=== PATIENT | male | born 1955 | race Caucasian/White ===

== ENCOUNTER → 2016-07-11 | Day surgery (SDC) | payer MEDICARE, BC ==
--- NOTE | 2016-07-09 13:40 | MH ---
cc: SEJAL RODRIGUEZ D.O. DATE OF ADMISSION: 07/11/2016 INDICATIONS This is a 60-year-old male with a previous history of head neck cancer. Josué had partial resection surgery and radiation therapy. He has had problems with [facility]. We have been doing a series of esophageal dilations which have helped him; however, he got to the point of difficulty with eating, aspiration, he lost weight then had to have a PEG tube. He has now been doing treatment with the speech therapy with [facility] and is much improved. He has put back weight and he is going to the operating room with repeat dilation to see if we can help him further with his swallowing. PAST MEDICAL HISTORY Significant for head and neck cancer. ALLERGIES IV DYE. PHYSICAL EXAMINATION GENERAL: A well-developed, well-nourished male in no current distress. HEAD, EYES, EARS, NOSE, AND THROAT: Normocephalic, atraumatic. Extraocular motions intact. External auditory canals clear. Lips, oral mucosa and pharynx show no lesion. No palpable mass. NECK: He is post neck dissection, post radiation therapy. CHEST: Clear to auscultation. HEART: Regular rate. ABDOMEN: Soft. EXTREMITIES: No lesion. NEUROLOGIC: Exam nonfocal. ASSESSMENT A 60-year-old male with dysphagia. He is to undergo esophageal dilation, soft rubber dilators, multiple passes. The risks and benefits were discussed with the patient. The risks include but are not limited to those of anesthesia, bleeding, unfavorable scarring, hematoma, abscess, infection, bleeding, perforation, airway obstruction. The patient states he understands and accepts the risks with this procedure. MD AURA Corrigan/RENEE /1:11 PM /1:32 PM
[~2016-07-11] VITALS: Ht 177.8 cm; Wt 76.5 kg
[~2016-07-11] MED LIST: *morphine SULFATE 8 MG/ML PERIprocedure ONLY ONE; ACETAMINOPHEN/HYDROcodone 325 MG/10 MG TAB PO PRN; AMBI10TA PO; CITA40TA4 PO; CITALOPRAM HYDROBROMIDE 40 MG TAB PO SCH; DO NOT ADM ANY ANTICOAGULANT DRUGS XX PRN; INSULIN HUMAN REGULAR 1,000 UNITS/10 ML VIAL SQ PRN; LACTATED RINGER'S 1000 ML IV SCH; LORA2TAB7 PO; LORazepam 2 MG TAB PO PRN; METOPROLOL TARTRATE 25 MG TAB PO PRN; MIDAZOLAM HCL 2 MG/2 ML VIAL ONE; MORPHINE SULFATE 4 MG/ML INJ IV PRN; ONDANSETRON HCL 4 MG/2 ML VIAL IV PRN; ONDANSETRON HCL 4 MG/2 ML VIAL IV PUSH ONE; PROPOFOL 200 MG/20 ML AMP IV ONE; SODIUM CHLORID 0.9% 500 ML IV SCH; ZOLPIDEM TARTRATE 10 MG TAB PO PRN
[2016-07-11 06:30] VITALS: BP 103/69; PULSE 62; RESP 20; TEMP 98.1; O2SAT 97
[2016-07-11 07:20] LABS: BASOPHIL % 0.6 % (0.0-2.0); EOSINOPHIL # 0.2 TH/MM3 (0-0.4); EOSINOPHIL % 3.2 % (0.0-4.0); HEMATOCRIT 36.6 % (39.0-51.0); HEMO FLAGS DIFF FINAL; LYMPH % 12.4 % (9.0-44.0); MEAN CELL VOLUME 83.3 FL (80.0-100.0); MEAN CORPUSCULAR HEMOGLOBIN 28.8 PG (27.0-34.0); MEAN CORPUSCULAR HGB CONC 34.6 % (32.0-36.0); MONO % 6.8 % (0.0-8.0); PLATELET COUNT 227 TH/MM3 (150-450); RED BLOOD COUNT 4.39 MIL/MM3 (4.50-5.90); RED CELL DISTRIBUTION WIDTH 13.5 % (11.6-17.2); WHITE BLOOD COUNT 7.9 TH/MM3 (4.0-11.0)
--- NOTE | 2016-07-11 08:59 | MP ---
cc: RADHA CHEEK M.D. DATE OF SURGERY: 07/11/2016 INDICATIONS This is a 61-year-old male with a history of head and neck cancer and previous radiation therapy. He has had problems with dysphagia. He is to undergo esophageal dilation with multiple passes of soft rubber dilators. PREOPERATIVE DIAGNOSIS Dysphagia. POSTOPERATIVE DIAGNOSIS Dysphagia. PROCEDURE Esophageal dilation with multiple passes of soft rubber dilators. SUMMARY The patient was brought to the operating room and placed in supine position, successfully placed under general anesthesia and prepared in the usual fashion for this procedure. The head and neck was palpated. There was no mass. The dilators were used from 46-52 Arabic with several passes. He was easily dilated. There was some mild resistance as expected. No heavy resistance and no evidence of significant bleeding. The patient tolerated the procedure well. He was awakened and taken to Recovery in stable condition. MD AURA Corrigan/HADLEY /8:38 AM /8:52 AM
[2016-07-11 09:30] VITALS: BP 134/7; PULSE 67; RESP 16; TEMP 97.6; O2SAT 96
== END | disposition home or self-care (01) ==
LOC: HSDC 05:59
PROVIDERS: ATTEND Specialist
DX: R13.13 Dysphagia, pharyngeal phase (principal); K22.2 Esophageal obstruction; C76.0 Malignant neoplasm of head, face and neck; R63.4 Abnormal weight loss; Z92.3 Personal history of irradiation
CPT/HCPCS: 00740; 43450; 85025; J2250; J2270; J2405; J3010

== ENCOUNTER → 2016-11-21 | Day surgery (SDC) | payer MEDICARE, BC ==
--- NOTE | 2016-11-20 08:17 | MH ---
cc: RADHA CHEEK DATE OF ADMISSION 11/21/2016 INDICATIONS This is a 61-year-old male with a history of head and neck cancer. He is status post radiation therapy. He has had problems with dysphagia and has required significant speech therapy help and dilation and has maintained his diet. He does have a history of aspiration pneumonia, but improved. He had required a PEG, but was able to have this removed. He has had some recent complaints of sore throat thought to be consistent with thrush. He was treated with meds and is feeling improved. He had a PET scan that did not show any significant tumor mass. It did show some activity, but it was consistent with inflammation and he is being brought into the operating room for esophageal dilation and evaluation under anesthesia. PAST MEDICAL HISTORY Significant for head and neck cancer. PHYSICAL EXAMINATION A well-developed thin male in no apparent distress. HEAD, EYES, EARS, NOSE, AND THROAT: Normocephalic, atraumatic. Extraocular motions intact. External ear canals clear. Lips, oral mucosa and oropharynx show no lesion. NECK: Shows post radiation changes. CHEST: Clear to auscultation. HEART: Regular rate. ABDOMEN: Soft. EXTREMITIES: No lesion. NEUROLOGIC: Exam is nonfocal. ASSESSMENT A 61-year-old male with dysphagia, postradiation to undergo esophageal dilation, and exam under anesthesia. The risks and benefits discussed with the patient. The risks include, but are not limited to those of anesthesia, bleeding, unfavorable scarring, hematoma, abscess, infection, airway obstruction, bleeding, dysphagia, unfavorable scarring, the patient states he they understands and accepts the risks of the procedure. MD AURA Corrigan/SERINA /7:41 AM /8:10 AM
[~2016-11-21] VITALS: Ht 177.8 cm; Wt 73.8 kg
[~2016-11-21] MED LIST changes: +ACETAMINOPHEN 1000 MG/100 ML VIAL IV ONE; +CHLORHEXIDINE GLUCONATE 2 % 1 PACK (2 CLOTHS) TOPICAL PRN; -CITALOPRAM HYDROBROMIDE 40 MG TAB PO SCH; +DO NOT ADM ANY ANTICOAGULANT DRUGS PRN; -DO NOT ADM ANY ANTICOAGULANT DRUGS XX PRN; +LACTATED RINGER'S 1000 ML IV PRN; -LACTATED RINGER'S 1000 ML IV SCH; -LORazepam 2 MG TAB PO PRN; -MIDAZOLAM HCL 2 MG/2 ML VIAL ONE; -ONDANSETRON HCL 4 MG/2 ML VIAL IV PRN; -ONDANSETRON HCL 4 MG/2 ML VIAL IV PUSH ONE; +ONDANSETRON HCL 4 MG/2 ML VIAL IV PUSH PRN; +POVIDONE IODINE 5% (ANTISEPSIS KIT) 4 APPLICATIONS EACH NARE PRN; +SODIUM CHLORID 0.9% 500 ML IV PRN; -SODIUM CHLORID 0.9% 500 ML IV SCH; -ZOLPIDEM TARTRATE 10 MG TAB PO PRN
[2016-11-21 08:56] VITALS: BP 116/75; PULSE 85; RESP 22; TEMP 99.1; O2SAT 94
[2016-11-21 09:07] LABS: BASOPHIL # 0.3 TH/MM3 (0-0.2); BASOPHIL % 1.3 % (0.0-2.0); EOSINOPHIL # 0.2 TH/MM3 (0-0.4); EOSINOPHIL % 1.1 % (0.0-4.0); HEMATOCRIT 35.1 % (39.0-51.0); LYMPH % 3.4 % (9.0-44.0); LYMPHOCYTE # 0.7 TH/MM3 (1.0-4.8); MEAN CELL VOLUME 82.2 FL (80.0-100.0); MEAN CORPUSCULAR HGB CONC 34.1 % (32.0-36.0); MONO % 2.8 % (0.0-8.0); NEUT % 91.4 % (16.0-70.0); PLATELET COUNT 422 TH/MM3 (150-450); RED BLOOD COUNT 4.27 MIL/MM3 (4.50-5.90); RED CELL DISTRIBUTION WIDTH 14.7 % (11.6-17.2); WHITE BLOOD COUNT 19.7 TH/MM3 (4.0-11.0)
[2016-11-21 09:10] LABS: HEMO FLAGS AUTO DIFF
[2016-11-21 09:43] LABS: BANDS 14 % (0-6); BASOPHILS 1 % (0-2); NEUTROPHIL # MANUAL DIFF 17.5 TH/MM3 (1.8-7.7); POLYS (SEG NEUTROPHILS) 75 % (16-70); WBC DIFF SAMPLE 100
[2016-11-21 09:44] LABS: OVALOCYTES 1+ (NORMAL); PLATELET ESTIMATE SMEAR NORMAL (NORMAL); PLATELET MORPHOLOGY NORMAL (NORMAL)
--- NOTE | 2016-11-21 09:44 | MP ---
cc: RADHA CHEEK Corrected: 11/30/2016 DATE OF PROCEDURE 11/21/2016 DATE OF 1955 INDICATIONS This is a 61-year-old male with a history of head and neck cancer who has had surgery and radiation therapy in the past. Josué has problems with dysphagia and would benefit from esophageal dilation. He is brought to the operating room for one of a serial esophageal dilations. PREOPERATIVE DIAGNOSIS Dysphagia POSTOPERATIVE DIAGNOSIS Dysphagia PROCEDURE Esophageal dilation SUMMARY The patient was brought to the operating room, placed in the supine position, successfully placed under anesthesia and prepared in the usual fashion for this procedure. The soft tissues of the oral cavity were palpated. There was no mass and in series using rubber dilators, he was dilated from 40-Urdu up to 50-Urdu. He tolerated the procedure well. He remained stable and he was awakened and taken to recovery in stable condition. MD AURA Corrigan/SERINA /9:32 AM /8:02 AM MTDMargarette
[2016-11-21 09:45] LABS: SCAN/DIFF FINAL DIFF MANUAL
[2016-11-21 13:10] VITALS: BP 114/70; PULSE 67; RESP 18; TEMP 98.2; O2SAT 93
--- NOTE | 2016-11-21 14:48 | EKG ---
Date Performed: 11/21/2016 Time Performed: 08:53:34 PTAGE: 61 years EKG: Sinus rhythm NORMAL ECG PREVIOUS TRACING : 11/08/2015 10.12 Compared to prior tracing no significant change DOCTOR: Kevyn Anthony Interpretating Date/Time 11/21/2016 14:46:28
== END | disposition home or self-care (01) ==
LOC: HSDC 08:00
PROVIDERS: ATTEND Specialist
DX: R13.10 Dysphagia, unspecified (principal); Z91.041 Radiographic dye allergy status; Z92.21 Personal history of antineoplastic chemotherapy; Z92.3 Personal history of irradiation; Y84.2 Radiological procedure and radiotherapy as the cause of abnormal reaction of the patient, or of later complication, without mention of misadventure at the time of the procedure; Z85.89 Personal history of malignant neoplasm of other organs and systems; Z01.810 Encounter for preprocedural cardiovascular examination
CPT/HCPCS: 00740; 43450; 85007; 85027; 93005; J0131; J2270

== ENCOUNTER → 2017-01-16 | Day surgery (SDC) | payer MEDICARE, BC ==
--- NOTE | 2017-01-15 12:52 | MH ---
cc: RADHA CHEEK M.D. DATE OF ADMISSION: 01/16/2017 DATE OF : 1955 CHIEF COMPLAINT Dysphagia. HISTORY OF PRESENT ILLNESS: This is a 61 year old male with previous history of head and neck cancer. He has had radiation therapy, previous surgeries, also has problems with dysphagia and has had multiple esophageal dilations over this time. He has had some problems with soreness and had worked with speech pathology. He has put on weight, he is having some problems with tightness, he had a CT PET scan that was done in November of this year which did not show a lesion, he was brought back for another esophageal dilatation. PAST MEDICAL HISTORY: Significant for head/neck cancer. CURRENT MEDICATIONS: None. ALLERGIES IV CONTRAST. PHYSICAL EXAMINATION: IN GENERAL: Well-developed, well-nourished male in no apparent distress. HEAD, EYES, EARS, NOSE, AND THROAT: Normocephalic, atraumatic, extraocular muscles intact. External ear canal is clear. Lips, oral mucosa and oropharynx showed a lesion. NECK: The neck shows post radiation changes, no mass. CHEST: The chest is clear to auscultation. HEART: Regular rate. ABDOMEN: The abdomen is soft. EXTREMITIES: No lesions. NEUROLOGIC: Examination is nonfocal. ASSESSMENT/PLAN: This is a 61 year-old male with dysphagia. History of laryngeal cancer he is to undergo esophageal dilatation. The risks and benefits were discussed with the patient. The risks include but are not limited to those of anesthesia, bleeding, unfavorable scarring, hematoma abscess, infection, perforation, bleeding, airway obstruction. The patient states that he understands and accepts the procedure. MD AURA Corrigan/kenneth /12:40 PM /12:43 PM
[~2017-01-16] VITALS: Ht 177.8 cm; Wt 70.4 kg
[~2017-01-16] MED LIST changes: -ACETAMINOPHEN 1000 MG/100 ML VIAL IV ONE; +HYDROmorphone HCL PF 1 MG/ML VIAL ONE; +MIDAZOLAM HCL 2 MG/2 ML VIAL ONE; -MORPHINE SULFATE 4 MG/ML INJ IV PRN; +MORPHINE SULFATE 4 MG/ML INJ IV PUSH PRN; +ONDANSETRON HCL 4 MG/2 ML VIAL IV PUSH ONE; -POVIDONE IODINE 5% (ANTISEPSIS KIT) 4 APPLICATIONS EACH NARE PRN
[2017-01-16 08:08] VITALS: BP 96/62; PULSE 67; RESP 16; TEMP 97.6; O2SAT 98
[2017-01-16 08:47] LABS: AUTOMATED NEUTROPHIL # 3.2 TH/MM3 (1.8-7.7); BASOPHIL % 0.7 % (0.0-2.0); EOSINOPHIL # 0.1 TH/MM3 (0-0.4); EOSINOPHIL % 2.4 % (0.0-4.0); HEMATOCRIT 37.7 % (39.0-51.0); HEMO FLAGS DIFF FINAL; LYMPH % 21.5 % (9.0-44.0); MEAN CELL VOLUME 84.2 FL (80.0-100.0); MEAN CORPUSCULAR HEMOGLOBIN 28.3 PG (27.0-34.0); MEAN CORPUSCULAR HGB CONC 33.6 % (32.0-36.0); MONO % 7.2 % (0.0-8.0); NEUT % 68.2 % (16.0-70.0); PLATELET COUNT 204 TH/MM3 (150-450); RED BLOOD COUNT 4.48 MIL/MM3 (4.50-5.90); RED CELL DISTRIBUTION WIDTH 13.6 % (11.6-17.2); WHITE BLOOD COUNT 4.7 TH/MM3 (4.0-11.0)
--- NOTE | 2017-01-16 09:12 | MP ---
cc: RADHA CHEEK DATE OF SURGERY 01/16/2017 INDICATIONS This is a 61-year-old male with history of dysphagia. Josué has had head and neck cancer with radiation treatment. He has had problems with swallowing. He has required multiple dilations over time and also required speech therapy. In the last few months, he has continued to have problems. He had more pain. We obtained a PET scan which did not show any bony involvement, did not show recurrent tumor, had some more mild inflammatory changes. He has follow up pending at the [facility] for evaluation of his continued symptoms, but meanwhile, we are repeating esophageal dilation to help him with his swallowing. PREOPERATIVE DIAGNOSIS Dysphagia POSTOPERATIVE DIAGNOSIS Dysphagia PROCEDURE Esophageal dilation SUMMARY The patient brought to the operating room, placed in the supine position, successfully placed under general anesthesia deep sedation and prepared in the usual fashion for this procedure. The oral cavity areas were palpated. There was no palpable lesion. Then with soft rubber dilators, he underwent multiple passes which were atraumatic. He tolerated this well. He was then awakened and taken to recovery in stable condition. MD AURA Corrigan/SERINA /8:57 AM /12:05 PM
[2017-01-16 10:52] VITALS: BP 112/68; PULSE 63; RESP 14; TEMP 97.7; O2SAT 98
== END | disposition home or self-care (01) ==
LOC: HSDC 07:29
PROVIDERS: ATTEND Specialist
DX: R13.10 Dysphagia, unspecified (principal); Z85.21 Personal history of malignant neoplasm of larynx; Z01.818 Encounter for other preprocedural examination
CPT/HCPCS: 00740; 43450; 85025; J1170; J2250; J2270; J2405; J3010; J7120

== ENCOUNTER → 2017-03-20 | Day surgery (SDC) | payer MEDICARE, BC ==
--- NOTE | 2017-03-18 13:25 | MH ---
cc: RADHA CHEEK M.D. Corrected: 03/25/17 DATE OF ADMISSION: 03/20/17 INDICATIONS This is a 61-year-old male with history of head and neck cancer. He had undergone radiation therapy and surgery approximately 15 years ago. He also had problems with dysphagia and this required multiple rounds of dilation. He has had more problems with pain in the last year and there is concern that he may have had recurrent disease. He had a negative PET scan in November of this year. I have not seen evidence of a lesion. However, I did send him for a second opinion at the [facility] and there he was found to have only a slight vocal cord paresis . 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 He has required therapy to include opioid but currently he has a referral to pain management and we are bringing him back for esophageal dilation and multiple passes with soft rubber dilators. PAST MEDICAL HISTORY Past medical history as above, head and neck cancer, radiation fibrosis. PHYSICAL EXAMINATION GENERAL: Well-developed, well-nourished male, in no apparent distress. HEENT: Normocephalic, atraumatic. Extraocular motions intact. External ear canals clear. Lips, oral mucosa and oropharynx show no lesion or postradiation changes. NECK: The neck shows no palpable masses. CHEST: Clear to auscultation. HEART: Regular rate. ABDOMEN: Soft. EXTREMITIES: No lesion. NEUROLOGIC: Exam nonfocal. 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 The risks and benefits were discussed with the patient. The risks include but not limited to those of anesthesia, bleeding, unfavorable scarring, velopharyngeal insufficiency, dehydration, depression, abscess, voice change, bleeding, perforation, infection. The patient states he understands and accepts the risks of procedure. MD AURA Corrigan/HASEEB /1:00 PM /1:10 PM JOSEPH
[~2017-03-20] VITALS: Ht 177.8 cm; Wt 70.8 kg
[~2017-03-20] MED LIST changes: -*morphine SULFATE 8 MG/ML PERIprocedure ONLY ONE; +DEXAMETHASONE SOD PHOS 4 MG/ML VIAL ONE; -HYDROmorphone HCL PF 1 MG/ML VIAL ONE; +LIDOCAINE HCL 1% PF 5 ML AMPULE OTHER ONE; +MORPHINE SULFATE 4 MG/ML INJ IV PRN; -MORPHINE SULFATE 4 MG/ML INJ IV PUSH PRN; -ONDANSETRON HCL 4 MG/2 ML VIAL IV PUSH ONE
[2017-03-20 08:44] LABS: AUTOMATED NEUTROPHIL # 5.3 TH/MM3 (1.8-7.7); BASOPHIL # 0.1 TH/MM3 (0-0.2); BASOPHIL % 0.9 % (0.0-2.0); EOSINOPHIL # 0.4 TH/MM3 (0-0.4); EOSINOPHIL % 5.1 % (0.0-4.0); HEMATOCRIT 33.5 % (39.0-51.0); HEMO FLAGS DIFF FINAL; LYMPH % 16.1 % (9.0-44.0); LYMPHOCYTE # 1.2 TH/MM3 (1.0-4.8); MEAN CELL VOLUME 82.6 FL (80.0-100.0); MEAN CORPUSCULAR HEMOGLOBIN 28.1 PG (27.0-34.0); MONO % 5.7 % (0.0-8.0); NEUT % 72.2 % (16.0-70.0); PLATELET COUNT 258 TH/MM3 (150-450); RED BLOOD COUNT 4.06 MIL/MM3 (4.50-5.90); RED CELL DISTRIBUTION WIDTH 14.1 % (11.6-17.2); WHITE BLOOD COUNT 7.4 TH/MM3 (4.0-11.0)
--- NOTE | 2017-03-20 09:52 | MP ---
cc: RADHA CHEEK M.D. Corrected: 03/25/17 DATE OF SURGERY: 03/20/2017 INDICATION A 61-year-old male with a history of dysphagia. Josué was treated with radiation and surgery for head and neck cancer over 15 years ago. 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 He has responded to esophageal dilation with soft rubber dilators. He is brought to the operating room for esophageal dilation, multiple passes of soft rubber dilators. PREOPERATIVE DIAGNOSIS Dysphagia. POSTOPERATIVE DIAGNOSIS Dysphagia. PROCEDURE Esophageal dilation with multiple passes of soft rubber dilators. SUMMARY The patient was brought into the operating room and placed in supine position, prepped and draped in the usual fashion for this procedure under anesthesia. With soft rubber dilators, 44 to 50 Fr., he underwent dilation of the esophagus. He tolerated this well. No significant bleeding. No evidence of perforation. He was awakened and taken to Recovery in stable condition. MD AURA Corrigan/HADLEY /9:35 AM /9:39 AM MTDD
[2017-03-20 11:08] VITALS: BP 142/74; PULSE 62; RESP 18; TEMP 97.8; O2SAT 96
== END | disposition home or self-care (01) ==
LOC: HSDC 07:37
PROVIDERS: ATTEND Specialist
DX: R13.10 Dysphagia, unspecified (principal); Z85.89 Personal history of malignant neoplasm of other organs and systems; Z92.3 Personal history of irradiation; K22.8 Other specified diseases of esophagus
CPT/HCPCS: 00740; 43450; 85025; J1100; J2250

== ENCOUNTER → 2017-05-01 | Day surgery (SDC) | payer MEDICARE, BC ==
--- NOTE | 2017-04-29 14:15 | MH ---
cc: RADHA CHEEK M.D. DATE OF ADMISSION: 05/01/2017 1955 CHIEF COMPLAINT Dysphagia. HISTORY OF PRESENT ILLNESS Josué is a 61-year-old male with history of head and neck cancer, in 2007, he had tongue cancer and underwent radiation therapy. He has had problems with dysphagia since that time. He had problems where he required significant pain control. He has seen pain management, he has had opinions at the [facility] and was felt that he has no evidence of recurrence. He also shows no evidence of osteomyelitis. He has had multiple esophageal dilations and these are helping him. Plan is to proceed with esophageal dilation. PAST MEDICAL HISTORY Head and neck cancer, previous knee surgery. MEDICATIONS 1. Lorazepam. 2. Zolpidem. 3. Hydrocodone. 4. Citalopram. ALLERGIES IVP DYE. PHYSICAL EXAMINATION GENERAL: This is a well-developed thin male, in no apparent distress. HEENT: Normocephalic, atraumatic. Extraocular motions intact. External ear canals are clear. Lips, oral mucosa and oropharynx show no lesion. NECK: Shows no masses. CHEST: Clear to auscultation. HEART: Regular rate. ABDOMEN: Soft. EXTREMITIES: No lesion. NEUROLOGIC: Nonfocal. ASSESSMENT This is a 61-year-old male with dysphagia, history of head and neck cancer. He is to undergo esophageal dilation, soft rubber dilators, multiple passes. The risks and benefits were discussed with the patient. The risks include but not limited to those of anesthesia, bleeding, unfavorable scarring, hematoma, abscess, infection, airway obstruction, bleeding, dysphagia. The patient states he understands and accepts the risks of the procedure. MD AURA Corrigan/HASEEB /1:52 PM /2:01 PM
[~2017-05-01] VITALS: Ht 177.8 cm; Wt 73.4 kg
[~2017-05-01] MED LIST changes: -DEXAMETHASONE SOD PHOS 4 MG/ML VIAL ONE; -DO NOT ADM ANY ANTICOAGULANT DRUGS PRN; -INSULIN HUMAN REGULAR 1,000 UNITS/10 ML VIAL SQ PRN; +MIDAZOLAM HCL 2 MG/2 ML VIAL IV ONE; -MIDAZOLAM HCL 2 MG/2 ML VIAL ONE; +POVIDONE IODINE 5% (ANTISEPSIS KIT) 4 APPLICATIONS EACH NARE PRN
[2017-05-01 07:17] LABS: AUTOMATED NEUTROPHIL # 9.3 TH/MM3 (1.8-7.7); BASOPHIL # 0.1 TH/MM3 (0-0.2); BASOPHIL % 0.6 % (0.0-2.0); EOSINOPHIL # 0.1 TH/MM3 (0-0.4); EOSINOPHIL % 0.6 % (0.0-4.0); HEMATOCRIT 29.8 % (39.0-51.0); HEMO FLAGS DIFF FINAL; LYMPH % 9.2 % (9.0-44.0); MEAN CELL VOLUME 85.2 FL (80.0-100.0); MEAN CORPUSCULAR HEMOGLOBIN 27.3 PG (27.0-34.0); MONO % 5.6 % (0.0-8.0); PLATELET COUNT 240 TH/MM3 (150-450); RED BLOOD COUNT 3.49 MIL/MM3 (4.50-5.90); RED CELL DISTRIBUTION WIDTH 14.3 % (11.6-17.2)
--- NOTE | 2017-05-01 09:55 | MP ---
cc: RADHA CHEEK DATE OF SURGERY: 05/01/2017 1955 INDICATIONS 61-year-old male with history of dysphagia. Josué has had history of head and neck cancer and radiation. He has had problems with dysphagia and requires esophageal dilations. We have done multiple dilations which have helped and he is brought to the operating room with plans for esophageal dilation, multiple passes, soft rubber dilators. PREOPERATIVE DIAGNOSIS Dysphagia. POSTOPERATIVE DIAGNOSIS Dysphagia. PROCEDURE Esophageal dilation, multiple passes, soft rubber dilators. SUMMARY The patient was brought to the operating room and placed in supine position, successfully placed under general anesthesia and prepared in the usual fashion for this procedure. The oral cavity was exposed with digital retraction, multiple passes were completed from 44-48 Croatian. There was no bleeding. The patient tolerated the procedure well and dilators aided in opening the upper esophageal and cricopharyngeal areas. He was awakened and taken to recovery in stable condition. MD AURA Corrigan/HASEEB /9:44 AM /9:48 AM
[2017-05-01 10:23] VITALS: BP 144/76; PULSE 72; RESP 20; TEMP 98.1; O2SAT 95
== END | disposition home or self-care (01) ==
LOC: HSDC 05:35
PROVIDERS: ATTEND Specialist
DX: R13.10 Dysphagia, unspecified (principal); Z85.810 Personal history of malignant neoplasm of tongue; Z85.89 Personal history of malignant neoplasm of other organs and systems; Z92.3 Personal history of irradiation
CPT/HCPCS: 00740; 43450; 85025; J2250; J7120

== ENCOUNTER 2017-06-13 11:01 | Emergency (ER) | payer MEDICARE, BC ==
[~2017-06-13 11:01] MED LIST changes: -ACETAMINOPHEN/HYDROcodone 325 MG/10 MG TAB PO PRN; -CHLORHEXIDINE GLUCONATE 2 % 1 PACK (2 CLOTHS) TOPICAL PRN; -LACTATED RINGER'S 1000 ML IV PRN; -LIDOCAINE HCL 1% PF 5 ML AMPULE OTHER ONE; -METOPROLOL TARTRATE 25 MG TAB PO PRN; -MIDAZOLAM HCL 2 MG/2 ML VIAL IV ONE; -MORPHINE SULFATE 4 MG/ML INJ IV PRN; -ONDANSETRON HCL 4 MG/2 ML VIAL IV PUSH PRN; -POVIDONE IODINE 5% (ANTISEPSIS KIT) 4 APPLICATIONS EACH NARE PRN; -PROPOFOL 200 MG/20 ML AMP IV ONE; -SODIUM CHLORID 0.9% 500 ML IV PRN
[2017-06-13 11:03] VITALS: BP 101/52; PULSE 92; RESP 14; TEMP 97.7; O2SAT 93
--- NOTE | 2017-06-13 14:25 | PD ---
HPI Chief Complaint: Medication Refill Request Time Seen by Provider: 11:35 Travel History International Travel<30 days: No Contact w/Intl Traveler<30days: No Traveled to known affect area: No History of Present Illness HPI 61-year-old male patient presents emergency department to request a prescription for Percocet to help manage his throat pain. Patient has throat cancer and states he has a prescription for Percocet but somebody stole it. Patient states Dr Awilda romo is oncologist who prescribes the Percocet. Patient denies any other physiological complaints at this time. Patient states he always has throat pain for years now. Patient able to speak without strain or appearing uncomfortable. Patient denies any change in nature of throat pain. History Past Medical Histgory Hx Cancer: Yes (THROAT AND NECK) Hx Chemotherapy: Yes (CHEMO / RADIATION 10 YEARS AGO) Hx Radiation Therapy: Yes Social History Alcohol Use: No Tobacco Use: No Allergies-Medications (Allergen,Severity, Reaction): Coded Allergies: diatrizoate meglumine (Unverified Allergy, Severe, HIVES, DIZZINESS, 06/13) gadobenic acid (Unverified Allergy, Severe, HIVES, DIZZINESS, 06/13/17) gadodiamide (Unverified Allergy, Severe, HIVES, DIZZINESS, 06/13/17) gadoteridol (Unverified Allergy, Severe, HIVES, DIZZINESS, 06/13/17) iodixanol (Unverified Allergy, Severe, HIVES, DIZZINESS, 06/13/17) iohexol (Unverified Allergy, Severe, HIVES, DIZZINESS, 06/13/17) Reported Meds & Prescriptions Reported Meds & Active Scripts Active Reported Citalopram (Citalopram Hydrobromide) 40 Mg Tab 40 Mg PO HS Lorazepam 2 Mg Tab 2 Mg PO Q6H PRN Ambien (Zolpidem Tartrate) 10 Mg Tab 10 Mg PO HS PRN Review of Systems Except as stated in HPI: all other systems reviewed are Neg HENT: Positive: Sore Throat Physical Exam Narrative GENERAL: Well-nourished, well-developed 61-year-old male patient in no acute distress. SKIN: Focused skin assessment warm/dry. HEAD: Normocephalic. Atraumatic. EYES: No scleral icterus. No injection or drainage. THROAT: No pharyngeal injection, exudates, or tonsillar hypertrophy. Airway is patent. NECK: Supple, trachea midline. No JVD or lymphadenopathy. CARDIOVASCULAR: Regular rate and rhythm without murmurs, gallops, or rubs. RESPIRATORY: Breath sounds equal bilaterally. No accessory muscle use. GASTROINTESTINAL: Abdomen soft, non-tender, nondistended. MUSCULOSKELETAL: No cyanosis, or edema. Data Data Last Documented VS Vital Signs Date Time Temp Pulse Resp B/P (MAP) Pulse Ox O2 Delivery O2 Flow Rate FiO2 06/13/17 11:03 97.7 92 14 101/52 (68) 93 MDM Medical Screen Exam Complete: Yes Emergency Medical Condition: No Differential Diagnosis Differential diagnoses include but not limited to medication refill, chronic pain, cancer pain, sore throat Narrative Course Patient instructed to call his oncologist that originally prescribed the Percocet and told him that the prescription was stolen. A medical screening exam was performed: At the time of evaluation the presenting medical condition was determined not to be of an emergent nature. The patient was given the option of receiving additional care, but declined. Patient was given options for additional community resources from which to obtain care. The Patient Has Been advised to seek medical attention for their presenting complaint. The patient has been advised to return to the ER at any time if an emergent condition develops. Primary Impression: Encounter for medical screening examination Disposition: 07 EDGO-ED USE ONLY Condition: Stable Suma Blanco Jun 13, 2017 14:25
== END 2017-06-13 11:53 | disposition left against medical advice (07) ==
LOC: NEPK 11:01
DX: C14.0 Malignant neoplasm of pharynx, unspecified (principal); Z76.0 Encounter for issue of repeat prescription
CPT/HCPCS: 99281

== ENCOUNTER → 2017-08-28 | Day surgery (SDC) | payer MEDICARE, BC ==
--- NOTE | 2017-08-26 13:15 | MH ---
cc: Brian Fuentes MD DATE OF ADMISSION: 08/28/2017 DATE OF : 1955 CHIEF COMPLAINT: Dysphagia. HISTORY: This patient is a 62-year-old male with history of head and neck cancer. Josué has significant scarring post-radiation, has had problems with odynophagia and dysphagia. He is being treated for his pain. Multiple serial dilations have helped him with his swallowing. He has had evaluation with PET scan and has been seen at the [facility] with no evidence of recurrence. We are bringing him back for esophageal dilatation, blind passes, multiple passes under general anesthesia. PAST MEDICAL HISTORY: Significant for head and neck cancer, neck pain. MEDICATIONS: 1. Lorazepam. 2. Zolpidem. 3. Hydrocodone acetaminophen. 4. Atorvastatin. ALLERGIES: CONTRAST DYE ALLERGY. PHYSICAL EXAMINATION: GENERAL: A well-developed, thin male in no apparent distress. HEENT: Normocephalic, atraumatic. Extraocular motions intact. External auditory canals are clear. Lips, oral mucosa and oropharynx show no lesion. NECK: No masses, post-radiation changes are present. The fiberoptic laryngoscopy shows no lesion. CHEST: Clear to auscultation. HEART: Regular rate. ABDOMEN: Soft. EXTREMITIES: No lesion. NEUROLOGIC EXAM: Nonfocal. ASSESSMENT AND PLAN: A 62-year-old male with dysphagia, to undergo esophageal dilatation, soft rubber dilators multiple passes. The risks and benefits were discussed with the patient. The risks include but are not limited to those of anesthesia, bleeding, unfavorable scarring, hematoma, abscess, infection, perforation, bleeding, airway obstruction. The patient states he understands and accepts the risks of the procedure. MD VIKTOR Betancourt/SB , 01:03 PM , 01:13 PM
[~2017-08-28] VITALS: Ht 177.8 cm; Wt 64.0 kg
[~2017-08-28] MED LIST changes: +ACETAMINOPHEN/HYDROcodone 325 MG/10 MG TAB ONE; +ACETAMINOPHEN/HYDROcodone 325 MG/10 MG TAB PO PRN; +CHLORHEXIDINE GLUCONATE 2 % 1 PACK (2 CLOTHS) TOPICAL PRN; +DEXAMETHASONE SOD PHOS 4 MG/ML VIAL IV ONE; +HYDR-3583 PO; +LACTATED RINGER'S 1000 ML IV PRN; +LIDOCAINE HCL 1% PF 5 ML SYRINGE OTHER ONE; +METOPROLOL TARTRATE 25 MG TAB PO PRN; +MORPHINE SULFATE 4 MG/ML INJ IV PRN; +ONDANSETRON HCL 4 MG/2 ML VIAL IV PRN; +PROPOFOL 200 MG/20 ML AMP IV ONE; +SODIUM CHLORID 0.9% 500 ML IV PRN
[2017-08-28 07:48] LABS: BASOPHIL # 0.1 TH/MM3 (0-0.2); BASOPHIL % 0.4 % (0.0-2.0); EOSINOPHIL # 0.4 TH/MM3 (0-0.4); EOSINOPHIL % 3.5 % (0.0-4.0); HEMATOCRIT 30.1 % (39.0-51.0); HEMOGLOBIN 10.1 GM/DL (13.0-17.0); LYMPH % 7.1 % (9.0-44.0); LYMPHOCYTE # 0.9 TH/MM3 (1.0-4.8); MEAN CELL VOLUME 83.4 FL (80.0-100.0); MEAN CORPUSCULAR HGB CONC 33.6 % (32.0-36.0); MEAN PLATELET VOLUME 7.1 FL (7.0-11.0); MONO % 3.7 % (0.0-8.0); MONOCYTE # 0.5 TH/MM3 (0-0.9); NEUT % 85.3 % (16.0-70.0); PLATELET COUNT 239 TH/MM3 (150-450); RED BLOOD COUNT 3.61 MIL/MM3 (4.50-5.90); RED CELL DISTRIBUTION WIDTH 15.3 % (11.6-17.2); WHITE BLOOD COUNT 12.9 TH/MM3 (4.0-11.0)
--- NOTE | 2017-08-28 09:14 | MP ---
cc: Brian Fuentes MD DATE OF PROCEDURE: 08/28/2017 INDICATION: A 62-year-old male with history of head and neck cancer, previous radiation. He has scarring. He has dysphagia. He is to undergo esophageal dilation, multiple passes with soft-rubber dilators. PREOPERATIVE DIAGNOSIS: Dysphagia. POSTOPERATIVE DIAGNOSIS: Dysphagia. PROCEDURE: Esophageal dilation, soft dilators, multiple passes. SUMMARY: The patient was brought to the operating room and placed in the supine position, successfully placed under general anesthesia and prepared in the usual fashion for this procedure. The oral cavity was palpated. There was no lesion. He was dilated with passes of a 48 Faroese and 50 Faroese dilator. There was no significant bleeding. His airway remained stable. He tolerated the procedure well. He was awakened and taken to the recovery room in stable condition. Brian Fuentes MD JPM/TL , 09:02 AM , 09:12 AM MTDMargarette
[2017-08-28 09:40] VITALS: BP 98/64; PULSE 83; RESP 18; TEMP 98.1; O2SAT 94
== END | disposition home or self-care (01) ==
LOC: HSDC 06:18
PROVIDERS: ATTEND Specialist
DX: R13.10 Dysphagia, unspecified (principal); Z85.89 Personal history of malignant neoplasm of other organs and systems; Z92.3 Personal history of irradiation
CPT/HCPCS: 00320; 43450; 85025; J1100; J7120

== ENCOUNTER → 2017-10-02 | Day surgery (SDC) | payer MEDICARE, BC ==
--- NOTE | 2017-09-30 13:14 | MH ---
cc: Brian Fuentes MD DATE OF ADMISSION: 10/02/2017 CHIEF COMPLAINT: Dysphagia. 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 He is requiring multiple dilations due to dysphagia/odynophagia with soft rubber dilators. He is brought back to the operating room with a similar complaint. Josué has had past problems of aspiration pneumonia and these are no longer present. He is generally doing better with serial dilations. PAST MEDICAL HISTORY: Significant for head and neck cancer. ALLERGIES: NO KNOWN DRUG ALLERGIES. CURRENT MEDICATIONS: Atorvastatin, lorazepam, hydrocodone/acetaminophen. ALLERGIES: CONTRAST DYE. PHYSICAL EXAMINATION: GENERAL: A well-developed male in no apparent distress. HEENT: Normocephalic and atraumatic. Extraocular motions intact. External ear canals clear. Lips, oral mucosa and oropharynx show no lesion. He has postradiation changes. NECK: Shows no masses. CHEST: Clear to auscultation. HEART: Regular rate. ABDOMEN: Soft. EXTREMITIES: No lesions. NEUROLOGIC: Nonfocal. ASSESSMENT/PLAN: A 62-year-old male with head and neck cancer to undergo esophageal dilation with soft rubber dilators with multiple passes. Risks and benefits discussed with the patient. The risks include, but not limited to those of anesthesia, bleeding unfavorable scarring, perforation, abscess, infection, bleeding, airway obstruction, dysphagia. The patient states he understands and accepts the risks of the procedure. MD VIKTOR Betancourt/ALPHONSE , 01:01 PM , 01:12 PM
[~2017-10-02] VITALS: Ht 177.8 cm; Wt 62.0 kg
[~2017-10-02] MED LIST changes: -ACETAMINOPHEN/HYDROcodone 325 MG/10 MG TAB ONE; -ACETAMINOPHEN/HYDROcodone 325 MG/10 MG TAB PO PRN; -CHLORHEXIDINE GLUCONATE 2 % 1 PACK (2 CLOTHS) TOPICAL PRN; +INSULIN HUMAN REGULAR 1,000 UNITS/10 ML VIAL SQ PRN; -LIDOCAINE HCL 1% PF 5 ML SYRINGE OTHER ONE; +MIDAZOLAM HCL 2 MG/2 ML VIAL ONE; +MORPHINE SULFATE 2 MG/ML SYRINGE ONE; -MORPHINE SULFATE 4 MG/ML INJ IV PRN; -ONDANSETRON HCL 4 MG/2 ML VIAL IV PRN
[2017-10-02 08:26] LABS: AUTOMATED NEUTROPHIL # 9.5 TH/MM3 (1.8-7.7); BASOPHIL # 0.1 TH/MM3 (0-0.2); BASOPHIL % 0.6 % (0.0-2.0); EOSINOPHIL # 0.3 TH/MM3 (0-0.4); EOSINOPHIL % 2.6 % (0.0-4.0); HEMATOCRIT 32.8 % (39.0-51.0); LYMPH % 7.4 % (9.0-44.0); LYMPHOCYTE # 0.8 TH/MM3 (1.0-4.8); MEAN CELL VOLUME 83.1 FL (80.0-100.0); MEAN CORPUSCULAR HEMOGLOBIN 27.9 PG (27.0-34.0); MEAN CORPUSCULAR HGB CONC 33.6 % (32.0-36.0); MEAN PLATELET VOLUME 7.2 FL (7.0-11.0); MONO % 3.6 % (0.0-8.0); MONOCYTE # 0.4 TH/MM3 (0-0.9); NEUT % 85.8 % (16.0-70.0); PLATELET COUNT 339 TH/MM3 (150-450); RED BLOOD COUNT 3.95 MIL/MM3 (4.50-5.90); RED CELL DISTRIBUTION WIDTH 14.4 % (11.6-17.2); WHITE BLOOD COUNT 11.1 TH/MM3 (4.0-11.0)
--- NOTE | 2017-10-02 09:52 | MP ---
cc: Brian Fuentes MD DATE OF OPERATION: 10/02/2017 INDICATIONS: A 62-year-old male with dysphagia. He has a long history of post-radiation following head and neck cancer. He has had problems swallowing and has had multiple esophageal dilations. PREOPERATIVE DIAGNOSIS: Dysphagia. POSTOPERATIVE DIAGNOSIS: Dysphagia. PROCEDURE: Esophageal dilation, multiple passes with soft rubber dilator. SUMMARY: The patient was brought to the operating room and placed in supine position, successfully placed under anesthesia, prepared in the usual fashion for this procedure. Soft tissues of the head and neck were palpated. There was no palpable mass. Soft rubber dilators were taken from 40-44 Persian and tolerated this well. A small amount of bleeding was self limited. He was awakened and taken to Recovery in stable condition. Brian Fuentes MD JPM/SB , 09:36 AM , 09:51 AM
[2017-10-02 10:19] VITALS: BP 96/55; PULSE 64; RESP 18; TEMP 98.1; O2SAT 98
== END | disposition home or self-care (01) ==
LOC: HSDC 07:18
PROVIDERS: ATTEND Specialist
DX: R13.10 Dysphagia, unspecified (principal); C76.0 Malignant neoplasm of head, face and neck; Z92.3 Personal history of irradiation
CPT/HCPCS: 00320; 43450; 85025; J1100; J2250; J2270

== ENCOUNTER 2017-12-22 13:32 | Inpatient (IN) ==
[2017-12-22] MEDS ORDERED: Vancomycin Inj 1 GM/200 ML PIGGYBACK IV.SIG ONE (14:23)
[2017-12-22] MEDS ORDERED: Piperacil/Tazo 3.375 GM Premix 50 ML IV.SIG ONE (14:23)
--- NOTE | 2017-12-22 14:32 | ED ---
HPI General Chief Complaint: Extremity Injury, Lower Stated Complaint: Left foot complaint Time Seen by Provider: 12/22/17 14:20 Source: patient Mode of arrival: ambulatory Limitations: no limitations History of Present Illness HPI Narrative: Proximally 4 days ago while he was trying to fix something in his house he stepped on a stool when apparently he lost his balance and twisted his ankle and landed on his left side. Since then he started to develop swelling bruising all over the entire left lower extremity. He went to see his primary care physician but only did an x-ray of his foot and ankle and did not follow-up nor has given him any answers as to what if any of the results. MD complaint: foot injury and fall Onset (ago): day(s) (5) Type of Injury: blunt Place: home Severity: moderate Severity scale (1-10): 8 Relieving factors: nothing Exacerbating factors: nothing Context: fall Associated symptoms: swelling Related Data Home Medications Medication Instructions Recorded Confirmed citalopram 40 mg PO HS 12/22/17 01/02/18 zolpidem [Ambien] 10 mg PO HS 12/22/17 01/02/18 Previous Rx's Medication Instructions Recorded magnesium hydroxide [Milk of 30 ml PO Q12H PRN #300 ml 12/25/17 Magnesia] albuterol sulfate 0.63 mg NEB Q6HR NEB PRN ml 01/06/18 aspirin 81 mg PO DAILY tab 01/06/18 lorazepam [Ativan] 2 mg PO QID #5 tab 01/06/18 oxycodone 5 mg PO Q6H PRN #5 ml 01/06/18 ramipril 2.5 mg PO DAILY cap 01/06/18 Allergies Allergy/AdvReac Type Severity Reaction Status Date / Time diatrizoate meglumine Allergy Severe HIVES, Verified 10/02/17 07:45 DIZZINESS gadobenic acid Allergy Severe HIVES, Verified 10/02/17 07:45 DIZZINESS gadodiamide Allergy Severe HIVES, Verified 10/02/17 07:45 DIZZINESS gadoteridol Allergy Severe HIVES, Verified 10/02/17 07:45 DIZZINESS Iodinated Contrast- Oral and Allergy Severe Hives Verified 10/02/17 07:45 IV Dye iodixanol Allergy Severe HIVES, Verified 10/02/17 07:45 DIZZINESS iohexol Allergy Severe HIVES, Verified 10/02/17 07:45 DIZZINESS Review of Systems Except as stated in HPI: all other systems reviewed are negative [facility] Medical History Medical History Cancer of neck (Acute) Esophageal stricture (Acute) Surgical History Surgical History History of skin graft (Acute) S/P skin cancer resection (Acute) Social History Social History Substance History: No History of Abuse Second Hand Smoke Exposure: Yes Smoking Status: Former smoker Tobacco Type: Cigarettes How Often Do You Have a Drink Containing Alcohol: Never Recent Travel in [facility] within the Last 8 Weeks: No Recent Out of Country Travel within the Last 8 Weeks: No Immunization History Tetanus Immunization: <5 Years Hx Influenza Vaccine This Season: Yes Exam Narrative Exam Narrative: GENERAL: Well-nourished, well-developed patient in no apparent distress. SKIN: Warm and dry. HEAD: Atraumatic. Normocephalic. EYES: Pupils equal and round. No scleral icterus. No injection or drainage. ENT: No nasal bleeding or discharge. Mucous membranes pink and moist. NECK: Trachea midline. No JVD. CARDIOVASCULAR: Regular rate and rhythm. no rubs or gallops RESPIRATORY: No accessory muscle use. Clear to auscultation. Breath sounds equal bilaterally. GASTROINTESTINAL: Abdomen soft, non-tender, nondistended. No rebound or guarding MUSCULOSKELETAL: Extremities without clubbing. Left lower extremity below knee has a 2+ pitting edema, the left foot as ecchymosis all around the entire foot lateral and dorsal aspect, additionally at the base of the second third and fourth digits/proximal phalanx the patient has a healing laceration that appears to be infected and is oozing purulent material NEUROLOGICAL: Awake and alert. No obvious cranial nerve deficits. Motor grossly within normal limits. Five out of 5 muscle strength in the arms and legs. Normal speech. PSYCHIATRIC: Appropriate mood and affect; insight and judgment normal. Course Initial Documented Vital Signs Temperature 98.3 F 12/22/17 13:45 Pulse Rate 100 H 12/22/17 13:45 Respiratory Rate 17 12/22/17 13:45 Blood Pressure 147/66 H 12/22/17 13:45 Pulse Oximetry 95 07/08/18 13:45 Last Documented Vital Signs Temperature 98.7 F 12/25/17 16:00 Pulse Rate 80 12/25/17 16:00 Respiratory Rate 18 12/25/17 16:00 Blood Pressure 114/55 L 12/25/17 16:53 Pulse Oximetry 94 L 12/25/17 16:00 Medical Decision Making MDM Narrative Medical decision making narrative: CBC shows no leukocytosis, no left shift, anemia, and slight thrombocytosis of 484,000 Elect lites are all within normal limits, normal lactic acid, normal kidney, normal liver function Differential Diagnosis Differential Diagnosis: DVT versus cellulitis versus fracture Lab Data Lab results reviewed: Yes I reviewed the patient's lab results. Result diagrams: 12/25/17 08:40 12/25/17 08:40 Lab Results 12/22/17 12/22/17 12/22/17 Range/Units 14:44 14:44 14:44 WBC 8.7 (4.0-11.0) th/mm3 RBC 3.49 L (4.50-5.90) mil/mm3 Hgb 9.5 L (13.0-17.0) gm/dL Hct 28.6 L (39.0-51.0) % MCV 81.8 (80.0-100.0) fL MCH 27.3 (27.0-34.0) pg MCHC 33.3 (32.0-36.0) % RDW 14.6 (11.6-17.2) % Plt Count 484 H (150-450) th/mm3 MPV 6.6 L (7.0-11.0) fL Neut % (Auto) 82.4 H (16.0-70.0) % Lymph % (Auto) 9.1 (9.0-44.0) % [place] % (Auto) 5.9 (0.0-8.0) % Eos % (Auto) 2.0 (0.0-4.0) % Baso % (Auto) 0.6 (0.0-2.0) % Neut # (Auto) 7.2 (1.8-7.7) th/mm3 Lymph # (Auto) 0.8 L (1.0-4.8) th/mm3 [place] # (Auto) 0.5 (0.0-0.9) th/mm3 Eos # (Auto) 0.2 (0.0-0.4) th/mm3 Baso # (Auto) 0.0 (0.0-0.2) th/mm3 WBC Differential . Differential Comment Auto diff final Sodium 133 L (136-145) meq/L Potassium 4.6 (3.5-5.1) meq/L Chloride 96 L (98-107) meq/L Carbon Dioxide 30.7 (21.0-32.0) meq/L Anion Gap 6 (5-15) meq/L BUN 17 (7-18) mg/dL Creatinine 0.72 (0.60-1.30) mg/dL Estimated GFR Greater than 89 (>89) mL/min Random Glucose 97 (74-106) mg/dL Lactic Acid 1.1 (0.4-2.0) mmol/L Calcium 8.7 (8.5-10.1) mg/dL Total Bilirubin 0.8 (0.2-1.0) mg/dL AST 32 (15-37) U/L ALT 24 (12-78) U/L Alkaline Phosphatase 68 (45-117) U/L Total Protein 7.7 (6.4-8.2) g/dL Albumin 3.2 L (3.4-5.0) g/dL 12/23/17 12/23/17 12/24/17 Range/Units 08:10 08:10 10:16 WBC 8.2 9.6 (4.0-11.0) th/mm3 RBC 3.11 L 3.50 L (4.50-5.90) mil/mm3 Hgb 8.7 L 9.5 L (13.0-17.0) gm/dL Hct 25.6 L 28.9 L (39.0-51.0) % MCV 82.2 82.6 (80.0-100.0) fL MCH 28.0 27.1 (27.0-34.0) pg MCHC 34.0 32.8 (32.0-36.0) % RDW 14.9 14.8 (11.6-17.2) % Plt Count 436 517 H (150-450) th/mm3 MPV 6.7 L 6.3 L (7.0-11.0) fL Neut % (Auto) 77.9 H 87.3 H (16.0-70.0) % Lymph % (Auto) 8.5 L 6.3 L (9.0-44.0) % [place] % (Auto) 6.7 4.3 (0.0-8.0) % Eos % (Auto) 6.4 H 1.9 (0.0-4.0) % Baso % (Auto) 0.5 0.2 (0.0-2.0) % Neut # (Auto) 6.4 8.3 H (1.8-7.7) th/mm3 Lymph # (Auto) 0.7 L 0.6 L (1.0-4.8) th/mm3 [place] # (Auto) 0.6 0.4 (0.0-0.9) th/mm3 Eos # (Auto) 0.5 H 0.2 (0.0-0.4) th/mm3 Baso # (Auto) 0.0 0.0 (0.0-0.2) th/mm3 WBC Differential . . Differential Comment Auto diff final Auto diff final Sodium 135 L (136-145) meq/L Potassium 4.3 (3.5-5.1) meq/L Chloride 99 (98-107) meq/L Carbon Dioxide 27.9 (21.0-32.0) meq/L Anion Gap 8 (5-15) meq/L BUN 9 (7-18) mg/dL Creatinine 0.55 L (0.60-1.30) mg/dL Estimated GFR Greater than 89 (>89) mL/min Random Glucose 73 L (74-106) mg/dL Lactic Acid (0.4-2.0) mmol/L Calcium 8.5 (8.5-10.1) mg/dL Total Bilirubin (0.2-1.0) mg/dL AST (15-37) U/L ALT (12-78) U/L Alkaline Phosphatase (45-117) U/L Total Protein (6.4-8.2) g/dL Albumin (3.4-5.0) g/dL 12/24/17 12/25/17 12/25/17 Range/Units 10:16 08:40 08:40 WBC 8.4 (4.0-11.0) th/mm3 RBC 3.17 L (4.50-5.90) mil/mm3 Hgb 8.8 L (13.0-17.0) gm/dL Hct 26.1 L (39.0-51.0) % MCV 82.2 (80.0-100.0) fL MCH 27.8 (27.0-34.0) pg MCHC 33.9 (32.0-36.0) % RDW 14.7 (11.6-17.2) % Plt Count 494 H (150-450) th/mm3 MPV 6.2 L (7.0-11.0) fL Neut % (Auto) 84.7 H (16.0-70.0) % Lymph % (Auto) 6.5 L (9.0-44.0) % [place] % (Auto) 5.1 (0.0-8.0) % Eos % (Auto) 3.2 (0.0-4.0) % Baso % (Auto) 0.5 (0.0-2.0) % Neut # (Auto) 7.1 (1.8-7.7) th/mm3 Lymph # (Auto) 0.6 L (1.0-4.8) th/mm3 [place] # (Auto) 0.4 (0.0-0.9) th/mm3 Eos # (Auto) 0.3 (0.0-0.4) th/mm3 Baso # (Auto) 0.0 (0.0-0.2) th/mm3 WBC Differential . Differential Comment Auto diff final Sodium 133 L 131 L (136-145) meq/L Potassium 4.6 4.1 (3.5-5.1) meq/L Chloride 96 L 94 L (98-107) meq/L Carbon Dioxide 28.9 28.6 (21.0-32.0) meq/L Anion Gap 8 8 (5-15) meq/L BUN 10 5 L (7-18) mg/dL Creatinine 0.45 L 0.41 L (0.60-1.30) mg/dL Estimated GFR Greater than 89 Greater than 89 (>89) mL/min Random Glucose 90 93 (74-106) mg/dL Lactic Acid (0.4-2.0) mmol/L Calcium 8.0 L 8.1 L (8.5-10.1) mg/dL Total Bilirubin 0.6 0.5 (0.2-1.0) mg/dL AST 21 14 L (15-37) U/L ALT 17 13 (12-78) U/L Alkaline Phosphatase 61 61 (45-117) U/L Total Protein 6.7 D 5.9 L D (6.4-8.2) g/dL Albumin 2.6 L D 2.1 L (3.4-5.0) g/dL Imaging Data Attestation: I personally reviewed and interpreted this imaging study as follows : Radiologist's impression: Ankle X-Ray 12/22/17 14:20 CONCLUSION: Soft tissue swelling at the left ankle. No acute bony abnormality. Foot X-Ray 12/22/17 14:20 CONCLUSION: No acute findings. Osteopenia. Venous Doppler Study 12/22/17 14:23 CONCLUSION: 1. The study is negative for lower extremity deep venous thrombosis. Femur X-Ray 12/22/17 17:54 CONCLUSION: No fracture of left femur. There is a tibial plateau fracture. Additional films pending. Tibia/Fibula X-Ray 12/22/17 17:54 CONCLUSION: Slightly comminuted mildly depressed lateral tibial plateau fracture. Knee CT 12/23/17 00:00 CONCLUSION: 1. Plateau fracture as described above. 2. The majority of the deformity central with a vertical component extending down the tibial shaft. Discharge Plan Discharge Disposition Patient Disposition: 30 Still Patient Discharge Condition Condition: Stable Discharge Order Discharge Orders: Discharge Order (Routine); Ordered 12/25/17 Ordered By: Leo Kaur Discharge Details Anticipated Discharge Date: 12/25/17 Diagnosis: Contusion of foot, right, Infected abrasion of foot, Closed fracture of left tibial plateau Physicians Team ED Provider: Mic James Primary Care Provider: Malcom Kaur Attending Provider: Leo Kaur Other Providers: Bruce Gilliam Status ED Status: Left Department Discharge Information Discharge Date/Time: 12/22/17 21:29
--- NOTE | 2017-12-22 15:00 | US ---
EXAM DATE: 12/22/2017 2:58 PM EDT AGE/SEX: 62 years / Male INDICATIONS: Left leg swelling. CLINICAL DATA: This is the patient's initial encounter. Patient reports that signs and symptoms have been present for 2 days and indicates a pain score of 4/10. MEDICAL/SURGICAL HISTORY: . Neck cancer. Esophageal stricture. . Skin graft. Skin cancer remov ed. COMPARISON: No prior exams available for comparison. TECHNIQUE: Venous ultrasound of both lower extremities was performed from the inguinal ligament to t he proximal calf. Real-time, color Doppler and spectral tracing, compression and augmentation techni ques were used. FINDINGS: Normal compression of the deep venous system from the inguinal region to the proximal calf . No echogenic clot is seen. Normal response of the venous system to augmentation and respiration. CONCLUSION: 1. The study is negative for lower extremity deep venous thrombosis. Electronically signed by: Otilio Salas MD 12/22/2017 2:59 PM EDT
[2017-12-22 15:08] LABS: Baso % (Auto) 0.6 % (0.0-2.0); Eos # (Auto) 0.2 th/mm3 (0.0-0.4); Hematocrit 28.6 % (39.0-51.0); Hemoglobin 9.5 gm/dL (13.0-17.0); Lymph # (Auto) 0.8 th/mm3 (1.0-4.8); Lymph % (Auto) 9.1 % (9.0-44.0); Mean Corpuscular HGB Conc 33.3 % (32.0-36.0); Mean Corpuscular Hemoglobin 27.3 pg (27.0-34.0); Mean Corpuscular Volume 81.8 fL (80.0-100.0); Mean Platelet Volume 6.6 fL (7.0-11.0); Mono # (Auto) 0.5 th/mm3 (0.0-0.9); Mono % (Auto) 5.9 % (0.0-8.0); Neut # (Auto) 7.2 th/mm3 (1.8-7.7); Neut % (Auto) 82.4 % (16.0-70.0); Platelet Count 484 th/mm3 (150-450); Red Blood Count 3.49 mil/mm3 (4.50-5.90); Red Cell Distribution Width 14.6 % (11.6-17.2); White Blood Count 8.7 th/mm3 (4.0-11.0)
[2017-12-22 15:11] LABS: Alanine Aminotransferase 24 U/L (12-78); Albumin 3.2 g/dL (3.4-5.0); Anion Gap 6 meq/L (5-15); Aspartate Aminotransferase 32 U/L (15-37); Blood Urea Nitrogen 17 mg/dL (7-18); Calcium 8.7 mg/dL (8.5-10.1); Carbon Dioxide 30.7 meq/L (21.0-32.0); Chloride 96 meq/L (98-107); Glomerular Filtration Rate Greater Than 89 mL/min (>89); Glucose,Random 97 mg/dL (74-106); Potassium 4.6 meq/L (3.5-5.1); Sodium 133 meq/L (136-145)
[2017-12-22 15:14] LABS: Alkaline Phosphatase 68 U/L (45-117); Total Protein 7.7 g/dL (6.4-8.2)
--- NOTE | 2017-12-22 15:35 | XR ---
EXAM DATE: 12/22/2017 3:22 PM EDT AGE/SEX: 62 years / Male INDICATIONS: Pain from fall. CLINICAL DATA: This is the patient's initial encounter. Patient reports that signs and symptoms have been present for 1 day and indicates a pain score of 5/10. MEDICAL/SURGICAL HISTORY: None. None. COMPARISON: No prior exams available for comparison. FINDINGS: Bony structures are intact and in normal alignment. Osseous density is decreased. Soft tissues are un remarkable. No radiopaque foreign bodies seen. CONCLUSION: No acute findings. Osteopenia. Electronically signed by: Brian Witt MD 12/22/2017 3:33 PM EDT
--- NOTE | 2017-12-22 15:36 | XR ---
EXAM DATE: 12/22/2017 3:21 PM EDT AGE/SEX: 62 years / Male INDICATIONS: Pain from fall. CLINICAL DATA: This is the patient's initial encounter. Patient reports that signs and symptoms have been present for 1 day and indicates a pain score of 5/10. MEDICAL/SURGICAL HISTORY: None. None. COMPARISON: [facility], FOOT COMPLETE LEFT 3V, 12/22/2017. . FINDINGS: Bony structures are intact and in normal alignment. Joints are intact without dislocation or signifi cant arthropathy. Osseous density is decreased. Soft tissues are swollen. No radiopaque foreign bodi es seen. CONCLUSION: Soft tissue swelling at the left ankle. No acute bony abnormality. Electronically signed by: Brian Witt MD 12/22/2017 3:35 PM EDT
[2017-12-22] MEDS ORDERED: Vancomycin Inj 1,000 MG in Sodium Chlor 0.9% Inj 250 ML IV.SIG ONE (17:00)
--- NOTE | 2017-12-22 18:27 | XR ---
EXAM DATE: 12/22/2017 6:23 PM EDT AGE/SEX: 62 years / Male INDICATIONS: Left femur pain, fell CLINICAL DATA: This is the patient's initial encounter. Patient reports that signs and symptoms have been present for 1 week and indicates a pain score of 8/10. MEDICAL/SURGICAL HISTORY: . throat cancer . G tube COMPARISON: No prior exams available for comparison. FINDINGS: Left femur intact and in normal alignment. Osseous density is normal. Soft tissues are unremarkable. No radiopaque foreign bodies seen. CONCLUSION: No fracture of left femur. There is a tibial plateau fracture. Additional films pending. Electronically signed by: Brian Witt MD 12/22/2017 6:26 PM EDT
--- NOTE | 2017-12-22 18:35 | XR ---
EXAM DATE: 12/22/2017 6:27 PM EDT AGE/SEX: 62 years / Male INDICATIONS: Left tibia pain, fell CLINICAL DATA: This is the patient's initial encounter. Patient reports that signs and symptoms have been present for 1 week and indicates a pain score of 8/10. MEDICAL/SURGICAL HISTORY: . Throat cancer . G-tube COMPARISON: . FINDINGS: There is a slightly comminuted mildly depressed lateral tibial plateau fracture with knee joint effus ion. No dislocation. No other fractures identified. CONCLUSION: Slightly comminuted mildly depressed lateral tibial plateau fracture. Electronically signed by: Brian Witt MD 12/22/2017 6:33 PM EDT
[2017-12-22] MEDS ORDERED: Morphine Inj 4 MG/ML Vial IV.PUSH ONE (20:30)
[2017-12-22] MEDS ORDERED: Temazepam 15 MG Capsule PO PRN (21:34)
[2017-12-22] MEDS ORDERED: Acetaminophen 325 MG Tablet PO PRN (21:34)
[2017-12-22] MEDS ORDERED: Bisacodyl 10 MG Supp RECTAL PRN (21:34)
--- NOTE | 2017-12-22 21:44 | P.HP ---
History of Present Illness Service: [facility] Primary Care Physician: Malcom Kaur DO Chief Complaint: Left lower extremity pain History of Present Illness: 62-year-old male with a past medical history significant for throat cancer and anxiety presents to the emergency department for evaluation of left lower extremity knee and ankle pain. The patient reports that on 12/17 he fell off a table while adjusting a TV. He states the table was approximately 3-4 feet high. He states he landed on his left side. He was seen by his PCP later that day who did an x-ray of his ankle. The patient continued to have significant pain and swelling in the left knee and ecchymoses and swelling of the left ankle. He came to the emergency department for further evaluation. He denies any chest pain or shortness of breath. No abdominal pain. No nausea/vomiting/ diarrhea. No fevers/chills. Inpatient Certification: I certify that the inpatient services were ordered in accordance with Medicare regulations governing the order. This includes certification that hospital inpatient services are reasonable and necessary and in the case of services not specified as inpatient-only under 42 CFR 419.22(n), that they are appropriately provided as inpatient services in accordance to with the 2-midnight benchmark under 43 CFR 412.3(e) Estimated Total Length of Stay (Days): 2 Plans for Post Hospital Care: Not yet determined Review of Systems All other systems reviewed negative except as stated in [facility] - History History Provided By: Patient - Medical History Medical History: Medical History (Last Reviewed 12/22/17 @ 14:27 by Mic James) Cancer of neck Esophageal stricture - Surgical History Surgical History: Surgical History (Last Reviewed 12/22/17 @ 14:27 by Mic James) History of skin graft S/P skin cancer resection - Tobacco History Second Hand Smoke Exposure: No Tobacco Use In Past 30 Days: No Smoking Status: Former smoker - Alcohol History How Often Do You Have a Drink Containing Alcohol: Never - Substance Use History Substance History: No History of Abuse - Immunization History Tetanus Immunization: <5 Years Hx Influenza Vaccine This Season: Yes Medications and Allergies Active Medications: Active Medications Acetaminophen (Tylenol) 650 mg PO Q4H PRN PRN Reason: Temp > 100.4 Al Hydroxide/Mg Hydroxide (Milk Of Magnesia Liq) 30 ml PO Q12H PRN PRN Reason: Mild Constipation Bisacodyl (Dulcolax Supp) 10 mg RECTAL DAILY PRN PRN Reason: SEVERE CONSITIPATION Sodium Chloride (Ns Inj) 1,000 mls @ 70 mls/hr IV.CONT .[id number] [facility] Lactulose (Lactulose Liq) 30 ml PO DAILY PRN PRN Reason: SEVERE CONSITIPATION Morphine Sulfate (Morphine Inj) 4 mg IV.PUSH Q4H PRN PRN Reason: pain 6-10 Ondansetron HCl (Zofran Inj) 4 mg IV.PUSH Q6H PRN PRN Reason: NAUSEA OR VOMITING Senna/Docusate Sodium (Antonia-Colace) 1 tab PO BID [facility] Sennosides (Senokot) 17.2 mg PO Q12H PRN PRN Reason: Moderate Constipation Temazepam (Restoril) 15 mg PO HS PRN PRN Reason: INSOMNIA Allergies Allergy/AdvReac Type Severity Reaction Status Date / Time diatrizoate meglumine Allergy Severe HIVES, Verified 10/02/17 07:45 DIZZINESS gadobenic acid Allergy Severe HIVES, Verified 10/02/17 07:45 DIZZINESS gadodiamide Allergy Severe HIVES, Verified 10/02/17 07:45 DIZZINESS gadoteridol Allergy Severe HIVES, Verified 10/02/17 07:45 DIZZINESS Iodinated Contrast- Oral and Allergy Severe Hives Verified 10/02/17 07:45 IV Dye iodixanol Allergy Severe HIVES, Verified 10/02/17 07:45 DIZZINESS iohexol Allergy Severe HIVES, Verified 10/02/17 07:45 DIZZINESS Home Medications Medication Instructions Recorded Confirmed Type citalopram 40 mg PO HS 12/22/17 12/22/17 History hydrocodone-acetaminophen 1 tab PO Q6H PRN 12/22/17 12/22/17 History lorazepam [Ativan] 2 mg PO QID 12/22/17 12/22/17 History zolpidem [Ambien] 10 mg PO HS 12/22/17 12/22/17 History Exam Vital signs: Vital Signs 12/22/17 13:45 12/22/17 15:39 Temperature 98.3 F Pulse Rate 100 H 85 Respiratory Rate 17 Blood Pressure 147/66 H Pulse Oximetry 95 98 Intake & Output 12/22/17 12/22/17 12/23/17 06:59 18:59 06:59 Weight 65.41 kg Narrative: Gen.: No acute distress Head: Normocephalic. Atraumatic. EENT: Pupils equal round and reactive to light. Nose without drainage. Airway intact. Throat without injection. Cardiovascular: Regular rate and rhythm. No murmurs, rubs or gallops. Respiratory: Lungs clear to auscultation bilaterally. No wheezes or rhonchi. Abdomen: Soft, nontender, nondistended. No peritoneal signs. Musculoskeletal: Left lower extremity swollen at the knee and ankle with ecchymoses surrounding ankle. Able to move all 5 digits. Neurovascularly intact. Skin: No obvious rashes or erythema. Neuro: Sensory and motor grossly intact. Cranial nerves II through XII grossly intact. Psych: Appropriate mood and affect Results - Labs CBC & Chem 7: 12/22/17 14:44 12/22/17 14:44 Labs: Laboratory Results - last 24 hr 12/22/17 12/22/17 12/22/17 14:44 14:44 14:44 WBC 8.7 RBC 3.49 L Hgb 9.5 L Hct 28.6 L MCV 81.8 MCH 27.3 MCHC 33.3 RDW 14.6 Plt Count 484 H MPV 6.6 L Neut % (Auto) 82.4 H Lymph % (Auto) 9.1 [place] % (Auto) 5.9 Eos % (Auto) 2.0 Baso % (Auto) 0.6 Neut # (Auto) 7.2 Lymph # (Auto) 0.8 L [place] # (Auto) 0.5 Eos # (Auto) 0.2 Baso # (Auto) 0.0 WBC Differential . Differential Comment Auto diff final Sodium 133 L Potassium 4.6 Chloride 96 L Carbon Dioxide 30.7 Anion Gap 6 BUN 17 Creatinine 0.72 Estimated GFR Greater than 89 Random Glucose 97 Lactic Acid 1.1 Calcium 8.7 Total Bilirubin 0.8 AST 32 ALT 24 Alkaline Phosphatase 68 Total Protein 7.7 Albumin 3.2 L - Imaging Impressions Ankle X-Ray 12/22/17 14:20 CONCLUSION: Soft tissue swelling at the left ankle. No acute bony abnormality. Foot X-Ray 12/22/17 14:20 CONCLUSION: No acute findings. Osteopenia. Venous Doppler Study 12/22/17 14:23 CONCLUSION: 1. The study is negative for lower extremity deep venous thrombosis. Femur X-Ray 12/22/17 17:54 CONCLUSION: No fracture of left femur. There is a tibial plateau fracture. Additional films pending. Tibia/Fibula X-Ray 12/22/17 17:54 CONCLUSION: Slightly comminuted mildly depressed lateral tibial plateau fracture. Caprini VTE Risk Assessment Caprini VTE Risk Assessment: Moderate/High Risk (score >= 2) Caprini Risk Assessment Model: Point Value = 1 Point Value = 2 Point Value = 3 Point Value = 5 Age 41-60 Minor surgery BMI > 25 kg/m2 Swollen legs Varicose veins or History of unexplained or recurrent spontaneous Oral contraceptives or hormone replacement Sepsis (< 1 month) Serious lung disease, including pneumonia (< 1 month) Abnormal pulmonary function Acute myocardial infarction Congestive heart failure (< 1 month) History of inflammatory bowel disease Medical patient at bed rest Age 61-74 Arthroscopic surgery Major open surgery (> 45 min) Laparoscopic surgery (> 45 min) Malignancy Confined to bed (> 72 hours) Immobilizing plaster cast Central venous access Age >= 75 History of VTE Family history of VTE Factor V Leiden Prothrombin [id number] Lupus anticoagulant Anticardiolipin antibodies Elevated serum homocysteine Heparin-induced thrombocytopenia Other congenital or acquired thrombophilia Stroke (< 1 month) Elective arthroplasty Hip, pelvis, or leg fracture Acute spinal cord injury (< 1 month) Prophylaxis Regimen: Total Risk Factor Score Risk Level Prophylaxis Regimen 0-1 Low Early ambulation 2 Moderate Order ONE of the following: *Sequential Compression Device (SCD) *Heparin 5000 units SQ BID 3-4 Higher Order ONE of the following medications: *Heparin 5000 units SQ TID *Enoxaparin/Lovenox 40 mg SQ daily (WT < 150 kg, CrCl > 30 mL/min) *Enoxaparin/Lovenox 30 mg SQ daily (WT < 150 kg, CrCl > 10-29 mL/min) *Enoxaparin/Lovenox 30 mg SQ BID (WT < 150 kg, CrCl > 30 mL/min) AND/OR *Sequential Compression Device (SCD) 5 or more Highest Order ONE of the following medications: *Heparin 5000 units SQ TID (Preferred with Epidurals) *Enoxaparin/Lovenox 40 mg SQ daily (WT < 150 kg, CrCl > 30 mL/min) *Enoxaparin/Lovenox 30 mg SQ daily (WT < 150 kg, CrCl > 10-29 mL/min) *Enoxaparin/Lovenox 30 mg SQ BID (WT < 150 kg, CrCl > 30 mL/min) AND *Sequential Compression Device (SCD) Assessment and Plan - Plan Assessment/plan: 1. Tibial plateau fracture Orthopedic surgery consulted, appreciate recommendations Morphine for pain N.p.o. 2. Anxiety Continue home Ativan Continue home Celexa 3. History of throat cancer Patient with esophageal strictures requiring dilation monthly FEN N.p.o. Electrolytes: Monitor and replete as needed NS at 70 cc/hour Holding pharmacologic anticoagulation for possible operative intervention
[2017-12-23] MEDS: Sod Chloride 0.9% Inj 1,000 ML IV.CONT SCH ×3 (00:56→21:45)
[2017-12-23] MEDS: Morphine Inj 4 MG/ML Vial IV.PUSH PRN ×5 (00:56→22:24)
--- NOTE | 2017-12-23 07:52 | MB ---
cc: Mirza Workman MD DATE: 12/23/2017 REASON FOR CONSULTATION: Left tibial plateau fracture. HISTORY OF PRESENT ILLNESS: Brian is a 62-year-old male who had a fall on 12/17/2017. He states that he was standing on a plastic chair on 12/17/2017. He fell approximately 3 feet. He landed on his left side. He had immediate left knee pain. He subsequently had x-rays at home from a mobile x-ray unit. He has been trying to ambulate on the left leg. He has had increased pain and swelling. He presented to the emergency room for evaluation. His only complaint is of the left leg. He also noticed some ulceration on his left foot. Pain is worse with weightbearing or walking. Pain is improved with rest. PAST MEDICAL HISTORY: Illnesses, a history of neck cancer, esophageal stricture. PAST SURGICAL HISTORY: Resection of cancer of the neck, skin graft, multiple esophageal dilations. ALLERGIES: PLEASE SEE LIST OF ALLERGIES, THIS INCLUDES IODINE AND CONTRAST. MEDICATIONS: Please see EMR for a complete list of inpatient medications. This was reviewed. HOME MEDICATIONS: 1. Citalopram. 2. Hydrocodone. 3. Lorazepam. 4. Ambien. SOCIAL HISTORY: The patient denies current alcohol, tobacco or drug use. He does have a history of smoking. FAMILY HISTORY: Noncontributory. REVIEW OF SYSTEMS: The patient denies fever, chills, weight loss, headache, visual changes, hearing loss, chest pain, palpitations, shortness of breath, nausea, vomiting, urinary changes, neck or back pain, skin rashes, weakness, numbness of extremities, depression or anxiety. He complains of left knee pain. He has chronic difficulty swallowing secondary to esophageal strictures. LABORATORY DATA: The patient has a white blood cell count of 8.7, hematocrit 28.6, platelet count 484, potassium 4.6, creatinine of 0.72. X-RAYS: X-rays of the left knee were reviewed. X-rays reveal a mildly comminuted, depressed left lateral tibial plateau fracture. PHYSICAL EXAM: GENERAL: The patient is a thin 62-year-old male. He is awake and alert. He is alert and oriented x 3. He is in no acute distress. VITAL SIGNS: Temperature 98.8, pulse 101, respirations 18, blood pressure is 100/59, O2 saturations 96% on room air. HEAD: The patient is normocephalic. EYES: Pupils are equal. NECK: The patient has scars from previous surgery with healed skin graft. ABDOMEN: Soft, nontender, nondistended. EXTREMITIES: Examination of bilateral upper extremities reveals no pain with shoulder, elbow or wrist motion. He has intact sensation in all fingers. He has good cap refill in all fingers. Skin is intact. Examination of the right leg reveals no pain with hip, knee or ankle motion. Skin is intact. Dorsalis pedis pulses palpable. Sensation is intact. Examination of the left leg reveals no tenderness around his hip. He has moderate swelling of his calf and knee. He has a large amount of bruising. He is tender to palpation over the lateral tibial plateau. Sensation is intact to the left foot. He does have some skin ulceration over the dorsum of his foot. IMPRESSION: 1. Esophageal stricture. 2. Left tibial plateau fracture. PLAN: Treatment options were discussed with the patient. At this point, the patient will need to be strictly nonweightbearing to his left leg. His left knee and leg are too swollen today for surgery. He will need to elevate and ice his foot. He will be placed into a knee immobilizer. Physical therapy will be consulted. He will be placed on anti-inflammatories to help assist with the improvement of swelling. Once swelling has improved, he will need open reduction and internal fixation. CT scan will also be ordered. Risks of surgery include bleeding, infection, injuries to arteries, nerves or blood vessels, nonunion, malunion, painful hardware, knee arthritis, need for knee replacement, as well as medical complications including blood clot, stroke, heart attack and . All questions were answered. I also explained that I will likely use allograft bone graft. I will plan on surgery later this week if swelling improves. A mid-level provider in my office, nurse practitioner or PA, may see this patient on a follow-up basis and continue to implement the objective of this plan including: Starting or adjusting medications, injections of muscle, tendon, bursa or joints, cast application, orthotic or brace application, physical therapy, further radiographic studies including x-ray, MRI, CT, ultrasounds or bone scan, vascular studies, neurologic studies, or other specialist consultations, and proceeding with surgical management as appropriate. MD CRISTINO Kim , 07:30 AM , 07:51 AM JOSEPH
[2017-12-23 08:54] LABS: Baso % (Auto) 0.5 % (0.0-2.0); Eos # (Auto) 0.5 th/mm3 (0.0-0.4); Eos % (Auto) 6.4 % (0.0-4.0); Hematocrit 25.6 % (39.0-51.0); Hemoglobin 8.7 gm/dL (13.0-17.0); Lymph # (Auto) 0.7 th/mm3 (1.0-4.8); Lymph % (Auto) 8.5 % (9.0-44.0); Mean Corpuscular Volume 82.2 fL (80.0-100.0); Mean Platelet Volume 6.7 fL (7.0-11.0); Mono # (Auto) 0.6 th/mm3 (0.0-0.9); Mono % (Auto) 6.7 % (0.0-8.0); Neut # (Auto) 6.4 th/mm3 (1.8-7.7); Neut % (Auto) 77.9 % (16.0-70.0); Platelet Count 436 th/mm3 (150-450); Red Blood Count 3.11 mil/mm3 (4.50-5.90); Red Cell Distribution Width 14.9 % (11.6-17.2); White Blood Count 8.2 th/mm3 (4.0-11.0)
--- NOTE | 2017-12-23 09:01 | P.PNOP ---
Subjective Interval history: Patient had a fall approximately 4 days ago. Planning of knee and ankle pain. X-rays confirm fracture of left tibia plateau fracture Physical Exam Vital signs: Vital Signs 12/22/17 13:45 12/22/17 15:39 12/23/17 00:00 Temperature 98.3 F Pulse Rate 100 H 85 93 H Respiratory Rate 17 Blood Pressure 147/66 H Pulse Oximetry 95 98 12/23/17 01:04 12/23/17 03:08 12/23/17 05:39 Temperature 98.6 F 98.8 F Pulse Rate 98 H 101 H Respiratory Rate 18 18 18 Blood Pressure 110/56 L 100/59 L Pulse Oximetry 93 L 96 Intake & Output 12/22/17 12/23/17 12/23/17 18:59 06:59 18:59 Intake Total 300 / 300 Output Total 200 / 200 Balance 100 / 100 Weight 65.41 kg Intake: IV 300 / 300 Zosyn 3.375 GM Premix 50 ML @ 50 / 50 100 mls/hr IV.SIG ONCE ONE Rx#: [id number] Vancomycin Inj 1,000 MG In NS 250 / 250 Inj 250 ML @ 250 mls/hr IV.SIG ONCE ONE Rx#:[id number] Output: Urine 200 / 200 Other: Date of Last Bowel Movement 12/22/17 Narrative: Bilateral upper extremities: Full range of motion neurovascularly intact Right lower extremity: No pain with hip knee or ankle range of motion. Distally intact sensation with good capillary refills. Left lower extremity: Examination shows no pain with hip range of motion. Tenderness and swelling of knee present. Skin is intact. Swelling distally with moderate tenderness with ankle motion. Distally intact sensation is able move all toes Results - Labs CBC & Chem 7: 12/23/17 08:10 12/22/17 14:44 Laboratory Results - last 24 hr 12/22/17 12/22/17 12/22/17 14:44 14:44 14:44 WBC 8.7 RBC 3.49 L Hgb 9.5 L Hct 28.6 L MCV 81.8 MCH 27.3 MCHC 33.3 RDW 14.6 Plt Count 484 H MPV 6.6 L Neut % (Auto) 82.4 H Lymph % (Auto) 9.1 [place] % (Auto) 5.9 Eos % (Auto) 2.0 Baso % (Auto) 0.6 Neut # (Auto) 7.2 Lymph # (Auto) 0.8 L [place] # (Auto) 0.5 Eos # (Auto) 0.2 Baso # (Auto) 0.0 WBC Differential . Differential Comment Auto diff final Sodium 133 L Potassium 4.6 Chloride 96 L Carbon Dioxide 30.7 Anion Gap 6 BUN 17 Creatinine 0.72 Estimated GFR Greater than 89 Random Glucose 97 Lactic Acid 1.1 Calcium 8.7 Total Bilirubin 0.8 AST 32 ALT 24 Alkaline Phosphatase 68 Total Protein 7.7 Albumin 3.2 L 12/23/17 08:10 WBC 8.2 RBC 3.11 L Hgb 8.7 L Hct 25.6 L MCV 82.2 MCH 28.0 MCHC 34.0 RDW 14.9 Plt Count 436 MPV 6.7 L Neut % (Auto) 77.9 H Lymph % (Auto) 8.5 L [place] % (Auto) 6.7 Eos % (Auto) 6.4 H Baso % (Auto) 0.5 Neut # (Auto) 6.4 Lymph # (Auto) 0.7 L [place] # (Auto) 0.6 Eos # (Auto) 0.5 H Baso # (Auto) 0.0 WBC Differential . Differential Comment Auto diff final Sodium Potassium Chloride Carbon Dioxide Anion Gap BUN Creatinine Estimated GFR Random Glucose Lactic Acid Calcium Total Bilirubin AST ALT Alkaline Phosphatase Total Protein Albumin Microbiology 12/22/17 15:44 Abscess - Foot Gram Stain - Final - Imaging Impressions Ankle X-Ray 12/22/17 14:20 CONCLUSION: Soft tissue swelling at the left ankle. No acute bony abnormality. Foot X-Ray 12/22/17 14:20 CONCLUSION: No acute findings. Osteopenia. Venous Doppler Study 12/22/17 14:23 CONCLUSION: 1. The study is negative for lower extremity deep venous thrombosis. Femur X-Ray 12/22/17 17:54 CONCLUSION: No fracture of left femur. There is a tibial plateau fracture. Additional films pending. Tibia/Fibula X-Ray 12/22/17 17:54 CONCLUSION: Slightly comminuted mildly depressed lateral tibial plateau fracture. Assessment and Plan - Problem List (1) Closed fracture of left tibial plateau Code(s): S82.142A - Displaced bicondylar fracture of left tibia, initial encounter for closed fracture Status: Acute Qualifiers: Encounter type: initial encounter Qualified Code(s): S82.142A - Displaced bicondylar fracture of left tibia, initial encounter for closed fracture - Assessment and Plan Left tibia plateau fracture Nonweightbearing and maintain knee immobilizer with ice cuff Swelling is too great for surgery today. CT is ordered to evaluate the extent of fracture of the left tibial plateau Resume diet N.p.o. after midnight 2 doses of Toradol ordered q. 8 at 30 mg IV.
[2017-12-23 09:13] LABS: Anion Gap 8 meq/L (5-15); Blood Urea Nitrogen 9 mg/dL (7-18); Calcium 8.5 mg/dL (8.5-10.1); Carbon Dioxide 27.9 meq/L (21.0-32.0); Chloride 99 meq/L (98-107); Glomerular Filtration Rate Greater Than 89 mL/min (>89); Glucose,Random 73 mg/dL (74-106); Potassium 4.3 meq/L (3.5-5.1); Sodium 135 meq/L (136-145)
[2017-12-23] MEDS: Senna/Docusate Sodium 8.6/50 MG Tablet PO SCH (10:06)
--- NOTE | 2017-12-23 10:13 | CT ---
EXAM DATE: 12/23/2017 9:43 AM EDT AGE/SEX: 62 years / Male INDICATIONS: Left knee pain. Fall six days ago. Tibia fracture. CLINICAL DATA: This is the patient's initial encounter. Patient reports that signs and symptoms have been present for 4 - 6 days and indicates a pain score of 8/10. MEDICAL/SURGICAL HISTORY: . Carcinoma, neck. . Right lower leg. RADIATION DOSE: 7.29 CTDI (mGy) COMPARISON: No prior exams available for comparison. TECHNIQUE: Multiple contiguous axial images were acquired using a multirow detector CT scanner witho ut contrast. Multiplanar reconstruction was performed in the sagittal and coronal planes. Using aut omated exposure control and adjustment of the mA and/or kV according to patient size, radiation dose was kept as low as reasonably achievable to obtain optimal diagnostic quality images. DICOM format i mage data is available electronically for review and comparison. FINDINGS: Abdominal condyle and patella are intact. Moderate joint effusion. Vertical fracture of the tibial plateau extending down the tibial shaft. There is a Central punch deformity that involves both the medial and lateral tibial spine spine. The lateral margin of the pl ateaus a free fragment. The posterior lateral margin of the condyle is a free fragment associated wit h the fibular head. There is approximately 15 mm of central depression. CONCLUSION: 1. Plateau fracture as described above. 2. The majority of the deformity central with a vertical component extending down the tibial shaft. Electronically signed by: Jose Dominguez MD 12/23/2017 10:11 AM EDT
[2017-12-23] MEDS ORDERED: LORazepam 1 MG Tablet PO PRN (11:07)
--- NOTE | 2017-12-23 11:42 | P.PNIM ---
Subjective Interval history: Patient reports pain not controlled with morphine. At baseline he takes Lortab. Pending surgical repair of his tibial plateau fracture. Of note this patient has a history of throat cancer with recurrence. He has had radiation surgery at this area. He suffers from chronic recurrent esophageal stricture and says that he is missing his epiglottis. Physical Exam Vital signs: Vital Signs 12/22/17 13:45 12/22/17 15:39 12/23/17 00:00 Temperature 98.3 F Pulse Rate 100 H 85 93 H Respiratory Rate 17 Blood Pressure 147/66 H Pulse Oximetry 95 98 12/23/17 01:04 12/23/17 03:08 12/23/17 05:39 Temperature 98.6 F 98.8 F Pulse Rate 98 H 101 H Respiratory Rate 18 18 18 Blood Pressure 110/56 L 100/59 L Pulse Oximetry 93 L 96 Intake & Output 12/22/17 12/23/17 12/23/17 18:59 06:59 18:59 Intake Total 300 / 300 Output Total 200 / 200 Balance 100 / 100 Weight 65.41 kg Intake: IV 300 / 300 Zosyn 3.375 GM Premix 50 ML @ 50 / 50 100 mls/hr IV.SIG ONCE ONE Rx#: [id number] Vancomycin Inj 1,000 MG In NS 250 / 250 Inj 250 ML @ 250 mls/hr IV.SIG ONCE ONE Rx#:[id number] Output: Urine 200 / 200 Other: Date of Last Bowel Movement 12/22/17 - Routine HEENT Exam Comments: GENERAL: NAD, A&Ox3 HEAD: Normocephalic. NECK: Supple, trachea midline. No lymphadenopathy. EYES: No scleral icterus. No injection or drainage. CARDIOVASCULAR: Regular rate and rhythm without murmurs, gallops, or rubs. RESPIRATORY: Breath sounds equal bilaterally. No accessory muscle use. GASTROINTESTINAL: Abdomen soft, non-tender, nondistended. MUSCULOSKELETAL: No cyanosis, or edema. Limited range of motion of left leg. SKIN: Warm and dry. Scars at neck. NEURO: No focal neurological deficits. Results - Labs CBC & Chem 7: 12/23/17 08:10 12/23/17 08:10 Laboratory Results - last 24 hr 12/22/17 12/22/17 12/22/17 14:44 14:44 14:44 WBC 8.7 RBC 3.49 L Hgb 9.5 L Hct 28.6 L MCV 81.8 MCH 27.3 MCHC 33.3 RDW 14.6 Plt Count 484 H MPV 6.6 L Neut % (Auto) 82.4 H Lymph % (Auto) 9.1 [place] % (Auto) 5.9 Eos % (Auto) 2.0 Baso % (Auto) 0.6 Neut # (Auto) 7.2 Lymph # (Auto) 0.8 L [place] # (Auto) 0.5 Eos # (Auto) 0.2 Baso # (Auto) 0.0 WBC Differential . Differential Comment Auto diff final Sodium 133 L Potassium 4.6 Chloride 96 L Carbon Dioxide 30.7 Anion Gap 6 BUN 17 Creatinine 0.72 Estimated GFR Greater than 89 Random Glucose 97 Lactic Acid 1.1 Calcium 8.7 Total Bilirubin 0.8 AST 32 ALT 24 Alkaline Phosphatase 68 Total Protein 7.7 Albumin 3.2 L 12/23/17 12/23/17 08:10 08:10 WBC 8.2 RBC 3.11 L Hgb 8.7 L Hct 25.6 L MCV 82.2 MCH 28.0 MCHC 34.0 RDW 14.9 Plt Count 436 MPV 6.7 L Neut % (Auto) 77.9 H Lymph % (Auto) 8.5 L [place] % (Auto) 6.7 Eos % (Auto) 6.4 H Baso % (Auto) 0.5 Neut # (Auto) 6.4 Lymph # (Auto) 0.7 L [place] # (Auto) 0.6 Eos # (Auto) 0.5 H Baso # (Auto) 0.0 WBC Differential . Differential Comment Auto diff final Sodium 135 L Potassium 4.3 Chloride 99 Carbon Dioxide 27.9 Anion Gap 8 BUN 9 Creatinine 0.55 L Estimated GFR Greater than 89 Random Glucose 73 L Lactic Acid Calcium 8.5 Total Bilirubin AST ALT Alkaline Phosphatase Total Protein Albumin Microbiology 12/22/17 14:44 Blood - Peripheral Aerobic Blood Culture - Preliminary No growth in 1 day 12/22/17 14:44 Blood - Peripheral Anaerobic Blood Culture - Preliminary No growth in 1 day 12/22/17 14:44 Blood - Peripheral Aerobic Blood Culture - Preliminary No growth in 1 day 12/22/17 14:44 Blood - Peripheral Anaerobic Blood Culture - Preliminary No growth in 1 day 12/22/17 15:44 Abscess - Foot Gram Stain - Final - Imaging Impressions Ankle X-Ray 12/22/17 14:20 CONCLUSION: Soft tissue swelling at the left ankle. No acute bony abnormality. Foot X-Ray 12/22/17 14:20 CONCLUSION: No acute findings. Osteopenia. Venous Doppler Study 12/22/17 14:23 CONCLUSION: 1. The study is negative for lower extremity deep venous thrombosis. Femur X-Ray 12/22/17 17:54 CONCLUSION: No fracture of left femur. There is a tibial plateau fracture. Additional films pending. Tibia/Fibula X-Ray 12/22/17 17:54 CONCLUSION: Slightly comminuted mildly depressed lateral tibial plateau fracture. Knee CT 12/23/17 00:00 CONCLUSION: 1. Plateau fracture as described above. 2. The majority of the deformity central with a vertical component extending down the tibial shaft. Assessment and Plan - Plan 62-year-old male admitted secondary to tibial plateau fracture Tibial plateau fracture Orthopedic surgeons following Surgery planned Percocet for pain Morphine for breakthrough pain General anxiety disorder Continue lorazepam Continue Celexa History of throat cancer 2 Patient was recently dilated his esophagus Continue outpatient dilations of the esophagus monthly DVT prophylaxis SCDs to postop
[2017-12-23] MEDS: Ketorolac Inj 30 MG/ML (IVP) Vial IV.PUSH PRN ×2 (12:51→21:32)
[2017-12-23] MEDS ORDERED: LORazepam 1 MG Tablet PO ONE (14:15)
[2017-12-23] MEDS ORDERED: oxyCODONE/Acetaminophen 10/325 Tablet PO ONE (14:15)
[2017-12-23] MEDS: oxyCODONE/Acetaminophen 10/325 Tablet PO PRN ×2 (18:47→21:29)
[2017-12-23] MEDS ORDERED: Metoprolol Tartrate 25 MG Tablet PO SCH (20:45)
[2017-12-23] MEDS ORDERED: Chlorhexidine Gluconate 2% 1 Pack (2 Cloths) TOPICAL SCH (20:45)
[2017-12-23] MEDS ORDERED: Sodium Chlor 0.9% Inj 500 ML IV.SIG SCH (21:00)
[2017-12-24] MEDS: Senna/Docusate Sodium 8.6/50 MG Tablet PO SCH ×3 (03:02→22:45)
--- NOTE | 2017-12-24 07:06 | P.PNOP ---
Subjective Interval history: s/p left tibial plateau fx patient has been noncompliant overnight and attempting to walk around room. has pulled out IV tubing in attempt to walk. Physical Exam Vital signs: Vital Signs 12/23/17 16:00 12/23/17 20:30 12/23/17 21:40 Temperature 98.3 F 98.3 F Pulse Rate 96 H 95 H Respiratory Rate 22 22 19 Blood Pressure 117/59 L 93/55 L Pulse Oximetry 95 94 L 12/23/17 21:41 12/23/17 22:00 12/23/17 22:29 Temperature Pulse Rate Respiratory Rate 19 18 17 Blood Pressure Pulse Oximetry 12/23/17 22:35 12/24/17 00:00 12/24/17 04:00 Temperature 98.4 F 98.1 F Pulse Rate 92 H 99 H Respiratory Rate 18 20 18 Blood Pressure 100/49 L 124/61 Pulse Oximetry 92 L 92 L Intake & Output 12/23/17 12/24/17 12/24/17 18:59 06:59 18:59 Intake Total 1720 / 1720 480 / 480 Output Total 200 / 200 50 / 50 Balance 1520 / 1520 430 / 430 Weight 65.1 kg Intake: IV 1000 / 1000 NS Inj 1,000 ML @ 70 mls/hr IV. 1000 / 1000 CONT .[id number] [facility] Rx#:[id number] Oral 720 / 720 480 / 480 Output: Urine 200 / 200 50 / 50 Other: # Voids 3 Date of Last Bowel Movement 12/22/17 12/22/17 Narrative: LLE: knee brace on loosely and fitting poorly with brace around ankle. swelling minimal of lower leg. nvi Results - Labs CBC & Chem 7: 12/23/17 08:10 12/23/17 08:10 Laboratory Results - last 24 hr 12/23/17 12/23/17 08:10 08:10 WBC 8.2 RBC 3.11 L Hgb 8.7 L Hct 25.6 L MCV 82.2 MCH 28.0 MCHC 34.0 RDW 14.9 Plt Count 436 MPV 6.7 L Neut % (Auto) 77.9 H Lymph % (Auto) 8.5 L [place] % (Auto) 6.7 Eos % (Auto) 6.4 H Baso % (Auto) 0.5 Neut # (Auto) 6.4 Lymph # (Auto) 0.7 L [place] # (Auto) 0.6 Eos # (Auto) 0.5 H Baso # (Auto) 0.0 WBC Differential . Differential Comment Auto diff final Sodium 135 L Potassium 4.3 Chloride 99 Carbon Dioxide 27.9 Anion Gap 8 BUN 9 Creatinine 0.55 L Estimated GFR Greater than 89 Random Glucose 73 L Calcium 8.5 Microbiology 12/22/17 15:44 Abscess - Foot Gram Stain - Final 12/22/17 15:44 Abscess - Foot Wound Culture - Preliminary Staphylococcus aureus 12/22/17 14:44 Blood - Peripheral Aerobic Blood Culture - Preliminary No growth in 1 day 12/22/17 14:44 Blood - Peripheral Anaerobic Blood Culture - Preliminary No growth in 1 day 12/22/17 14:44 Blood - Peripheral Aerobic Blood Culture - Preliminary No growth in 1 day 12/22/17 14:44 Blood - Peripheral Anaerobic Blood Culture - Preliminary No growth in 1 day - Imaging Impressions Knee CT 12/23/17 00:00 CONCLUSION: 1. Plateau fracture as described above. 2. The majority of the deformity central with a vertical component extending down the tibial shaft. Assessment and Plan - Problem List (1) Closed fracture of left tibial plateau Code(s): S82.142A - Displaced bicondylar fracture of left tibia, initial encounter for closed fracture Status: Acute Qualifiers: Encounter type: initial encounter Qualified Code(s): S82.142A - Displaced bicondylar fracture of left tibia, initial encounter for closed fracture - Assessment and Plan 1) Left tibia plateau fracture due to patient's noncompliance yesterday, will postpone surgery. informed patient that if continues to be noncompliant, then nonop treatment will be the best option. will tentatively plan for surgery tomorrow pending patient's behavior. Resume diet N.p.o. after midnight
[2017-12-24 10:59] LABS: Baso % (Auto) 0.2 % (0.0-2.0); Eos # (Auto) 0.2 th/mm3 (0.0-0.4); Eos % (Auto) 1.9 % (0.0-4.0); Hematocrit 28.9 % (39.0-51.0); Hemoglobin 9.5 gm/dL (13.0-17.0); Lymph # (Auto) 0.6 th/mm3 (1.0-4.8); Lymph % (Auto) 6.3 % (9.0-44.0); Mean Corpuscular HGB Conc 32.8 % (32.0-36.0); Mean Corpuscular Hemoglobin 27.1 pg (27.0-34.0); Mean Corpuscular Volume 82.6 fL (80.0-100.0); Mean Platelet Volume 6.3 fL (7.0-11.0); Mono # (Auto) 0.4 th/mm3 (0.0-0.9); Mono % (Auto) 4.3 % (0.0-8.0); Neut # (Auto) 8.3 th/mm3 (1.8-7.7); Neut % (Auto) 87.3 % (16.0-70.0); Platelet Count 517 th/mm3 (150-450); Red Cell Distribution Width 14.8 % (11.6-17.2); White Blood Count 9.6 th/mm3 (4.0-11.0)
--- NOTE | 2017-12-24 11:16 | P.PNIM ---
Subjective Interval history: Patient was found to have gotten out of bed to use the bathroom. Due to this noncompliance surgery has been deferred for possibly tomorrow if compliance improves. No new complaints from the patient today. Pain better controlled. Physical Exam Vital signs: Vital Signs 12/23/17 16:00 12/23/17 20:30 12/23/17 21:40 Temperature 98.3 F 98.3 F Pulse Rate 96 H 95 H Respiratory Rate 22 22 19 Blood Pressure 117/59 L 93/55 L Pulse Oximetry 95 94 L 12/23/17 21:41 12/23/17 22:00 12/23/17 22:29 Temperature Pulse Rate Respiratory Rate 19 18 17 Blood Pressure Pulse Oximetry 12/23/17 22:35 12/24/17 00:00 12/24/17 04:00 Temperature 98.4 F 98.1 F Pulse Rate 92 H 99 H Respiratory Rate 18 20 18 Blood Pressure 100/49 L 124/61 Pulse Oximetry 92 L 92 L 12/24/17 08:00 Temperature 97.6 F Pulse Rate 85 Respiratory Rate 20 Blood Pressure 116/68 Pulse Oximetry 93 L Intake & Output 12/23/17 12/24/17 12/24/17 18:59 06:59 18:59 Intake Total 1720 / 1720 480 / 480 Output Total 200 / 200 50 / 50 Balance 1520 / 1520 430 / 430 Weight 65.1 kg Intake: IV 1000 / 1000 NS Inj 1,000 ML @ 70 mls/hr IV. 1000 / 1000 CONT .[id number] [facility] Rx#:[id number] Oral 720 / 720 480 / 480 Output: Urine 200 / 200 50 / 50 Other: # Voids 3 Date of Last Bowel Movement 12/22/17 12/22/17 Narrative: GENERAL: NAD, A&Ox3 HEAD: Normocephalic. NECK: Supple, trachea midline. No lymphadenopathy. EYES: No scleral icterus. No injection or drainage. CARDIOVASCULAR: Regular rate and rhythm without murmurs, gallops, or rubs. RESPIRATORY: Breath sounds equal bilaterally. No accessory muscle use. GASTROINTESTINAL: Abdomen soft, non-tender, nondistended. MUSCULOSKELETAL: No cyanosis, or edema. Limited range of motion of left leg. SKIN: Warm and dry. NEURO: No focal neurological deficits. Results - Labs CBC & Chem 7: 12/24/17 10:16 12/23/17 08:10 Laboratory Results - last 24 hr 12/24/17 10:16 WBC 9.6 RBC 3.50 L Hgb 9.5 L Hct 28.9 L MCV 82.6 MCH 27.1 MCHC 32.8 RDW 14.8 Plt Count 517 H MPV 6.3 L Neut % (Auto) 87.3 H Lymph % (Auto) 6.3 L [place] % (Auto) 4.3 Eos % (Auto) 1.9 Baso % (Auto) 0.2 Neut # (Auto) 8.3 H Lymph # (Auto) 0.6 L [place] # (Auto) 0.4 Eos # (Auto) 0.2 Baso # (Auto) 0.0 WBC Differential . Differential Comment Auto diff final Microbiology 12/22/17 15:44 Abscess - Foot Gram Stain - Final 12/22/17 15:44 Abscess - Foot Wound Culture - Preliminary Staphylococcus aureus 12/22/17 14:44 Blood - Peripheral Aerobic Blood Culture - Preliminary No growth in 2 days 12/22/17 14:44 Blood - Peripheral Anaerobic Blood Culture - Preliminary No growth in 2 days 12/22/17 14:44 Blood - Peripheral Aerobic Blood Culture - Preliminary No growth in 2 days 12/22/17 14:44 Blood - Peripheral Anaerobic Blood Culture - Preliminary No growth in 2 days Assessment and Plan - Plan 62-year-old male admitted secondary to tibial plateau fracture Pending surgery for 12/25/2017. Patient encouraged to avoid trying to ambulate on his own. Continue following CBC and CMP. Tibial plateau fracture Orthopedic surgeons following Surgery planned Percocet for pain Morphine for breakthrough pain General anxiety disorder Continue lorazepam Continue Celexa History of throat cancer 2 Patient was recently dilated his esophagus Continue outpatient dilations of the esophagus monthly DVT prophylaxis SCDs to postop
[2017-12-24 11:27] LABS: Alanine Aminotransferase 17 U/L (12-78); Albumin 2.6 g/dL (3.4-5.0); Anion Gap 8 meq/L (5-15); Aspartate Aminotransferase 21 U/L (15-37); Blood Urea Nitrogen 10 mg/dL (7-18); Carbon Dioxide 28.9 meq/L (21.0-32.0); Chloride 96 meq/L (98-107); Glomerular Filtration Rate Greater Than 89 mL/min (>89); Glucose,Random 90 mg/dL (74-106); Potassium 4.6 meq/L (3.5-5.1); Sodium 133 meq/L (136-145)
[2017-12-24 11:29] LABS: Alkaline Phosphatase 61 U/L (45-117); Total Protein 6.7 g/dL (6.4-8.2)
[2017-12-24] MEDS: oxyCODONE/Acetaminophen 10/325 Tablet PO PRN ×2 (13:15→22:46)
[2017-12-24] MEDS: Sod Chloride 0.9% Inj 1,000 ML IV.CONT SCH ×2 (13:18→20:50)
--- NOTE | 2017-12-24 16:54 | ECG ---
Date Performed: 12/23/2017 Time Performed: 22:49:05 PTAGE: 62 years EKG: Sinus rhythm POSSIBLE LEFT ATRIAL ENLARGEMENT MODERATE INTRAVENTRICULAR CONDUCTION DELAY BORDERLINE ECG PREVIOUS TRACING : 11/21/2016 08.53 Since the previous tracing, no significant change noted DOCTOR: Lyndsay Ureña Interpretating Date/Time 12/24/2017 16:53:24
[2017-12-24] MEDS: Morphine Inj 4 MG/ML Vial IV.PUSH PRN (17:44)
[2017-12-25] MEDS: Sod Chloride 0.9% Inj 1,000 ML IV.CONT SCH ×2 (06:28→08:05)
[2017-12-25] MEDS: oxyCODONE/Acetaminophen 10/325 Tablet PO PRN ×3 (07:34→17:49)
--- NOTE | 2017-12-25 07:53 | P.PNOP ---
Subjective Interval history: Resting comfortably. No new complaints. Physical Exam Vital signs: Vital Signs 12/24/17 08:00 12/24/17 12:00 12/24/17 16:00 Temperature 97.6 F 98.3 F 98.3 F Pulse Rate 85 101 H 86 Respiratory Rate 20 18 18 Blood Pressure 116/68 113/57 L 113/57 L Pulse Oximetry 93 L 90 L 97 12/24/17 20:00 12/25/17 00:00 Temperature 97.5 F L 97.9 F Pulse Rate 92 H 80 Respiratory Rate 16 18 Blood Pressure 124/62 105/60 Pulse Oximetry 98 97 Intake & Output 12/24/17 12/25/17 12/25/17 18:59 06:59 18:59 Intake Total 1000 / 1000 Balance 1000 / 1000 Intake: IV 1000 / 1000 NS Inj 1,000 ML @ 70 mls/hr IV. 1000 / 1000 CONT .[id number] [facility] Rx#:[id number] Narrative: GENERAL: NAD, A&Ox3 HEAD: Normocephalic. NECK: Supple, trachea midline. No lymphadenopathy. EYES: No scleral icterus. No injection or drainage. CARDIOVASCULAR: Regular rate and rhythm without murmurs, gallops, or rubs. RESPIRATORY: Breath sounds equal bilaterally. No accessory muscle use. GASTROINTESTINAL: Abdomen soft, non-tender, nondistended. MUSCULOSKELETAL: No cyanosis, or edema. Limited range of motion of left leg. SKIN: Warm and dry. NEURO: No focal neurological deficits. - Routine Extremities Exam Comments: Left lower extremity: Moderate swelling. Knee immobilizer in place. Intact sensation distally with active dorsiflexion plantar flexion of foot Results - Labs CBC & Chem 7: 12/24/17 10:16 12/24/17 10:16 Laboratory Results - last 24 hr 12/24/17 12/24/17 10:16 10:16 WBC 9.6 RBC 3.50 L Hgb 9.5 L Hct 28.9 L MCV 82.6 MCH 27.1 MCHC 32.8 RDW 14.8 Plt Count 517 H MPV 6.3 L Neut % (Auto) 87.3 H Lymph % (Auto) 6.3 L Lassen % (Auto) 4.3 Eos % (Auto) 1.9 Baso % (Auto) 0.2 Neut # (Auto) 8.3 H Lymph # (Auto) 0.6 L Lassen # (Auto) 0.4 Eos # (Auto) 0.2 Baso # (Auto) 0.0 WBC Differential . Differential Comment Auto diff final Sodium 133 L Potassium 4.6 Chloride 96 L Carbon Dioxide 28.9 Anion Gap 8 BUN 10 Creatinine 0.45 L Estimated GFR Greater than 89 Random Glucose 90 Calcium 8.0 L Total Bilirubin 0.6 AST 21 ALT 17 Alkaline Phosphatase 61 Total Protein 6.7 D Albumin 2.6 L D Microbiology 12/22/17 15:44 Abscess - Foot Gram Stain - Final 12/22/17 15:44 Abscess - Foot Wound Culture - Final Staphylococcus aureus 12/22/17 14:44 Blood - Peripheral Aerobic Blood Culture - Preliminary No growth in 2 days 12/22/17 14:44 Blood - Peripheral Anaerobic Blood Culture - Preliminary No growth in 2 days 12/22/17 14:44 Blood - Peripheral Aerobic Blood Culture - Preliminary No growth in 2 days 12/22/17 14:44 Blood - Peripheral Anaerobic Blood Culture - Preliminary No growth in 2 days Assessment and Plan - Problem List (1) Closed fracture of left tibial plateau Code(s): S82.142A - Displaced bicondylar fracture of left tibia, initial encounter for closed fracture Status: Acute Qualifiers: Encounter type: initial encounter Qualified Code(s): S82.142A - Displaced bicondylar fracture of left tibia, initial encounter for closed fracture - Assessment and Plan Left tibia plateau fracture Resume diet this morning Fracture is borderline whether to fix or let heal in the position that he is in. Since he states he is unable to be nonweightbearing his result will be similar whether conservative or surgical measures are performed. Surgery poses more risks for wound complications and medical complications. He understands he must be nonweightbearing on the left lower extremity or he may displace the fracture greater. Greater displacement would necessitate surgical intervention. At this time we will continue to maintain the immobilizer. We will re-x-ray in 10-14 days Case management for discharge plan
[2017-12-25] MEDS: Senna/Docusate Sodium 8.6/50 MG Tablet PO SCH (08:05)
[2017-12-25 09:44] LABS: Baso % (Auto) 0.5 % (0.0-2.0); Eos # (Auto) 0.3 th/mm3 (0.0-0.4); Eos % (Auto) 3.2 % (0.0-4.0); Hematocrit 26.1 % (39.0-51.0); Hemoglobin 8.8 gm/dL (13.0-17.0); Lymph # (Auto) 0.6 th/mm3 (1.0-4.8); Lymph % (Auto) 6.5 % (9.0-44.0); Mean Corpuscular HGB Conc 33.9 % (32.0-36.0); Mean Corpuscular Hemoglobin 27.8 pg (27.0-34.0); Mean Corpuscular Volume 82.2 fL (80.0-100.0); Mean Platelet Volume 6.2 fL (7.0-11.0); Mono # (Auto) 0.4 th/mm3 (0.0-0.9); Mono % (Auto) 5.1 % (0.0-8.0); Neut # (Auto) 7.1 th/mm3 (1.8-7.7); Neut % (Auto) 84.7 % (16.0-70.0); Platelet Count 494 th/mm3 (150-450); Red Blood Count 3.17 mil/mm3 (4.50-5.90); Red Cell Distribution Width 14.7 % (11.6-17.2); White Blood Count 8.4 th/mm3 (4.0-11.0)
[2017-12-25 10:15] LABS: Albumin 2.1 g/dL (3.4-5.0); Anion Gap 8 meq/L (5-15); Aspartate Aminotransferase 14 U/L (15-37); Blood Urea Nitrogen 5 mg/dL (7-18); Calcium 8.1 mg/dL (8.5-10.1); Carbon Dioxide 28.6 meq/L (21.0-32.0); Chloride 94 meq/L (98-107); Glomerular Filtration Rate Greater Than 89 mL/min (>89); Glucose,Random 93 mg/dL (74-106); Potassium 4.1 meq/L (3.5-5.1); Sodium 131 meq/L (136-145)
[2017-12-25 10:17] LABS: Alanine Aminotransferase 13 U/L (12-78)
[2017-12-25 10:18] LABS: Alkaline Phosphatase 61 U/L (45-117); Total Protein 5.9 g/dL (6.4-8.2)
[2017-12-25] MEDS: Morphine Inj 4 MG/ML Vial IV.PUSH PRN ×2 (11:02→16:53)
--- NOTE | 2017-12-25 13:45 | P.DS ---
Date of admission: 12/22/17 19:03 Primary care physician: Malcom Kaur DO Brief History from admission: 62-year-old male with a past medical history significant for throat cancer and anxiety presents to the emergency department for evaluation of left lower extremity knee and ankle pain. The patient reports that on 12/17 he fell off a table while adjusting a TV. He states the table was approximately 3-4 feet high. He states he landed on his left side. He was seen by his PCP later that day who did an x-ray of his ankle. The patient continued to have significant pain and swelling in the left knee and ecchymoses and swelling of the left ankle. He came to the emergency department for further evaluation. He denies any chest pain or shortness of breath. No abdominal pain. No nausea/vomiting/ diarrhea. No fevers/chills. DS: Medications - Discharge Medications Prescriptions: lorazepam [Ativan] 2 mg PO QID #20 tab magnesium hydroxide [Milk of Magnesia] 30 ml PO Q12H PRN #300 ml PRN Reason: Mild Constipation oxycodone-acetaminophen 1 tab PO Q4H PRN #20 tab PRN Reason: Pain Scale 3 To 5 oxycodone-acetaminophen 1 tab PO Q4H PRN #20 tab PRN Reason: Pain Scale 6 To 10 sulfamethoxazole-trimethoprim [Bactrim DS] 1 tab PO Q12H 10 Days #20 tab DS: Summary Hospital Course: Mr. Kelly is a 62-year-old male. He is admitted secondary to a tibial plateau fracture of the left leg. At baseline he does not have significant ambulation. Orthopedic surgeons have discussed case and have determined that this patient may not need surgery so for now he will be monitored. Patient is not ambulatory and will need [facility]p facility at discharge. Pain is controlled. Patient is medically stable and cleared for discharge to [facility]p facility today. - Time Spent with Patient Total time spent providing and/or coordinating discharge services: Exam Vital signs: Vital Signs 12/24/17 16:00 12/24/17 20:00 12/25/17 00:00 Temperature 98.3 F 97.5 F L 97.9 F Pulse Rate 86 92 H 80 Respiratory Rate 18 16 18 Blood Pressure 113/57 L 124/62 105/60 Pulse Oximetry 97 98 97 12/25/17 04:00 12/25/17 08:00 12/25/17 12:00 Temperature 97.6 F 98.2 F 97.8 F Pulse Rate 89 79 79 Respiratory Rate 18 18 18 Blood Pressure 125/60 107/53 L 82/61 L Pulse Oximetry 91 L 92 L 96 Intake & Output 12/24/17 12/25/17 12/25/17 18:59 06:59 18:59 Intake Total 1000 / 1000 1000 / 1000 Balance 1000 / 1000 1000 / 1000 Weight 65.2 kg Intake: IV 1000 / 1000 1000 / 1000 NS Inj 1,000 ML @ 70 mls/hr IV. 1000 / 1000 1000 / 1000 CONT .[id number] [facility] Rx#:[id number] Other: # Voids 3 Date of Last Bowel Movement 12/25/17 Results Procedures completed during hospitalization: none Labs on day of discharge: Labs from last 24 hours 12/25/17 12/25/17 08:40 08:40 WBC 8.4 RBC 3.17 L Hgb 8.8 L Hct 26.1 L MCV 82.2 MCH 27.8 MCHC 33.9 RDW 14.7 Plt Count 494 H MPV 6.2 L Neut % (Auto) 84.7 H Lymph % (Auto) 6.5 L Wood % (Auto) 5.1 Eos % (Auto) 3.2 Baso % (Auto) 0.5 Neut # (Auto) 7.1 Lymph # (Auto) 0.6 L Wood # (Auto) 0.4 Eos # (Auto) 0.3 Baso # (Auto) 0.0 WBC Differential . Differential Comment Auto diff final Sodium 131 L Potassium 4.1 Chloride 94 L Carbon Dioxide 28.6 Anion Gap 8 BUN 5 L Creatinine 0.41 L Estimated GFR Greater than 89 Random Glucose 93 Calcium 8.1 L Total Bilirubin 0.5 AST 14 L ALT 13 Alkaline Phosphatase 61 Total Protein 5.9 L D Albumin 2.1 L Preliminary micro results at discharge 12/22/17 14:44 Aerobic Blood Culture - Preliminary Blood - Peripheral No growth in 3 days Anaerobic Blood Culture - Preliminary No growth in 3 days 12/22/17 14:44 Aerobic Blood Culture - Preliminary Blood - Peripheral No growth in 3 days Anaerobic Blood Culture - Preliminary No growth in 3 days - Impressions ITS Impressions Ankle X-Ray 12/22/17 14:20 CONCLUSION: Soft tissue swelling at the left ankle. No acute bony abnormality. Foot X-Ray 12/22/17 14:20 CONCLUSION: No acute findings. Osteopenia. Venous Doppler Study 12/22/17 14:23 CONCLUSION: 1. The study is negative for lower extremity deep venous thrombosis. Femur X-Ray 12/22/17 17:54 CONCLUSION: No fracture of left femur. There is a tibial plateau fracture. Additional films pending. Tibia/Fibula X-Ray 12/22/17 17:54 CONCLUSION: Slightly comminuted mildly depressed lateral tibial plateau fracture. Knee CT 12/23/17 00:00 CONCLUSION: 1. Plateau fracture as described above. 2. The majority of the deformity central with a vertical component extending down the tibial shaft. Discharge Plan - Discharge Disposition Patient Disposition: 03 Discharge to SNF - Discharge Condition Condition: Stable - Discharge Order Discharge Orders: Discharge Order (Routine); Ordered 12/25/17 Ordered By: Leo Kaur - Discharge Details Anticipated Discharge Date: 12/25/17 - Physicians Team Primary Care Provider: Malcom Kaur Attending Provider: Leo Kaur Other Providers: Bruce Gilliam MD
== END 2017-12-25 19:16 ==
LOC: NEPE 13:32 → NEDA 19:03 → N05 21:30
PROVIDERS: ADMIT Hospitalist; ATTEND Hospitalist

== ENCOUNTER 2018-01-02 09:50 | Inpatient (IN) ==
[2018-01-02] MEDS ORDERED: Piperacil/Tazo 4.5 GM Premix 4.5 GM/100 ML BAG IV.SIG STA (10:24)
[2018-01-02] MEDS ORDERED: Vancomycin Inj 1,000 MG in Sodium Chlor 0.9% Inj 250 ML IV.SIG STA (10:24)
[2018-01-02] MEDS ORDERED: Sod Chloride 0.9% Inj 700 ML IV.SIG SCH ×2 (10:30→11:15)
[2018-01-02] MEDS ORDERED: Sod Chloride 0.9% Inj 1,000 ML IV.SIG SCH ×3 (10:30→11:15)
[2018-01-02] MEDS: Sod Chloride 0.9% Inj 1,000 ML IV.SIG SCH (11:12)
[2018-01-02 11:25] LABS: Baso # (Auto) 0.1 th/mm3 (0.0-0.2); Baso % (Auto) 0.7 % (0.0-2.0); Eos % (Auto) 0.2 % (0.0-4.0); Hematocrit 26.6 % (39.0-51.0); Hemoglobin 8.6 gm/dL (13.0-17.0); Lymph # (Auto) 0.4 th/mm3 (1.0-4.8); Lymph % (Auto) 3.1 % (9.0-44.0); Mean Corpuscular HGB Conc 32.4 % (32.0-36.0); Mean Corpuscular Hemoglobin 26.2 pg (27.0-34.0); Mean Platelet Volume 6.7 fL (7.0-11.0); Mono # (Auto) 0.7 th/mm3 (0.0-0.9); Mono % (Auto) 5.1 % (0.0-8.0); Neut # (Auto) 12.1 th/mm3 (1.8-7.7); Neut % (Auto) 90.9 % (16.0-70.0); Platelet Count 551 th/mm3 (150-450); Red Blood Count 3.29 mil/mm3 (4.50-5.90); Red Cell Distribution Width 15.8 % (11.6-17.2); White Blood Count 13.3 th/mm3 (4.0-11.0)
[2018-01-02 11:34] LABS: Activated Partial Thrombo Time 26.4 sec (24.3-30.1); INR 1.4 Ratio; Prothrombin Time 13.7 sec (9.8-11.6)
[2018-01-02 11:46] LABS: Alanine Aminotransferase 725 U/L (12-78); Albumin 2.3 g/dL (3.4-5.0); Anion Gap 5 meq/L (5-15); Aspartate Aminotransferase 915 U/L (15-37); Blood Urea Nitrogen 18 mg/dL (7-18); Calcium 7.8 mg/dL (8.5-10.1); Chloride 96 meq/L (98-107); Glomerular Filtration Rate Greater Than 89 mL/min (>89); Glucose,Random 93 mg/dL (74-106); Magnesium 2.1 mg/dL (1.5-2.5); Potassium 4.2 meq/L (3.5-5.1); Sodium 134 meq/L (136-145)
[2018-01-02 11:50] LABS: Alkaline Phosphatase 95 U/L (45-117); Total Protein 6.2 g/dL (6.4-8.2)
[2018-01-02 11:53] LABS: Troponin I 1.13 ng/mL (0.02-0.05)
--- NOTE | 2018-01-02 11:57 | ED ---
HPI General Chief Complaint: Shortness of Breath/Dyspnea Stated Complaint: SOB Time Seen by Provider: 01/02/18 10:13 Source: patient and RN notes reviewed Mode of arrival: EMS History of Present Illness The patient is a 62-year-old male with past medical history significant for cancer of the neck and history of cancer resection as well as esophageal strictures currently rehab facility presenting with complaint of cough and shortness of breath. He states that he has been having recurrent pneumonias. MD Complaint: shortness of breath and cough (Productive yellow sputum) Related Data Home Medications Medication Instructions Recorded Confirmed citalopram 40 mg PO HS 12/22/17 01/02/18 zolpidem [Ambien] 10 mg PO HS 12/22/17 01/02/18 Previous Rx's Medication Instructions Recorded lorazepam [Ativan] 2 mg PO QID #20 tab 12/25/17 magnesium hydroxide [Milk of 30 ml PO Q12H PRN #300 ml 12/25/17 Magnesia] oxycodone-acetaminophen 1 tab PO Q4H PRN #20 tab 12/25/17 oxycodone-acetaminophen 1 tab PO Q4H PRN #20 tab 12/25/17 temazepam 15 mg PO HS PRN #7 cap 12/25/17 Allergies Allergy/AdvReac Type Severity Reaction Status Date / Time diatrizoate meglumine Allergy Severe HIVES, Verified 10/02/17 07:45 DIZZINESS gadobenic acid Allergy Severe HIVES, Verified 10/02/17 07:45 DIZZINESS gadodiamide Allergy Severe HIVES, Verified 10/02/17 07:45 DIZZINESS gadoteridol Allergy Severe HIVES, Verified 10/02/17 07:45 DIZZINESS Iodinated Contrast- Oral and Allergy Severe Hives Verified 10/02/17 07:45 IV Dye iodixanol Allergy Severe HIVES, Verified 10/02/17 07:45 DIZZINESS iohexol Allergy Severe HIVES, Verified 10/02/17 07:45 DIZZINESS Review of Systems Constitutional Reports chills, Reports fatigue, Denies fever(s), Reports malaise, Reports poor appetite and Reports weakness (Generalized) Eyes Reports system reviewed and no additional complaints, except as docu ENT Comments: Reports dry mouth Respiratory Reports change in phlegm color, Reports chest congestion, Reports dyspnea, Reports dyspnea on exertion and Reports wheezing Gastrointestinal Reports as per HPI Integumentary/Breasts Reports system reviewed and no additional complaints, except as docu Neurologic Reports system reviewed and no additional complaints, except as docu [facility] Medical History Medical History Anemia (Acute) Protein calorie malnutrition (Acute) 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) Cancer of neck (Acute) Esophageal stricture (Acute) Surgical History Surgical History History of radical dissection of left side of neck (Acute) S/P percutaneous endoscopic gastrostomy (PEG) tube placement (Acute) History of skin graft (Acute) S/P skin cancer resection (Acute) Social History Social History Substance History: No History of Abuse Second Hand Smoke Exposure: Yes Smoking Status: Former smoker Tobacco Type: Cigarettes How Often Do You Have a Drink Containing Alcohol: Never Recent Travel in [facility] within the Last 8 Weeks: No Recent Out of Country Travel within the Last 8 Weeks: No Immunization History Tetanus Immunization: Unsure Exam Const General: cooperative, frail appearing and ill appearing Nutritional Appearance: cachectic Orientation: alert, awake and oriented x3 HENMT Head: normal to inspection Ears: hearing grossly normal bilaterally Nose: nasal mucous membranes and turbinates normal Mouth: other (Dry mucosa) Neck Neck: other (Postoperative changes on the anterior neck ) Lymphatic: no lymphadenopathy noted Resp Effort & Inspection: normal respiratory effort, audible wheezes, tachypneic and uses accessory muscles Cardio Jugular venous pressure: no JVD Rate: regular rate Rhythm: regular rhythm Heart Sounds: S1 normal and no murmurs Bruits: no carotid bruits Pulses: normal peripheral pulses GI Inspection: normal to inspection and non-distended Palpation: soft and nontender Auscultation: normal bowel sounds Skin General: no rashes or lesions noted Neuro General: alert, awake and oriented x3 Cranial Nerves: CN's II-XI intact bilaterally, PERRL, accommodation normal and EOM intact bilaterally Cognition: normal cognition Speech: speech normal Motor: muscle tone normal throughout, strength 5/5 throughout and no pronator drift Sensory Exam: no sensory deficits noted DTR's: Rt Brachioradialis: 3+ and Lt Brachioradialis: 3+ Coordination: [id number] test normal Psych Appearance: grossly normal Mental Status: mental status grossly normal Speech and Movement: speech and movement normal Course Reevaluation(s) Time: 12:00 Reevaluation #2: Patient is resting comfortably in no distress. Troponin is positive however he does not have any chest pain or had any chest pain throughout his stay. EKG still pending. We will give him aspirin 162 mg tablet 2 and continue with our evaluation. Hemodynamically stable. Time: 12:56 Initial Documented Vital Signs Temperature 98.6 F 01/02/18 10:05 Pulse Rate 92 H 01/02/18 10:05 Respiratory Rate 20 01/02/18 10:05 Blood Pressure 106/58 L 01/02/18 10:05 Pulse Oximetry 97 01/02/18 10:05 Last Documented Vital Signs Temperature 98 F 01/04/18 04:00 Pulse Rate 74 01/04/18 04:00 Respiratory Rate 16 01/04/18 04:00 Blood Pressure 118/62 01/04/18 04:00 Pulse Oximetry 99 01/04/18 00:00 Critical Care Time Total Critical Care Time: 45 Attestation: I have personally provided 30 minutes of critical care time exclusive time spent on separately billable procedures. Time includes review of laboratory data radiology results, discussion with consultants, monitoring and discussion with family as well as for potential decompensation. Interventions were performed as documented within this note. Medical Decision Making Differential Diagnosis Differential Diagnosis: Patient with sepsis due to pneumonia. Was given IV Zosyn on arrival. Hemodynamically stable. O2 saturation remained above 90%. Breathing treatment was given. Elevated troponin with AK I and no complaint of chest pain at this time or signs of acute ischemia on EKG. She does have T- wave inversions in lateral leads. Aspirin was given antibiotics started and was admitted for further evaluation and Lab Data Lab results reviewed: Yes I reviewed the patient's lab results. Result diagrams: 01/03/18 07:18 01/02/18 11:05 Lab Results 01/02/18 01/02/18 01/02/18 Range/Units 11:05 11:05 11:05 WBC 13.3 H (4.0-11.0) th/mm3 RBC 3.29 L (4.50-5.90) mil/mm3 Hgb 8.6 L (13.0-17.0) gm/dL Hct 26.6 L (39.0-51.0) % MCV 81.0 (80.0-100.0) fL MCH 26.2 L (27.0-34.0) pg MCHC 32.4 (32.0-36.0) % RDW 15.8 (11.6-17.2) % Plt Count 551 H (150-450) th/mm3 MPV 6.7 L (7.0-11.0) fL Neut % (Auto) 90.9 H (16.0-70.0) % Lymph % (Auto) 3.1 L (9.0-44.0) % [place] % (Auto) 5.1 (0.0-8.0) % Eos % (Auto) 0.2 (0.0-4.0) % Baso % (Auto) 0.7 (0.0-2.0) % Neut # (Auto) 12.1 H (1.8-7.7) th/mm3 Lymph # (Auto) 0.4 L (1.0-4.8) th/mm3 [place] # (Auto) 0.7 (0.0-0.9) th/mm3 Eos # (Auto) 0.0 (0.0-0.4) th/mm3 Baso # (Auto) 0.1 (0.0-0.2) th/mm3 WBC Differential . Differential Comment Auto diff final ESR (0-20) mm/hr PT 13.7 H (9.8-11.6) sec INR 1.4 Ratio APTT 26.4 (24.3-30.1) sec Sodium 134 L (136-145) meq/L Potassium 4.2 (3.5-5.1) meq/L Chloride 96 L (98-107) meq/L Carbon Dioxide 33.0 H (21.0-32.0) meq/L Anion Gap 5 (5-15) meq/L BUN 18 (7-18) mg/dL Creatinine 0.67 (0.60-1.30) mg/dL Estimated GFR Greater than 89 (>89) mL/min Random Glucose 93 (74-106) mg/dL Lactic Acid (0.4-2.0) mmol/L Calcium 7.8 L (8.5-10.1) mg/dL Magnesium 2.1 (1.5-2.5) mg/dL Iron (65-175) mcg/dL TIBC (250-450) mcg/dL % Saturation (20-50) % Ferritin (26-388) ng/mL Total Bilirubin 0.8 (0.2-1.0) mg/dL Direct Bilirubin (0.0-0.2) mg/dL Indirect Bilirubin (0.0-0.8) mg/dL AST 915 H (15-37) U/L ALT 725 H (12-78) U/L Alkaline Phosphatase 95 (45-117) U/L Ammonia (11-32) mcmol/L Lactate Dehydrogenase (87-241) U/L Troponin I 1.13 H* (0.02-0.05) ng/mL C-Reactive Protein (0.00-0.30) mg/dL Total Protein 6.2 L (6.4-8.2) g/dL Total Protein (PEP) (6.4-8.2) gm/dL Albumin 2.3 L (3.4-5.0) g/dL Lipase (73-393) U/L Tumor Marker AFP (0.5-8.0) ng/mL Vitamin B12 (193-986) pg/mL Folate (3.1-17.5) ng/mL Urine Color (Yellw/Straw) Urine Clarity (Clear) Urine pH (5.0-8.5) Ur Specific [place] (1.002-1.035) Urine Protein (Neg-Trace) mg/dL Urine Glucose (UA) (Negative) mg/dL Urine Ketones (Negative) mg/dL Urine Occult Blood (Negative) Urine Nitrate (Negative) Urine Bilirubin (Negative) Urine Urobilinogen (Less than 2) mg/dL Ur Leukocyte Esterase (Negative) Urine RBC (0-3) /hpf Urine WBC (0-5) /hpf Ur Squamous Epith Cells (0-5) /hpf Urine Mucus (Occasional) /lpf Micro UA Comment Urine Culture Comments Acetaminophen (10.0-30.0) mcg/mL GORDY Screen (Neg) Hepatitis A IgM Ab (Nonreactive) Hep Bs Antigen (Nonreactive) Hep B Core IgM Ab (Nonreactive) Hep C IgG Ab (Nonreactive) 07/19/18 07/19/18 07/19/18 Range/Units 11:05 14:47 14:47 WBC (4.0-11.0) th/mm3 RBC (4.50-5.90) mil/mm3 Hgb (13.0-17.0) gm/dL Hct (39.0-51.0) % MCV (80.0-100.0) fL MCH (27.0-34.0) pg MCHC (32.0-36.0) % RDW (11.6-17.2) % Plt Count (150-450) th/mm3 MPV (7.0-11.0) fL Neut % (Auto) (16.0-70.0) % Lymph % (Auto) (9.0-44.0) % [place] % (Auto) (0.0-8.0) % Eos % (Auto) (0.0-4.0) % Baso % (Auto) (0.0-2.0) % Neut # (Auto) (1.8-7.7) th/mm3 Lymph # (Auto) (1.0-4.8) th/mm3 [place] # (Auto) (0.0-0.9) th/mm3 Eos # (Auto) (0.0-0.4) th/mm3 Baso # (Auto) (0.0-0.2) th/mm3 WBC Differential Differential Comment ESR (0-20) mm/hr PT (9.8-11.6) sec INR Ratio APTT (24.3-30.1) sec Sodium (136-145) meq/L Potassium (3.5-5.1) meq/L Chloride (98-107) meq/L Carbon Dioxide (21.0-32.0) meq/L Anion Gap (5-15) meq/L BUN (7-18) mg/dL Creatinine (0.60-1.30) mg/dL Estimated GFR (>89) mL/min Random Glucose (74-106) mg/dL Lactic Acid 1.0 (0.4-2.0) mmol/L Calcium (8.5-10.1) mg/dL Magnesium (1.5-2.5) mg/dL Iron (65-175) mcg/dL TIBC (250-450) mcg/dL % Saturation (20-50) % Ferritin (26-388) ng/mL Total Bilirubin (0.2-1.0) mg/dL Direct Bilirubin (0.0-0.2) mg/dL Indirect Bilirubin (0.0-0.8) mg/dL AST (15-37) U/L ALT (12-78) U/L Alkaline Phosphatase (45-117) U/L Ammonia (11-32) mcmol/L Lactate Dehydrogenase (87-241) U/L Troponin I 0.88 H* (0.02-0.05) ng/mL C-Reactive Protein (0.00-0.30) mg/dL Total Protein (6.4-8.2) g/dL Total Protein (PEP) (6.4-8.2) gm/dL Albumin (3.4-5.0) g/dL Lipase (73-393) U/L Tumor Marker AFP (0.5-8.0) ng/mL Vitamin B12 (193-986) pg/mL Folate (3.1-17.5) ng/mL Urine Color (Yellw/Straw) Urine Clarity (Clear) Urine pH (5.0-8.5) Ur Specific [place] (1.002-1.035) Urine Protein (Neg-Trace) mg/dL Urine Glucose (UA) (Negative) mg/dL Urine Ketones (Negative) mg/dL Urine Occult Blood (Negative) Urine Nitrate (Negative) Urine Bilirubin (Negative) Urine Urobilinogen (Less than 2) mg/dL Ur Leukocyte Esterase (Negative) Urine RBC (0-3) /hpf Urine WBC (0-5) /hpf Ur Squamous Epith Cells (0-5) /hpf Urine Mucus (Occasional) /lpf Micro UA Comment Urine Culture Comments Acetaminophen (10.0-30.0) mcg/mL GORDY Screen (Neg) Hepatitis A IgM Ab Nonreactive (Nonreactive) Hep Bs Antigen Nonreactive (Nonreactive) Hep B Core IgM Ab Nonreactive (Nonreactive) Hep C IgG Ab Nonreactive (Nonreactive) 01/02/18 01/02/18 01/02/18 Range/Units 14:47 16:54 16:54 WBC (4.0-11.0) th/mm3 RBC (4.50-5.90) mil/mm3 Hgb (13.0-17.0) gm/dL Hct (39.0-51.0) % MCV (80.0-100.0) fL MCH (27.0-34.0) pg MCHC (32.0-36.0) % RDW (11.6-17.2) % Plt Count (150-450) th/mm3 MPV (7.0-11.0) fL Neut % (Auto) (16.0-70.0) % Lymph % (Auto) (9.0-44.0) % [place] % (Auto) (0.0-8.0) % Eos % (Auto) (0.0-4.0) % Baso % (Auto) (0.0-2.0) % Neut # (Auto) (1.8-7.7) th/mm3 Lymph # (Auto) (1.0-4.8) th/mm3 [place] # (Auto) (0.0-0.9) th/mm3 Eos # (Auto) (0.0-0.4) th/mm3 Baso # (Auto) (0.0-0.2) th/mm3 WBC Differential Differential Comment ESR (0-20) mm/hr PT (9.8-11.6) sec INR Ratio APTT (24.3-30.1) sec Sodium (136-145) meq/L Potassium (3.5-5.1) meq/L Chloride (98-107) meq/L Carbon Dioxide (21.0-32.0) meq/L Anion Gap (5-15) meq/L BUN (7-18) mg/dL Creatinine (0.60-1.30) mg/dL Estimated GFR (>89) mL/min Random Glucose (74-106) mg/dL Lactic Acid (0.4-2.0) mmol/L Calcium (8.5-10.1) mg/dL Magnesium (1.5-2.5) mg/dL Iron 15 L (65-175) mcg/dL TIBC 202 L (250-450) mcg/dL % Saturation 7.4 L (20-50) % Ferritin 1216 H (26-388) ng/mL Total Bilirubin (0.2-1.0) mg/dL Direct Bilirubin (0.0-0.2) mg/dL Indirect Bilirubin (0.0-0.8) mg/dL AST (15-37) U/L ALT (12-78) U/L Alkaline Phosphatase (45-117) U/L Ammonia (11-32) mcmol/L Lactate Dehydrogenase (87-241) U/L Troponin I (0.02-0.05) ng/mL C-Reactive Protein (0.00-0.30) mg/dL Total Protein (6.4-8.2) g/dL Total Protein (PEP) (6.4-8.2) gm/dL Albumin (3.4-5.0) g/dL Lipase (73-393) U/L Tumor Marker AFP (0.5-8.0) ng/mL Vitamin B12 (193-986) pg/mL Folate (3.1-17.5) ng/mL Urine Color (Yellw/Straw) Urine Clarity (Clear) Urine pH (5.0-8.5) Ur Specific [place] (1.002-1.035) Urine Protein (Neg-Trace) mg/dL Urine Glucose (UA) (Negative) mg/dL Urine Ketones (Negative) mg/dL Urine Occult Blood (Negative) Urine Nitrate (Negative) Urine Bilirubin (Negative) Urine Urobilinogen (Less than 2) mg/dL Ur Leukocyte Esterase (Negative) Urine RBC (0-3) /hpf Urine WBC (0-5) /hpf Ur Squamous Epith Cells (0-5) /hpf Urine Mucus (Occasional) /lpf Micro UA Comment Urine Culture Comments Acetaminophen Less than 2.0 L (10.0-30.0) mcg/mL GORDY Screen Pos H (Neg) Hepatitis A IgM Ab (Nonreactive) Hep Bs Antigen (Nonreactive) Hep B Core IgM Ab (Nonreactive) Hep C IgG Ab (Nonreactive) 01/02/18 01/02/18 01/02/18 Range/Units 16:54 16:54 21:35 WBC (4.0-11.0) th/mm3 RBC (4.50-5.90) mil/mm3 Hgb (13.0-17.0) gm/dL Hct (39.0-51.0) % MCV (80.0-100.0) fL MCH (27.0-34.0) pg MCHC (32.0-36.0) % RDW (11.6-17.2) % Plt Count (150-450) th/mm3 MPV (7.0-11.0) fL Neut % (Auto) (16.0-70.0) % Lymph % (Auto) (9.0-44.0) % [place] % (Auto) (0.0-8.0) % Eos % (Auto) (0.0-4.0) % Baso % (Auto) (0.0-2.0) % Neut # (Auto) (1.8-7.7) th/mm3 Lymph # (Auto) (1.0-4.8) th/mm3 [place] # (Auto) (0.0-0.9) th/mm3 Eos # (Auto) (0.0-0.4) th/mm3 Baso # (Auto) (0.0-0.2) th/mm3 WBC Differential Differential Comment ESR (0-20) mm/hr PT (9.8-11.6) sec INR Ratio APTT (24.3-30.1) sec Sodium (136-145) meq/L Potassium (3.5-5.1) meq/L Chloride (98-107) meq/L Carbon Dioxide (21.0-32.0) meq/L Anion Gap (5-15) meq/L BUN (7-18) mg/dL Creatinine (0.60-1.30) mg/dL Estimated GFR (>89) mL/min Random Glucose (74-106) mg/dL Lactic Acid (0.4-2.0) mmol/L Calcium (8.5-10.1) mg/dL Magnesium (1.5-2.5) mg/dL Iron (65-175) mcg/dL TIBC (250-450) mcg/dL % Saturation (20-50) % Ferritin (26-388) ng/mL Total Bilirubin (0.2-1.0) mg/dL Direct Bilirubin (0.0-0.2) mg/dL Indirect Bilirubin (0.0-0.8) mg/dL AST (15-37) U/L ALT (12-78) U/L Alkaline Phosphatase (45-117) U/L Ammonia 12 (11-32) mcmol/L Lactate Dehydrogenase (87-241) U/L Troponin I 0.82 H* (0.02-0.05) ng/mL C-Reactive Protein (0.00-0.30) mg/dL Total Protein (6.4-8.2) g/dL Total Protein (PEP) (6.4-8.2) gm/dL Albumin (3.4-5.0) g/dL Lipase 63 L (73-393) U/L Tumor Marker AFP 0.8 (0.5-8.0) ng/mL Vitamin B12 (193-986) pg/mL Folate (3.1-17.5) ng/mL Urine Color (Yellw/Straw) Urine Clarity (Clear) Urine pH (5.0-8.5) Ur Specific [place] (1.002-1.035) Urine Protein (Neg-Trace) mg/dL Urine Glucose (UA) (Negative) mg/dL Urine Ketones (Negative) mg/dL Urine Occult Blood (Negative) Urine Nitrate (Negative) Urine Bilirubin (Negative) Urine Urobilinogen (Less than 2) mg/dL Ur Leukocyte Esterase (Negative) Urine RBC (0-3) /hpf Urine WBC (0-5) /hpf Ur Squamous Epith Cells (0-5) /hpf Urine Mucus (Occasional) /lpf Micro UA Comment Urine Culture Comments Acetaminophen (10.0-30.0) mcg/mL GORDY Screen (Neg) Hepatitis A IgM Ab (Nonreactive) Hep Bs Antigen (Nonreactive) Hep B Core IgM Ab (Nonreactive) Hep C IgG Ab (Nonreactive) 01/02/18 01/03/18 01/03/18 Range/Units 21:35 07:18 07:18 WBC 9.5 (4.0-11.0) th/mm3 RBC 3.33 L (4.50-5.90) mil/mm3 Hgb 8.8 L (13.0-17.0) gm/dL Hct 27.1 L (39.0-51.0) % MCV 81.4 (80.0-100.0) fL MCH 26.4 L (27.0-34.0) pg MCHC 32.5 (32.0-36.0) % RDW 15.9 (11.6-17.2) % Plt Count 621 H (150-450) th/mm3 MPV 6.9 L (7.0-11.0) fL Neut % (Auto) 83.6 H (16.0-70.0) % Lymph % (Auto) 8.2 L (9.0-44.0) % [place] % (Auto) 5.7 (0.0-8.0) % Eos % (Auto) 1.3 (0.0-4.0) % Baso % (Auto) 1.2 (0.0-2.0) % Neut # (Auto) 7.9 H (1.8-7.7) th/mm3 Lymph # (Auto) 0.8 L (1.0-4.8) th/mm3 [place] # (Auto) 0.5 (0.0-0.9) th/mm3 Eos # (Auto) 0.1 (0.0-0.4) th/mm3 Baso # (Auto) 0.1 (0.0-0.2) th/mm3 WBC Differential . Differential Comment Auto diff final ESR (0-20) mm/hr PT (9.8-11.6) sec INR Ratio APTT (24.3-30.1) sec Sodium (136-145) meq/L Potassium (3.5-5.1) meq/L Chloride (98-107) meq/L Carbon Dioxide (21.0-32.0) meq/L Anion Gap (5-15) meq/L BUN (7-18) mg/dL Creatinine (0.60-1.30) mg/dL Estimated GFR (>89) mL/min Random Glucose (74-106) mg/dL Lactic Acid (0.4-2.0) mmol/L Calcium (8.5-10.1) mg/dL Magnesium (1.5-2.5) mg/dL Iron (65-175) mcg/dL TIBC (250-450) mcg/dL % Saturation (20-50) % Ferritin (26-388) ng/mL Total Bilirubin 0.8 (0.2-1.0) mg/dL Direct Bilirubin 0.3 H (0.0-0.2) mg/dL Indirect Bilirubin 0.5 (0.0-0.8) mg/dL AST 540 H (15-37) U/L ALT 562 H (12-78) U/L Alkaline Phosphatase 88 (45-117) U/L Ammonia (11-32) mcmol/L Lactate Dehydrogenase (87-241) U/L Troponin I (0.02-0.05) ng/mL C-Reactive Protein (0.00-0.30) mg/dL Total Protein 5.8 L (6.4-8.2) g/dL Total Protein (PEP) (6.4-8.2) gm/dL Albumin 2.1 L (3.4-5.0) g/dL Lipase (73-393) U/L Tumor Marker AFP (0.5-8.0) ng/mL Vitamin B12 (193-986) pg/mL Folate (3.1-17.5) ng/mL Urine Color (Yellw/Straw) Urine Clarity (Clear) Urine pH (5.0-8.5) Ur Specific [place] (1.002-1.035) Urine Protein (Neg-Trace) mg/dL Urine Glucose (UA) (Negative) mg/dL Urine Ketones (Negative) mg/dL Urine Occult Blood (Negative) Urine Nitrate (Negative) Urine Bilirubin (Negative) Urine Urobilinogen (Less than 2) mg/dL Ur Leukocyte Esterase (Negative) Urine RBC (0-3) /hpf Urine WBC (0-5) /hpf Ur Squamous Epith Cells (0-5) /hpf Urine Mucus (Occasional) /lpf Micro UA Comment Urine Culture Comments Acetaminophen Less than 2.0 L (10.0-30.0) mcg/mL GORDY Screen (Neg) Hepatitis A IgM Ab (Nonreactive) Hep Bs Antigen (Nonreactive) Hep B Core IgM Ab (Nonreactive) Hep C IgG Ab (Nonreactive) 01/03/18 01/03/18 01/04/18 Range/Units 07:18 07:18 05:30 WBC (4.0-11.0) th/mm3 RBC (4.50-5.90) mil/mm3 Hgb (13.0-17.0) gm/dL Hct (39.0-51.0) % MCV (80.0-100.0) fL MCH (27.0-34.0) pg MCHC (32.0-36.0) % RDW (11.6-17.2) % Plt Count (150-450) th/mm3 MPV (7.0-11.0) fL Neut % (Auto) (16.0-70.0) % Lymph % (Auto) (9.0-44.0) % [place] % (Auto) (0.0-8.0) % Eos % (Auto) (0.0-4.0) % Baso % (Auto) (0.0-2.0) % Neut # (Auto) (1.8-7.7) th/mm3 Lymph # (Auto) (1.0-4.8) th/mm3 [place] # (Auto) (0.0-0.9) th/mm3 Eos # (Auto) (0.0-0.4) th/mm3 Baso # (Auto) (0.0-0.2) th/mm3 WBC Differential Differential Comment ESR 56 H (0-20) mm/hr PT (9.8-11.6) sec INR Ratio APTT (24.3-30.1) sec Sodium (136-145) meq/L Potassium (3.5-5.1) meq/L Chloride (98-107) meq/L Carbon Dioxide (21.0-32.0) meq/L Anion Gap (5-15) meq/L BUN (7-18) mg/dL Creatinine (0.60-1.30) mg/dL Estimated GFR (>89) mL/min Random Glucose (74-106) mg/dL Lactic Acid (0.4-2.0) mmol/L Calcium (8.5-10.1) mg/dL Magnesium (1.5-2.5) mg/dL Iron (65-175) mcg/dL TIBC (250-450) mcg/dL % Saturation (20-50) % Ferritin (26-388) ng/mL Total Bilirubin (0.2-1.0) mg/dL Direct Bilirubin (0.0-0.2) mg/dL Indirect Bilirubin (0.0-0.8) mg/dL AST (15-37) U/L ALT (12-78) U/L Alkaline Phosphatase (45-117) U/L Ammonia (11-32) mcmol/L Lactate Dehydrogenase 253 H (87-241) U/L Troponin I (0.02-0.05) ng/mL C-Reactive Protein 11.00 H (0.00-0.30) mg/dL Total Protein (6.4-8.2) g/dL Total Protein (PEP) 5.7 L (6.4-8.2) gm/dL Albumin (3.4-5.0) g/dL Lipase (73-393) U/L Tumor Marker AFP (0.5-8.0) ng/mL Vitamin B12 Greater than 2000 H (193-986) pg/mL Folate Greater than 20.0 H (3.1-17.5) ng/mL Urine Color [place] (Yellw/Straw) Urine Clarity Hazy H (Clear) Urine pH 5.0 (5.0-8.5) Ur Specific [place] 1.040 H (1.002-1.035) Urine Protein Negative (Neg-Trace) mg/dL Urine Glucose (UA) Negative (Negative) mg/dL Urine Ketones 20 (Negative) mg/dL Urine Occult Blood Negative (Negative) Urine Nitrate Negative (Negative) Urine Bilirubin Negative (Negative) Urine Urobilinogen 2.0 H (Less than 2) mg/dL Ur Leukocyte Esterase Negative (Negative) Urine RBC 1 (0-3) /hpf Urine WBC 2 (0-5) /hpf Ur Squamous Epith Cells <1 (0-5) /hpf Urine Mucus Few H (Occasional) /lpf Micro UA Comment Culture not ind Urine Culture Comments Culture not ind Acetaminophen (10.0-30.0) mcg/mL GORDY Screen (Neg) Hepatitis A IgM Ab (Nonreactive) Hep Bs Antigen (Nonreactive) Hep B Core IgM Ab (Nonreactive) Hep C IgG Ab (Nonreactive) Imaging Data Radiologist's impression: Liver Ultrasound 01/02/18 00:00 CONCLUSION: 1. Cholelithiasis. No sonographic evidence to suggest acute cholecystitis. 2. Trace amount of ascitic fluid. 3. Small bilateral pleural effusions. Chest X-Ray 01/02/18 11:05 CONCLUSION: New alveolar infiltrate in both medial lung bases of concern for pneumonia. Knee X-Ray 01/03/18 00:00 CONCLUSION: 1. Mildly depressed and comminuted lateral tibial plateau fracture with a configuration similar to the study from 11 days ago. 2. Stable small joint effusion. Videofluoroscopic Swallow 01/03/18 00:00 CONCLUSION: For a full detailed report, see report by the speech pathologist. ECG Data Attestation: I personally reviewed and interpreted this ECG as follows: Interpretation: EKG obtained at 1450 on 01/02/2018 revealed a left axis deviation sinus rhythm with nonspecific ST-T wave abnormalities no no signs of ST elevation [place]. Discharge Plan Discharge Disposition Patient Disposition: 30 Still Patient Discharge Condition Condition: Serious Discharge Details Diagnosis: Pneumonia, Non-ST elevation [place] (NSTEMI), Sepsis, RENETTA (acute kidney injury) Physicians Team ED Provider: Ciro Peters Primary Care Provider: Malcom Kaur Attending Provider: Ingrid Blood Other Providers: Irvin Hector ; Alex Rahman ; Ishan Welch ; Mirza Blanco ; Atif Salomon Discharge Interventions Interventions: ED Discharge Assessment Last Done: 01/02/18 15:03 Status ED Status: Left Department Discharge Information Discharge Date/Time: 01/02/18 15:03
--- NOTE | 2018-01-02 12:08 | XR ---
EXAM DATE: 01/02/2018 11:57 AM EDT AGE/SEX: 62 years / Male INDICATIONS: Fever, congestion. CLINICAL DATA: This is the patient's initial encounter. Patient reports that signs and symptoms have been present for 2 days and indicates a pain score of 0/10. MEDICAL/SURGICAL HISTORY: None. None. COMPARISON: [facility] [place], CHEST PA & LAT, 02/11/2016. . FINDINGS: A single AP erect portable view the chest was obtained and demonstrates new alveolar type infiltrate in both medial lung bases. The heart size is at the upper limits of normal. There is no effusion. The bony thorax is intact. There are overlying electrocardiogram leads. CONCLUSION: New alveolar infiltrate in both medial lung bases of concern for pneumonia. Electronically signed by: Steve Griffin MD 01/02/2018 12:07 PM EDT
--- NOTE | 2018-01-02 13:07 | P.HPIM ---
History of Present Illness Primary Care Physician: Malcom Kaur DO Chief Complaint: cough History of Present Illness: patient is a 62 y/o male with history of throat cancer who presented to ER with productive cough.he was recently admitted to the hospital with left tibia plateau fracture and was discharged to rehab. he says that he's been coughing for sometime. he denies any sob, fever, chills,night sweats. he says that he's on mechanical soft diet and he doesn't report any difficulty swallowing or aspiration.he denies any chest pain, nausea, vomiting. Review of Systems All other systems reviewed negative except as stated in HPI PMFSH - History History Provided By: Patient - Medical History Medical History: Medical History (Last Reviewed 01/02/18 @ 12:20 by Ciro Peters DO) Cancer of neck Esophageal stricture - Surgical History Surgical History: Surgical History (Last Reviewed 01/02/18 @ 12:20 by Ciro Peters DO) History of skin graft S/P skin cancer resection - Tobacco History Second Hand Smoke Exposure: No Tobacco Use In Past 30 Days: No Smoking Status: Former smoker Tobacco Type: Cigarettes - Alcohol History How Often Do You Have a Drink Containing Alcohol: Never - Substance Use History Substance History: No History of Abuse - Travel History Recent Travel in the [place] Within the Last 8 Weeks: No Recent Travel Out of the Country Within the Last 8 Weeks: No - Immunization History Tetanus Immunization: Unsure Medications and Allergies Active Medications: Active Medications Sodium Chloride (Ns Inj) 1,000 mls @ 0 mls/hr IV.SIG .Q0M DARIO Last Admin: 01/02/18 11:12 Dose: 1,000 mls/hr Sodium Chloride (Ns Inj) 1,000 mls @ 0 mls/hr IV.SIG .Q0M DARIO Last Admin: 01/02/18 11:13 Dose: 1,000 mls/hr Sodium Chloride (Ns Inj) 700 mls @ 0 mls/hr IV.SIG .Q0M DARIO Sodium Chloride (Ns Inj) 1,000 mls @ 0 mls/hr IV.SIG .Q0M DARIO Sodium Chloride (Ns Inj) 1,000 mls @ 0 mls/hr IV.SIG .Q0M DARIO Sodium Chloride (Ns Inj) 700 mls @ 0 mls/hr IV.SIG .Q0M DARIO Piperacillin/Tazobactam/Dextrose (Zosyn 3.375 Gm Premix) 50 mls @ 100 mls/hr IV.SIG Q6H DARIO Sodium Chloride (Ns Inj) 1,000 mls @ 100 mls/hr IV.CONT .Q10H DARIO Allergies Allergy/AdvReac Type Severity Reaction Status Date / Time diatrizoate meglumine Allergy Severe HIVES, Verified 10/02/17 07:45 DIZZINESS gadobenic acid Allergy Severe HIVES, Verified 10/02/17 07:45 DIZZINESS gadodiamide Allergy Severe HIVES, Verified 10/02/17 07:45 DIZZINESS gadoteridol Allergy Severe HIVES, Verified 10/02/17 07:45 DIZZINESS Iodinated Contrast- Oral and Allergy Severe Hives Verified 10/02/17 07:45 IV Dye iodixanol Allergy Severe HIVES, Verified 10/02/17 07:45 DIZZINESS iohexol Allergy Severe HIVES, Verified 10/02/17 07:45 DIZZINESS Home Medications Medication Instructions Recorded Confirmed Type citalopram 40 mg PO HS 12/22/17 01/02/18 History zolpidem [Ambien] 10 mg PO HS 12/22/17 01/02/18 History Exam Vital signs: Vital Signs 01/02/18 10:05 01/02/18 11:05 01/02/18 11:40 Temperature 98.6 F Pulse Rate 92 H 97 H 95 H Respiratory Rate 20 18 Blood Pressure 106/58 L Pulse Oximetry 97 Intake & Output 01/01/18 01/02/18 01/02/18 18:59 06:59 18:59 Weight 81.647 kg - Constitutional no acute distress - Routine HEENT Exam Head: Present: normocephalic - Routine Neck Exam Present: supple, full ROM - Routine Respiratory Exam Present: CTA bilaterally, diminished air movement (in bases bilaterally.) - Routine Cardiovascular Exam Present: RRR - Routine Abdominal Exam Present: soft - Routine Extremities Exam Comments: no pedal edema. - Routine Neurological Exam Present: alert, oriented X3 Results - Labs CBC & Chem 7: 01/02/18 11:05 01/02/18 11:05 Labs: Short CBC 01/02/18 Range/Units 11:05 WBC 13.3 H (4.0-11.0) th/mm3 Hgb 8.6 L (13.0-17.0) gm/dL Hct 26.6 L (39.0-51.0) % Plt Count 551 H (150-450) th/mm3 BMP 01/02/18 11:05 Sodium 134 L Potassium 4.2 Chloride 96 L Carbon Dioxide 33.0 H BUN 18 Creatinine 0.67 Calcium 7.8 L Cardiac Enzymes 01/02/18 Range/Units 11:05 Troponin I 1.13 H* (0.02-0.05) ng/mL Liver Function 01/02/18 Range/Units 11:05 Total Bilirubin 0.8 (0.2-1.0) mg/dL AST 915 H (15-37) U/L ALT 725 H (12-78) U/L Alkaline Phosphatase 95 (45-117) U/L Albumin 2.3 L (3.4-5.0) g/dL - Imaging Impressions Chest X-Ray 01/02/18 11:05 CONCLUSION: New alveolar infiltrate in both medial lung bases of concern for pneumonia. Caprini VTE Risk Assessment Caprini VTE Risk Assessment: Moderate/High Risk (score >= 2) VTE Pharmacological Exception Reason: High risk for bleeding Caprini Risk Assessment Model: Point Value = 1 Point Value = 2 Point Value = 3 Point Value = 5 Age 41-60 Minor surgery BMI > 25 kg/m2 Swollen legs Varicose veins or History of unexplained or recurrent spontaneous Oral contraceptives or hormone replacement Sepsis (< 1 month) Serious lung disease, including pneumonia (< 1 month) Abnormal pulmonary function Acute myocardial infarction Congestive heart failure (< 1 month) History of inflammatory bowel disease Medical patient at bed rest Age 61-74 Arthroscopic surgery Major open surgery (> 45 min) Laparoscopic surgery (> 45 min) Malignancy Confined to bed (> 72 hours) Immobilizing plaster cast Central venous access Age >= 75 History of VTE Family history of VTE Factor V Leiden Prothrombin [id number] Lupus anticoagulant Anticardiolipin antibodies Elevated serum homocysteine Heparin-induced thrombocytopenia Other congenital or acquired thrombophilia Stroke (< 1 month) Elective arthroplasty Hip, pelvis, or leg fracture Acute spinal cord injury (< 1 month) Prophylaxis Regimen: Total Risk Factor Score Risk Level Prophylaxis Regimen 0-1 Low Early ambulation 2 Moderate Order ONE of the following: *Sequential Compression Device (SCD) *Heparin 5000 units SQ BID 3-4 Higher Order ONE of the following medications: *Heparin 5000 units SQ TID *Enoxaparin/Lovenox 40 mg SQ daily (WT < 150 kg, CrCl > 30 mL/min) *Enoxaparin/Lovenox 30 mg SQ daily (WT < 150 kg, CrCl > 10-29 mL/min) *Enoxaparin/Lovenox 30 mg SQ BID (WT < 150 kg, CrCl > 30 mL/min) AND/OR *Sequential Compression Device (SCD) 5 or more Highest Order ONE of the following medications: *Heparin 5000 units SQ TID (Preferred with Epidurals) *Enoxaparin/Lovenox 40 mg SQ daily (WT < 150 kg, CrCl > 30 mL/min) *Enoxaparin/Lovenox 30 mg SQ daily (WT < 150 kg, CrCl > 10-29 mL/min) *Enoxaparin/Lovenox 30 mg SQ BID (WT < 150 kg, CrCl > 30 mL/min) AND *Sequential Compression Device (SCD) Assessment and Plan - Plan A/P - sepsis due to pneumonia will continue with IV Zosyn for now- will obtain blood and sputum cultures- keep on oxygen as needed to keep O2 sat > 90%. - history of throat cancer/ esophageal stricture NPO for now till ST evaluation- continue with IV fluid. -elevated troponin- denies chest pain- T wave inversion in lateral leads on EKG - received aspirin- will trend the cardiac enzymes and consult cardiology. -elevated LFT's; will check abdominal sonogram and hepatitis profile- repeat LFT 's in am and consult GI. -anemia of chronic disease- will monitor. -recent left tibial plateau fracture- was seen by ortho; recommended non-op treatment; continue with NWB on left lower extremity- f/u with ortho with repeated XR's. Discussed Condition With: ER physician and the patient.
--- NOTE | 2018-01-02 14:40 | P.CONGI ---
History of Present Illness Consult date: 01/02/18 Consult reason: elevated LFTs Chief complaint: PNEUMONIA History of Present Illness: This is a 62 yo M with PMH significant for head and neck cancer S/P radiation therapy who has had recurrent issues with dysphagia, and has required repeat esophageal dilatations. According to Dr. Fuentes, pt has gone to [facility] and [facility] who have suggested to best option is to continue with frequent dilatations, even monthly. According to his note, pt does not want to have total laryngectomy or G-tube. Pt presented to the ER today with complaints of cough, our service has been consulted to evaluate pt for elevated liver enzymes. Pt is oriented to place and year but seems confused, unable to tell me the month and states he is from home where he lives alone. According to notes pt is from a rehab facility. Pt denies nausea, vomiting, abdominal pain. Denies previous personal or family history of liver issues. Thinks he was started on a new patch medication yesterday, unsure what this is for or what it is called. Denies any alcohol use. Unable to obtain further information by history. <Bernice Ivey - Last Filed: 01/02/18 14:24> Review of Systems Respiratory: Reports cough Gastrointestinal: Denies abdominal pain, Denies change in stools, Denies nausea , Denies vomiting <Bernice Ivey - Last Filed: 01/02/18 14:24> PMF - History History Provided By: Patient - Medical History Medical History: Medical History (Last Reviewed 01/02/18 @ 14:06 by Ciro Peters DO) Cancer of neck Esophageal stricture - Surgical History Surgical History: Surgical History (Last Reviewed 01/02/18 @ 14:06 by Ciro Peters DO) History of skin graft S/P skin cancer resection - Tobacco History Second Hand Smoke Exposure: No Tobacco Use In Past 30 Days: No Smoking Status: Former smoker Tobacco Type: Cigarettes - Alcohol History How Often Do You Have a Drink Containing Alcohol: Never - Substance Use History Substance History: No History of Abuse - Travel History Recent Travel in the [place] Within the Last 8 Weeks: No Recent Travel Out of the Country Within the Last 8 Weeks: No - Immunization History Tetanus Immunization: Unsure <Bernice Ivey - Last Filed: 01/02/18 14:24> - Medical History Medical History: Medical History (Last Reviewed 01/02/18 @ 14:06 by Ciro Peters DO) Cancer of neck Esophageal stricture - Surgical History Surgical History: Surgical History (Last Reviewed 01/02/18 @ 14:06 by Ciro Peters DO) History of skin graft S/P skin cancer resection <Alex Rahman - Last Filed: 01/02/18 22:55> Medications and Allergies Active Medications: Active Medications Albuterol (Albuterol Neb (Prn)) 0.63 mg NEB Q6HR NEB PRN PRN Reason: SHORTNESS OF BREATH Aspirin (Ecotrin) 81 mg PO DAILY DARIO Citalopram Hydrobromide (Celexa) 40 mg PO HS DARIO Sodium Chloride (Ns Inj) 1,000 mls @ 0 mls/hr IV.SIG .Q0M DARIO Last Admin: 01/02/18 11:12 Dose: 1,000 mls/hr Sodium Chloride (Ns Inj) 1,000 mls @ 0 mls/hr IV.SIG .Q0M DARIO Last Admin: 01/02/18 11:13 Dose: 1,000 mls/hr Sodium Chloride (Ns Inj) 700 mls @ 0 mls/hr IV.SIG .Q0M DARIO Sodium Chloride (Ns Inj) 1,000 mls @ 0 mls/hr IV.SIG .Q0M DARIO Sodium Chloride (Ns Inj) 1,000 mls @ 0 mls/hr IV.SIG .Q0M DARIO Sodium Chloride (Ns Inj) 700 mls @ 0 mls/hr IV.SIG .Q0M DARIO Piperacillin/Tazobactam/Dextrose (Zosyn 3.375 Gm Premix) 50 mls @ 100 mls/hr IV.SIG Q6H DARIO Sodium Chloride (Ns Inj) 1,000 mls @ 100 mls/hr IV.CONT .Q10H DARIO Lorazepam (Ativan) 2 mg PO QID DARIO <Bernice Ivey - Last Filed: 01/02/18 14:24> Active Medications: Active Medications Albuterol (Albuterol Neb (Prn)) 0.63 mg NEB Q6HR NEB PRN PRN Reason: SHORTNESS OF BREATH Aspirin (Ecotrin) 81 mg PO DAILY DARIO Citalopram Hydrobromide (Celexa) 40 mg PO HS [facility] Last Admin: 01/02/18 20:57 Dose: 40 mg Sodium Chloride (Ns Inj) 1,000 mls @ 0 mls/hr IV.SIG .Q0M DARIO Last Infusion: 01/02/18 12:12 Dose: Infused Sodium Chloride (Ns Inj) 1,000 mls @ 0 mls/hr IV.SIG .Q0M DARIO Last Admin: 01/02/18 11:13 Dose: 1,000 mls/hr Sodium Chloride (Ns Inj) 700 mls @ 0 mls/hr IV.SIG .Q0M DARIO Sodium Chloride (Ns Inj) 1,000 mls @ 0 mls/hr IV.SIG .Q0M DARIO Sodium Chloride (Ns Inj) 1,000 mls @ 0 mls/hr IV.SIG .Q0M DARIO Sodium Chloride (Ns Inj) 700 mls @ 0 mls/hr IV.SIG .Q0M DARIO Piperacillin/Tazobactam/Dextrose (Zosyn 3.375 Gm Premix) 50 mls @ 100 mls/hr IV.SIG Q6H [facility] Last Admin: 01/02/18 19:33 Dose: 100 mls/hr Sodium Chloride (Ns Inj) 1,000 mls @ 100 mls/hr IV.CONT .Q10H [facility] Last Admin: 01/02/18 19:35 Dose: 100 mls/hr Lorazepam (Ativan) 2 mg PO QID [facility] Last Admin: 01/02/18 20:56 Dose: 2 mg Oxycodone HCl (Roxicodone) 5 mg PO Q8H PRN PRN Reason: acute pain 4-10 Last Admin: 01/02/18 20:56 Dose: 5 mg <Alex Rahman E - Last Filed: 01/02/18 22:55> Allergies Allergy/AdvReac Type Severity Reaction Status Date / Time diatrizoate meglumine Allergy Severe HIVES, Verified 10/02/17 07:45 DIZZINESS gadobenic acid Allergy Severe HIVES, Verified 10/02/17 07:45 DIZZINESS gadodiamide Allergy Severe HIVES, Verified 10/02/17 07:45 DIZZINESS gadoteridol Allergy Severe HIVES, Verified 10/02/17 07:45 DIZZINESS Iodinated Contrast- Oral and Allergy Severe Hives Verified 10/02/17 07:45 IV Dye iodixanol Allergy Severe HIVES, Verified 10/02/17 07:45 DIZZINESS iohexol Allergy Severe HIVES, Verified 10/02/17 07:45 DIZZINESS Home Medications Medication Instructions Recorded Confirmed Type citalopram 40 mg PO HS 12/22/17 01/02/18 History zolpidem [Ambien] 10 mg PO HS 12/22/17 01/02/18 History Exam Vital signs: Vital Signs 01/02/18 10:05 01/02/18 11:05 01/02/18 11:40 Temperature 98.6 F Pulse Rate 92 H 97 H 95 H Respiratory Rate 20 18 Blood Pressure 106/58 L Pulse Oximetry 97 Intake & Output 01/01/18 01/02/18 01/02/18 18:59 06:59 18:59 Weight 81.647 kg - Constitutional no acute distress - Routine HEENT Exam Head: Present: normocephalic, atraumatic - Routine Respiratory Exam Absent: accessory muscle use - Routine Abdominal Exam Present: soft, normoactive bowel sounds. Absent: tenderness - Routine Skin Exam Present: dry, warm - Routine Neurological Exam Present: alert. Absent: oriented X3 <Bernice Ivey - Last Filed: 01/02/18 14:24> Vital signs: Vital Signs 01/02/18 10:05 01/02/18 11:05 01/02/18 11:40 Temperature 98.6 F Pulse Rate 92 H 97 H 95 H Respiratory Rate 20 18 Blood Pressure 106/58 L Pulse Oximetry 97 01/02/18 14:41 01/02/18 15:25 01/02/18 20:00 Temperature 98.6 F 97.9 F Pulse Rate 88 92 H 81 Respiratory Rate 20 20 20 Blood Pressure 119/64 109/64 105/52 L Pulse Oximetry 93 L 94 L 93 L Intake & Output 01/02/18 01/02/18 01/03/18 06:59 18:59 06:59 Intake Total 1180 / 1180 Balance 1180 / 1180 Weight 81.647 kg Intake: IV 1000 / 1000 NS Inj 1,000 ML @ Wide Open IV. 1000 / 1000 SIG .Q0M DARIO Rx#:[id number] Oral 180 / 180 Other: # Voids 1 <Alex Rahman - Last Filed: 01/02/18 22:55> Results - Labs CBC & Chem 7: 01/02/18 11:05 01/02/18 11:05 Labs: Laboratory Results - last 24 hr 01/02/18 01/02/18 01/02/18 11:05 11:05 11:05 WBC 13.3 H RBC 3.29 L Hgb 8.6 L Hct 26.6 L MCV 81.0 MCH 26.2 L MCHC 32.4 RDW 15.8 Plt Count 551 H MPV 6.7 L Neut % (Auto) 90.9 H Lymph % (Auto) 3.1 L [place] % (Auto) 5.1 Eos % (Auto) 0.2 Baso % (Auto) 0.7 Neut # (Auto) 12.1 H Lymph # (Auto) 0.4 L [place] # (Auto) 0.7 Eos # (Auto) 0.0 Baso # (Auto) 0.1 WBC Differential . Differential Comment Auto diff final PT 13.7 H INR 1.4 APTT 26.4 Sodium 134 L Potassium 4.2 Chloride 96 L Carbon Dioxide 33.0 H Anion Gap 5 BUN 18 Creatinine 0.67 Estimated GFR Greater than 89 Random Glucose 93 Lactic Acid Calcium 7.8 L Magnesium 2.1 Total Bilirubin 0.8 AST 915 H ALT 725 H Alkaline Phosphatase 95 Troponin I 1.13 H* Total Protein 6.2 L Albumin 2.3 L 01/02/18 11:05 WBC RBC Hgb Hct MCV MCH MCHC RDW Plt Count MPV Neut % (Auto) Lymph % (Auto) [place] % (Auto) Eos % (Auto) Baso % (Auto) Neut # (Auto) Lymph # (Auto) [place] # (Auto) Eos # (Auto) Baso # (Auto) WBC Differential Differential Comment PT INR APTT Sodium Potassium Chloride Carbon Dioxide Anion Gap BUN Creatinine Estimated GFR Random Glucose Lactic Acid 1.0 Calcium Magnesium Total Bilirubin AST ALT Alkaline Phosphatase Troponin I Total Protein Albumin - Imaging Impressions Chest X-Ray 01/02/18 11:05 CONCLUSION: New alveolar infiltrate in both medial lung bases of concern for pneumonia. <Bernice Ivey - Last Filed: 01/02/18 14:24> - Labs CBC & Chem 7: 01/02/18 11:05 01/02/18 11:05 Labs: Laboratory Results - last 24 hr 01/02/18 01/02/18 01/02/18 11:05 11:05 11:05 WBC 13.3 H RBC 3.29 L Hgb 8.6 L Hct 26.6 L MCV 81.0 MCH 26.2 L MCHC 32.4 RDW 15.8 Plt Count 551 H MPV 6.7 L Neut % (Auto) 90.9 H Lymph % (Auto) 3.1 L [place] % (Auto) 5.1 Eos % (Auto) 0.2 Baso % (Auto) 0.7 Neut # (Auto) 12.1 H Lymph # (Auto) 0.4 L [place] # (Auto) 0.7 Eos # (Auto) 0.0 Baso # (Auto) 0.1 WBC Differential . Differential Comment Auto diff final PT 13.7 H INR 1.4 APTT 26.4 Sodium 134 L Potassium 4.2 Chloride 96 L Carbon Dioxide 33.0 H Anion Gap 5 BUN 18 Creatinine 0.67 Estimated GFR Greater than 89 Random Glucose 93 Lactic Acid Calcium 7.8 L Magnesium 2.1 Iron TIBC % Saturation Ferritin Total Bilirubin 0.8 AST 915 H ALT 725 H Alkaline Phosphatase 95 Ammonia Troponin I 1.13 H* Total Protein 6.2 L Albumin 2.3 L Lipase Tumor Marker AFP Acetaminophen Hepatitis A IgM Ab Hep Bs Antigen Hep B Core IgM Ab Hep C IgG Ab 01/02/18 01/02/18 01/02/18 11:05 14:47 14:47 WBC RBC Hgb Hct MCV MCH MCHC RDW Plt Count MPV Neut % (Auto) Lymph % (Auto) [place] % (Auto) Eos % (Auto) Baso % (Auto) Neut # (Auto) Lymph # (Auto) [place] # (Auto) Eos # (Auto) Baso # (Auto) WBC Differential Differential Comment PT INR APTT Sodium Potassium Chloride Carbon Dioxide Anion Gap BUN Creatinine Estimated GFR Random Glucose Lactic Acid 1.0 Calcium Magnesium Iron TIBC % Saturation Ferritin Total Bilirubin AST ALT Alkaline Phosphatase Ammonia Troponin I 0.88 H* Total Protein Albumin Lipase Tumor Marker AFP Acetaminophen Hepatitis A IgM Ab Nonreactive Hep Bs Antigen Nonreactive Hep B Core IgM Ab Nonreactive Hep C IgG Ab Nonreactive 01/02/18 01/02/18 01/02/18 14:47 16:54 16:54 WBC RBC Hgb Hct MCV MCH MCHC RDW Plt Count MPV Neut % (Auto) Lymph % (Auto) [place] % (Auto) Eos % (Auto) Baso % (Auto) Neut # (Auto) Lymph # (Auto) [place] # (Auto) Eos # (Auto) Baso # (Auto) WBC Differential Differential Comment PT INR APTT Sodium Potassium Chloride Carbon Dioxide Anion Gap BUN Creatinine Estimated GFR Random Glucose Lactic Acid Calcium Magnesium Iron 15 L TIBC 202 L % Saturation 7.4 L Ferritin 1216 H Total Bilirubin AST ALT Alkaline Phosphatase Ammonia 12 Troponin I Total Protein Albumin Lipase Tumor Marker AFP Acetaminophen Less than 2.0 L Hepatitis A IgM Ab Hep Bs Antigen Hep B Core IgM Ab Hep C IgG Ab 01/02/18 01/02/18 01/02/18 16:54 21:35 21:35 WBC RBC Hgb Hct MCV MCH MCHC RDW Plt Count MPV Neut % (Auto) Lymph % (Auto) [place] % (Auto) Eos % (Auto) Baso % (Auto) Neut # (Auto) Lymph # (Auto) [place] # (Auto) Eos # (Auto) Baso # (Auto) WBC Differential Differential Comment PT INR APTT Sodium Potassium Chloride Carbon Dioxide Anion Gap BUN Creatinine Estimated GFR Random Glucose Lactic Acid Calcium Magnesium Iron TIBC % Saturation Ferritin Total Bilirubin AST ALT Alkaline Phosphatase Ammonia Troponin I 0.82 H* Total Protein Albumin Lipase 63 L Tumor Marker AFP 0.8 Acetaminophen Less than 2.0 L Hepatitis A IgM Ab Hep Bs Antigen Hep B Core IgM Ab Hep C IgG Ab - Imaging Impressions Liver Ultrasound 01/02/18 00:00 CONCLUSION: 1. Cholelithiasis. No sonographic evidence to suggest acute cholecystitis. 2. Trace amount of ascitic fluid. 3. Small bilateral pleural effusions. Chest X-Ray 01/02/18 11:05 CONCLUSION: New alveolar infiltrate in both medial lung bases of concern for pneumonia. <Alex Rahman E - Last Filed: 01/02/18 22:55> Assessment and Plan (1) Elevated LFTs Status: Acute Code(s): R94.5 - Abnormal results of liver function studies - Plan Assessment: - Elevated LFTs Pt oriented to place and year, but unable to recall month and is a poor historian. Denies personal or family history of liver issues. Denies ETOH. Thinks he was started on a new patch? yesterday but unsure what this is for or what it is called and nothing listed on home medication list. No elevation of LFTs noted from previous hospitalizations AST-915 ALT-725 T bili-0.8 Alk phos-95 - Elevated troponin- cardiology consult pending - History of throat cancer S/P multiple esophageal dilatations done by Dr. Fuentes- Pt does not want total laryngectomy or G-tube Received radiation therapy- denies previous chemotherapy - Multiple recurrence of PNA secondary to aspiration Plan: Liver US Hepatitis profile Tylenol level Ammonia level Liver HART Avoid hepatotoxins Monitor LFTs Further recommendations based on clinical course and results of above Pt has been seen and examined by myself and Dr. Rahman and this note is written on his behalf <Bernice Ivey - Last Filed: 01/02/18 14:24> (1) Elevated LFTs Status: Acute Code(s): R94.5 - Abnormal results of liver function studies - Attending Attestation Patient seen and examined Agree with above Continue with current supportive care Monitor labs <Alex Rahman - Last Filed: 01/02/18 22:55>
--- NOTE | 2018-01-02 14:42 | US ---
EXAM DATE: 01/02/2018 2:31 PM EDT AGE/SEX: 62 years / Male INDICATIONS: Elevated LFTs. CLINICAL DATA: This is the patient's initial encounter. Patient reports that signs and symptoms have been present for 1 day and indicates a pain score of 0/10. MEDICAL/SURGICAL HISTORY: . Throat Cancer. Esophageal stricture. . Skin graft status post ski n cancer resection. [place] [facility] [place], 02/06/2016. . MEASUREMENTS: Liver:__ 15.1 cm. Common Bile Duct:__ 6mm. Right Kidney:__ cm. FINDINGS: Liver: 2 small granulomatous calcification seen involving the right lobe. The liver otherwise has a n ormal echotexture. No mass or ductal dilatation. Portal Vein: Hepatopedal flow seen in portal vein. Common Duct: No intraluminal mass or stone visualized. Gallbladder: Either 2 adjacent or single oval-shaped gallstone. No gallbladder wall thickening or per icholecystic fluid. Pancreas: The visualized portions are within normal limits Right Kidney: Increased echotexture. No mass or hydronephrosis. Other: None. CONCLUSION: 1. Cholelithiasis. No sonographic evidence to suggest acute cholecystitis. 2. Trace amount of ascitic fluid. 3. Small bilateral pleural effusions. Electronically signed by: Emigdio Guevara MD 01/02/2018 2:41 PM EDT
--- NOTE | 2018-01-02 14:50 | MB ---
cc: Irvin Hector MD DATE: 01/02/2018 HISTORY OF PRESENT ILLNESS: Brian is a very pleasant 62-year-old gentleman who is not quite sure why he is in the emergency room. REVIEW OF SYSTEMS: Only positive for cough productive of yellow sputum. He denies chest pain, dyspnea, fever, chills, GI or bleeding, PND, orthopnea, syncope or dizziness. PAST MEDICAL HISTORY: As per this present illness. He has a history of cancer of the neck, esophageal stricture, history of skin graft, status post skin cancer resection. ALLERGIES: DIATRIZOATE, GADOBENIC ACID, GADODIAMIDE, GADOTERIDOL, IODINATED CONTRAST, ORAL AND IV DYE, IODIXANOL AND IOHEXOL. SOCIAL HISTORY: He is a former smoker. Denies alcohol use. MEDICATIONS IN THE HOSPITAL: 1. Aspirin 81 mg a day. 2. Celexa 40 mg at bedtime. 3. Ativan 2 mg q.i.d. 4. He received a dose of vancomycin and Piperacillin/tazobactam. 5. Aspirin 162 mg. PHYSICAL EXAMINATION: VITAL SIGNS: Temperature 98.6, pulse 92, blood pressure 106/58, respiratory rate 20, saturations 97% on 3 liters nasal cannula. GENERAL: He is alert and oriented x 3. He appears to be very frail. He had got a lower extremity soft cast on his leg. NECK: Supple. No JVD. No bruit. CARDIOVASCULAR: S1, S2. No murmurs, rubs or gallops. LUNGS: Notable for decreased breath sounds in the mid lung dennis. ABDOMEN: Soft, nontender, and nondistended with positive bowel sounds. EXTREMITIES: No lower extremity edema. IMAGING STUDIES: Chest x-ray shows new alveolar infiltrate in both medial lung bases of concern for pneumonia. EKG: Normal sinus rhythm at 96 beats per minute, T-wave inversion in V3 of 2-3 mm in amplitude, biphasic T-wave in lead V4. LABORATORY DATA: White count 13.3, hemoglobin 8.6, hematocrit 26.6, platelet count 551. INR 1.4. Sodium 134, potassium 4.2, chloride 96, bicarbonate 33.0, BUN 18, creatinine 0.67. AST is 915, ALT is 725. Troponin is 1.13. Albumin 2.3. DIAGNOSES: 1. Qms-QO-wissuxudd myocardial infarction. 2. Pneumonia. 3. Hypoxia. 4. Coagulopathy. 5. Hyponatremia. 6. Hepatitis. 7. Elevated liver enzymes. 8. Hypoalbuminemia. 9. Elevated white count. 10. Anemia. 11. Thrombocytosis. 12. History of neck cancer. 13. Esophageal stricture. 14. Left tibial plateau fracture. DISCUSSION: At this point in time, it is uncertain whether the patient's troponin elevation is due primarily to an ____ event and/or the presence of secondary causes such as anemia, hypoxia, hypotension. He appears to be extremely frail, cachectic and is currently not having any symptoms from a cardiovascular standpoint. At this point in time, I will follow his trends and hemoglobin, troponin and response to antibiotics for his pneumonia. We will also need to know his prognosis from his cancer in order to determine the risks and benefits of considering left heart catheterization and possible PCI, so we will get an oncology consult. MD THU Teran/PELON , 02:14 PM , 02:49 PM
[2018-01-02 16:44] LABS: Hepatitits B Surface Antigen Nonreactive (Nonreactive)
[2018-01-02 17:18] LABS: Hepatitis A IgM Antibody Nonreactive (Nonreactive)
[2018-01-02 17:48] LABS: % Iron Saturation 7.4 % (20-50)
[2018-01-02 17:52] LABS: Alpha Fetoprotein Tumor Marker 0.8 ng/mL (0.5-8.0)
--- NOTE | 2018-01-02 18:57 | ECG ---
Date Performed: 01/02/2018 Time Performed: 12:06:59 PTAGE: 62 years EKG: Sinus rhythm MARKED LEFT AXIS DEVIATION MODERATE T-WAVE ABNORMALITY, CONSIDER ANTERIOR ISCHEMIA ABNORMAL ECG PREVIOUS TRACING :12/23/1703/04/2018 @22.49 The anterior T-wave abnormalities are new from prior terrence ng. Clinical correlation is strongly recommended. Ischemia is likely DOCTOR: Dheeraj Roberts Interpretating Date/Time 01/02/2018 18:55:34
[2018-01-02] MEDS: Piperacil/Tazo 3.375 GM Premix 50 ML IV.SIG SCH (19:33)
[2018-01-02] MEDS: Sod Chloride 0.9% Inj 1,000 ML IV.CONT SCH (19:35)
[2018-01-03] MEDS: Piperacil/Tazo 3.375 GM Premix 50 ML IV.SIG SCH ×4 (01:25→20:11)
[2018-01-03] MEDS: Sod Chloride 0.9% Inj 1,000 ML IV.CONT SCH ×2 (03:58→21:10)
--- NOTE | 2018-01-03 06:54 | P.CON ---
History of Present Illness Service: Hematology/oncology Consult date: 01/03/18 Requesting Physician: Irvin Hector Reason for Consult: History of head and neck cancer. Anemia. Primary Care Provider: Malcom Kaur DO Family Provider: Malcom Kaur DO Chief Complaint: Pain in the left knee.Generalized fatigue. History of Present Illness: Mr. 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 He was living in [facility] at that time and was treated there with what the patient describes as surgical resection on the left side of his neck as well as along the base of his tongue followed by chemotherapy and radiation. He does not recall the exact facility he was treated at but reports the hospital was a large [facility]te[facility] ", he also received subsequent care at the [facility] in [facility]. About 10 years ago the patient relocated to [place] and since then has been under the care of Dr. Fuentes of ENT surgery locally as well as physicians and surgeons at the [facility] in [place]. Per the patient he has been in remission as far as his malignancy is concerned however he does have long-term sequelae of high-dose radiation to the head and neck which has resulted in strictures of the upper aerodigestive tract. He tells me he requires monthly dilatation to allow him to have a semisolid and liquid diet. He tells me he is unable to swallow solids. The patient was brought into the hospital via EMS on 01/02/2018, he had fallen and suffered a left tibial plateau fracture in the recent past, he had been undergoing rehab at a local half-way facility. Per the hospital records the patient had been increasingly short of breath, he was also coughing with phlegm production. There is no reported history of fevers chills or night sweats. Additional issues include possible aspiration and unexplained anemia with deranged serum iron studies, patient was also found to have an elevated troponin level. He was evaluated by Dr. Hector of cardiology and there is a possibility the patient may require a cardiac catheterization. Dr. Hector requested hematology/oncology involvement to help understand his current disease status as far as the head and neck cancers concern and also for management of anemia. The patient though alert and oriented is a poor historian. The majority of this history has been obtained from the electronic medical records including the former [facility]. ENT records dating back to the year 2010 were reviewed. Review of Systems Constitutional: Reports anorexia, Reports weakness, Reports weight loss, Denies night sweats Eyes: Denies blind spots, Denies blurry vision Ears, Nose, Mouth, and Throat: Reports abnormal hearing, Denies bleeding gums, Denies bad breath Comments: Dryness of the mouth. Difficulty swallowing. Cardiovascular: Denies chest pain, Denies chest pain at rest, Denies shortness of breath when lying down, Denies shortness of breath causing sudden awakening Respiratory: Reports change in phlegm color, Reports cough Gastrointestinal: Denies abdominal pain Musculoskeletal: Reports abnormal walking, Reports back pain, Reports decreased muscle mass, Denies body aches Skin/Breast: Denies acne, Denies bleeding lesions, Denies rash Neurologic: Reports abnormal speech, Reports frequent falls, Reports unsteadiness, Reports weakness, Denies abnormal hearing, Denies abnormal movements Psychiatric: Denies abnormal sleep pattern, Denies anxiety Endocrine: Denies cold intolerance Hematologic/Lymphatic: Reports easy bleeding Allergic/Immunologic: Denies GI upset with certain foods PMFSH - History History Provided By: Patient - Medical History Medical History: Medical History (Last Updated 01/03/18 @ 06:40 by Ishan Welch MD) Anemia Protein calorie malnutrition Squamous cell carcinoma of base of tongue Cancer of neck Esophageal stricture - Surgical History Surgical History: Surgical History (Last Updated 01/03/18 @ 06:41 by Ishan Welch MD) History of radical dissection of left side of neck S/P percutaneous endoscopic gastrostomy (PEG) tube placement History of skin graft S/P skin cancer resection - Tobacco History Second Hand Smoke Exposure: Yes Tobacco Use In Past 30 Days: No Smoking Status: Former smoker Tobacco Type: Cigarettes - Alcohol History How Often Do You Have a Drink Containing Alcohol: Never - Substance Use History Substance History: No History of Abuse - Travel History Recent Travel in the [place] Within the Last 8 Weeks: No Recent Travel Out of the Country Within the Last 8 Weeks: No - Immunization History Tetanus Immunization: Unsure Medications and Allergies Active Medications: Active Medications Albuterol (Albuterol Neb (Prn)) 0.63 mg NEB Q6HR NEB PRN PRN Reason: SHORTNESS OF BREATH Aspirin (Ecotrin) 81 mg PO DAILY DARIO Citalopram Hydrobromide (Celexa) 40 mg PO HS DARIO Last Admin: 01/02/18 20:57 Dose: 40 mg Sodium Chloride (Ns Inj) 1,000 mls @ 0 mls/hr IV.SIG .Q0M DARIO Last Infusion: 01/02/18 12:12 Dose: Infused Sodium Chloride (Ns Inj) 1,000 mls @ 0 mls/hr IV.SIG .Q0M DARIO Last Admin: 01/02/18 11:13 Dose: 1,000 mls/hr Sodium Chloride (Ns Inj) 700 mls @ 0 mls/hr IV.SIG .Q0M DARIO Sodium Chloride (Ns Inj) 1,000 mls @ 0 mls/hr IV.SIG .Q0M DARIO Sodium Chloride (Ns Inj) 1,000 mls @ 0 mls/hr IV.SIG .Q0M DARIO Sodium Chloride (Ns Inj) 700 mls @ 0 mls/hr IV.SIG .Q0M DARIO Piperacillin/Tazobactam/Dextrose (Zosyn 3.375 Gm Premix) 50 mls @ 100 mls/hr IV.SIG Q6H COUNTS INCLUDE 234 BEDS AT THE [facility] Last Infusion: 01/03/18 02:00 Dose: Infused Sodium Chloride (Ns Inj) 1,000 mls @ 100 mls/hr IV.CONT .Q10H COUNTS INCLUDE 234 BEDS AT THE [facility] Last Admin: 01/03/18 03:58 Dose: Not Given Lorazepam (Ativan) 2 mg PO QID COUNTS INCLUDE 234 BEDS AT THE [facility] Last Admin: 01/02/18 20:56 Dose: 2 mg Oxycodone HCl (Roxicodone) 5 mg PO Q8H PRN PRN Reason: acute pain 4-10 Last Admin: 01/02/18 20:56 Dose: 5 mg Allergies Allergy/AdvReac Type Severity Reaction Status Date / Time diatrizoate meglumine Allergy Severe HIVES, Verified 10/02/17 07:45 DIZZINESS gadobenic acid Allergy Severe HIVES, Verified 10/02/17 07:45 DIZZINESS gadodiamide Allergy Severe HIVES, Verified 10/02/17 07:45 DIZZINESS gadoteridol Allergy Severe HIVES, Verified 10/02/17 07:45 DIZZINESS Iodinated Contrast- Oral and Allergy Severe Hives Verified 10/02/17 07:45 IV Dye iodixanol Allergy Severe HIVES, Verified 10/02/17 07:45 DIZZINESS iohexol Allergy Severe HIVES, Verified 10/02/17 07:45 DIZZINESS Home Medications Medication Instructions Recorded Confirmed Type citalopram 40 mg PO HS 12/22/17 01/02/18 History zolpidem [Ambien] 10 mg PO HS 12/22/17 01/02/18 History Physical Exam Vital signs: Vital Signs 01/02/18 10:05 01/02/18 11:05 01/02/18 11:40 Temperature 98.6 F Pulse Rate 92 H 97 H 95 H Respiratory Rate 20 18 Blood Pressure 106/58 L Pulse Oximetry 97 01/02/18 14:41 01/02/18 15:25 01/02/18 20:00 Temperature 98.6 F 97.9 F Pulse Rate 88 92 H 81 Respiratory Rate 20 20 20 Blood Pressure 119/64 109/64 105/52 L Pulse Oximetry 93 L 94 L 93 L 01/02/18 21:20 01/03/18 04:00 Temperature 98.1 F Pulse Rate 94 H Respiratory Rate 18 20 Blood Pressure 119/64 Pulse Oximetry 93 L Intake & Output 01/02/18 01/02/18 01/03/18 06:59 18:59 06:59 Intake Total 1180 / 1180 220 / 220 Balance 1180 / 1180 220 / 220 Weight 81.647 kg Intake: IV 1000 / 1000 100 / 100 Zosyn 3.375 GM Premix 50 ML @ 100 / 100 100 mls/hr IV.SIG Q6H DARIO Rx#: [id number] NS Inj 1,000 ML @ Wide Open IV. 1000 / 1000 SIG .Q0M DARIO Rx#:[id number] Oral 180 / 180 120 / 120 Other: # Voids 1 Narrative: Middle-aged male, laying in bed, chronically ill-appearing. He is thin and near cachectic appearing. He has chronic post radiation changes along his neck, in his mouth and along the left side of his jaw. His voice is muffled secondary to the changes noted above. He is also likely undergone partial resection of the tongue. - Constitutional no acute distress, thin, chronically ill appearing, cooperative - Routine HEENT Exam Head: Present: normocephalic, atraumatic Eye: Present: EOMI, PERRL Comments: Dry oral mucous membranes, no ulceration, no masses noted. - Routine Neck Exam Absent: lymphadenopathy Comments: Post radiation changes, no evidence of lymphadenopathy. Dense fibrous scarring identified, no evidence of active malignancy. - Routine Respiratory Exam Present: CTA bilaterally. Absent: accessory muscle use, rales, respiratory distress, rhonchi - Routine Cardiovascular Exam Present: RRR, S1, S2 - Routine Abdominal Exam Present: soft, normoactive bowel sounds. Absent: tenderness, distended, rebound , hernia, bruit - Routine Extremities Exam Absent: edema Comments: Left leg in a removable cast. No edema noted. Right lower extremity no pretibial edema no calf tenderness, no edema noted. Generally decreased muscle mass. - Routine Skin Exam Present: intact - Routine Neurological Exam Present: alert, oriented X3, CN II-XII intact. Absent: sensory deficit, motor deficit - Detailed Neurological Exam: Coma Scale Eye Opening: Spontaneous Verbal Response: Oriented - Routine Psychiatric Exam Present: normal affect Assessment and Plan - Assessment (1) Squamous cell carcinoma of base of tongue Code(s): C01 - Malignant neoplasm of base of tongue Status: Acute Plan: History of squamous cell carcinoma the base of tongue diagnosed in 1999 or 2000. Treated with tri-modality therapy in [facility] with surgical resection, radiation and systemic chemotherapy. Based on the patient's verbal reports he has been without evidence of disease since completing treatment about 18 years ago. He follows regularly with his ENT surgeon locally who performs frequent laryngoscopies and upper esophageal dilatation. Patient also sees ENT surgeons and oncologist at the [facility]. Given his close follow-up with various specialists in the area as well as the duration of time lapse between his initial diagnosis and now it would be safe to say that this patient is a long-term survivor and is without evidence of disease at the present time. I would advise he be treated by cardiology as any other individual with a troponin enzyme leak for management of cardiovascular disease (provided the basis of cardiac decision making is cancer specific long-term survival). (2) Pulmonary infiltrates on CXR Code(s): R91.8 - Other nonspecific abnormal finding of lung field Status: Acute Plan: Likely related to aspiration given chronic dysphagia. Typically individuals with previous radiation and surgical resection of base of tongue tumors have some degree of chronic dysphagia. He is presently on broad-spectrum coverage with Zosyn, and also received vancomycin earlier in this hospitalization. (3) Normocytic anemia Code(s): D64.9 - Anemia, unspecified Status: Acute Plan: This patient has been chronically anemic, his hemoglobin however has remained in the range of 11.5-12.5 g/dL. His hemoglobin level of 8.6 g/dL at this admission is a new finding. The patient also has some degree of leukocytosis and thrombocytosis (both of which may be reactive). Anemia is borderline microcytic. Serum iron studies indicate an iron level of 15 mcg/dL (low), TIBC of 2 0 2 mcg/dL (low), percent iron saturation of 7.4% ( low) and a ferritin level of 121 6 ng/mL (elevated). I will initiate a basic anemia workup including stool for occult blood testing. Urine analysis to rule out hematuria. Serum protein electrophoresis, folic acid and vitamin B12 levels will also be ordered. CRP, ESR and LDH levels also will be ordered. Peripheral smear will be reviewed as well. - Plan Anemia workup as outlined above.
--- NOTE | 2018-01-03 08:29 | P.PNIM ---
Physical Exam Vital signs: Vital Signs 01/02/18 10:05 01/02/18 11:05 01/02/18 11:40 Temperature 98.6 F Pulse Rate 92 H 97 H 95 H Respiratory Rate 20 18 Blood Pressure 106/58 L Pulse Oximetry 97 01/02/18 14:41 01/02/18 15:25 01/02/18 20:00 Temperature 98.6 F 97.9 F Pulse Rate 88 92 H 81 Respiratory Rate 20 20 20 Blood Pressure 119/64 109/64 105/52 L Pulse Oximetry 93 L 94 L 93 L 01/02/18 21:20 01/03/18 04:00 Temperature 98.1 F Pulse Rate 94 H Respiratory Rate 18 20 Blood Pressure 119/64 Pulse Oximetry 93 L Intake & Output 01/02/18 01/03/18 01/03/18 18:59 06:59 18:59 Intake Total 1180 / 1180 220 / 220 Balance 1180 / 1180 220 / 220 Weight 81.647 kg Intake: IV 1000 / 1000 100 / 100 Zosyn 3.375 GM Premix 50 ML @ 100 / 100 100 mls/hr IV.SIG Q6H DARIO Rx#: [id number] NS Inj 1,000 ML @ Wide Open IV. 1000 / 1000 SIG .Q0M DARIO Rx#:[id number] Oral 180 / 180 120 / 120 Other: # Voids 1 Results - Labs CBC & Chem 7: 01/03/18 07:18 01/02/18 11:05 Laboratory Results - last 24 hr 01/02/18 01/02/18 01/02/18 11:05 11:05 11:05 WBC 13.3 H RBC 3.29 L Hgb 8.6 L Hct 26.6 L MCV 81.0 MCH 26.2 L MCHC 32.4 RDW 15.8 Plt Count 551 H MPV 6.7 L Neut % (Auto) 90.9 H Lymph % (Auto) 3.1 L [place] % (Auto) 5.1 Eos % (Auto) 0.2 Baso % (Auto) 0.7 Neut # (Auto) 12.1 H Lymph # (Auto) 0.4 L [place] # (Auto) 0.7 Eos # (Auto) 0.0 Baso # (Auto) 0.1 WBC Differential . Differential Comment Auto diff final PT 13.7 H INR 1.4 APTT 26.4 Sodium 134 L Potassium 4.2 Chloride 96 L Carbon Dioxide 33.0 H Anion Gap 5 BUN 18 Creatinine 0.67 Estimated GFR Greater than 89 Random Glucose 93 Lactic Acid Calcium 7.8 L Magnesium 2.1 Iron TIBC % Saturation Ferritin Total Bilirubin 0.8 AST 915 H ALT 725 H Alkaline Phosphatase 95 Ammonia Troponin I 1.13 H* Total Protein 6.2 L Albumin 2.3 L Lipase Tumor Marker AFP Acetaminophen Hepatitis A IgM Ab Hep Bs Antigen Hep B Core IgM Ab Hep C IgG Ab 01/02/18 01/02/18 01/02/18 11:05 14:47 14:47 WBC RBC Hgb Hct MCV MCH MCHC RDW Plt Count MPV Neut % (Auto) Lymph % (Auto) [place] % (Auto) Eos % (Auto) Baso % (Auto) Neut # (Auto) Lymph # (Auto) [place] # (Auto) Eos # (Auto) Baso # (Auto) WBC Differential Differential Comment PT INR APTT Sodium Potassium Chloride Carbon Dioxide Anion Gap BUN Creatinine Estimated GFR Random Glucose Lactic Acid 1.0 Calcium Magnesium Iron TIBC % Saturation Ferritin Total Bilirubin AST ALT Alkaline Phosphatase Ammonia Troponin I 0.88 H* Total Protein Albumin Lipase Tumor Marker AFP Acetaminophen Hepatitis A IgM Ab Nonreactive Hep Bs Antigen Nonreactive Hep B Core IgM Ab Nonreactive Hep C IgG Ab Nonreactive 01/02/18 01/02/18 01/02/18 14:47 16:54 16:54 WBC RBC Hgb Hct MCV MCH MCHC RDW Plt Count MPV Neut % (Auto) Lymph % (Auto) [place] % (Auto) Eos % (Auto) Baso % (Auto) Neut # (Auto) Lymph # (Auto) [place] # (Auto) Eos # (Auto) Baso # (Auto) WBC Differential Differential Comment PT INR APTT Sodium Potassium Chloride Carbon Dioxide Anion Gap BUN Creatinine Estimated GFR Random Glucose Lactic Acid Calcium Magnesium Iron 15 L TIBC 202 L % Saturation 7.4 L Ferritin 1216 H Total Bilirubin AST ALT Alkaline Phosphatase Ammonia 12 Troponin I Total Protein Albumin Lipase Tumor Marker AFP Acetaminophen Less than 2.0 L Hepatitis A IgM Ab Hep Bs Antigen Hep B Core IgM Ab Hep C IgG Ab 01/02/18 01/02/18 01/02/18 16:54 21:35 21:35 WBC RBC Hgb Hct MCV MCH MCHC RDW Plt Count MPV Neut % (Auto) Lymph % (Auto) [place] % (Auto) Eos % (Auto) Baso % (Auto) Neut # (Auto) Lymph # (Auto) [place] # (Auto) Eos # (Auto) Baso # (Auto) WBC Differential Differential Comment PT INR APTT Sodium Potassium Chloride Carbon Dioxide Anion Gap BUN Creatinine Estimated GFR Random Glucose Lactic Acid Calcium Magnesium Iron TIBC % Saturation Ferritin Total Bilirubin AST ALT Alkaline Phosphatase Ammonia Troponin I 0.82 H* Total Protein Albumin Lipase 63 L Tumor Marker AFP 0.8 Acetaminophen Less than 2.0 L Hepatitis A IgM Ab Hep Bs Antigen Hep B Core IgM Ab Hep C IgG Ab Microbiology 01/02/18 13:59 Sputum - Expectorated Sputum Gram Stain - Final 01/02/18 12:45 Nasal Wash Influenza Types A,B Antigen - Final Negative for FLU A and B antigen Infection due to influenza A or B cannot be ruled out since the antigen present in the sample may be below the detection limit of the test. - Imaging Impressions Liver Ultrasound 01/02/18 00:00 CONCLUSION: 1. Cholelithiasis. No sonographic evidence to suggest acute cholecystitis. 2. Trace amount of ascitic fluid. 3. Small bilateral pleural effusions. Chest X-Ray 01/02/18 11:05 CONCLUSION: New alveolar infiltrate in both medial lung bases of concern for pneumonia. Assessment and Plan - Plan This is a 62-year-old male with history of throat cancer presenting to the emergency department with productive cough. Sepsis secondary to pneumonia-continue Zosyn, blood culture negative to date, sputum culture growing gram-positive cocci in pairs, chains and clusters. Leukocytosis better and is now normal. Continue Zosyn, oxygen support, duo nebs. Status post 1 dose of vancomycin History of throat cancer/esophageal stricture-n.p.o., speech therapy evaluation partially done, will need a barium swallow, will order today, patient has regular dilatation with Dr. Fuentes. If barium swallow shows anatomic obstruction, will consult Dr. Zamora. Continue IVF. Patient in remission. Follow-up with [facility] as outpatient. Elevated troponin-EKG showed T-wave inversions in the lateral leads, troponin peaked at 0.88 and remained flat, cardiology was consulted, continue aspirin. Elevated LFTs-ultrasound so cholelithiasis, no cholecystitis, GORDY positive. Hepatitis panel negative. Ammonia is normal. Further workup per GI. Gastroenterology following. Anemia of chronic disease-oncology is following, follow-up workup Recent left tibial plateau fracture-seen by orthopedics, recommended non- operative treatment, continue with nonweightbearing on left lower extremity, follow-up with orthopedics as outpatient. Lovenox for DVT prophylaxis
[2018-01-03 09:09] LABS: Baso # (Auto) 0.1 th/mm3 (0.0-0.2); Baso % (Auto) 1.2 % (0.0-2.0); Eos # (Auto) 0.1 th/mm3 (0.0-0.4); Eos % (Auto) 1.3 % (0.0-4.0); Hematocrit 27.1 % (39.0-51.0); Hemoglobin 8.8 gm/dL (13.0-17.0); Lymph # (Auto) 0.8 th/mm3 (1.0-4.8); Lymph % (Auto) 8.2 % (9.0-44.0); Mean Corpuscular HGB Conc 32.5 % (32.0-36.0); Mean Corpuscular Hemoglobin 26.4 pg (27.0-34.0); Mean Corpuscular Volume 81.4 fL (80.0-100.0); Mean Platelet Volume 6.9 fL (7.0-11.0); Mono # (Auto) 0.5 th/mm3 (0.0-0.9); Mono % (Auto) 5.7 % (0.0-8.0); Neut # (Auto) 7.9 th/mm3 (1.8-7.7); Neut % (Auto) 83.6 % (16.0-70.0); Platelet Count 621 th/mm3 (150-450); Red Blood Count 3.33 mil/mm3 (4.50-5.90); Red Cell Distribution Width 15.9 % (11.6-17.2); White Blood Count 9.5 th/mm3 (4.0-11.0)
[2018-01-03 09:24] LABS: Albumin 2.1 g/dL (3.4-5.0); Lactate Dehydrogenase 253 U/L (87-241)
[2018-01-03 09:26] LABS: Total Protein 5.8 g/dL (6.4-8.2)
--- NOTE | 2018-01-03 10:39 | ECG ---
Date Performed: 01/02/2018 Time Performed: 14:50:29 PTAGE: 62 years EKG: Sinus rhythm MARKED LEFT AXIS DEVIATION MODERATE T-WAVE ABNORMALITY, CONSIDER ANTERIOR ISCHEMIA MODERATE T-WAVE A BNORMALITY, CONSIDER INFERIOR ISCHEMIA ABNORMAL ECG PREVIOUS TRACING : 01/02/2018 12.06 Since the previous tracing, no significant change noted DOCTOR: Bailey Felipe Interpretating Date/Time 01/03/2018 10:37:52
[2018-01-03 11:00] LABS: Anti-Nuclear Antibody Screen Pos (Neg)
[2018-01-03] MEDS: Sod Chloride 0.9% Inj 1,000 ML IV.SIG SCH (11:15)
--- NOTE | 2018-01-03 11:55 | P.PNGI ---
Subjective Interval history: Patient is awake answering simple questions States he did not swallow well with applesauce and has been working with speech therapy Symptoms of dysphasia continue along with course rhonchi with cough Current hemoglobin 8.6, positive troponin noted <Lulú Hardwick - Last Filed: 01/03/18 11:56> Physical Exam Vital signs: Vital Signs 01/02/18 14:41 01/02/18 15:25 01/02/18 20:00 Temperature 98.6 F 97.9 F Pulse Rate 88 92 H 81 Respiratory Rate 20 20 20 Blood Pressure 119/64 109/64 105/52 L Pulse Oximetry 93 L 94 L 93 L 01/02/18 21:20 01/03/18 04:00 01/03/18 08:00 Temperature 98.1 F 98.0 F Pulse Rate 94 H 81 Respiratory Rate 18 20 14 Blood Pressure 119/64 125/58 L Pulse Oximetry 93 L 89 L Intake & Output 01/02/18 01/03/18 01/03/18 18:59 06:59 18:59 Intake Total 1180 / 1180 220 / 220 Balance 1180 / 1180 220 / 220 Weight 81.647 kg Intake: IV 1000 / 1000 100 / 100 Zosyn 3.375 GM Premix 50 ML @ 100 / 100 100 mls/hr IV.SIG Q6H DARIO Rx#: [id number] NS Inj 1,000 ML @ Wide Open IV. 1000 / 1000 SIG .Q0M DARIO Rx#:[id number] Oral 180 / 180 120 / 120 Other: # Voids 1 - Constitutional mild distress, chronically ill appearing - Routine HEENT Exam ENT: Present: mucous membranes moist (Abnormal speech, left oral droop) - Routine Respiratory Exam Present: decreased breath sounds, rhonchi - Routine Cardiovascular Exam Present: S1, S2 - Routine Abdominal Exam Present: soft - Routine Skin Exam Present: pallor - Routine Neurological Exam Present: alert (Answer simple questions) <Lulú Hardwick - Last Filed: 01/03/18 11:56> Vital signs: Vital Signs 01/02/18 20:00 01/02/18 21:20 01/03/18 04:00 Temperature 97.9 F 98.1 F Pulse Rate 81 94 H Respiratory Rate 20 18 20 Blood Pressure 105/52 L 119/64 Pulse Oximetry 93 L 93 L 01/03/18 08:00 Temperature 98.0 F Pulse Rate 81 Respiratory Rate 14 Blood Pressure 125/58 L Pulse Oximetry 89 L Intake & Output 01/02/18 01/03/18 01/03/18 18:59 06:59 18:59 Intake Total 1180 / 1180 220 / 220 Balance 1180 / 1180 220 / 220 Weight 81.647 kg Intake: IV 1000 / 1000 100 / 100 Zosyn 3.375 GM Premix 50 ML @ 100 / 100 100 mls/hr IV.SIG Q6H DARIO Rx#: [id number] NS Inj 1,000 ML @ Wide Open IV. 1000 / 1000 SIG .Q0M DARIO Rx#:[id number] Oral 180 / 180 120 / 120 Other: # Voids 1 <Alex Rahman E - Last Filed: 01/03/18 17:41> Results - Labs CBC & Chem 7: 01/03/18 07:18 01/02/18 11:05 Laboratory Results - last 24 hr 01/02/18 01/02/18 01/02/18 11:05 11:05 14:47 WBC RBC Hgb Hct MCV MCH MCHC RDW Plt Count MPV Neut % (Auto) Lymph % (Auto) [place] % (Auto) Eos % (Auto) Baso % (Auto) Neut # (Auto) Lymph # (Auto) [place] # (Auto) Eos # (Auto) Baso # (Auto) WBC Differential Differential Comment ESR Sodium 134 L Potassium 4.2 Chloride 96 L Carbon Dioxide 33.0 H Anion Gap 5 BUN 18 Creatinine 0.67 Estimated GFR Greater than 89 Random Glucose 93 Lactic Acid 1.0 Calcium 7.8 L Magnesium 2.1 Iron TIBC % Saturation Ferritin Total Bilirubin 0.8 Direct Bilirubin Indirect Bilirubin AST 915 H ALT 725 H Alkaline Phosphatase 95 Ammonia Lactate Dehydrogenase Troponin I 1.13 H* 0.88 H* C-Reactive Protein Total Protein 6.2 L Total Protein (PEP) Albumin 2.3 L Lipase Tumor Marker AFP Vitamin B12 Folate Acetaminophen GORDY Screen Hepatitis A IgM Ab Hep Bs Antigen Hep B Core IgM Ab Hep C IgG Ab 01/02/18 01/02/18 01/02/18 14:47 14:47 16:54 WBC RBC Hgb Hct MCV MCH MCHC RDW Plt Count MPV Neut % (Auto) Lymph % (Auto) [place] % (Auto) Eos % (Auto) Baso % (Auto) Neut # (Auto) Lymph # (Auto) [place] # (Auto) Eos # (Auto) Baso # (Auto) WBC Differential Differential Comment ESR Sodium Potassium Chloride Carbon Dioxide Anion Gap BUN Creatinine Estimated GFR Random Glucose Lactic Acid Calcium Magnesium Iron 15 L TIBC 202 L % Saturation 7.4 L Ferritin 1216 H Total Bilirubin Direct Bilirubin Indirect Bilirubin AST ALT Alkaline Phosphatase Ammonia Lactate Dehydrogenase Troponin I C-Reactive Protein Total Protein Total Protein (PEP) Albumin Lipase Tumor Marker AFP Vitamin B12 Folate Acetaminophen Less than 2.0 L GORDY Screen Hepatitis A IgM Ab Nonreactive Hep Bs Antigen Nonreactive Hep B Core IgM Ab Nonreactive Hep C IgG Ab Nonreactive 01/02/18 01/02/18 01/02/18 16:54 16:54 16:54 WBC RBC Hgb Hct MCV MCH MCHC RDW Plt Count MPV Neut % (Auto) Lymph % (Auto) [place] % (Auto) Eos % (Auto) Baso % (Auto) Neut # (Auto) Lymph # (Auto) [place] # (Auto) Eos # (Auto) Baso # (Auto) WBC Differential Differential Comment ESR Sodium Potassium Chloride Carbon Dioxide Anion Gap BUN Creatinine Estimated GFR Random Glucose Lactic Acid Calcium Magnesium Iron TIBC % Saturation Ferritin Total Bilirubin Direct Bilirubin Indirect Bilirubin AST ALT Alkaline Phosphatase Ammonia 12 Lactate Dehydrogenase Troponin I C-Reactive Protein Total Protein Total Protein (PEP) Albumin Lipase 63 L Tumor Marker AFP 0.8 Vitamin B12 Folate Acetaminophen GORDY Screen Pos H Hepatitis A IgM Ab Hep Bs Antigen Hep B Core IgM Ab Hep C IgG Ab 01/02/18 01/02/18 01/03/18 21:35 21:35 07:18 WBC 9.5 RBC 3.33 L Hgb 8.8 L Hct 27.1 L MCV 81.4 MCH 26.4 L MCHC 32.5 RDW 15.9 Plt Count 621 H MPV 6.9 L Neut % (Auto) 83.6 H Lymph % (Auto) 8.2 L [place] % (Auto) 5.7 Eos % (Auto) 1.3 Baso % (Auto) 1.2 Neut # (Auto) 7.9 H Lymph # (Auto) 0.8 L [place] # (Auto) 0.5 Eos # (Auto) 0.1 Baso # (Auto) 0.1 WBC Differential . Differential Comment Auto diff final ESR Sodium Potassium Chloride Carbon Dioxide Anion Gap BUN Creatinine Estimated GFR Random Glucose Lactic Acid Calcium Magnesium Iron TIBC % Saturation Ferritin Total Bilirubin Direct Bilirubin Indirect Bilirubin AST ALT Alkaline Phosphatase Ammonia Lactate Dehydrogenase Troponin I 0.82 H* C-Reactive Protein Total Protein Total Protein (PEP) Albumin Lipase Tumor Marker AFP Vitamin B12 Folate Acetaminophen Less than 2.0 L GORDY Screen Hepatitis A IgM Ab Hep Bs Antigen Hep B Core IgM Ab Hep C IgG Ab 01/03/18 01/03/18 01/03/18 07:18 07:18 07:18 WBC RBC Hgb Hct MCV MCH MCHC RDW Plt Count MPV Neut % (Auto) Lymph % (Auto) [place] % (Auto) Eos % (Auto) Baso % (Auto) Neut # (Auto) Lymph # (Auto) [place] # (Auto) Eos # (Auto) Baso # (Auto) WBC Differential Differential Comment ESR 56 H Sodium Potassium Chloride Carbon Dioxide Anion Gap BUN Creatinine Estimated GFR Random Glucose Lactic Acid Calcium Magnesium Iron TIBC % Saturation Ferritin Total Bilirubin 0.8 Direct Bilirubin 0.3 H Indirect Bilirubin 0.5 AST 540 H ALT 562 H Alkaline Phosphatase 88 Ammonia Lactate Dehydrogenase 253 H Troponin I C-Reactive Protein 11.00 H Total Protein 5.8 L Total Protein (PEP) 5.7 L Albumin 2.1 L Lipase Tumor Marker AFP Vitamin B12 Greater than 2000 H Folate Greater than 20.0 H Acetaminophen GORDY Screen Hepatitis A IgM Ab Hep Bs Antigen Hep B Core IgM Ab Hep C IgG Ab Microbiology 01/02/18 11:10 Blood - Peripheral Aerobic Blood Culture - Preliminary No growth in 1 day 01/02/18 11:10 Blood - Peripheral Anaerobic Blood Culture - Preliminary No growth in 1 day 01/02/18 11:05 Blood - Peripheral Aerobic Blood Culture - Preliminary No growth in 1 day 01/02/18 11:05 Blood - Peripheral Anaerobic Blood Culture - Preliminary No growth in 1 day 01/02/18 13:59 Sputum - Expectorated Sputum Gram Stain - Final 01/02/18 12:45 Nasal Wash Influenza Types A,B Antigen - Final Negative for FLU A and B antigen Infection due to influenza A or B cannot be ruled out since the antigen present in the sample may be below the detection limit of the test. - Imaging Impressions Liver Ultrasound 01/02/18 00:00 CONCLUSION: 1. Cholelithiasis. No sonographic evidence to suggest acute cholecystitis. 2. Trace amount of ascitic fluid. 3. Small bilateral pleural effusions. Chest X-Ray 01/02/18 11:05 CONCLUSION: New alveolar infiltrate in both medial lung bases of concern for pneumonia. <MuluElizLulú M - Last Filed: 01/03/18 11:56> - Labs CBC & Chem 7: 01/03/18 07:18 01/02/18 11:05 Laboratory Results - last 24 hr 01/02/18 01/02/18 01/02/18 16:54 16:54 16:54 WBC RBC Hgb Hct MCV MCH MCHC RDW Plt Count MPV Neut % (Auto) Lymph % (Auto) [place] % (Auto) Eos % (Auto) Baso % (Auto) Neut # (Auto) Lymph # (Auto) [place] # (Auto) Eos # (Auto) Baso # (Auto) WBC Differential Differential Comment ESR Iron 15 L TIBC 202 L % Saturation 7.4 L Ferritin 1216 H Total Bilirubin Direct Bilirubin Indirect Bilirubin AST ALT Alkaline Phosphatase Ammonia 12 Lactate Dehydrogenase Troponin I C-Reactive Protein Total Protein Total Protein (PEP) Albumin Lipase Tumor Marker AFP Vitamin B12 Folate Acetaminophen GORDY Screen Pos H 01/02/18 01/02/18 01/02/18 16:54 21:35 21:35 WBC RBC Hgb Hct MCV MCH MCHC RDW Plt Count MPV Neut % (Auto) Lymph % (Auto) [place] % (Auto) Eos % (Auto) Baso % (Auto) Neut # (Auto) Lymph # (Auto) [place] # (Auto) Eos # (Auto) Baso # (Auto) WBC Differential Differential Comment ESR Iron TIBC % Saturation Ferritin Total Bilirubin Direct Bilirubin Indirect Bilirubin AST ALT Alkaline Phosphatase Ammonia Lactate Dehydrogenase Troponin I 0.82 H* C-Reactive Protein Total Protein Total Protein (PEP) Albumin Lipase 63 L Tumor Marker AFP 0.8 Vitamin B12 Folate Acetaminophen Less than 2.0 L GORDY Screen 01/03/18 01/03/18 01/03/18 07:18 07:18 07:18 WBC 9.5 RBC 3.33 L Hgb 8.8 L Hct 27.1 L MCV 81.4 MCH 26.4 L MCHC 32.5 RDW 15.9 Plt Count 621 H MPV 6.9 L Neut % (Auto) 83.6 H Lymph % (Auto) 8.2 L [place] % (Auto) 5.7 Eos % (Auto) 1.3 Baso % (Auto) 1.2 Neut # (Auto) 7.9 H Lymph # (Auto) 0.8 L [place] # (Auto) 0.5 Eos # (Auto) 0.1 Baso # (Auto) 0.1 WBC Differential . Differential Comment Auto diff final ESR 56 H Iron TIBC % Saturation Ferritin Total Bilirubin 0.8 Direct Bilirubin 0.3 H Indirect Bilirubin 0.5 AST 540 H ALT 562 H Alkaline Phosphatase 88 Ammonia Lactate Dehydrogenase Troponin I C-Reactive Protein Total Protein 5.8 L Total Protein (PEP) Albumin 2.1 L Lipase Tumor Marker AFP Vitamin B12 Folate Acetaminophen GORDY Screen 01/03/18 07:18 WBC RBC Hgb Hct MCV MCH MCHC RDW Plt Count MPV Neut % (Auto) Lymph % (Auto) [place] % (Auto) Eos % (Auto) Baso % (Auto) Neut # (Auto) Lymph # (Auto) [place] # (Auto) Eos # (Auto) Baso # (Auto) WBC Differential Differential Comment ESR Iron TIBC % Saturation Ferritin Total Bilirubin Direct Bilirubin Indirect Bilirubin AST ALT Alkaline Phosphatase Ammonia Lactate Dehydrogenase 253 H Troponin I C-Reactive Protein 11.00 H Total Protein Total Protein (PEP) 5.7 L Albumin Lipase Tumor Marker AFP Vitamin B12 Greater than 2000 H Folate Greater than 20.0 H Acetaminophen GORDY Screen Microbiology 01/02/18 13:59 Sputum - Expectorated Sputum Gram Stain - Final 01/02/18 13:59 Sputum - Expectorated Sputum Sputum Culture - Preliminary Heavy growth normal respiratory georgie at 24 hours 01/02/18 11:10 Blood - Peripheral Aerobic Blood Culture - Preliminary No growth in 1 day 01/02/18 11:10 Blood - Peripheral Anaerobic Blood Culture - Preliminary No growth in 1 day 01/02/18 11:05 Blood - Peripheral Aerobic Blood Culture - Preliminary No growth in 1 day 01/02/18 11:05 Blood - Peripheral Anaerobic Blood Culture - Preliminary No growth in 1 day - Imaging Impressions Knee X-Ray 01/03/18 00:00 CONCLUSION: 1. Mildly depressed and comminuted lateral tibial plateau fracture with a configuration similar to the study from 11 days ago. 2. Stable small joint effusion. Videofluoroscopic Swallow 01/03/18 00:00 CONCLUSION: For a full detailed report, see report by the speech pathologist. <Alex Rahman E - Last Filed: 01/03/18 17:41> Assessment and Plan (1) Elevated LFTs Status: Acute Code(s): R94.5 - Abnormal results of liver function studies - Plan Assessment: - Elevated LFTs Pt oriented to place and year, but unable to recall month and is a poor historian. Denies personal or family history of liver issues. Denies ETOH. Thinks he was started on a new patch? yesterday but unsure what this is for or what it is called and nothing listed on home medication list. No elevation of LFTs noted from previous hospitalizations AST-915 ALT-725 T bili-0.8 Alk phos-95 - Elevated troponin- cardiology consult pending - History of throat cancer S/P multiple esophageal dilatations done by Dr. Fuentes- Pt does not want total laryngectomy or G-tube Received radiation therapy- denies previous chemotherapy - Multiple recurrence of PNA secondary to aspiration 01/03/2018, patient is awake answering simple questions but does appear very weak. States he was not able to tolerate applesauce and has been working with speech therapy for his dysphasia currently she still recommends n.p.o. pending modified barium swallow. Current hemoglobin 8.6 mild leukocytosis 13.3 which could be related to aspiration. Patient states if he needs a nasogastric tube to help him feel better from his weakness he will consider. Notes previous history of 2 gastric tubes in the past. Being followed with Dr. 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 Treated in the [facility] with resection and radiation and chemotherapy. Liver ultrasound done on 01/02/2018 shows cholelithiasis but no evidence to suggest acute cholecystitis trace amount of ascites fluid small bilateral pleural effusions. Chest x-ray on 719 shows new alveolar infiltrate both medial lungs concerned for continued pneumonia and probable aspiration. Liver workup labs Nonreactive hepatitis profile, GORDY positive ASMA pending and mitochondrial IgG antibody pending, folate level greater than 20 vitamin B12 greater than 2000, AFP 0.8 lipase 63, ceruloplasmin and alpha 1 antitrypsin pending ammonia level 12 from 01/02/2018., Tylenol level unremarkable Plan: Diet, n.p.o. for now, recommendation per ST until modified barium swallow After modified barium swallow consider PEG tube placement, Liver workup pending all labs Avoid hepatotoxins Bowel regimen Patient seen per myself and Dr. Rahman, note was written on his behalf. <Lulú Hardwick M - Last Filed: 01/03/18 11:56> (1) Elevated LFTs Status: Acute Code(s): R94.5 - Abnormal results of liver function studies - Attending Attestation Patient seen and examined Agree with above Continue current supportive care Monitor labs Pending modified barium swallow we can consider either dilation or PEG placement or both <Alex Rahman E - Last Filed: 01/03/18 17:41>
--- NOTE | 2018-01-03 12:30 | P.PNCA ---
Subjective Interval history: asleep in nad, appears comfortable Physical Exam Vital signs: Vital Signs 01/02/18 14:41 01/02/18 15:25 01/02/18 20:00 Temperature 98.6 F 97.9 F Pulse Rate 88 92 H 81 Respiratory Rate 20 20 20 Blood Pressure 119/64 109/64 105/52 L Pulse Oximetry 93 L 94 L 93 L 01/02/18 21:20 01/03/18 04:00 01/03/18 08:00 Temperature 98.1 F 98.0 F Pulse Rate 94 H 81 Respiratory Rate 18 20 14 Blood Pressure 119/64 125/58 L Pulse Oximetry 93 L 89 L Intake & Output 01/02/18 01/03/18 01/03/18 18:59 06:59 18:59 Intake Total 1180 / 1180 220 / 220 Balance 1180 / 1180 220 / 220 Weight 81.647 kg Intake: IV 1000 / 1000 100 / 100 Zosyn 3.375 GM Premix 50 ML @ 100 / 100 100 mls/hr IV.SIG Q6H DARIO Rx#: [id number] NS Inj 1,000 ML @ Wide Open IV. 1000 / 1000 SIG .Q0M DARIO Rx#:[id number] Oral 180 / 180 120 / 120 Other: # Voids 1 Assessment and Plan - Assessment (1) NSTEMI (non-ST elevated myocardial infarction) Code(s): I21.4 - Non-ST elevation (NSTEMI) myocardial infarction Status: Acute (2) Elevated LFTs Code(s): R94.5 - Abnormal results of liver function studies Status: Acute (3) Squamous cell carcinoma of base of tongue Code(s): C01 - Malignant neoplasm of base of tongue Status: Acute - Plan 1.) NSTEMI - suspect troponin elevation due to pneumonia and hypoxia, he is assymptomatic, continue aspirin, statin held due to elevated lfts, beta paige held due to copd, consider starting mechelle inhibitor when pneumonia resolves
--- NOTE | 2018-01-03 14:16 | FL ---
EXAM DATE: 01/03/2018 2:08 PM EDT AGE/SEX: 62 years / Male INDICATIONS: Dysphagia. CLINICAL DATA: This is the patient's subsequent encounter. Patient reports that signs and symptoms h ave been present for 2 days and indicates a pain score of 0/10. MEDICAL/SURGICAL HISTORY: Carcinoma, tongue. . Radical neck dissection for CA of base of tongue . Pt. has had several esophageal dilitations. COMPARISON: No prior exams available for comparison. FLUORO TIME: 0.7 IMAGE COUNT: 0 FINDINGS: A modified barium swallow was performed with speech pathology. Patient was given a variety of liquids to swallow. CONCLUSION: For a full detailed report, see report by the speech pathologist. Electronically signed by: Bhavya Juares MD 01/03/2018 2:14 PM EDT
--- NOTE | 2018-01-03 14:50 | XR ---
EXAM DATE: 01/03/2018 2:26 PM EDT AGE/SEX: 62 years / Male INDICATIONS: Fracture. Patient fell and complains of pain. Patient has a brace on . CLINICAL DATA: This is the patient's subsequent encounter. Patient reports that signs and symptoms h ave been present for 1 week and indicates a pain score of 10/10. MEDICAL/SURGICAL HISTORY: Carcinoma, tongue. . Radical neck dissection after tongue CA. COMPARISON: [facility] [place], CT KNEE LEFT W/O CONTRAST, 12/23/2017. . FINDINGS: AP and lateral views of the left knee demonstrate depressed lateral tibial plateau fracture with a si milar configuration to the prior examination. A small joint effusion remains present. Femur and fibul a appear intact. There is a stable 10 mm area of sclerosis in the distal femoral metaphysis. No soft tissue abnormality is identified. CONCLUSION: 1. Mildly depressed and comminuted lateral tibial plateau fracture with a configuration similar to t he study from 11 days ago. 2. Stable small joint effusion. Electronically signed by: Won Hinton MD 01/03/2018 2:48 PM EDT
[2018-01-03] MEDS: Enoxaparin Inj 40 MG/0.4 ML Syringe SQ SCH (17:54)
[2018-01-03] MEDS ORDERED: Morphine Inj 4 MG/ML Vial IV.PUSH PRN (19:58)
[2018-01-03] MEDS: Morphine Inj 4 MG/ML Vial IV.PUSH PRN (21:06)
[2018-01-04] MEDS: Morphine Inj 4 MG/ML Vial IV.PUSH PRN ×4 (00:42→15:53)
[2018-01-04] MEDS: Piperacil/Tazo 3.375 GM Premix 50 ML IV.SIG SCH ×3 (00:43→11:19)
[2018-01-04] MEDS: Sod Chloride 0.9% Inj 1,000 ML IV.CONT SCH ×3 (00:44→23:00)
[2018-01-04 05:53] LABS: Bilirubin,Urine Negative (Negative); Clarity,Urine Hazy (Clear); Color,Urine Amber (Yellw/Straw); Glucose,Urine (UA) Negative (Negative); Leukocyte Esterase,Urine Negative (Negative); Mucus,Urine Few /lpf (Occasional); Nitrite,Urine Negative (Negative); Squamous Epithelial Cell,Urine <1 /hpf (0-5)
--- NOTE | 2018-01-04 09:12 | P.PNOP ---
Subjective Interval history: Resting comfortably in bed. No new complaint Physical Exam Vital signs: Vital Signs 01/03/18 16:00 01/03/18 20:00 01/04/18 00:00 Temperature 97.4 F L 98 F 97.8 F Pulse Rate 87 80 91 H Respiratory Rate 14 16 16 Blood Pressure 142/67 H 112/60 115/65 Pulse Oximetry 91 L 98 99 01/04/18 04:00 01/04/18 09:00 Temperature 98 F Pulse Rate 74 80 Respiratory Rate 16 Blood Pressure 118/62 Pulse Oximetry Intake & Output 01/03/18 01/04/18 01/04/18 18:59 06:59 18:59 Intake Total 100 / 100 3500 / 3500 Balance 100 / 100 3500 / 3500 Weight 82.2 kg Intake: IV 100 / 100 3500 / 3500 NS Inj 1,000 ML @ 100 mls/hr IV 1000 / 1000 .CONT .Q10H DARIO Rx#:[id number] Zosyn 3.375 GM Premix 50 ML @ 100 / 100 150 / 150 100 mls/hr IV.SIG Q6H DARIO Rx#: [id number] NS Inj 1,000 ML @ Wide Open IV. 1999 / 1999 SIG .Q0M DARIO Rx#:[id number] Other: # Voids 5 - Constitutional no acute distress - Routine Extremities Exam Comments: Left lower extremity: No pain with hip or ankle range of motion. Moderate swelling over the knee. Knee immobilizer is loosely applied and is at the ankle with no support over the knee. Knee immobilizer is re-applied and adjustments made to better secure the knee and protected from further displacement. He has intact sensation distally with active dorsiflexion plantar flexion of foot Results - Labs CBC & Chem 7: 01/03/18 07:18 01/02/18 11:05 Laboratory Results - last 24 hr 01/02/18 01/03/18 01/03/18 16:54 07:18 07:18 ESR 56 H Total Bilirubin 0.8 Direct Bilirubin 0.3 H Indirect Bilirubin 0.5 AST 540 H ALT 562 H Alkaline Phosphatase 88 Lactate Dehydrogenase C-Reactive Protein Total Protein 5.8 L Total Protein (PEP) Albumin 2.1 L Vitamin B12 Folate Urine Color Urine Clarity Urine pH Ur Specific [place] Urine Protein Urine Glucose (UA) Urine Ketones Urine Occult Blood Urine Nitrate Urine Bilirubin Urine Urobilinogen Ur Leukocyte Esterase Urine RBC Urine WBC Ur Squamous Epith Cells Urine Mucus Micro UA Comment Urine Culture Comments GORDY Screen Pos H 01/03/18 01/04/18 07:18 05:30 ESR Total Bilirubin Direct Bilirubin Indirect Bilirubin AST ALT Alkaline Phosphatase Lactate Dehydrogenase 253 H C-Reactive Protein 11.00 H Total Protein Total Protein (PEP) 5.7 L Albumin Vitamin B12 Greater than 2000 H Folate Greater than 20.0 H Urine Color Dottie Urine Clarity Hazy H Urine pH 5.0 Ur Specific [place] 1.040 H Urine Protein Negative Urine Glucose (UA) Negative Urine Ketones 20 Urine Occult Blood Negative Urine Nitrate Negative Urine Bilirubin Negative Urine Urobilinogen 2.0 H Ur Leukocyte Esterase Negative Urine RBC 1 Urine WBC 2 Ur Squamous Epith Cells <1 Urine Mucus Few H Micro UA Comment Culture not ind Urine Culture Comments Culture not ind GORDY Screen Microbiology 01/02/18 13:59 Sputum - Expectorated Sputum Gram Stain - Final 01/02/18 13:59 Sputum - Expectorated Sputum Sputum Culture - Preliminary Heavy growth normal respiratory georgie at 24 hours 01/02/18 11:10 Blood - Peripheral Aerobic Blood Culture - Preliminary No growth in 1 day 01/02/18 11:10 Blood - Peripheral Anaerobic Blood Culture - Preliminary No growth in 1 day 01/02/18 11:05 Blood - Peripheral Aerobic Blood Culture - Preliminary No growth in 1 day 01/02/18 11:05 Blood - Peripheral Anaerobic Blood Culture - Preliminary No growth in 1 day - Imaging Impressions Knee X-Ray 01/03/18 00:00 CONCLUSION: 1. Mildly depressed and comminuted lateral tibial plateau fracture with a configuration similar to the study from 11 days ago. 2. Stable small joint effusion. Videofluoroscopic Swallow 01/03/18 00:00 CONCLUSION: For a full detailed report, see report by the speech pathologist. Assessment and Plan - Assessment and Plan Left tibia plateau fracture Nonweightbearing left lower extremity and maintain knee immobilizer We will continue to treat this nonoperatively. Patient understands if he does continue to bear weight on the left lower extremity he will continue to displace the fracture. We will re-x-ray in 2 weeks and continue to follow.
[2018-01-04] MEDS ORDERED: Morphine Inj 4 MG/ML Vial IV.PUSH PRN (09:46)
--- NOTE | 2018-01-04 09:46 | P.PNIM ---
Subjective Interval history: Shortness of breath resolving, on room air, afebrile. No leukocytosis. Complaining of pain in his throat. Physical Exam Vital signs: Vital Signs 01/03/18 16:00 01/03/18 20:00 01/04/18 00:00 Temperature 97.4 F L 98 F 97.8 F Pulse Rate 87 80 91 H Respiratory Rate 14 16 16 Blood Pressure 142/67 H 112/60 115/65 Pulse Oximetry 91 L 98 99 01/04/18 04:00 01/04/18 08:00 01/04/18 09:00 Temperature 98 F 97.9 F Pulse Rate 74 76 80 Respiratory Rate 16 16 Blood Pressure 118/62 111/64 Pulse Oximetry 92 L Intake & Output 01/03/18 01/04/18 01/04/18 18:59 06:59 18:59 Intake Total 100 / 100 3500 / 3500 Balance 100 / 100 3500 / 3500 Weight 82.2 kg Intake: IV 100 / 100 3500 / 3500 NS Inj 1,000 ML @ 100 mls/hr IV 1000 / 1000 .CONT .Q10H DARIO Rx#:[id number] Zosyn 3.375 GM Premix 50 ML @ 100 / 100 150 / 150 100 mls/hr IV.SIG Q6H DARIO Rx#: [id number] NS Inj 1,000 ML @ Wide Open IV. 1999 / 1999 SIG .Q0M DARIO Rx#:[id number] Other: # Voids 5 Narrative: Not in distress Pupils equal round reactive Regular rate and rhythm, no murmurs Decreased breath sounds at bases, no wheezing Abdomen soft nontender Left lower extremity in immobilizer, no edema Awake alert oriented 3. Results - Labs CBC & Chem 7: 01/03/18 07:18 01/02/18 11:05 Laboratory Results - last 24 hr 01/02/18 01/03/18 01/04/18 16:54 07:18 05:30 Total Protein (PEP) 5.7 L Vitamin B12 Greater than 2000 H Folate Greater than 20.0 H Urine Color Dottie Urine Clarity Hazy H Urine pH 5.0 Ur Specific [place] 1.040 H Urine Protein Negative Urine Glucose (UA) Negative Urine Ketones 20 Urine Occult Blood Negative Urine Nitrate Negative Urine Bilirubin Negative Urine Urobilinogen 2.0 H Ur Leukocyte Esterase Negative Urine RBC 1 Urine WBC 2 Ur Squamous Epith Cells <1 Urine Mucus Few H Micro UA Comment Culture not ind Urine Culture Comments Culture not ind GORDY Screen Pos H Microbiology 01/02/18 13:59 Sputum - Expectorated Sputum Gram Stain - Final 01/02/18 13:59 Sputum - Expectorated Sputum Sputum Culture - Preliminary Heavy growth normal respiratory georgie at 24 hours 01/02/18 11:10 Blood - Peripheral Aerobic Blood Culture - Preliminary No growth in 1 day 01/02/18 11:10 Blood - Peripheral Anaerobic Blood Culture - Preliminary No growth in 1 day 01/02/18 11:05 Blood - Peripheral Aerobic Blood Culture - Preliminary No growth in 1 day 01/02/18 11:05 Blood - Peripheral Anaerobic Blood Culture - Preliminary No growth in 1 day - Imaging Impressions Knee X-Ray 01/03/18 00:00 CONCLUSION: 1. Mildly depressed and comminuted lateral tibial plateau fracture with a configuration similar to the study from 11 days ago. 2. Stable small joint effusion. Videofluoroscopic Swallow 01/03/18 00:00 CONCLUSION: For a full detailed report, see report by the speech pathologist. Assessment and Plan - Plan This is a 62-year-old male with history of throat cancer presenting to the emergency department with productive cough found to have sepsis secondary to pneumonia and dysphagia. Sepsis secondary to pneumonia, possibly aspiration pneumonia-continue Zosyn, blood culture negative to date, sputum culture grew normal georgie. Leukocytosis better and is now normal. Continue Zosyn, oxygen support, duo nebs around the clock and as needed. Switch to oral tomorrow. History of throat cancer/esophageal stricture-n.p.o., speech therapy evaluation, , barium swallow shows possible anatomic obstruction, ENT consulted, Dr. Fuentes who usually does his esophageal dilatation is out of town. GI consulted , for possible PEG tube placement and or esophageal dilatation. Patient is agreeable. Throat cancer is in remission, follow-up with UF as outpatient. Elevated troponin, likely secondary to pneumonia- EKG showed T-wave inversions in the lateral leads, troponin peaked at 0.88 and remained flat, cardiology was consulted, continue aspirin and statins. Statins on hold because of LFT elevation. Not in beta-paige because of COPD. Possibly start LESLEY inhibitors on discharge when more stable. Elevated LFTs-ultrasound no cholelithiasis, no cholecystitis, GORDY positive. Hepatitis panel negative. Ammonia is normal. Further workup per GI. Gastroenterology following. Anemia of chronic disease-oncology is following, follow-up workup Sore throat-start lidocaine spray, would likely need dilatation. On morphine. Recent left tibial plateau fracture-seen by orthopedics, recommended non- operative treatment, continue with nonweightbearing on left lower extremity, follow-up with orthopedics as outpatient. Repeat x-ray in 2 weeks, around January 18. Consult physical therapy Jadon for DVT prophylaxis
[2018-01-04] MEDS: Enoxaparin Inj 40 MG/0.4 ML Syringe SQ SCH (12:33)
--- NOTE | 2018-01-04 13:09 | P.PNCA ---
Subjective Interval history: alert in nad, denies chest pain Physical Exam Vital signs: Vital Signs 01/03/18 16:00 01/03/18 20:00 01/04/18 00:00 Temperature 97.4 F L 98 F 97.8 F Pulse Rate 87 80 91 H Respiratory Rate 14 16 16 Blood Pressure 142/67 H 112/60 115/65 Pulse Oximetry 91 L 98 99 01/04/18 04:00 01/04/18 08:00 01/04/18 09:00 Temperature 98 F 97.9 F Pulse Rate 74 76 80 Respiratory Rate 16 16 Blood Pressure 118/62 111/64 Pulse Oximetry 92 L 01/04/18 12:00 Temperature 97.9 F Pulse Rate 78 Respiratory Rate 16 Blood Pressure 108/59 L Pulse Oximetry 94 L Intake & Output 01/03/18 01/04/18 01/04/18 18:59 06:59 18:59 Intake Total 100 / 100 3500 / 3500 1000 / 1000 Balance 100 / 100 3500 / 3500 1000 / 1000 Weight 82.2 kg Intake: IV 100 / 100 3500 / 3500 1000 / 1000 NS Inj 1,000 ML @ 100 mls/hr IV 1000 / 1000 1000 / 1000 .CONT .Q10H DARIO Rx#:[id number] Zosyn 3.375 GM Premix 50 ML @ 100 / 100 150 / 150 100 mls/hr IV.SIG Q6H DARIO Rx#: [id number] NS Inj 1,000 ML @ Wide Open IV. 1999 / 1999 SIG .Q0M DARIO Rx#:[id number] Other: # Voids 5 Assessment and Plan - Assessment (1) NSTEMI (non-ST elevated myocardial infarction) Code(s): I21.4 - Non-ST elevation (NSTEMI) myocardial infarction Status: Acute (2) Elevated LFTs Code(s): R94.5 - Abnormal results of liver function studies Status: Acute (3) Squamous cell carcinoma of base of tongue Code(s): C01 - Malignant neoplasm of base of tongue Status: Acute - Plan 1.) NSTEMI - suspect troponin elevation due to pneumonia and hypoxia, he is assymptomatic, continue aspirin, statin held due to elevated lfts, beta paige held due to copd, start altace 2.5 mg qd, f/u echo
[2018-01-04 14:16] LABS: Alpha 1 Antitrypsin 314 mg/dL (100 - 190); Smooth Muscle Total Auto Abs Negative (Negative)
--- NOTE | 2018-01-04 16:39 | ECHRPT ---
Indication: CORONARY ATHEROSCLEROSIS CONCLUSIONS The left ventricular systolic function is normal with an estimated ejection fraction in the range of 60-65%. Normal left ventricular size. Wall thickness is normal. No regional wall motion abnormalities are present. Trace mitral valve regurgitation. Mild aortic valve regurgitation. There is mild tricuspid valve regurgitation. The estimated pulmonary arterial pressure is 42.5 mmHg. Mild pulmonary valve regurgitation. BP: / HR: Rhythm: Sinus MEASUREMENTS (Male / Female) Normal Values Technical Quality:Good 2D ECHO LV Diastolic Diameter PLAX 5.3 cm 4.2 - 5.9 / 3.9 - 5.3 cm LV Systolic Diameter PLAX 3.7 cm IVS Diastolic Thickness 0.8 cm 0.6 - 1.0 / 0.6 - 0.9 cm LVPW Diastolic Thickness 0.9 cm 0.6 - 1.0 / 0.6 - 0.9 cm LV Relative Wall Thickness 0.3 RV Internal Dim ED PLAX 2.9 cm LVOT Diameter 2.1 cm LA Systolic Diameter LX 2.9 cm 3.0 - 4.0 / 2.7 - 3.8 cm M-MODE Aortic Root Diameter MM 2.8 cm LA Systolic Diameter MM 3.6 cm LA Ao Ratio MM 1.3 AV Cusp Separation MM 1.9 cm DOPPLER AV Peak Velocity 156.0 cm/s AV Peak Gradient 9.7 mmHg AI Peak Velocity 279.5 cm/s AI Peak Gradient 31.2 mmHg AI Pressure Half Time 415.5 ms LVOT Peak Velocity 116.0 cm/s LVOT Peak Gradient 5.4 mmHg AV Area Cont Eq pk 2.6 cm MV Area PHT 3.3 cm Mitral E Point Velocity 59.7 cm/s Mitral A Point Velocity 58.2 cm/s Mitral E to A Ratio 1.0 LV E' Lateral Velocity 6.9 cm/s Mitral E to LV E' Lateral Ratio 8.6 LV E' Septal Velocity 7.2 cm/s Mitral E to LV E' Septal Ratio 8.3 TR Peak Velocity 285.0 cm/s TR Peak Gradient 32.5 mmHg Right Atrial Pressure 10.0 mmHg Pulmonary Artery Systolic Pressu 42.5 mmHg Right Ventricular Systolic Press 42.5 mmHg PV Peak Velocity 113.0 cm/s PV Peak Gradient 5.1 mmHg FINDINGS LEFT VENTRICLE The left ventricular systolic function is normal with an estimated ejection fraction in the range of 60-65%. Normal left ventricular size. Wall thickness is normal. No regional wall motion abnormalities are present. RIGHT VENTRICLE Normal right ventricular size and systolic function. LEFT ATRIUM The left atrial size is normal. RIGHT ATRIUM The right atrial size is normal. ATRIAL SEPTUM Normal atrial septal thickness without atrial level shunting by limited color doppler interrogation. AORTA The aortic root and proximal ascending aorta are normal in size on limited imaging. MITRAL VALVE Structurally normal mitral valve. Trace mitral valve regurgitation. AORTIC VALVE Trileaflet aortic valve. Mild aortic valve regurgitation. TRICUSPID VALVE Structurally normal tricuspid valve. There is mild tricuspid valve regurgitation. The estimated pulmonary arterial pressure is 42.5 mmHg. PULMONARY VALVE Mild pulmonary valve regurgitation. VESSELS The inferior vena cava is normal in size. PERICARDIUM No pericardial effusion. Derrick Bejarano MD (Electronically Signed) Final Date:04 January 2018 16:38
--- NOTE | 2018-01-04 19:18 | P.PNGI ---
Subjective Interval history: Patient laying in bed comfortably complains of inability to swallow Physical Exam Vital signs: Vital Signs 01/03/18 20:00 01/04/18 00:00 01/04/18 04:00 Temperature 98 F 97.8 F 98 F Pulse Rate 80 91 H 74 Respiratory Rate 16 16 16 Blood Pressure 112/60 115/65 118/62 Pulse Oximetry 98 99 01/04/18 08:00 01/04/18 09:00 01/04/18 12:00 Temperature 97.9 F 97.9 F Pulse Rate 76 80 74 Respiratory Rate 16 16 Blood Pressure 111/64 108/59 L Pulse Oximetry 92 L 94 L 01/04/18 16:00 Temperature 97.2 F L Pulse Rate 79 Respiratory Rate 14 Blood Pressure 114/55 L Pulse Oximetry 92 L Intake & Output 01/04/18 01/04/18 01/05/18 06:59 18:59 06:59 Intake Total 3500 / 3500 1000 / 1000 Balance 3500 / 3500 1000 / 1000 Weight 82.2 kg Intake: IV 3500 / 3500 1000 / 1000 NS Inj 1,000 ML @ 100 mls/hr IV 1000 / 1000 1000 / 1000 .CONT .Q10H DARIO Rx#:[id number] Zosyn 3.375 GM Premix 50 ML @ 150 / 150 100 mls/hr IV.SIG Q6H DARIO Rx#: [id number] NS Inj 1,000 ML @ Wide Open IV. 1999 / 1999 SIG .Q0M DARIO Rx#:[id number] Other: # Voids 2 # Bowel Movements 1 - Constitutional no acute distress - Routine HEENT Exam Head: Present: normocephalic Eye: Present: EOMI - Routine Neck Exam Comments: Significant scarring noted on the anterior aspect of the neck secondary to surgeries for cancer - Routine Respiratory Exam Present: CTA bilaterally - Routine Cardiovascular Exam Present: RRR - Routine Abdominal Exam Present: soft, normoactive bowel sounds - Routine Extremities Exam Absent: cyanosis, clubbing, edema Results - Labs CBC & Chem 7: 01/03/18 07:18 01/02/18 11:05 Laboratory Results - last 24 hr 01/02/18 01/04/18 01/04/18 16:54 05:30 11:23 POC Glucose 70 Gnomg-9-Impcabxvydk 314 H Urine Color Dottie Urine Clarity Hazy H Urine pH 5.0 Ur Specific [place] 1.040 H Urine Protein Negative Urine Glucose (UA) Negative Urine Ketones 20 Urine Occult Blood Negative Urine Nitrate Negative Urine Bilirubin Negative Urine Urobilinogen 2.0 H Ur Leukocyte Esterase Negative Urine RBC 1 Urine WBC 2 Ur Squamous Epith Cells <1 Urine Mucus Few H Micro UA Comment Culture not ind Urine Culture Comments Culture not ind Anti-Smooth Muscle Ab Negative Microbiology 01/04/18 09:42 Stool Stool Occult Blood (RYAN) - Final Hemoccult negative 01/02/18 13:59 Sputum - Expectorated Sputum Gram Stain - Final 01/02/18 13:59 Sputum - Expectorated Sputum Sputum Culture - Final Heavy growth normal respiratory georgie 01/02/18 11:10 Blood - Peripheral Aerobic Blood Culture - Preliminary No growth in 2 days 01/02/18 11:10 Blood - Peripheral Anaerobic Blood Culture - Preliminary No growth in 2 days 01/02/18 11:05 Blood - Peripheral Aerobic Blood Culture - Preliminary No growth in 2 days 01/02/18 11:05 Blood - Peripheral Anaerobic Blood Culture - Preliminary No growth in 2 days Assessment and Plan (1) Elevated LFTs Status: Acute Code(s): R94.5 - Abnormal results of liver function studies - Plan Assessment: - Elevated LFTs Pt oriented to place and year, but unable to recall month and is a poor historian. Denies personal or family history of liver issues. Denies ETOH. Thinks he was started on a new patch? yesterday but unsure what this is for or what it is called and nothing listed on home medication list. No elevation of LFTs noted from previous hospitalizations AST-915 ALT-725 T bili-0.8 Alk phos-95 - Elevated troponin- cardiology consult pending - History of throat cancer S/P multiple esophageal dilatations done by Dr. Fuentes- Pt does not want total laryngectomy or G-tube Received radiation therapy- denies previous chemotherapy - Multiple recurrence of PNA secondary to aspiration 01/03/2018, patient is awake answering simple questions but does appear very weak. States he was not able to tolerate applesauce and has been working with speech therapy for his dysphasia currently she still recommends n.p.o. pending modified barium swallow. Current hemoglobin 8.6 mild leukocytosis 13.3 which could be related to aspiration. Patient states if he needs a nasogastric tube to help him feel better from his weakness he will consider. Notes previous history of 2 gastric tubes in the past. Being followed with Dr. 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 Treated in the [facility] with resection and radiation and chemotherapy. Liver ultrasound done on 01/02/2018 shows cholelithiasis but no evidence to suggest acute cholecystitis trace amount of ascites fluid small bilateral pleural effusions. Chest x-ray on 719 shows new alveolar infiltrate both medial lungs concerned for continued pneumonia and probable aspiration. Liver workup labs Nonreactive hepatitis profile, GORDY positive ASMA pending and mitochondrial IgG antibody pending, folate level greater than 20 vitamin B12 greater than 2000, AFP 0.8 lipase 63, ceruloplasmin and alpha 1 antitrypsin pending ammonia level 12 from 01/02/2018., Tylenol level unremarkable Plan: Discussed with patient options of EGD with dilation with or without PEG tube placement Patient will think about PEG tube placement Liver workup pending all labs Avoid hepatotoxins Bowel regimen
[2018-01-05] MEDS: Sod Chloride 0.9% Inj 1,000 ML IV.CONT SCH (01:44)
[2018-01-05] MEDS: Piperacil/Tazo 3.375 GM Premix 50 ML IV.SIG SCH ×6 (05:49→23:58)
--- NOTE | 2018-01-05 08:33 | P.DIET ---
Nutritional Evaluation Type of nutrition evaluation: initial Screening comments: NPO Screen. NPO x 3-Days Subjective Barriers to Nutrition: Swallowing problem Objective - Diagnosis Pneumonia - Objective [place] body weight: 75.5 kg % IBW: 108 Body Weight Used for Calculations: Actual (Actual Wt 81.647kg used for Assessment here) Energy Needs - Lower Range (kCal/kg): 25 Energy Needs - Upper Range (kCal/kg): 30 Lower Limit kCal/kg (kCals): 2,041 Upper Limit kCal/kg (kCals): 2,449 Lower Limit Protein Factor (Grams per Kg): 1.1 Upper Limit Protein Factor (Grams per Kg): 1.4 Lower Protein Needs (Protein): 90 Upper Protein Needs (Protein): 114 Fluid Factor (ml/kg): 30 Estimated Fluid Needs (ml): 2,449 Dietitian Reviewed in Medical Record: Curent medications, Intake & Output, Labs , Medical history Diet Order: NPO Speech Therapy Recommendations: Yes (NPO. MBS w/severe pharyngeal dysphagia) Objective Comments: PMH Includes: Base of the tongue squamous cell carcinoma; cancer of the neck; h/ o cancer resection; h/o esophageal strictures s/p multiple esophageal dilations ; h/o 2-gastric tubes in the past +1BM Assessment Assessment: Pt is at high nutritional risk r/t dysphagia and NPO x 3-Days. Pt is pending EGD w/possible dilation and possible PEG placement. Should pt remain NPO and unable to advance diet, then Rec TF'ing w/Jevity 1.5 @ 30ml/hr, advance 10ml Q 4 -hr, as tolerated, to goal rate 60ml/hr. TF'ing at goal rate will offer 2160 kcal, 91.9g Protein and 1094ml free water. Free water flushes per MD. Labs reviewed-monitor liver enzymes closely. Additional recs to follow r/t clinical course. Recommendations: 1. For TF'ing, Rec Jevity 1.5 @ 30ml/hr, advance 10ml Q 4-hr, as tolerated, to goal rate 60ml/hr 2. Free water flushes per MD 3. Additional recs to follow r/t clinical course Dietitian to Monitor: Lab values, Liver enzymes, Intake & Output, Weight change , Diet advancement, Swallow recommendations, Medical course
[2018-01-05 09:41] LABS: Hematocrit 30.8 % (39.0-51.0); Mean Corpuscular HGB Conc 32.4 % (32.0-36.0); Mean Corpuscular Hemoglobin 26.6 pg (27.0-34.0); Mean Corpuscular Volume 82.1 fL (80.0-100.0); Mean Platelet Volume 6.5 fL (7.0-11.0); Platelet Count 719 th/mm3 (150-450); Red Blood Count 3.75 mil/mm3 (4.50-5.90); Red Cell Distribution Width 16.4 % (11.6-17.2); White Blood Count 8.1 th/mm3 (4.0-11.0)
[2018-01-05] MEDS: Ramipril 2.5 MG Capsule PO SCH (09:55)
--- NOTE | 2018-01-05 09:58 | P.PNIM ---
Subjective Interval history: Patient agreed to esophageal dilatation and PEG tube placement. Explained that he will probably need tube feeds to get better. No shortness of breath, afebrile. Blood pressure is stable. Physical Exam Vital signs: Vital Signs 01/04/18 12:00 01/04/18 16:00 01/04/18 20:00 Temperature 97.9 F 97.2 F L 97.6 F Pulse Rate 74 79 80 Respiratory Rate 16 14 15 Blood Pressure 108/59 L 114/55 L 105/55 L Pulse Oximetry 94 L 92 L 92 L 01/04/18 23:39 01/05/18 00:00 01/05/18 04:00 Temperature 97.8 F 97.8 F Pulse Rate 86 92 H 76 Respiratory Rate 15 15 Blood Pressure 110/62 109/58 L Pulse Oximetry 92 L 93 L 01/05/18 08:00 Temperature 97.7 F Pulse Rate 71 Respiratory Rate 18 Blood Pressure 130/64 Pulse Oximetry 93 L Intake & Output 01/04/18 01/05/18 01/05/18 18:59 06:59 18:59 Intake Total 1050 / 1050 1000 / 1000 Balance 1050 / 1050 1000 / 1000 Weight 82.3 kg Intake: IV 1050 / 1050 1000 / 1000 NS Inj 1,000 ML @ 100 mls/hr IV 1000 / 1000 1000 / 1000 .CONT .Q10H DARIO Rx#:[id number] Zosyn 3.375 GM Premix 50 ML @ 50 / 50 100 mls/hr IV.SIG Q6H DARIO Rx#: [id number] Other: # Voids 2 # Bowel Movements 1 Narrative: Not in distress Pupils equal round reactive Regular rate and rhythm, no murmurs Decreased breath sounds at bases especially on the right, no wheezing Abdomen soft nontender Left lower extremity in immobilizer, no edema Awake alert oriented 3. Results - Labs CBC & Chem 7: 01/05/18 08:34 01/02/18 11:05 Laboratory Results - last 24 hr 01/02/18 01/04/18 01/05/18 16:54 11:23 08:34 WBC 8.1 RBC 3.75 L Hgb 10.0 L Hct 30.8 L MCV 82.1 MCH 26.6 L MCHC 32.4 RDW 16.4 Plt Count 719 H MPV 6.5 L POC Glucose 70 Fxbsw-6-Nssoowdmgpg 314 H Anti-Smooth Muscle Ab Negative Microbiology 01/04/18 09:42 Stool Stool Occult Blood (RYAN) - Final Hemoccult negative 01/02/18 13:59 Sputum - Expectorated Sputum Gram Stain - Final 01/02/18 13:59 Sputum - Expectorated Sputum Sputum Culture - Final Heavy growth normal respiratory georgie 01/02/18 11:10 Blood - Peripheral Aerobic Blood Culture - Preliminary No growth in 2 days 01/02/18 11:10 Blood - Peripheral Anaerobic Blood Culture - Preliminary No growth in 2 days 01/02/18 11:05 Blood - Peripheral Aerobic Blood Culture - Preliminary No growth in 2 days 01/02/18 11:05 Blood - Peripheral Anaerobic Blood Culture - Preliminary No growth in 2 days Assessment and Plan - Plan This is a 62-year-old male with history of throat cancer presenting to the emergency department with productive cough found to have sepsis secondary to pneumonia and dysphagia. Sepsis secondary to pneumonia, possibly aspiration pneumonia-continue Zosyn, blood culture negative to date, sputum culture grew normal georgie. Leukocytosis better and is now normal. Continue Zosyn, oxygen support, duo nebs around the clock and as needed. Switch to oral once PEG tube is in. History of throat cancer/esophageal stricture-n.p.o., speech therapy evaluation, , barium swallow shows possible anatomic obstruction, ENT consulted, Dr. Fuentes who usually does his esophageal dilatation is out of town. GI consulted , for PEG tube placement and esophageal dilatation. Patient is agreeable. Throat cancer is in remission, follow-up with UF as outpatient. Elevated troponin, likely secondary to pneumonia- EKG showed T-wave inversions in the lateral leads, troponin peaked at 0.88 and remained flat, cardiology was consulted, continue aspirin and statins. Statins on hold because of LFT elevation. Not in beta-paige because of COPD. Start Altace per cardiology, echocardiogram showed preserved ejection fraction. Elevated LFTs-ultrasound no cholelithiasis, no cholecystitis, GORDY positive. Hepatitis panel negative. Ammonia is normal. Further workup per GI. Gastroenterology following. Anemia of chronic disease-oncology is following, follow-up workup Sore throat-start lidocaine spray, would likely need dilatation. On morphine. Recent left tibial plateau fracture-seen by orthopedics, recommended non- operative treatment, continue with nonweightbearing on left lower extremity, follow-up with orthopedics as outpatient. Repeat x-ray in 2 weeks, around January 18. Consult physical therapy FEN BMP pending. Once tube feeds are N, recommendation is Jevity 1.5 @ 30ml/hr, advance 10ml Q 4-hr, as tolerated, to goal rate 60ml/hr with free water flushes. Lovenox for DVT prophylaxis, hold for now for procedure. Discharge planning: Discharge to sniff once PEG tube is in and status post esophageal dilatation
[2018-01-05 10:01] LABS: Alanine Aminotransferase 463 U/L (12-78); Albumin 2.1 g/dL (3.4-5.0); Anion Gap 9 meq/L (5-15); Aspartate Aminotransferase 314 U/L (15-37); Blood Urea Nitrogen 11 mg/dL (7-18); Carbon Dioxide 25.8 meq/L (21.0-32.0); Chloride 104 meq/L (98-107); Glomerular Filtration Rate Greater Than 89 mL/min (>89); Glucose,Random 57 mg/dL (74-106); Potassium 4.2 meq/L (3.5-5.1); Sodium 139 meq/L (136-145)
[2018-01-05 10:04] LABS: Alkaline Phosphatase 86 U/L (45-117); Total Protein 5.8 g/dL (6.4-8.2)
--- NOTE | 2018-01-05 10:27 | P.PNCA ---
Subjective Interval history: alert in nad, assymptomatic, ambulatory Physical Exam Vital signs: Vital Signs 01/04/18 12:00 01/04/18 16:00 01/04/18 20:00 Temperature 97.9 F 97.2 F L 97.6 F Pulse Rate 74 79 80 Respiratory Rate 16 14 15 Blood Pressure 108/59 L 114/55 L 105/55 L Pulse Oximetry 94 L 92 L 92 L 01/04/18 23:39 01/05/18 00:00 01/05/18 04:00 Temperature 97.8 F 97.8 F Pulse Rate 86 92 H 76 Respiratory Rate 15 15 Blood Pressure 110/62 109/58 L Pulse Oximetry 92 L 93 L 01/05/18 08:00 Temperature 97.7 F Pulse Rate 71 Respiratory Rate 18 Blood Pressure 130/64 Pulse Oximetry 93 L Intake & Output 01/04/18 01/05/18 01/05/18 18:59 06:59 18:59 Intake Total 1050 / 1050 1000 / 1000 Balance 1050 / 1050 1000 / 1000 Weight 82.3 kg Intake: IV 1050 / 1050 1000 / 1000 NS Inj 1,000 ML @ 100 mls/hr IV 1000 / 1000 1000 / 1000 .CONT .Q10H DARIO Rx#:[id number] Zosyn 3.375 GM Premix 50 ML @ 50 / 50 100 mls/hr IV.SIG Q6H DARIO Rx#: [id number] Other: # Voids 2 # Bowel Movements 1 Assessment and Plan - Assessment (1) NSTEMI (non-ST elevated myocardial infarction) Code(s): I21.4 - Non-ST elevation (NSTEMI) myocardial infarction Status: Acute (2) Elevated LFTs Code(s): R94.5 - Abnormal results of liver function studies Status: Acute (3) Squamous cell carcinoma of base of tongue Code(s): C01 - Malignant neoplasm of base of tongue Status: Acute - Plan 1.) NSTEMI - suspect troponin elevation due to pneumonia and hypoxia, he is assymptomatic, continue aspirin, statin held due to elevated lfts, beta paige held due to copd, continue 2.5 mg qd, f/u echo
[2018-01-05] MEDS: Dextrose 5%/NaCl 0.45% Inj 1,000 ML IV.CONT SCH (11:10)
--- NOTE | 2018-01-05 11:17 | P.PNGI ---
Subjective Interval history: Pt resting in bed, complaining of some generalized abdominal pain. Denies nausea and vomiting. States he is agreeable to having a PEG tube placed but that he does not want it to be permanent. <Bernice Ivey - Last Filed: 01/05/18 11:17> Physical Exam Vital signs: Vital Signs 01/04/18 12:00 01/04/18 16:00 01/04/18 20:00 Temperature 97.9 F 97.2 F L 97.6 F Pulse Rate 74 79 80 Respiratory Rate 16 14 15 Blood Pressure 108/59 L 114/55 L 105/55 L Pulse Oximetry 94 L 92 L 92 L 01/04/18 23:39 01/05/18 00:00 01/05/18 04:00 Temperature 97.8 F 97.8 F Pulse Rate 86 92 H 76 Respiratory Rate 15 15 Blood Pressure 110/62 109/58 L Pulse Oximetry 92 L 93 L 01/05/18 08:00 Temperature 97.7 F Pulse Rate 71 Respiratory Rate 18 Blood Pressure 130/64 Pulse Oximetry 93 L Intake & Output 01/04/18 01/05/18 01/05/18 18:59 06:59 18:59 Intake Total 1050 / 1050 1000 / 1000 Balance 1050 / 1050 1000 / 1000 Weight 82.3 kg Intake: IV 1050 / 1050 1000 / 1000 NS Inj 1,000 ML @ 100 mls/hr IV 1000 / 1000 1000 / 1000 .CONT .Q10H DARIO Rx#:[id number] Zosyn 3.375 GM Premix 50 ML @ 50 / 50 100 mls/hr IV.SIG Q6H DARIO Rx#: [id number] Other: # Voids 2 # Bowel Movements 1 - Constitutional no acute distress - Routine HEENT Exam Head: Present: normocephalic, atraumatic - Routine Abdominal Exam Present: soft, normoactive bowel sounds. Absent: tenderness Comments: sunken - Routine Skin Exam Present: dry, warm - Routine Neurological Exam Present: alert, oriented X3 <Bernice Ivey - Last Filed: 01/05/18 11:17> Vital signs: Vital Signs 01/04/18 16:00 01/04/18 20:00 01/04/18 23:39 Temperature 97.2 F L 97.6 F 97.8 F Pulse Rate 79 80 86 Respiratory Rate 14 15 15 Blood Pressure 114/55 L 105/55 L 110/62 Pulse Oximetry 92 L 92 L 92 L 01/05/18 00:00 01/05/18 04:00 01/05/18 08:00 Temperature 97.8 F 97.7 F Pulse Rate 92 H 76 77 Respiratory Rate 15 16 Blood Pressure 109/58 L 130/64 Pulse Oximetry 93 L 93 L Intake & Output 01/04/18 01/05/18 01/05/18 18:59 06:59 18:59 Intake Total 1050 / 1050 1000 / 1000 50 / 50 Balance 1050 / 1050 1000 / 1000 50 / 50 Weight 82.3 kg Intake: IV 1050 / 1050 1000 / 1000 50 / 50 NS Inj 1,000 ML @ 100 mls/hr IV 1000 / 1000 1000 / 1000 .CONT .Q10H DARIO Rx#:[id number] Zosyn 3.375 GM Premix 50 ML @ 50 / 50 50 / 50 100 mls/hr IV.SIG Q6H DARIO Rx#: [id number] Other: # Voids 2 Date of Last Bowel Movement 01/05/18 # Bowel Movements 1 <Alex Rahman E - Last Filed: 01/05/18 12:56> Results - Labs CBC & Chem 7: 01/05/18 08:34 01/05/18 08:34 Laboratory Results - last 24 hr 01/02/18 01/04/18 01/05/18 16:54 11:23 08:34 WBC 8.1 RBC 3.75 L Hgb 10.0 L Hct 30.8 L MCV 82.1 MCH 26.6 L MCHC 32.4 RDW 16.4 Plt Count 719 H MPV 6.5 L Sodium Potassium Chloride Carbon Dioxide Anion Gap BUN Creatinine Estimated GFR POC Glucose 70 Random Glucose Calcium Total Bilirubin AST ALT Alkaline Phosphatase Total Protein Albumin Vokik-2-Cqxlekeexle 314 H Anti-Smooth Muscle Ab Negative 01/05/18 08:34 WBC RBC Hgb Hct MCV MCH MCHC RDW Plt Count MPV Sodium 139 Potassium 4.2 Chloride 104 Carbon Dioxide 25.8 Anion Gap 9 BUN 11 Creatinine 0.42 L Estimated GFR Greater than 89 POC Glucose Random Glucose 57 L Calcium 8.0 L Total Bilirubin 0.7 AST 314 H ALT 463 H Alkaline Phosphatase 86 Total Protein 5.8 L Albumin 2.1 L Yuotv-9-Jlkrfqmahxq Anti-Smooth Muscle Ab Microbiology 01/02/18 11:10 Blood - Peripheral Aerobic Blood Culture - Preliminary No growth in 3 days 01/02/18 11:10 Blood - Peripheral Anaerobic Blood Culture - Preliminary No growth in 3 days 01/02/18 11:05 Blood - Peripheral Aerobic Blood Culture - Preliminary No growth in 3 days 01/02/18 11:05 Blood - Peripheral Anaerobic Blood Culture - Preliminary No growth in 3 days 01/04/18 09:42 Stool Stool Occult Blood (RYAN) - Final Hemoccult negative 01/02/18 13:59 Sputum - Expectorated Sputum Gram Stain - Final 01/02/18 13:59 Sputum - Expectorated Sputum Sputum Culture - Final Heavy growth normal respiratory georgie <Bernice Ivey - Last Filed: 01/05/18 11:17> - Labs CBC & Chem 7: 01/05/18 08:34 01/05/18 08:34 Laboratory Results - last 24 hr 01/02/18 01/05/18 01/05/18 16:54 08:34 08:34 WBC 8.1 RBC 3.75 L Hgb 10.0 L Hct 30.8 L MCV 82.1 MCH 26.6 L MCHC 32.4 RDW 16.4 Plt Count 719 H MPV 6.5 L Sodium 139 Potassium 4.2 Chloride 104 Carbon Dioxide 25.8 Anion Gap 9 BUN 11 Creatinine 0.42 L Estimated GFR Greater than 89 Random Glucose 57 L Calcium 8.0 L Total Bilirubin 0.7 AST 314 H ALT 463 H Alkaline Phosphatase 86 Total Protein 5.8 L Albumin 2.1 L Kqrum-2-Byakzrsgkiv 314 H Anti-Smooth Muscle Ab Negative Microbiology 01/02/18 11:10 Blood - Peripheral Aerobic Blood Culture - Preliminary No growth in 3 days 01/02/18 11:10 Blood - Peripheral Anaerobic Blood Culture - Preliminary No growth in 3 days 01/02/18 11:05 Blood - Peripheral Aerobic Blood Culture - Preliminary No growth in 3 days 01/02/18 11:05 Blood - Peripheral Anaerobic Blood Culture - Preliminary No growth in 3 days 01/04/18 09:42 Stool Stool Occult Blood (RYAN) - Final Hemoccult negative 01/02/18 13:59 Sputum - Expectorated Sputum Gram Stain - Final 01/02/18 13:59 Sputum - Expectorated Sputum Sputum Culture - Final Heavy growth normal respiratory georgie <Alex Rahman - Last Filed: 01/05/18 12:56> Assessment and Plan (1) Elevated LFTs Status: Acute Code(s): R94.5 - Abnormal results of liver function studies - Plan Assessment: - Elevated LFTs Pt oriented to place and year, but unable to recall month and is a poor historian. Denies personal or family history of liver issues. Denies ETOH. Thinks he was started on a new patch? yesterday but unsure what this is for or what it is called and nothing listed on home medication list. No elevation of LFTs noted from previous hospitalizations AST-915 ALT-725 T bili-0.8 Alk phos-95 Liver Work up: Hepatitis panel negative. GORDY positive, titer and interpretation pending. ASMA negative. AMA pending Iron-15 TIBC-202 %sat-7.4 Ferritin-1216 AAT-314 AFP-0.8 - Elevated troponin- cardiology states suspect elevation secondary to PNA and hypoxia - History of throat cancer S/P multiple esophageal dilatations done by Dr. Fuentes- Pt does not want total laryngectomy or G-tube Received radiation therapy- denies previous chemotherapy - Multiple recurrence of PNA secondary to aspiration (01/05) Pt now agreeable to PEG tube placement, states does not want this to be permanent. Pt has had PEG in the past, reminded him about how the PEG is removed if ability to swallow is regained without aspiration. Modified barium swallow noted --> severe to profound pharyngeal dysphagia complicated by poor bolus passage through the upper esophageal sphincter. Poor pharyngeal clearance resulted in multiple direct aspiration events with no immediate reflexive cough triggered. Plan: EGD with PEG placement tomorrow Obtain consent NPO after MN Keep Lovenox on hold Zosyn for abx coverage Appreciate dietary recommendations Jevity 1.5 with goal rate 60 mL/hr AMA and Ceruloplasmin pending Avoid hepatotoxins- statin on hold Further recommendations based on course Pt has been seen and examined by myself and Dr. Rahman and this note is written on his behalf <Bernice Ivey - Last Filed: 01/05/18 11:17> (1) Elevated LFTs Status: Acute Code(s): R94.5 - Abnormal results of liver function studies - Attending Attestation Patient seen and examined Agree with above Continue with current supportive care Monitor labs EGD with dilation and PEG placement tomorrow <Alex Rahman - Last Filed: 01/05/18 12:56>
[2018-01-05] MEDS: Morphine Inj 4 MG/ML Vial IV.PUSH PRN ×3 (13:03→21:40)
[2018-01-05 15:53] LABS: Ceruloplasmin 39 mg/dL (18-36)
[2018-01-06] MEDS: Dextrose 5%/NaCl 0.45% Inj 1,000 ML IV.CONT SCH ×3 (00:53→23:04)
[2018-01-06] MEDS ORDERED: Chlorhexidine Gluconate 2% 1 Pack (2 Cloths) TOPICAL SCH (03:15)
[2018-01-06] MEDS ORDERED: Metoprolol Tartrate 25 MG Tablet PO SCH (03:15)
[2018-01-06] MEDS ORDERED: Sodium Chlor 0.9% Inj 500 ML IV.SIG SCH (04:00)
[2018-01-06] MEDS: Piperacil/Tazo 3.375 GM Premix 50 ML IV.SIG SCH ×3 (05:29→17:29)
--- NOTE | 2018-01-06 09:03 | P.PNIM ---
Subjective Interval history: Patient awaiting PEG tube placement, agreeable to go to sniff. Denies any chest pain, shortness of breath, cough, nausea or vomiting. Afebrile. Still having difficulty swallowing. Physical Exam Vital signs: Vital Signs 01/05/18 12:00 01/05/18 16:00 01/05/18 20:00 Temperature 97.9 F 97.8 F 97.9 F Pulse Rate 84 76 75 Respiratory Rate 18 16 16 Blood Pressure 132/64 118/60 113/64 Pulse Oximetry 94 L 93 L 93 L 01/05/18 21:40 01/06/18 00:00 01/06/18 04:00 Temperature 98 F 97.8 F Pulse Rate 73 68 Respiratory Rate 16 16 16 Blood Pressure 127/59 L 124/62 Pulse Oximetry 92 L 96 01/06/18 08:12 Temperature 97.6 F Pulse Rate 84 Respiratory Rate 16 Blood Pressure 136/66 Pulse Oximetry 96 Intake & Output 01/05/18 01/06/18 01/06/18 18:59 06:59 18:59 Intake Total 100 / 100 1050 / 1050 Output Total 1 / 1 Balance 100 / 100 1050 / 1050 -1 / -1 Weight 82.3 kg Intake: IV 100 / 100 1050 / 1050 D5W/1/2 NS Inj 1,000 ML @ 84 1000 / 1000 mls/hr IV.CONT .[id number] DARIO Rx# :[id number] Zosyn 3.375 GM Premix 50 ML @ 100 / 100 50 / 50 100 mls/hr IV.SIG Q6H DARIO Rx#: [id number] Oral 0 / 0 Output: Stool / Other: # Voids 4 1 Date of Last Bowel Movement 01/05/18 01/05/18 # Bowel Movements 1 Narrative: Not in distress Pupils equal round reactive Regular rate and rhythm, no murmurs Decreased breath sounds at bases especially on the right, no wheezing Abdomen soft nontender Left lower extremity in immobilizer, no edema Awake alert oriented 3. Results - Labs CBC & Chem 7: 01/05/18 08:34 01/05/18 08:34 Laboratory Results - last 24 hr 01/02/18 01/05/18 01/05/18 16:54 08:34 08:34 WBC 8.1 RBC 3.75 L Hgb 10.0 L Hct 30.8 L MCV 82.1 MCH 26.6 L MCHC 32.4 RDW 16.4 Plt Count 719 H MPV 6.5 L Sodium 139 Potassium 4.2 Chloride 104 Carbon Dioxide 25.8 Anion Gap 9 BUN 11 Creatinine 0.42 L Estimated GFR Greater than 89 POC Glucose Random Glucose 57 L Calcium 8.0 L Total Bilirubin 0.7 AST 314 H ALT 463 H Alkaline Phosphatase 86 Total Protein 5.8 L Albumin 2.1 L Ceruloplasmin 39 H 01/05/18 15:52 WBC RBC Hgb Hct MCV MCH MCHC RDW Plt Count MPV Sodium Potassium Chloride Carbon Dioxide Anion Gap BUN Creatinine Estimated GFR POC Glucose 104 Random Glucose Calcium Total Bilirubin AST ALT Alkaline Phosphatase Total Protein Albumin Ceruloplasmin Microbiology 01/02/18 11:10 Blood - Peripheral Aerobic Blood Culture - Preliminary No growth in 3 days 01/02/18 11:10 Blood - Peripheral Anaerobic Blood Culture - Preliminary No growth in 3 days 01/02/18 11:05 Blood - Peripheral Aerobic Blood Culture - Preliminary No growth in 3 days 01/02/18 11:05 Blood - Peripheral Anaerobic Blood Culture - Preliminary No growth in 3 days Assessment and Plan - Plan This is a 62-year-old male with history of throat cancer presenting to the emergency department with productive cough found to have sepsis secondary to pneumonia and dysphagia. Sepsis secondary to pneumonia, possibly aspiration pneumonia-continue Zosyn, blood culture negative to date, sputum culture grew normal georgie. Leukocytosis better and is now normal. Continue Zosyn, oxygen support, duo nebs around the clock and as needed. Switch to oral Augmentin once PEG tube is in to finish on 01/09. History of throat cancer/esophageal stricture-n.p.o., speech therapy evaluation, , barium swallow shows possible anatomic obstruction, ENT consulted, Dr. Fuentes who usually does his esophageal dilatation is out of town. GI consulted , for PEG tube placement and esophageal dilatation. Patient is agreeable. Throat cancer is in remission, follow-up with [facility] as outpatient. If dilatation not done, f/u with ENT outpatient for dilatation Elevated troponin, likely secondary to pneumonia- EKG showed T-wave inversions in the lateral leads, troponin peaked at 0.88 and remained flat, cardiology was consulted, continue aspirin and statins. Statins on hold because of LFT elevation. Not in beta-paige because of COPD. Cont Altace per cardiology, echocardiogram showed preserved ejection fraction. Elevated LFTs-ultrasound no cholelithiasis, no cholecystitis, GORDY positive. Ceruloplasmin (+), anti-smooth muscle ab negative, AMA pending,. Hepatitis panel negative. Ammonia is normal. Further workup per GI,f/u with GI on discharge. Anemia of chronic disease-oncology is following, follow-up workup Sore throat-start lidocaine spray, would likely need dilatation. On morphine. Recent left tibial plateau fracture-seen by orthopedics, recommended non- operative treatment, continue with nonweightbearing on left lower extremity, follow-up with orthopedics as outpatient. Repeat x-ray in 2 weeks, around January 18. Consult physical therapy FEN Once tube feeds are N, recommendation is Jevity 1.5 @ 30ml/hr, advance 10ml Q 4 -hr, as tolerated, to goal rate 60ml/hr with free water flushes. Lovenox for DVT prophylaxis, hold for now for procedure. Discharge planning: Discharge to sniff once PEG tube is in and status post esophageal dilatation
--- NOTE | 2018-01-06 09:17 | P.DS ---
Date of admission: 01/02/18 12:56 Primary care physician: Malcom Kaur DO Brief History from admission: patient is a 62 y/o male with history of throat cancer who presented to ER with productive cough.he was recently admitted to the hospital with left tibia plateau fracture and was discharged to rehab. he says that he's been coughing for sometime. he denies any sob, fever, chills,night sweats. he says that he's on mechanical soft diet and he doesn't report any difficulty swallowing or aspiration.he denies any chest pain, nausea, vomiting. 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 Primary diagnosis aspiration pneumonia, patient was started on vancomycin and Zosyn. With improvement, vancomycin was stopped. Blood culture negative to date, sputum culture grew normal georgie. Leukocytosis normalized. He was continued on Zosyn until PEG tube was placed and was switched to Augmentin to finish on January 09. He also had elevated troponin on admission likely secondary to pneumonia. EKG showed T-wave inversions on the lateral leads, troponin peaked at 0.88 and remained flat, cardiology was consulted, continue aspirin, he was started on Altace. Statins on hold because of LFT elevation. Not on beta-paige because of COPD. Echocardiogram showed preserved ejection fraction. For his LFT elevations, gastroenterology was consulted, ultrasound was unremarkable. Workup was initiated, GORDY positive, Ceruloplasmin (+), anti-smooth muscle ab negative, AMA pending, Hepatitis panel negative. Further workup per GI,f/u with GI on discharge. He has a history of throat cancer/esophageal stricture, speech therapy evaluated him, barring as well as shows possible anatomic obstruction. ENT consulted, Dr. Fuentes who usually does his esophageal dilatation is out of town. GI consulted, for PEG tube placement and esophageal dilatation. Throat cancer is in remission, follow-up with as outpatient. Finally, he had a recent left tibial plateau fracture,seen by orthopedics, recommended non-operative treatment, continue with nonweightbearing on left lower extremity, follow-up with orthopedics as outpatient. Repeat x-ray in 2 weeks, around January 18. Once he was started on tube feeds, he will be discharged on the above medications and Jevity 1.5 with a goal rate of 60 cc/h. He will be discharged to SNF for rehab. - Time Spent with Patient Total time spent providing and/or coordinating discharge services: Greater than 30 minutes Exam Vital signs: Vital Signs 01/05/18 12:00 01/05/18 16:00 01/05/18 20:00 Temperature 97.9 F 97.8 F 97.9 F Pulse Rate 84 76 75 Respiratory Rate 18 16 16 Blood Pressure 132/64 118/60 113/64 Pulse Oximetry 94 L 93 L 93 L 01/05/18 21:40 01/06/18 00:00 01/06/18 04:00 Temperature 98 F 97.8 F Pulse Rate 73 68 Respiratory Rate 16 16 16 Blood Pressure 127/59 L 124/62 Pulse Oximetry 92 L 96 01/06/18 08:12 Temperature 97.6 F Pulse Rate 84 Respiratory Rate 16 Blood Pressure 136/66 Pulse Oximetry 96 Intake & Output 01/05/18 01/06/18 01/06/18 18:59 06:59 18:59 Intake Total 100 / 100 1050 / 1050 Output Total 1 / 1 Balance 100 / 100 1050 / 1050 -1 / -1 Weight 82.3 kg Intake: IV 100 / 100 1050 / 1050 D5W/1/2 NS Inj 1,000 ML @ 84 1000 / 1000 mls/hr IV.CONT .[id number] DARIO Rx# :[id number] Zosyn 3.375 GM Premix 50 ML @ 100 / 100 50 / 50 100 mls/hr IV.SIG Q6H DARIO Rx#: [id number] Oral 0 / 0 Output: Stool 1 / 1 Other: # Voids 4 1 Date of Last Bowel Movement 01/05/18 01/05/18 # Bowel Movements 1 Results Procedures completed during hospitalization: PEG tube placement Labs on day of discharge: Labs from last 24 hours 01/05/18 01/05/18 01/05/18 15:52 08:34 08:34 WBC 8.1 RBC 3.75 L Hgb 10.0 L Hct 30.8 L MCV 82.1 MCH 26.6 L MCHC 32.4 RDW 16.4 Plt Count 719 H MPV 6.5 L Sodium 139 Potassium 4.2 Chloride 104 Carbon Dioxide 25.8 Anion Gap 9 BUN 11 Creatinine 0.42 L Estimated GFR Greater than 89 POC Glucose 104 Random Glucose 57 L Calcium 8.0 L Total Bilirubin 0.7 AST 314 H ALT 463 H Alkaline Phosphatase 86 Total Protein 5.8 L Albumin 2.1 L Ceruloplasmin 01/02/18 16:54 WBC RBC Hgb Hct MCV MCH MCHC RDW Plt Count MPV Sodium Potassium Chloride Carbon Dioxide Anion Gap BUN Creatinine Estimated GFR POC Glucose Random Glucose Calcium Total Bilirubin AST ALT Alkaline Phosphatase Total Protein Albumin Ceruloplasmin 39 H Preliminary micro results at discharge 01/02/18 11:10 Aerobic Blood Culture - Preliminary Blood - Peripheral No growth in 3 days Anaerobic Blood Culture - Preliminary No growth in 3 days 01/02/18 11:05 Aerobic Blood Culture - Preliminary Blood - Peripheral No growth in 3 days Anaerobic Blood Culture - Preliminary No growth in 3 days - Impressions ITS Impressions Liver Ultrasound 01/02/18 00:00 CONCLUSION: 1. Cholelithiasis. No sonographic evidence to suggest acute cholecystitis. 2. Trace amount of ascitic fluid. 3. Small bilateral pleural effusions. Chest X-Ray 01/02/18 11:05 CONCLUSION: New alveolar infiltrate in both medial lung bases of concern for pneumonia. Knee X-Ray 01/03/18 00:00 CONCLUSION: 1. Mildly depressed and comminuted lateral tibial plateau fracture with a configuration similar to the study from 11 days ago. 2. Stable small joint effusion. Videofluoroscopic Swallow 01/03/18 00:00 CONCLUSION: For a full detailed report, see report by the speech pathologist. Discharge Plan - Discharge Disposition Patient Disposition: Discharge to SNF - Discharge Condition Condition: Serious - Discharge Order Discharge Orders: Discharge Order (Routine); Ordered 01/06/18 Ordered By: Ingrid Blood - Discharge Details Anticipated Discharge Date: 01/06/18 Discharge Comment: d/c after PEG placement and GI clearance to use PEG - Physicians Team Primary Care Provider: Malcom Kaur Attending Provider: Ingrid Blood Other Providers: Irvin Hector MD ; Alex Rahman MD ; Ishan Welch MD ; Mirza Blanco MD ; Atif Salomon MD
[2018-01-06] MEDS: Morphine Inj 4 MG/ML Vial IV.PUSH PRN ×4 (09:37→21:56)
[2018-01-06] MEDS: Ramipril 2.5 MG Capsule PO SCH (09:42)
[2018-01-06] MEDS ORDERED: Lidocaine PF 1% Inj 5 ML Syringe INFILTRATN ONE (12:00)
--- NOTE | 2018-01-06 12:13 | GIPROC ---
[facility] [address] [facility], [address] EGD PROCEDURE REPORT EXAM DATE: 01/06/2018 PATIENT NAME: Brian Kelly MR #: [id number] BIRTHDATE: 1955 ATTENDING: Kierra Saldana MD ORDER #: [id number] PRODUCTION LINE TECHNICIAN: Rosie Escalante and Alexia Sosa STATUS: inpatient INDICATIONS: The patient is a 62 yr old male here for an EGD due to Dysphagia, history of throat cancer PROCEDURE PERFORMED: Evaluation of the proximal esophagus, unable to pass that area because of stricture MEDICATIONS: None and Per Anesthesia. TOPICAL ANESTHETIC: none CONSENT: The patient understands the risks and benefits of the procedure and understands that these risks include, but are not limited to: sedation, allergic reaction, infection, perforation and/or bleeding. Alternative means of evaluation and treatment include, among others: physical exam, x-rays, and/or surgical intervention. The patient elects to proceed with this endoscopic procedure. medical equipment was checked for proper function. Hand hygiene and appropriate measures for infection prevention was taken. After the risks, benefits and alternatives of the procedure were thoroughly explained, Informed consent was verified, confirmed and timeout was successfully executed by the treatment team. The patient was anesthetized with topical anesthesia and the Pentax [id number] endoscope was introduced through the mouth and advanced to the Throat only n] The gastroscope was then slowly withdrawn and removed. Significant narrowing no possibility of passing the scope at this time for PEG tube placement so the procedure was terminated. ADVERSE EVENTS: There were no complications. IMPRESSIONS: Significant narrowing no possibility of passing the scope at this time for PEG tube placement so the procedure was terminated RECOMMENDATIONS: Consult ENT Dr. Fuentes for dilation Consult interventional radiology for PEG tube placement Keep n.p.o. PATIENT CONDITION: stable DISPOSITION: Inpatient REPEAT EXAM: NONE Kierra Saldana MD eSigned: Kierra Saldana MD 01/06/2018 12:13 PM cc:
--- NOTE | 2018-01-06 12:20 | P.PNGI ---
Subjective Interval history: Patient laying in bed, seems to be comfortable, cannot have anything by mouth because of the stricture, he said that she usually get this dilated by Dr. 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 and patient has scarring, Physical Exam Vital signs: Vital Signs 01/05/18 16:00 01/05/18 20:00 01/05/18 21:40 Temperature 97.8 F 97.9 F Pulse Rate 76 75 Respiratory Rate 16 16 16 Blood Pressure 118/60 113/64 Pulse Oximetry 93 L 93 L 01/06/18 00:00 01/06/18 04:00 01/06/18 08:12 Temperature 98 F 97.8 F 97.6 F Pulse Rate 73 68 84 Respiratory Rate 16 16 16 Blood Pressure 127/59 L 124/62 136/66 Pulse Oximetry 92 L 96 96 01/06/18 09:45 Temperature Pulse Rate 84 Respiratory Rate Blood Pressure Pulse Oximetry Intake & Output 01/05/18 01/06/18 01/06/18 18:59 06:59 18:59 Intake Total 100 / 100 1050 / 1050 Output Total 1 / 1 Balance 100 / 100 1050 / 1050 -1 / -1 Weight 82.3 kg Intake: IV 100 / 100 1050 / 1050 D5W/1/2 NS Inj 1,000 ML @ 84 1000 / 1000 mls/hr IV.CONT .[id number] DARIO Rx# :[id number] Zosyn 3.375 GM Premix 50 ML @ 100 / 100 50 / 50 100 mls/hr IV.SIG Q6H DARIO Rx#: [id number] Oral 0 / 0 Output: Stool / Other: # Voids 4 1 Date of Last Bowel Movement 01/05/18 01/05/18 01/05/18 # Bowel Movements 1 - Constitutional no acute distress - Routine HEENT Exam Head: Present: normocephalic, atraumatic ENT: Present: mucous membranes moist Comments: Patient has significant scarring and hardening of the tissue on the back on the left side - Routine Neck Exam Comments: Reduction in the range of motion with significant heart skin - Routine Cardiovascular Exam Present: RRR, S1 - Routine Abdominal Exam Present: soft, normoactive bowel sounds Results - Labs CBC & Chem 7: 01/05/18 08:34 01/05/18 08:34 Laboratory Results - last 24 hr 01/02/18 01/05/18 01/06/18 16:54 15:52 09:46 POC Glucose 104 131 H Ceruloplasmin 39 H Microbiology 01/02/18 11:10 Blood - Peripheral Aerobic Blood Culture - Preliminary No growth in 4 days 01/02/18 11:10 Blood - Peripheral Anaerobic Blood Culture - Preliminary No growth in 4 days 01/02/18 11:05 Blood - Peripheral Aerobic Blood Culture - Preliminary No growth in 4 days 01/02/18 11:05 Blood - Peripheral Anaerobic Blood Culture - Preliminary No growth in 4 days - Procedures PEG tube placement Assessment and Plan (1) Elevated LFTs Status: Acute Code(s): R94.5 - Abnormal results of liver function studies - Plan Assessment: - Elevated LFTs Pt oriented to place and year, but unable to recall month and is a poor historian. Denies personal or family history of liver issues. Denies ETOH. Thinks he was started on a new patch? yesterday but unsure what this is for or what it is called and nothing listed on home medication list. No elevation of LFTs noted from previous hospitalizations AST-915 ALT-725 T bili-0.8 Alk phos-95 Liver Work up: Hepatitis panel negative. GORDY positive, titer and interpretation pending. ASMA negative. AMA pending Iron-15 TIBC-202 %sat-7.4 Ferritin-1216 AAT-314 AFP-0.8 - Elevated troponin- cardiology states suspect elevation secondary to PNA and hypoxia - History of throat cancer S/P multiple esophageal dilatations done by Dr. Fuentes- Pt does not want total laryngectomy or G-tube Received radiation therapy- denies previous chemotherapy - Multiple recurrence of PNA secondary to aspiration (01/05) Pt now agreeable to PEG tube placement, states does not want this to be permanent. Pt has had PEG in the past, reminded him about how the PEG is removed if ability to swallow is regained without aspiration. Modified barium swallow noted --> severe to profound pharyngeal dysphagia complicated by poor bolus passage through the upper esophageal sphincter. Poor pharyngeal clearance resulted in multiple direct aspiration events with no immediate reflexive cough triggered. 01/06/2018 patient has dysphagia secondary to strictures and swallowing problem, had an attempted upper endoscopy I was not able to pass the scope because of significant stricturing and necrotic tissue in the back of the throat for the procedure was terminated Plan: PEG tube per radiology Consult ENT Dr. Fuentes for dilation Keep patient n.p.o. We will sign off since there is not much from GI perspective to do anymore
[2018-01-06] MEDS ORDERED: *morphine SULFATE 4 MG/ML PERIprocedure ONLY ONE (12:21)
--- NOTE | 2018-01-06 13:32 | P.PNCA ---
Subjective Interval history: in pacu in nad Physical Exam Vital signs: Vital Signs 01/05/18 16:00 01/05/18 20:00 01/05/18 21:40 Temperature 97.8 F 97.9 F Pulse Rate 76 75 Respiratory Rate 16 16 16 Blood Pressure 118/60 113/64 Pulse Oximetry 93 L 93 L 01/06/18 00:00 01/06/18 04:00 01/06/18 08:12 Temperature 98 F 97.8 F 97.6 F Pulse Rate 73 68 84 Respiratory Rate 16 16 16 Blood Pressure 127/59 L 124/62 136/66 Pulse Oximetry 92 L 96 96 01/06/18 09:45 01/06/18 12:13 01/06/18 12:30 Temperature 97.9 F Pulse Rate 84 75 74 Respiratory Rate 18 18 Blood Pressure 117/65 111/62 Pulse Oximetry 01/06/18 12:40 Temperature 97.9 F Pulse Rate 71 Respiratory Rate 18 Blood Pressure 130/70 Pulse Oximetry Intake & Output 01/05/18 01/06/18 01/06/18 18:59 06:59 18:59 Intake Total 100 / 100 1100 / 1100 1000 / 1000 Output Total 1 / Balance 100 / 100 1100 / 1100 999 / 999 Weight 82.3 kg Intake: IV 100 / 100 1100 / 1100 1000 / 1000 D5W/1/2 NS Inj 1,000 ML @ 84 1000 / 1000 1000 / 1000 mls/hr IV.CONT .[id number] DARIO Rx# :[id number] Zosyn 3.375 GM Premix 50 ML @ 100 / 100 100 / 100 100 mls/hr IV.SIG Q6H DARIO Rx#: [id number] Oral 0 / 0 Output: Stool / Other: # Voids 4 1 Date of Last Bowel Movement 01/05/18 01/05/18 01/05/18 # Bowel Movements 1 Assessment and Plan - Assessment (1) NSTEMI (non-ST elevated myocardial infarction) Code(s): I21.4 - Non-ST elevation (NSTEMI) myocardial infarction Status: Acute (2) Elevated LFTs Code(s): R94.5 - Abnormal results of liver function studies Status: Acute (3) Squamous cell carcinoma of base of tongue Code(s): C01 - Malignant neoplasm of base of tongue Status: Chronic - Plan 1.) NSTEMI - suspect troponin elevation due to pneumonia and hypoxia, he is assymptomatic, continue aspirin, statin held due to elevated lfts, beta paige held due to copd, continue 2.5 mg qd, ef=65% on echo
--- NOTE | 2018-01-06 14:31 | P.PNONC ---
Subjective Interval history: Afebrile Patient resting in bed talking with visitor Has just come back from attempted endoscopy for PEG placement today. Apparently this was unsuccessful due to severe stricture Patient complains of pain in the left knee Objective Vital Signs/Intake & Output: Vital Signs 01/05/18 16:00 01/05/18 20:00 01/05/18 21:40 Temperature 97.8 F 97.9 F Pulse Rate 76 75 Respiratory Rate 16 16 16 Blood Pressure 118/60 113/64 Pulse Oximetry 93 L 93 L 01/06/18 00:00 01/06/18 04:00 01/06/18 08:12 Temperature 98 F 97.8 F 97.6 F Pulse Rate 73 68 84 Respiratory Rate 16 16 16 Blood Pressure 127/59 L 124/62 136/66 Pulse Oximetry 92 L 96 96 01/06/18 09:45 01/06/18 12:13 01/06/18 12:30 Temperature 97.9 F Pulse Rate 84 75 74 Respiratory Rate 18 18 Blood Pressure 117/65 111/62 Pulse Oximetry 01/06/18 12:40 Temperature 97.9 F Pulse Rate 71 Respiratory Rate 18 Blood Pressure 130/70 Pulse Oximetry Intake & Output 01/05/18 01/06/18 01/06/18 18:59 06:59 18:59 Intake Total 100 / 100 1100 / 1100 1000 / 1000 Output Total Balance 100 / 100 1100 / 1100 999 / 999 Weight 181 lb 7.047 oz Intake: IV 100 / 100 1100 / 1100 1000 / 1000 D5W/1/2 NS Inj 1,000 ML @ 84 1000 / 1000 1000 / 1000 mls/hr IV.CONT .[id number] DARIO Rx# :[id number] Zosyn 3.375 GM Premix 50 ML @ 100 / 100 100 / 100 100 mls/hr IV.SIG Q6H DARIO Rx#: [id number] Oral 0 / 0 Output: Stool Other: # Voids 4 1 Date of Last Bowel Movement 01/05/18 01/05/18 01/05/18 # Bowel Movements 1 Result Diagrams: 01/05/18 08:34 01/05/18 08:34 Laboratory Results: Laboratory Results - last 24 hr 01/02/18 01/05/18 01/06/18 16:54 15:52 09:46 POC Glucose 104 131 H Ceruloplasmin 39 H Culture Results: Microbiology 01/02/18 11:10 Aerobic Blood Culture - Preliminary Blood - Peripheral No growth in 4 days Anaerobic Blood Culture - Preliminary No growth in 4 days 01/02/18 11:05 Aerobic Blood Culture - Preliminary Blood - Peripheral No growth in 4 days Anaerobic Blood Culture - Preliminary No growth in 4 days 01/04/18 09:42 Stool Occult Blood (RYAN) - Final Stool Hemoccult negative 01/02/18 13:59 Gram Stain - Final Sputum - Expectorated Sputum Sputum Culture - Final Heavy growth normal respiratory georgie Medications: Active Medications Generic Name Dose Route Start Last Admin Trade Name Freq PRN Reason Stop Dose Admin Aspirin 81 mg 01/03/18 09:00 01/06/18 09:42 Ecotrin PO Not Given DAILY [facility] Citalopram Hydrobromide 40 mg 01/02/18 21:00 01/05/18 21:40 Celexa PO Not Given [facility] Enoxaparin Sodium 40 mg 01/03/18 13:00 01/04/18 12:33 Lovenox Inj SQ 40 mg DAILY@1300 DARIO Administration Piperacillin/Tazobactam/Dextrose 50 mls @ 100 mls/hr 01/02/18 18:00 01/06/18 13:15 Zosyn 3.375 Gm Premix IV.SIG 01/06/18 23:59 100 mls/hr Q6H DARIO Administration Dextrose/Sodium Chloride 1,000 mls @ 84 mls/hr 01/05/18 09:58 01/06/18 13:24 D5w/1/2 Ns Inj IV.CONT 84 mls/hr .[id number] DARIO Administration Lactated Ringer's 1,000 mls @ 30 mls/hr 01/06/18 03:15 01/06/18 13:24 Lr 1000 Ml Inj IV.SIG 01/09/18 03:15 Not Given .Q24H DARIO Lorazepam 1 mg 01/03/18 15:00 01/05/18 15:12 Ativan Inj IV.PUSH 1 mg Q6H PRN Administration ANXIETY Morphine Sulfate 8 mg 01/04/18 09:46 01/06/18 13:23 Morphine Inj IV.PUSH 8 mg Q4H PRN Administration PAIN 6-10 Ramipril 2.5 mg 01/05/18 09:00 01/06/18 09:42 Altace PO Not Given DAILY DARIO Zolpidem Tartrate 10 mg 01/04/18 21:00 01/05/18 23:58 Ambien PO 10 mg HS DARIO Administration Objective Remarks: GENERAL: Cachectic older male resting in bed in no obvious distress SKIN: Warm and dry. HEAD: Normocephalic. EYES: No scleral icterus. No injection or drainage. NECK: Supple, trachea midline. No JVD or lymphadenopathy. CARDIOVASCULAR: Regular rate and rhythm. RESPIRATORY: Clear anteriorly. Breathing unlabored at rest. GASTROINTESTINAL: Abdomen soft, non-tender, nondistended. EXTREMITIES: No cyanosis. Left leg has immobilizer in place. MUSCULOSKELETAL: Generalized weakness with muscle wasting NEUROLOGICAL: No obvious focal deficit. Awake, alert, and oriented x3. Assessment/Plan (1) Squamous cell carcinoma of base of tongue Code(s): C01 - Malignant neoplasm of base of tongue Status: Chronic (2) Pulmonary infiltrates on CXR Code(s): R91.8 - Other nonspecific abnormal finding of lung field Status: Acute (3) Normocytic anemia Code(s): D64.9 - Anemia, unspecified Status: Acute - Plan 62-year-old male with remote history of in the yearsquamous cell carcinoma of the tongue that was diagnosed 2000. He had surgical resection with radiation and is currently under the care of Dr. Fuentes of ENT surgery locally as well as physicians and surgeons at the [facility]. The patient reports his malignancy has been in remission. Unfortunately the patient requires monthly dilatation to his upper digestive tract to allow him a semisolid and liquid diet. Oncology consulted for further recommendations. 1. The GI team is attempted a PEG placement today however this was unsuccessful due to severe stricture. Per note radiology will be consulted for PEG placement. 2. Dr. Fuentes has been consulted for possible dilatation. 3. CBC improved. Continue to monitor.
[2018-01-06 15:24] LABS: Anti-Nuclear Antibody Pattern Speckled
[2018-01-06] MEDS: Amoxicillin/Clavulanate 600 MG/5 ML Susp 125 ML Bottle G-TUBE SCH (21:39)
[2018-01-07] MEDS: Morphine Inj 4 MG/ML Vial IV.PUSH PRN ×5 (02:39→22:16)
[2018-01-07 03:49] LABS: Mitochondria M2 Abs IgG 26.6 U (0-20.0)
[2018-01-07 07:54] LABS: Baso # (Auto) 0.1 th/mm3 (0.0-0.2); Baso % (Auto) 1.4 % (0.0-2.0); Eos # (Auto) 0.4 th/mm3 (0.0-0.4); Hematocrit 28.6 % (39.0-51.0); Hemoglobin 9.4 gm/dL (13.0-17.0); Lymph # (Auto) 0.8 th/mm3 (1.0-4.8); Lymph % (Auto) 9.2 % (9.0-44.0); Mean Corpuscular Hemoglobin 26.4 pg (27.0-34.0); Mean Corpuscular Volume 79.8 fL (80.0-100.0); Mean Platelet Volume 6.7 fL (7.0-11.0); Mono # (Auto) 0.4 th/mm3 (0.0-0.9); Neut # (Auto) 7.1 th/mm3 (1.8-7.7); Neut % (Auto) 80.4 % (16.0-70.0); Platelet Count 626 th/mm3 (150-450); Red Blood Count 3.58 mil/mm3 (4.50-5.90); Red Cell Distribution Width 16.5 % (11.6-17.2); White Blood Count 8.8 th/mm3 (4.0-11.0)
[2018-01-07] MEDS ORDERED: fentaNYL Citrate Inj 250 MCG/5 ML Ampul ONE (10:17)
[2018-01-07] MEDS ORDERED: Iohexol 350 MG/ML 50 ML Vial (for Rad Diag) G-TUBE ONE (11:10)
[2018-01-07] MEDS: Ramipril 2.5 MG Capsule PO SCH (11:29)
[2018-01-07] MEDS: Amoxicillin/Clavulanate 600 MG/5 ML Susp 125 ML Bottle G-TUBE SCH ×2 (11:29→22:07)
--- NOTE | 2018-01-07 12:42 | P.PN ---
Subjective Interval history: patient went for PEG placement tolerated well Physical Exam Vital signs: Vital Signs 01/06/18 15:25 01/06/18 16:00 01/06/18 20:00 Temperature 98.1 F Pulse Rate 93 H 73 80 Respiratory Rate 20 Blood Pressure 144/62 H Pulse Oximetry 92 L 01/06/18 21:44 01/06/18 22:30 01/06/18 22:32 Temperature 97.8 F Pulse Rate 77 Respiratory Rate 18 19 18 Blood Pressure 150/75 H Pulse Oximetry 96 01/07/18 00:00 01/07/18 00:50 01/07/18 00:56 Temperature 98 F Pulse Rate 82 68 Respiratory Rate 20 18 Blood Pressure 140/78 Pulse Oximetry 97 01/07/18 02:43 01/07/18 03:49 01/07/18 05:45 Temperature 97.9 F Pulse Rate 73 66 Respiratory Rate 18 17 Blood Pressure 145/65 H Pulse Oximetry 97 01/07/18 06:40 01/07/18 08:00 01/07/18 11:15 Temperature 99.9 F H 98.8 F Pulse Rate 79 70 Respiratory Rate 18 20 Blood Pressure 127/67 Pulse Oximetry 93 L 01/07/18 11:30 01/07/18 12:06 01/07/18 12:28 Temperature Pulse Rate 79 70 71 Respiratory Rate 18 18 18 Blood Pressure 115/67 131/72 114/67 Pulse Oximetry 98 96 96 Intake & Output 01/06/18 01/07/18 01/07/18 18:59 06:59 18:59 Intake Total 1250 / 1250 1890 / 1890 Output Total 1850 / 1850 Balance 1249 / 1249 40 / 40 - / -1 Weight 82.3 kg Intake: IV 1050 / 1050 1050 / 1050 D5W/1/2 NS Inj 1,000 ML @ 84 1000 / 1000 1000 / 1000 mls/hr IV.CONT .[id number] DARIO Rx# :[id number] Zosyn 3.375 GM Premix 50 ML @ 50 / 50 50 / 50 100 mls/hr IV.SIG Q6H DARIO Rx#: [id number] Oral 0 / 0 Anesthesia Amount 200 / 200 Other 840 / 840 Output: Urine 1850 / 1850 Stool Other: Other Intake Source Saline Solution # Voids 2 2 Date of Last Bowel Movement 01/05/18 01/05/18 01/05/18 # Bowel Movements 0 Results - Labs CBC & Chem 7: 01/07/18 06:45 01/05/18 08:34 Laboratory Results - last 24 hr 01/02/18 01/02/18 01/03/18 16:54 16:54 07:18 WBC RBC Hgb Hct MCV MCH MCHC RDW Plt Count MPV Neut % (Auto) Lymph % (Auto) Knott % (Auto) Eos % (Auto) Baso % (Auto) Neut # (Auto) Lymph # (Auto) Knott # (Auto) Eos # (Auto) Baso # (Auto) WBC Differential Differential Comment Albumin (PEP) 2.45 L Albumin/Globulin Ratio 0.75 L Phwbw-0-Iyljomaxg 0.36 H Svixt-5-Jsdhmgiwv 0.98 Beta Globulins 0.63 Gamma Globulins 1.28 GORDY Titer 1:40 H GORDY Pattern Speckled H GORDY Interpretation Mitochondria M2 IgG Ab 26.6 H 01/07/18 06:45 WBC 8.8 RBC 3.58 L Hgb 9.4 L Hct 28.6 L MCV 79.8 L MCH 26.4 L MCHC 33.0 RDW 16.5 Plt Count 626 H MPV 6.7 L Neut % (Auto) 80.4 H Lymph % (Auto) 9.2 Knott % (Auto) 5.0 Eos % (Auto) 4.0 Baso % (Auto) 1.4 Neut # (Auto) 7.1 Lymph # (Auto) 0.8 L Knott # (Auto) 0.4 Eos # (Auto) 0.4 Baso # (Auto) 0.1 WBC Differential . Differential Comment Auto diff final Albumin (PEP) Albumin/Globulin Ratio Kcptq-9-Cjvmrwrlg Rovrf-0-Qncoqgzvg Beta Globulins Gamma Globulins GORDY Titer GORDY Pattern GORDY Interpretation Mitochondria M2 IgG Ab Microbiology 01/02/18 11:10 Blood - Peripheral Aerobic Blood Culture - Final No growth in 5 days 01/02/18 11:10 Blood - Peripheral Anaerobic Blood Culture - Final No growth in 5 days 01/02/18 11:05 Blood - Peripheral Aerobic Blood Culture - Final No growth in 5 days 01/02/18 11:05 Blood - Peripheral Anaerobic Blood Culture - Final No growth in 5 days - Procedures PEG tube placement Assessment and Plan - Assessment (1) Elevated LFTs Code(s): R94.5 - Abnormal results of liver function studies Status: Acute (2) Closed fracture of left tibial plateau Code(s): S82.142A - Displaced bicondylar fracture of left tibia, initial encounter for closed fracture Status: Acute (3) Pneumonia Code(s): J18.9 - Pneumonia, unspecified organism Status: Resolved (4) Squamous cell carcinoma of base of tongue Code(s): C01 - Malignant neoplasm of base of tongue Status: Chronic (5) NSTEMI (non-ST elevated myocardial infarction) Code(s): I21.4 - Non-ST elevation (NSTEMI) myocardial infarction Status: Acute - Plan 62-year-old male with history of throat cancer presenting to the emergency department with productive cough found to have sepsis secondary to pneumonia and dysphagia. Sepsis secondary to pneumonia, possibly aspiration pneumonia-continue Zosyn, blood culture negative to date, sputum culture grew normal georgie. Leukocytosis better and is now normal. oxygen support, duo nebs around the clock and as needed. Switch to oral Augmentin today - PEG today till 01/09. History of throat cancer/esophageal stricture-n.p.o., speech therapy evaluation, , barium swallow shows possible anatomic obstruction, ENT consulted, Dr. Fuentes who usually does his esophageal dilatation is out of town. GI ff- went PEG tube placement and esophageal dilatation today . Throat cancer is in remission, follow-up with [facility] as outpatient. If dilatation not done, f/u with ENT outpatient for dilatation Elevated troponin, likely secondary to pneumonia- EKG showed T-wave inversions in the lateral leads, troponin peaked at 0.88 and remained flat, continue aspirin. Statins on hold because of LFT elevation. Not in beta-paige because of COPD. Cont Altace per cardiology, echocardiogram showed preserved ejection fraction. Cardiology ff- plan for possible cath Elevated LFTs-ultrasound no cholelithiasis, no cholecystitis, GORDY positive. Ceruloplasmin (+), anti-smooth muscle ab negative, AMA pending,. Hepatitis panel negative. Ammonia is normal. Further workup per GI, possilbe plan for liver biopsy today Anemia of chronic disease-oncology is following, follow-up workup Sore throat-start lidocaine spray, would likely need dilatation. On morphine. Recent left tibial plateau fracture-seen by orthopedics, recommended non- operative treatment, continue with nonweightbearing on left lower extremity, follow-up with orthopedics as outpatient. Repeat x-ray in 2 weeks, around January 18. Physical therapy consult FEN - PEG just placed today 01/07 - wait 6 hours after placement to start - Jevity 1.5 @ 30ml/hr, advance 10ml Q 4-hr, as tolerated, to goal rate 60ml/hr with free water flushes. Lovenox for DVT prophylaxis - restart in am Discharge planning: SNF eventually (2) Closed fracture of left tibial plateau Qualifiers: Encounter type: initial encounter Qualified Code(s): S82.142A - Displaced bicondylar fracture of left tibia, initial encounter for closed fracture (3) Pneumonia Qualifiers: Pneumonia type: due to unspecified organism Laterality: right Lung location : middle lobe of lung Qualified Code(s): J18.1 - Lobar pneumonia, unspecified organism
--- NOTE | 2018-01-07 13:40 | P.PNGI ---
Subjective Interval history: Pt just returned from IR for G-tube placement. Pt with no complaints at this time. <RigogermánBernice - Last Filed: 01/07/18 13:33> Physical Exam Vital signs: Vital Signs 01/06/18 15:25 01/06/18 16:00 01/06/18 20:00 Temperature 98.1 F Pulse Rate 93 H 73 80 Respiratory Rate 20 Blood Pressure 144/62 H Pulse Oximetry 92 L 01/06/18 21:44 01/06/18 22:30 01/06/18 22:32 Temperature 97.8 F Pulse Rate 77 Respiratory Rate 18 19 18 Blood Pressure 150/75 H Pulse Oximetry 96 01/07/18 00:00 01/07/18 00:50 01/07/18 00:56 Temperature 98 F Pulse Rate 82 68 Respiratory Rate 20 18 Blood Pressure 140/78 Pulse Oximetry 97 01/07/18 02:43 01/07/18 03:49 01/07/18 05:45 Temperature 97.9 F Pulse Rate 73 66 Respiratory Rate 18 17 Blood Pressure 145/65 H Pulse Oximetry 97 01/07/18 06:40 01/07/18 08:00 01/07/18 11:15 Temperature 99.9 F H 98.8 F Pulse Rate 79 70 Respiratory Rate 18 20 Blood Pressure 127/67 Pulse Oximetry 93 L 01/07/18 11:30 01/07/18 12:06 01/07/18 12:28 Temperature Pulse Rate 79 70 71 Respiratory Rate 18 18 18 Blood Pressure 115/67 131/72 114/67 Pulse Oximetry 98 96 96 01/07/18 13:00 Temperature Pulse Rate 72 Respiratory Rate 18 Blood Pressure 129/72 Pulse Oximetry 97 Intake & Output 01/06/18 01/07/18 01/07/18 18:59 06:59 18:59 Intake Total 1250 / 1250 1890 / 1890 Output Total 1850 / 1850 Balance 1249 / 1249 40 / 40 - / -1 Weight 82.3 kg Intake: IV 1050 / 1050 1050 / 1050 D5W/1/2 NS Inj 1,000 ML @ 84 1000 / 1000 1000 / 1000 mls/hr IV.CONT .[id number] [facility] Rx# :[id number] Zosyn 3.375 GM Premix 50 ML @ 50 / 50 50 / 50 100 mls/hr IV.SIG Q6H [facility] Rx#: [id number] Oral 0 / 0 Anesthesia Amount 200 / 200 Other 840 / 840 Output: Urine 1850 / 1850 Stool Other: Other Intake Source Saline Solution # Voids 2 2 Date of Last Bowel Movement 01/05/18 01/05/18 01/05/18 # Bowel Movements 0 - Constitutional no acute distress - Routine HEENT Exam Head: Present: normocephalic, atraumatic - Routine Respiratory Exam Absent: accessory muscle use - Routine Abdominal Exam Present: soft, normoactive bowel sounds Comments: G tube clamped, dressing clean and dry - Routine Skin Exam Present: dry, warm - Routine Neurological Exam Present: alert, oriented X3 <Bernice Ivey - Last Filed: 01/07/18 13:33> Vital signs: Vital Signs 01/06/18 15:25 01/06/18 16:00 01/06/18 20:00 Temperature 98.1 F Pulse Rate 93 H 73 80 Respiratory Rate 20 Blood Pressure 144/62 H Pulse Oximetry 92 L 01/06/18 21:44 01/06/18 22:30 01/06/18 22:32 Temperature 97.8 F Pulse Rate 77 Respiratory Rate 18 19 18 Blood Pressure 150/75 H Pulse Oximetry 96 01/07/18 00:00 01/07/18 00:50 01/07/18 00:56 Temperature 98 F Pulse Rate 82 68 Respiratory Rate 20 18 Blood Pressure 140/78 Pulse Oximetry 97 01/07/18 02:43 01/07/18 03:49 01/07/18 05:45 Temperature 97.9 F Pulse Rate 73 66 Respiratory Rate 18 17 Blood Pressure 145/65 H Pulse Oximetry 97 01/07/18 06:40 01/07/18 08:00 01/07/18 11:15 Temperature 99.9 F H 98.8 F Pulse Rate 79 70 Respiratory Rate 18 20 Blood Pressure 127/67 Pulse Oximetry 93 L 01/07/18 11:30 01/07/18 12:06 01/07/18 12:28 Temperature Pulse Rate 79 70 71 Respiratory Rate 18 18 18 Blood Pressure 115/67 131/72 114/67 Pulse Oximetry 98 96 96 01/07/18 13:00 Temperature Pulse Rate 72 Respiratory Rate 18 Blood Pressure 129/72 Pulse Oximetry 97 Intake & Output 01/06/18 01/07/18 01/07/18 18:59 06:59 18:59 Intake Total 1250 / 1250 1890 / 1890 1000 / 1000 Output Total 1850 / 1850 Balance 1249 / 1249 40 / 40 999 / 999 Weight 82.3 kg Intake: IV 1050 / 1050 1050 / 1050 1000 / 1000 D5W/06/18 NS Inj 1,000 ML @ 84 1000 / 1000 1000 / 1000 1000 / 1000 mls/hr IV.CONT .[id number] [facility] Rx# :[id number] Zosyn 3.375 GM Premix 50 ML @ 50 / 50 50 / 50 100 mls/hr IV.SIG Q6H [facility] Rx#: [id number] Oral 0 / 0 Anesthesia Amount 200 / 200 Other 840 / 840 Output: Urine 1849 / 0 Stool Other: Other Intake Source Saline Solution # Voids 2 2 Date of Last Bowel Movement 01/05/18 01/05/18 01/05/18 # Bowel Movements 0 <Hemaidan,Ammar - Last Filed: 01/07/18 14:57> Results - Labs CBC & Chem 7: 01/07/18 06:45 01/05/18 08:34 Laboratory Results - last 24 hr 01/02/18 01/02/18 01/03/18 16:54 16:54 07:18 WBC RBC Hgb Hct MCV MCH MCHC RDW Plt Count MPV Neut % (Auto) Lymph % (Auto) [place] % (Auto) Eos % (Auto) Baso % (Auto) Neut # (Auto) Lymph # (Auto) [place] # (Auto) Eos # (Auto) Baso # (Auto) WBC Differential Differential Comment Albumin (PEP) 2.45 L Albumin/Globulin Ratio 0.75 L Hytur-8-Khkphznig 0.36 H Silin-9-Jkknkkfej 0.98 Beta Globulins 0.63 Gamma Globulins 1.28 GORDY Titer 1:40 H GORDY Pattern Speckled H GORDY Interpretation Mitochondria M2 IgG Ab 26.6 H 01/07/18 06:45 WBC 8.8 RBC 3.58 L Hgb 9.4 L Hct 28.6 L MCV 79.8 L MCH 26.4 L MCHC 33.0 RDW 16.5 Plt Count 626 H MPV 6.7 L Neut % (Auto) 80.4 H Lymph % (Auto) 9.2 [place] % (Auto) 5.0 Eos % (Auto) 4.0 Baso % (Auto) 1.4 Neut # (Auto) 7.1 Lymph # (Auto) 0.8 L [place] # (Auto) 0.4 Eos # (Auto) 0.4 Baso # (Auto) 0.1 WBC Differential . Differential Comment Auto diff final Albumin (PEP) Albumin/Globulin Ratio Lonwa-1-Gvjeeorkd Xwwrv-6-Xvqduopax Beta Globulins Gamma Globulins GORDY Titer GORDY Pattern GORDY Interpretation Mitochondria M2 IgG Ab Microbiology 01/02/18 11:10 Blood - Peripheral Aerobic Blood Culture - Final No growth in 5 days 01/02/18 11:10 Blood - Peripheral Anaerobic Blood Culture - Final No growth in 5 days 01/02/18 11:05 Blood - Peripheral Aerobic Blood Culture - Final No growth in 5 days 01/02/18 11:05 Blood - Peripheral Anaerobic Blood Culture - Final No growth in 5 days - Procedures PEG tube placement <Bernice Ivey - Last Filed: 01/07/18 13:33> - Labs CBC & Chem 7: 01/07/18 06:45 01/05/18 08:34 Laboratory Results - last 24 hr 01/02/18 01/02/18 01/03/18 16:54 16:54 07:18 WBC RBC Hgb Hct MCV MCH MCHC RDW Plt Count MPV Neut % (Auto) Lymph % (Auto) [place] % (Auto) Eos % (Auto) Baso % (Auto) Neut # (Auto) Lymph # (Auto) [place] # (Auto) Eos # (Auto) Baso # (Auto) WBC Differential Differential Comment Albumin (PEP) 2.45 L Albumin/Globulin Ratio 0.75 L Mxsyg-2-Buslfzecn 0.36 H Ykgup-4-Yeisxtmyp 0.98 Beta Globulins 0.63 Gamma Globulins 1.28 GORDY Titer 1:40 H GORYD Pattern Speckled H GORDY Interpretation Mitochondria M2 IgG Ab 26.6 H 01/07/18 06:45 WBC 8.8 RBC 3.58 L Hgb 9.4 L Hct 28.6 L MCV 79.8 L MCH 26.4 L MCHC 33.0 RDW 16.5 Plt Count 626 H MPV 6.7 L Neut % (Auto) 80.4 H Lymph % (Auto) 9.2 [place] % (Auto) 5.0 Eos % (Auto) 4.0 Baso % (Auto) 1.4 Neut # (Auto) 7.1 Lymph # (Auto) 0.8 L [place] # (Auto) 0.4 Eos # (Auto) 0.4 Baso # (Auto) 0.1 WBC Differential . Differential Comment Auto diff final Albumin (PEP) Albumin/Globulin Ratio Mbbht-6-Slcfqauwg Ywlux-8-Virmqzbmu Beta Globulins Gamma Globulins GORDY Titer GORDY Pattern GORDY Interpretation Mitochondria M2 IgG Ab Microbiology 01/02/18 11:10 Blood - Peripheral Aerobic Blood Culture - Final No growth in 5 days 01/02/18 11:10 Blood - Peripheral Anaerobic Blood Culture - Final No growth in 5 days 01/02/18 11:05 Blood - Peripheral Aerobic Blood Culture - Final No growth in 5 days 01/02/18 11:05 Blood - Peripheral Anaerobic Blood Culture - Final No growth in 5 days - Imaging Impressions Gastrostomy Tube Placement 01/07/18 00:00 CONCLUSION: 1. Uncomplicated gastrostomy tube placement as above. <Kierra Saldana - Last Filed: 01/07/18 14:57> Assessment and Plan (1) Elevated LFTs Status: Acute Code(s): R94.5 - Abnormal results of liver function studies - Plan Assessment: - Elevated LFTs Pt oriented to place and year, but unable to recall month and is a poor historian. Denies personal or family history of liver issues. Denies ETOH. Thinks he was started on a new patch? yesterday but unsure what this is for or what it is called and nothing listed on home medication list. No elevation of LFTs noted from previous hospitalizations AST-915 ALT-725 T bili-0.8 Alk phos-95 Liver Work up: Hepatitis panel negative. GORDY positive, titer and interpretation pending. ASMA negative. AMA pending Iron-15 TIBC-202 %sat-7.4 Ferritin-1216 AAT-314 AFP-0.8 - Elevated troponin- cardiology states suspect elevation secondary to PNA and hypoxia - History of throat cancer S/P multiple esophageal dilatations done by Dr. Fuentes- Pt does not want total laryngectomy or G-tube Received radiation therapy- denies previous chemotherapy - Multiple recurrence of PNA secondary to aspiration (01/05) Pt now agreeable to PEG tube placement, states does not want this to be permanent. Pt has had PEG in the past, reminded him about how the PEG is removed if ability to swallow is regained without aspiration. Modified barium swallow noted --> severe to profound pharyngeal dysphagia complicated by poor bolus passage through the upper esophageal sphincter. Poor pharyngeal clearance resulted in multiple direct aspiration events with no immediate reflexive cough triggered. 01/06/2018 patient has dysphagia secondary to strictures and swallowing problem, had an attempted upper endoscopy I was not able to pass the scope because of significant stricturing and necrotic tissue in the back of the throat for the procedure was terminated (01/07) S/P G tube placement by IR today, plans to start TF in 6 hours. LFTs still trending down. GORDY and AMA positive, will order liver biopsy to further evaluate for possible autoimmune hepatitis. Plan: Liver biopsy Monitor LFTs Avoid hepatotoxins Further recommendations to follow based on findings of above Pt has been seen and examined by myself and Dr. Saldana and this note is written on his behalf <Bernice Ivey - Last Filed: 01/07/18 13:33> (1) Elevated LFTs Status: Acute Code(s): R94.5 - Abnormal results of liver function studies - Attending Attestation Agree with above note, we will plan on doing liver biopsy to rule out autoimmune hepatitis or other etiology for the liver function test abnormality <Kierra Saldana - Last Filed: 01/07/18 14:57>
--- NOTE | 2018-01-07 13:45 | IR ---
EXAM DATE: 01/07/2018 11:24 AM EDT AGE/SEX: 62 years / Male INDICATIONS: Patient presents with head and neck cancer in need of gastrostomy tube placement for nu trition. CLINICAL DATA: This is the patient's initial encounter. Patient reports that signs and symptoms have been present for 4 - 6 days and indicates a pain score of 0/10. MEDICAL/SURGICAL HISTORY: . Throat cancer Esophageal stricture Former smoker . History of skin graftS/P sin cancer resection COMPARISON: No prior exams available for comparison. FLUORO TIME (min): 3.5 IMAGE SERIES: 2 SEDATION TIME (min): 30 CONTRAST (cc): 10CC Omnipaque (iohexol) 350 MEDICATION(S): 3.5mg midazolam (Versed) IV 175mcg fentanyl (Sublimaze) IV 1mg Glucagon DEVICE(S): 18 Spanish gastrostomy tube . . PROCEDURE: 1. Fluoroscopically guided gastrostomy tube placement. 2. Conscious sedation with continuous EKG and oximetry monitoring. The risks, benefits and alternatives to the procedure were explained and verbal and written consent w as obtained. The site was prepped in sterile fashion. Full sterile technique was used, including ca p, mask, sterile gloves and gown and a large sterile sheet. Hand hygiene and 2% chlorhexidine and/or betadine/alcohol prep was utilized per protocol for cutaneous antisepsis. The skin and subcutaneous tissues were infiltrated with local anesthetic solution. Fluoroscopy was used to ksenia the position of the liver.. The stomach was insufflated with room air. Three percutaneous fasteners were placed to secure the anterior gastric wall. A small incision was made between the fasteners. The stomach was accessed with an 18 gauge needle. A n 0.035 wire was advanced into the small bowel. The tract was dilated. The gastrostomy tube was int roduced through a peel-away sheath. The position was confirmed with an injection of contrast. Conscious sedation was performed with the prescribed dosages and duration as above in the presence of an independent trained radiology nurse to assist in the monitoring of the patient. EKG and oximetry remained stable throughout the procedure. The patient tolerated the procedure well and there were n o complications. The patient was sent to post anesthesia recovery in stable condition. CONCLUSION: 1. Uncomplicated gastrostomy tube placement as above. Electronically signed by: Param Ashley MD 01/07/2018 1:44 PM EDT
[2018-01-07] MEDS: Dextrose 5%/NaCl 0.45% Inj 1,000 ML IV.CONT SCH (14:39)
--- NOTE | 2018-01-07 14:42 | P.PNCA ---
Subjective Interval history: alert in nad Physical Exam Vital signs: Vital Signs 01/06/18 15:25 01/06/18 16:00 01/06/18 20:00 Temperature 98.1 F Pulse Rate 93 H 73 80 Respiratory Rate 20 Blood Pressure 144/62 H Pulse Oximetry 92 L 01/06/18 21:44 01/06/18 22:30 01/06/18 22:32 Temperature 97.8 F Pulse Rate 77 Respiratory Rate 18 19 18 Blood Pressure 150/75 H Pulse Oximetry 96 01/07/18 00:00 01/07/18 00:50 01/07/18 00:56 Temperature 98 F Pulse Rate 82 68 Respiratory Rate 20 18 Blood Pressure 140/78 Pulse Oximetry 97 01/07/18 02:43 01/07/18 03:49 01/07/18 05:45 Temperature 97.9 F Pulse Rate 73 66 Respiratory Rate 18 17 Blood Pressure 145/65 H Pulse Oximetry 97 01/07/18 06:40 01/07/18 08:00 01/07/18 11:15 Temperature 99.9 F H 98.8 F Pulse Rate 79 70 Respiratory Rate 18 20 Blood Pressure 127/67 Pulse Oximetry 93 L 01/07/18 11:30 01/07/18 12:06 01/07/18 12:28 Temperature Pulse Rate 79 70 71 Respiratory Rate 18 18 18 Blood Pressure 115/67 131/72 114/67 Pulse Oximetry 98 96 96 01/07/18 13:00 Temperature Pulse Rate 72 Respiratory Rate 18 Blood Pressure 129/72 Pulse Oximetry 97 Intake & Output 01/06/18 01/07/18 01/07/18 18:59 06:59 18:59 Intake Total 1250 / 1250 1890 / 1890 1000 / 1000 Output Total 1850 / 1850 Balance 1249 / 1249 40 / 40 999 / 999 Weight 82.3 kg Intake: IV 1050 / 1050 1050 / 1050 1000 / 1000 D5W/1/2 NS Inj 1,000 ML @ 84 1000 / 1000 1000 / 1000 1000 / 1000 mls/hr IV.CONT .[id number] [facility] Rx# :[id number] Zosyn 3.375 GM Premix 50 ML @ 50 / 50 50 / 50 100 mls/hr IV.SIG Q6H [facility] Rx#: [id number] Oral 0 / 0 Anesthesia Amount 200 / 200 Other 840 / 840 Output: Urine 1850 / 1850 Stool Other: Other Intake Source Saline Solution # Voids 2 2 Date of Last Bowel Movement 01/05/18 01/05/18 01/05/18 # Bowel Movements 0 Assessment and Plan - Assessment (1) NSTEMI (non-ST elevated myocardial infarction) Code(s): I21.4 - Non-ST elevation (NSTEMI) myocardial infarction Status: Acute (2) Elevated LFTs Code(s): R94.5 - Abnormal results of liver function studies Status: Acute (3) Squamous cell carcinoma of base of tongue Code(s): C01 - Malignant neoplasm of base of tongue Status: Chronic - Plan 1.) NSTEMI - suspect troponin elevation due to pneumonia and hypoxia, he is assymptomatic, continue aspirin, statin held due to elevated lfts, beta paige held due to copd, continue 2.5 mg qd, ef=65% on echo; he appearsstronger today s /p peg, i d/w him doing cath, he is undecided, will rediscuss tomorrow
[2018-01-08] MEDS: Morphine Inj 4 MG/ML Vial IV.PUSH PRN ×4 (02:44→21:08)
[2018-01-08] MEDS: Dextrose 5%/NaCl 0.45% Inj 1,000 ML IV.CONT SCH ×2 (02:50→21:35)
--- NOTE | 2018-01-08 08:32 | P.PNGI ---
Subjective Interval history: Pt with no GI complaints at this time. TF turned off for liver biopsy today. States was tolerating TF while running. Mild soreness around G tube. <Bernice Ivey - Last Filed: 01/08/18 08:30> Physical Exam Vital signs: Vital Signs 01/07/18 11:15 01/07/18 11:30 01/07/18 12:06 Temperature 98.8 F Pulse Rate 70 79 70 Respiratory Rate 18 18 Blood Pressure 115/67 131/72 Pulse Oximetry 98 96 01/07/18 12:28 01/07/18 13:00 01/07/18 16:00 Temperature 98.7 F Pulse Rate 71 72 84 Respiratory Rate 18 18 20 Blood Pressure 114/67 129/72 130/64 Pulse Oximetry 96 97 98 01/07/18 21:40 01/08/18 01:00 01/08/18 06:00 Temperature 97.9 F 98 F 98.7 F Pulse Rate 80 86 89 Respiratory Rate 18 18 20 Blood Pressure 107/57 L 115/63 105/66 Pulse Oximetry 96 95 96 Intake & Output 01/07/18 01/08/18 01/08/18 18:59 06:59 18:59 Intake Total 1000 / 1000 1000 / 1000 Output Total 151 / 151 1450 / 1450 Balance 849 / 849 -450 / -450 Weight 82 kg Intake: IV 1000 / 1000 1000 / 1000 D5W/1/2 NS Inj 1,000 ML @ 84 1000 / 1000 1000 / 1000 mls/hr IV.CONT .[id number] [facility] Rx# :[id number] Oral 0 / 0 Output: Urine 151 / 151 1450 / 1450 Other: Date of Last Bowel Movement 01/05/18 # Bowel Movements 0 - Constitutional no acute distress - Routine HEENT Exam Head: Present: normocephalic, atraumatic - Routine Respiratory Exam Absent: accessory muscle use - Routine Abdominal Exam Present: soft, normoactive bowel sounds. Absent: tenderness Comments: G tube clamped - Routine Skin Exam Present: dry, warm - Routine Neurological Exam Present: alert, oriented X3 <Bernice Ivey - Last Filed: 01/08/18 08:30> Vital signs: Vital Signs 01/07/18 21:40 01/08/18 01:00 01/08/18 06:00 Temperature 97.9 F 98 F 98.7 F Pulse Rate 80 86 89 Respiratory Rate 18 18 20 Blood Pressure 107/57 L 115/63 105/66 Pulse Oximetry 96 95 96 01/08/18 10:55 01/08/18 11:10 01/08/18 11:20 Temperature 98.5 F 98.5 F Pulse Rate 74 72 75 Respiratory Rate 18 18 18 Blood Pressure 123/66 117/64 123/66 Pulse Oximetry 91 L 92 L 01/08/18 11:25 01/08/18 11:55 01/08/18 12:00 Temperature 98.2 F Pulse Rate 70 71 77 Respiratory Rate 16 16 19 Blood Pressure 119/65 107/62 120/81 Pulse Oximetry 97 97 93 L 01/08/18 12:25 01/08/18 12:55 Temperature Pulse Rate 76 91 H Respiratory Rate 16 20 Blood Pressure 128/69 144/80 H Pulse Oximetry 98 99 Intake & Output 01/07/18 01/08/18 01/08/18 18:59 06:59 18:59 Intake Total 1000 / 1000 1000 / 1000 Output Total 151 / 151 2250 / 2250 300 / 300 Balance 849 / 849 -1250 / -1250 -300 / -300 Weight 82 kg Intake: IV 1000 / 1000 1000 / 1000 D5W/1/2 NS Inj 1,000 ML @ 84 1000 / 1000 1000 / 1000 mls/hr IV.CONT .[id number] [facility] Rx# :[id number] Oral 0 / 0 Output: Urine 151 / 151 2250 / 2250 300 / 300 Other: Date of Last Bowel Movement 01/05/18 # Bowel Movements 0 <Kierra Saldana - Last Filed: 01/08/18 17:59> Results - Labs CBC & Chem 7: 01/07/18 06:45 01/05/18 08:34 Laboratory Results - last 24 hr 01/03/18 01/07/18 07:18 21:38 POC Glucose 122 H PEP Pathologist Comment Microbiology 01/02/18 11:10 Blood - Peripheral Aerobic Blood Culture - Final No growth in 5 days 01/02/18 11:10 Blood - Peripheral Anaerobic Blood Culture - Final No growth in 5 days 01/02/18 11:05 Blood - Peripheral Aerobic Blood Culture - Final No growth in 5 days 01/02/18 11:05 Blood - Peripheral Anaerobic Blood Culture - Final No growth in 5 days - Imaging Impressions Gastrostomy Tube Placement 01/07/18 00:00 CONCLUSION: 1. Uncomplicated gastrostomy tube placement as above. - Procedures PEG tube placement <Bernice Ivey - Last Filed: 01/08/18 08:30> - Labs CBC & Chem 7: 01/07/18 06:45 01/05/18 08:34 Laboratory Results - last 24 hr 01/07/18 21:38 POC Glucose 122 H - Imaging Impressions Liver Biopsy CT 01/08/18 00:00 CONCLUSION: 1. Successful CT-guided liver biopsy. Small pneumothorax is noted. Chest X-Ray 01/08/18 10:45 CONCLUSION: 1. Small right pneumothorax measuring 10 mm. Repeat chest x-ray in 2 hours will be performed to confirm stability if the patient remains asymptomatic. 2. Moderate-sized bilateral pleural effusions. 3. Bibasilar alveolar consolidations. Chest X-Ray 01/08/18 12:45 CONCLUSION: Mild interval decrease in the size of the small right sided pneumothorax. <Kierra Saldana - Last Filed: 01/08/18 17:59> Assessment and Plan (1) Elevated LFTs Status: Acute Code(s): R94.5 - Abnormal results of liver function studies - Plan Assessment: - Elevated LFTs Pt oriented to place and year, but unable to recall month and is a poor historian. Denies personal or family history of liver issues. Denies ETOH. Thinks he was started on a new patch? yesterday but unsure what this is for or what it is called and nothing listed on home medication list. No elevation of LFTs noted from previous hospitalizations AST-915 ALT-725 T bili-0.8 Alk phos-95 Liver Work up: Hepatitis panel negative. GORDY positive, titer and interpretation pending. ASMA negative. AMA pending Iron-15 TIBC-202 %sat-7.4 Ferritin-1216 AAT-314 AFP-0.8 - Elevated troponin- cardiology states suspect elevation secondary to PNA and hypoxia - History of throat cancer S/P multiple esophageal dilatations done by Dr. Fuentes- Pt does not want total laryngectomy or G-tube Received radiation therapy- denies previous chemotherapy - Multiple recurrence of PNA secondary to aspiration (01/05) Pt now agreeable to PEG tube placement, states does not want this to be permanent. Pt has had PEG in the past, reminded him about how the PEG is removed if ability to swallow is regained without aspiration. Modified barium swallow noted --> severe to profound pharyngeal dysphagia complicated by poor bolus passage through the upper esophageal sphincter. Poor pharyngeal clearance resulted in multiple direct aspiration events with no immediate reflexive cough triggered. 01/06/2018 patient has dysphagia secondary to strictures and swallowing problem, had an attempted upper endoscopy I was not able to pass the scope because of significant stricturing and necrotic tissue in the back of the throat for the procedure was terminated (01/07) S/P G tube placement by IR today, plans to start TF in 6 hours. LFTs still trending down. GORDY and AMA positive, will order liver biopsy to further evaluate for possible autoimmune hepatitis. (01/08) Pt with no GI complaints at this time. TF turned off for liver biopsy today. States was tolerating TF while running. Mild soreness around G tube. Labs from today are pending. Plan: Liver biopsy Monitor LFTs Avoid hepatotoxins Further recommendations to follow based on findings of above Pt has been seen and examined by myself and Dr. Saldana and this note is written on his behalf <Bernice Ivey - Last Filed: 01/08/18 08:30> (1) Elevated LFTs Status: Acute Code(s): R94.5 - Abnormal results of liver function studies - Plan Patient is doing okay at this time, no new complaint, await liver biopsy results <Kierra Saldana - Last Filed: 01/08/18 17:59>
[2018-01-08] MEDS: Amoxicillin/Clavulanate 600 MG/5 ML Susp 125 ML Bottle G-TUBE SCH ×2 (09:12→21:14)
[2018-01-08] MEDS: Ramipril 2.5 MG Capsule PO SCH (09:13)
[2018-01-08] MEDS ORDERED: fentaNYL Citrate Inj 250 MCG/5 ML Ampul ONE (09:22)
--- NOTE | 2018-01-08 11:23 | CT ---
EXAM DATE: 01/08/2018 11:05 AM EDT AGE/SEX: 62 years / Male INDICATIONS: Liver biopsy, history of neck and tongue cancer. CLINICAL DATA: This is the patient's initial encounter. Patient reports that signs and symptoms have been present for 1 day and indicates a pain score of 0/10. MEDICAL/SURGICAL HISTORY: Carcinoma, head and neck. . G-tube, readical dissection of left neck. COMPARISON: [facility] [place], CT ABDOMEN & PELVIS W/O CONTRAST, 02/06/2016. [facility] [place], US ABDOMEN LIVER, 01/02/2018. . BIOPSY SITE: . liver MEDICATION(S): 3MG midazolam (Versed) IV 125MCG fentanyl (Sublimaze) IV DEVICE(S): 18 gauge Temno core biopsy needle One core specimen(s) sent to the laboratory for pathologic evaluation. . . PROCEDURE: CT guided . liver biopsy Prior to the procedure informed consent was obtained. Any appropriate prior imaging studies were rev iewed. Using automated exposure control and adjustment of the mA and/or kV according to patient size, radiat ion dose was kept as low as reasonably achievable to obtain optimal diagnostic quality images. DICOM format image data is available electronically for review and comparison. The site was prepped in a sterile fashion. Full sterile technique was used, including cap, mask, kemar rile gloves and gown and a large sterile sheet. Hand hygiene and 2% chlorhexidine and/or betadine/al cohol prep was utilized per protocol for cutaneous antisepsis. The skin and subcutaneous tissues wer e infiltrated with local anesthetic solution. With CT guidance the previously identified target was localized. Biopsy was performed using the presc ribed needle as above. Adequate hemostasis was obtained with compression at the puncture site. Follow-up CT scan reveals no hemorrhage. A small pneumothorax is noted. The patient tolerated the procedure well and there were no complications. The patient was returned to the Radiology Outpatient Unit in stable condition. FINDINGS: After obtaining consent, a CT-guided liver biopsy was performed. Excellent core sample was obtained. CONCLUSION: 1. Successful CT-guided liver biopsy. Small pneumothorax is noted. Electronically signed by: Moncho Crawford MD 01/08/2018 11:21 AM EDT
--- NOTE | 2018-01-08 11:31 | P.PN ---
Subjective Interval history: patient went for liver biopsy yesterday- tolerated TF- on hold now for liver biopsy Physical Exam Vital signs: Vital Signs 01/07/18 11:30 01/07/18 12:06 01/07/18 12:28 Temperature Pulse Rate 79 70 71 Respiratory Rate 18 18 18 Blood Pressure 115/67 131/72 114/67 Pulse Oximetry 98 96 96 01/07/18 13:00 01/07/18 16:00 01/07/18 21:40 Temperature 98.7 F 97.9 F Pulse Rate 72 84 80 Respiratory Rate 18 20 18 Blood Pressure 129/72 130/64 107/57 L Pulse Oximetry 97 98 96 01/08/18 01:00 01/08/18 06:00 01/08/18 10:55 Temperature 98 F 98.7 F 98.5 F Pulse Rate 86 89 74 Respiratory Rate 18 20 18 Blood Pressure 115/63 105/66 123/66 Pulse Oximetry 95 96 91 L 01/08/18 11:20 Temperature 98.5 F Pulse Rate 75 Respiratory Rate 18 Blood Pressure 123/66 Pulse Oximetry 92 L Intake & Output 01/07/18 01/08/18 01/08/18 18:59 06:59 18:59 Intake Total 1000 / 1000 1000 / 1000 Output Total 151 / 151 2250 / 2250 Balance 849 / 849 -1250 / -1250 Weight 82 kg Intake: IV 1000 / 1000 1000 / 1000 D5W/1/2 NS Inj 1,000 ML @ 84 1000 / 1000 1000 / 1000 mls/hr IV.CONT .[id number] [facility] [place] Rx# :[id number] Oral 0 / 0 Output: Urine 151 / 151 2250 / 2250 Other: Date of Last Bowel Movement 01/05/18 # Bowel Movements 0 Narrative: Not in distress Pupils equal round reactive Regular rate and rhythm, no murmurs Decreased breath sounds at bases especially on the right, no wheezing Abdomen soft nontender Left lower extremity in immobilizer, no edema Awake alert oriented 3. Results - Labs CBC & Chem 7: 01/07/18 06:45 01/05/18 08:34 Laboratory Results - last 24 hr 01/03/18 01/07/18 07:18 21:38 POC Glucose 122 H PEP Pathologist Comment Microbiology 01/02/18 11:10 Blood - Peripheral Aerobic Blood Culture - Final No growth in 5 days 01/02/18 11:10 Blood - Peripheral Anaerobic Blood Culture - Final No growth in 5 days 01/02/18 11:05 Blood - Peripheral Aerobic Blood Culture - Final No growth in 5 days 01/02/18 11:05 Blood - Peripheral Anaerobic Blood Culture - Final No growth in 5 days - Imaging Impressions Gastrostomy Tube Placement 01/07/18 00:00 CONCLUSION: 1. Uncomplicated gastrostomy tube placement as above. Liver Biopsy CT 01/08/18 00:00 CONCLUSION: 1. Successful CT-guided liver biopsy. Small pneumothorax is noted. - Procedures PEG tube placement Assessment and Plan - Assessment (1) Elevated LFTs Code(s): R94.5 - Abnormal results of liver function studies Status: Acute (2) Closed fracture of left tibial plateau Code(s): S82.142A - Displaced bicondylar fracture of left tibia, initial encounter for closed fracture Status: Acute (3) Pneumonia Code(s): J18.9 - Pneumonia, unspecified organism Status: Resolved (4) Squamous cell carcinoma of base of tongue Code(s): C01 - Malignant neoplasm of base of tongue Status: Chronic (5) NSTEMI (non-ST elevated myocardial infarction) Code(s): I21.4 - Non-ST elevation (NSTEMI) myocardial infarction Status: Acute - Plan 62-year-old male with history of throat cancer presenting to the emergency department with productive cough found to have sepsis secondary to pneumonia and dysphagia. Sepsis secondary to pneumonia, possibly aspiration pneumonia-continue Zosyn, blood culture negative to date, sputum culture grew normal georgie. Leukocytosis better and is now normal. on oral Augmentin once PEG tube to finish on 01/09. History of throat cancer/esophageal stricture-S/P PEG placement by IR- 01/07 speech therapy evaluation,, barium swallow shows possible anatomic obstruction , ENT consulted, Dr. Fuentes who usually does his esophageal dilatation is out of town. Throat cancer is in remission, follow-up with [facility] as outpatient. If dilatation not done, f/u with ENT outpatient for dilatation Elevated troponin, likely secondary to pneumonia- EKG showed T-wave inversions in the lateral leads, troponin peaked at 0.88 and remained flat, continue aspirin. Statins on hold because of LFT elevation. Not in beta-paige because of COPD. Cont Altace per cardiology, echocardiogram showed preserved ejection fraction. Cardiology ff- plan for possible cath Elevated LFTs-ultrasound no cholelithiasis, no cholecystitis, GORDY positive. Ceruloplasmin (+), anti-smooth muscle ab negative, AMA pending,. Hepatitis panel negative. Ammonia is normal. Further workup per GI, possilbe plan for liver biopsy today Anemia of chronic disease-oncology is following, follow-up workup Sore throat-start lidocaine spray, would likely need dilatation. On morphine. Recent left tibial plateau fracture-seen by orthopedics, recommended non- operative treatment, continue with nonweightbearing on left lower extremity, follow-up with orthopedics as outpatient. Repeat x-ray in 2 weeks, around January 18. Physical therapy consult FEN - PEG just placed 01/07 - wait 6 hours after placement to start - Jevity 1.5 @ 30ml/hr, advance 10ml Q 4-hr, as tolerated, to goal rate 60ml/hr with free water flushes. Lovenox for DVT prophylaxis - restart in am- wnt for liver biopsy today Discharge planning: SNF eventually (2) Closed fracture of left tibial plateau Qualifiers: Encounter type: initial encounter Qualified Code(s): S82.142A - Displaced bicondylar fracture of left tibia, initial encounter for closed fracture (3) Pneumonia Qualifiers: Pneumonia type: due to unspecified organism Laterality: right Lung location : middle lobe of lung Qualified Code(s): J18.1 - Lobar pneumonia, unspecified organism
--- NOTE | 2018-01-08 11:54 | XR ---
EXAM DATE: 01/08/2018 11:36 AM EDT AGE/SEX: 62 years / Male INDICATIONS: Post liver biopsy; evaluate for pneumothorax. CLINICAL DATA: This is the patient's initial encounter. Patient reports that signs and symptoms have been present for 1 day and indicates a pain score of 0/10. MEDICAL/SURGICAL HISTORY: . Throat Cancer. None. COMPARISON: [facility] [place], CHEST 1V SINGLE AP, 01/02/2018. . FINDINGS: There is a small right pneumothorax measuring 10 mm. Moderate-sized bilateral pleural effusions are n oted. Bibasilar alveolar consolidations are noted. The heart is stable. CONCLUSION: 1. Small right pneumothorax measuring 10 mm. Repeat chest x-ray in 2 hours will be performed to conf irm stability if the patient remains asymptomatic. 2. Moderate-sized bilateral pleural effusions. 3. Bibasilar alveolar consolidations. Electronically signed by: Moncho Crawford MD 01/08/2018 11:52 AM EDT
--- NOTE | 2018-01-08 13:20 | XR ---
EXAM DATE: 01/08/2018 1:10 PM EDT AGE/SEX: 62 years / Male INDICATIONS: Follow-up right pneumothorax. Status post liver biopsy. CLINICAL DATA: This is the patient's subsequent encounter. Patient reports that signs and symptoms h ave been present for 1 week and indicates a pain score of 9/10. MEDICAL/SURGICAL HISTORY: . Throat cancer. None. COMPARISON: [facility] – [place], CHEST EXPIRATION ONLY, 01/08/2018. . FINDINGS: A single AP erect expiratory view of the chest was obtained and demonstrated a mild interval decrease in size of small right lateral pneumothorax. This now measures up to 0.6 cm in diameter compared to 1 cm on the prior study. There is no midline shift or mass effect. The heart size remains mildly prom inent. Consolidative opacity remains in both lung bases with blunting of the costophrenic angles. CONCLUSION: Mild interval decrease in the size of the small right sided pneumothorax. Electronically signed by: Steve Griffin MD 01/08/2018 1:18 PM EDT
--- NOTE | 2018-01-08 15:57 | P.PNCA ---
Subjective Interval history: alert in nad Physical Exam Vital signs: Vital Signs 01/07/18 16:00 01/07/18 21:40 01/08/18 01:00 Temperature 98.7 F 97.9 F 98 F Pulse Rate 84 80 86 Respiratory Rate 20 18 18 Blood Pressure 130/64 107/57 L 115/63 Pulse Oximetry 98 96 95 01/08/18 06:00 01/08/18 10:55 01/08/18 11:10 Temperature 98.7 F 98.5 F Pulse Rate 89 74 72 Respiratory Rate 20 18 18 Blood Pressure 105/66 123/66 117/64 Pulse Oximetry 96 91 L 01/08/18 11:20 01/08/18 11:25 01/08/18 11:55 Temperature 98.5 F Pulse Rate 75 70 71 Respiratory Rate 18 16 16 Blood Pressure 123/66 119/65 107/62 Pulse Oximetry 92 L 97 97 01/08/18 12:00 01/08/18 12:25 01/08/18 12:55 Temperature 98.2 F Pulse Rate 77 76 91 H Respiratory Rate 19 16 20 Blood Pressure 120/81 128/69 144/80 H Pulse Oximetry 93 L 98 99 Intake & Output 01/07/18 01/08/18 01/08/18 18:59 06:59 18:59 Intake Total 1000 / 1000 1000 / 1000 Output Total 151 / 151 2250 / 2250 300 / 300 Balance 849 / 849 -1250 / -1250 -300 / -300 Weight 82 kg Intake: IV 1000 / 1000 1000 / 1000 D5W/1/2 NS Inj 1,000 ML @ 84 1000 / 1000 1000 / 1000 mls/hr IV.CONT .[id number] [facility] Rx# :[id number] Oral 0 / 0 Output: Urine 151 / 151 2250 / 2250 300 / 300 Other: Date of Last Bowel Movement 01/05/18 # Bowel Movements 0 Assessment and Plan - Assessment (1) NSTEMI (non-ST elevated myocardial infarction) Code(s): I21.4 - Non-ST elevation (NSTEMI) myocardial infarction Status: Acute (2) Elevated LFTs Code(s): R94.5 - Abnormal results of liver function studies Status: Acute (3) Squamous cell carcinoma of base of tongue Code(s): C01 - Malignant neoplasm of base of tongue Status: Chronic - Plan 1.) NSTEMI - suspect troponin elevation due to pneumonia and hypoxia, he is assymptomatic, continue aspirin, statin held due to elevated lfts, beta paige held due to copd, continue 2.5 mg qd, ef=65% on echo; he appears stronger today s/p peg, i d/w him doing cath, he consents, will cath if/when cleared by GI after liver biopsy
[2018-01-09] MEDS: Morphine Inj 4 MG/ML Vial IV.PUSH PRN ×5 (02:47→22:43)
[2018-01-09] MEDS: Dextrose 5%/NaCl 0.45% Inj 1,000 ML IV.CONT SCH ×3 (07:47→22:33)
[2018-01-09] MEDS: Ramipril 2.5 MG Capsule PO SCH (09:11)
[2018-01-09] MEDS: Amoxicillin/Clavulanate 600 MG/5 ML Susp 125 ML Bottle G-TUBE SCH ×2 (09:11→22:32)
--- NOTE | 2018-01-09 11:27 | P.PN ---
Subjective Interval history: awake and alert, no acute distress no pain from liver biopsy site no shortness of breath d/w patient- agreeable to go for cardiac cath Physical Exam Vital signs: Vital Signs 01/08/18 11:25 01/08/18 11:55 01/08/18 12:00 Temperature 98.2 F Pulse Rate 70 71 77 Respiratory Rate 16 16 19 Blood Pressure 119/65 107/62 120/81 Pulse Oximetry 97 97 93 L 01/08/18 12:25 01/08/18 12:55 01/08/18 16:00 Temperature 98.7 F Pulse Rate 76 91 H 73 Respiratory Rate 16 20 19 Blood Pressure 128/69 144/80 H 102/56 L Pulse Oximetry 98 99 97 01/08/18 20:00 01/09/18 00:00 01/09/18 04:00 Temperature 99.2 F 98.1 F 99.3 F Pulse Rate 80 81 90 Respiratory Rate 17 18 18 Blood Pressure 116/57 L 123/67 142/71 H Pulse Oximetry 98 98 99 01/09/18 08:00 Temperature 98.2 F Pulse Rate 67 Respiratory Rate 16 Blood Pressure 137/65 Pulse Oximetry 96 Intake & Output 01/08/18 01/09/18 01/09/18 18:59 06:59 18:59 Intake Total 1000 / 1000 Output Total 300 / 300 Balance 700 / 700 Intake: IV 1000 / 1000 D5W/1/2 NS Inj 1,000 ML @ 84 1000 / 1000 mls/hr IV.CONT .[id number] [facility] Rx# :[id number] Output: Urine 300 / 300 Narrative: Not in distress Pupils equal round reactive Regular rate and rhythm, no murmurs Decreased breath sounds , no rales, no wheese Abdomen soft nontender, PEG site- no signs of infection, right upper quadrant- post liver biopsy site- no erythema Left lower extremity in immobilizer, no edema Awake alert oriented 3. Results - Labs CBC & Chem 7: 01/07/18 06:45 01/05/18 08:34 - Imaging Impressions Liver Biopsy CT 01/08/18 00:00 CONCLUSION: 1. Successful CT-guided liver biopsy. Small pneumothorax is noted. Chest X-Ray 01/08/18 10:45 CONCLUSION: 1. Small right pneumothorax measuring 10 mm. Repeat chest x-ray in 2 hours will be performed to confirm stability if the patient remains asymptomatic. 2. Moderate-sized bilateral pleural effusions. 3. Bibasilar alveolar consolidations. Chest X-Ray 01/08/18 12:45 CONCLUSION: Mild interval decrease in the size of the small right sided pneumothorax. - Procedures 01/07 PEG tube placement 01/08- live biopsy Assessment and Plan - Assessment (1) Elevated LFTs Code(s): R94.5 - Abnormal results of liver function studies Status: Acute (2) Closed fracture of left tibial plateau Code(s): S82.142A - Displaced bicondylar fracture of left tibia, initial encounter for closed fracture Status: Acute (3) Pneumonia Code(s): J18.9 - Pneumonia, unspecified organism Status: Resolved (4) Squamous cell carcinoma of base of tongue Code(s): C01 - Malignant neoplasm of base of tongue Status: Chronic (5) NSTEMI (non-ST elevated myocardial infarction) Code(s): I21.4 - Non-ST elevation (NSTEMI) myocardial infarction Status: Acute - Plan 62-year-old male with history of throat cancer presenting to the emergency department with productive cough found to have sepsis secondary to pneumonia and dysphagia. Sepsis secondary to pneumonia, possibly aspiration pneumonia-on Augmentin till 01/09 blood culture negative to date, sputum culture grew normal georgie. Leukocytosis better and is now normal. oxygen support, duo nebs around the clock and as needed. History of throat cancer/esophageal stricture-n.p.o., speech therapy evaluation, , barium swallow shows possible anatomic obstruction, ENT consulted, Dr. Fuentes who usually does his esophageal dilatation is out of town. OP ff up with ENT- Dr. Fuentes S/P PEG placment 01/07 with esophageal dilatation - on tube feedings 0Jevity 1.5 @ 30ml/hr, advance 10ml Q 4-hr, as tolerated, to goal rate 60ml/hr with free water flushes. NSTEMI - Elevated troponin, likely secondary to pneumonia- EKG showed T-wave inversions in the lateral leads, troponin peaked at 0.88 and remained flat, continue aspirin. Statins on hold because of LFT elevation. Not in beta- paige because of COPD. Cont Altace per cardiology, echocardiogram showed preserved ejection fraction. Cardiology ff- plan for cath today Elevated LFTs-ultrasound no cholelithiasis, no cholecystitis, GORDY positive. Ceruloplasmin (+), anti-smooth muscle ab negative, AMA pending,. S/P Liver biopsy 01/08- ff pathology Hepatitis panel negative. Ammonia is normal. Further workup per GI, possilbe plan for liver biopsy today Small right pneumothorax post liver biopsy 01/08 - repeat CXR- decrease in size- ff up CXRs - no acute distress - continue 02 NC 2 LNC Anemia of chronic disease-oncology is following, follow-up workup Sore throat-start lidocaine spray, would likely need dilatation. On morphine. Recent left tibial plateau fracture-seen by orthopedics, recommended non- operative treatment, continue with nonweightbearing on left lower extremity, follow-up with orthopedics as outpatient. Repeat x-ray in 2 weeks, around January 18. Physical therapy consult Jadon for DVT prophylaxis - ADD- complains of dizziness, and tingling of both hands and toes Vital signs stable, CN intact, good gag, motor strength equal and strong no nystagmus get head CT and CT of spines Discharge planning: SNF eventually (2) Closed fracture of left tibial plateau Qualifiers: Encounter type: initial encounter Qualified Code(s): S82.142A - Displaced bicondylar fracture of left tibia, initial encounter for closed fracture (3) Pneumonia Qualifiers: Pneumonia type: due to unspecified organism Laterality: right Lung location : middle lobe of lung Qualified Code(s): J18.1 - Lobar pneumonia, unspecified organism
[2018-01-09] MEDS ORDERED: Morphine Inj 4 MG/ML Vial IV.PUSH PRN (11:29)
[2018-01-09] MEDS ORDERED: MethylPREDNISolone Sod Succinate Inj 40 MG/ML Vial IV.PUSH ONE (12:15)
--- NOTE | 2018-01-09 13:32 | P.PNGI ---
Subjective Interval history: Pt resting in bed, no acute distress, no complaints at this time. <OrtizBernice fleming - Last Filed: 01/09/18 13:30> Interval history: Patient is doing okay, still waiting for the biopsy result, he might be getting cardiac cath <Kierra Saldana - Last Filed: 01/09/18 18:44> Physical Exam Vital signs: Vital Signs 01/08/18 16:00 01/08/18 20:00 01/09/18 00:00 Temperature 98.7 F 99.2 F 98.1 F Pulse Rate 73 80 81 Respiratory Rate 19 17 18 Blood Pressure 102/56 L 116/57 L 123/67 Pulse Oximetry 97 98 98 01/09/18 04:00 01/09/18 08:00 01/09/18 12:00 Temperature 99.3 F 98.2 F 98.7 F Pulse Rate 90 67 72 Respiratory Rate 18 16 16 Blood Pressure 142/71 H 137/65 106/57 L Pulse Oximetry 99 96 96 Intake & Output 01/08/18 01/09/18 01/09/18 18:59 06:59 18:59 Intake Total 1000 / 1000 1000 / 1000 Output Total 300 / 300 Balance 700 / 700 1000 / 1000 Intake: IV 1000 / 1000 1000 / 1000 D5W/1/2 NS Inj 1,000 ML @ 84 1000 / 1000 1000 / 1000 mls/hr IV.CONT .[id number] [facility] Rx# :[id number] Output: Urine 300 / 300 - Constitutional no acute distress - Routine HEENT Exam Head: Present: normocephalic, atraumatic - Routine Respiratory Exam Absent: accessory muscle use - Routine Abdominal Exam Present: soft, normoactive bowel sounds. Absent: tenderness - Routine Skin Exam Present: dry, warm - Routine Neurological Exam Present: alert, oriented X3 <OrtizBernice fleming - Last Filed: 01/09/18 13:30> Vital signs: Vital Signs 01/08/18 20:00 01/09/18 00:00 01/09/18 04:00 Temperature 99.2 F 98.1 F 99.3 F Pulse Rate 80 81 90 Respiratory Rate 17 18 18 Blood Pressure 116/57 L 123/67 142/71 H Pulse Oximetry 98 98 99 01/09/18 08:00 01/09/18 12:00 01/09/18 16:00 Temperature 98.2 F 98.7 F 98.6 F Pulse Rate 67 67 81 Respiratory Rate 16 16 14 Blood Pressure 137/65 106/57 L 128/63 Pulse Oximetry 96 96 96 01/09/18 18:12 Temperature Pulse Rate Respiratory Rate Blood Pressure Pulse Oximetry 96 Intake & Output 01/08/18 01/09/18 01/09/18 18:59 06:59 18:59 Intake Total 1000 / 1000 1480 / 1480 Output Total 300 / 300 500 / 500 Balance 700 / 700 980 / 980 Intake: IV 1000 / 1000 1000 / 1000 D5W/1/2 NS Inj 1,000 ML @ 84 1000 / 1000 1000 / 1000 mls/hr IV.CONT .[id number] [facility] Rx# :[id number] Tube Feeding 360 / 360 Water Bolus Amount 120 / 120 Output: Urine 300 / 300 500 / 500 Other: # Voids 3 Date of Last Bowel Movement 01/05/18 <Kierra Saldana - Last Filed: 01/09/18 18:44> Results - Labs CBC & Chem 7: 01/07/18 06:45 01/05/18 08:34 - Procedures 01/07 PEG tube placement 01/08- live biopsy <Bernice Ivey - Last Filed: 01/09/18 13:30> - Labs CBC & Chem 7: 01/07/18 06:45 01/05/18 08:34 <Kierra Saldana - Last Filed: 01/09/18 18:44> Assessment and Plan (1) Elevated LFTs Status: Acute Code(s): R94.5 - Abnormal results of liver function studies - Plan Assessment: - Elevated LFTs Pt oriented to place and year, but unable to recall month and is a poor historian. Denies personal or family history of liver issues. Denies ETOH. Thinks he was started on a new patch? yesterday but unsure what this is for or what it is called and nothing listed on home medication list. No elevation of LFTs noted from previous hospitalizations AST-915 ALT-725 T bili-0.8 Alk phos-95 Liver Work up: Hepatitis panel negative. GORDY positive, titer and interpretation pending. ASMA negative. AMA pending Iron-15 TIBC-202 %sat-7.4 Ferritin-1216 AAT-314 AFP-0.8 - Elevated troponin- cardiology states suspect elevation secondary to PNA and hypoxia - History of throat cancer S/P multiple esophageal dilatations done by Dr. Fuentes- Pt does not want total laryngectomy or G-tube Received radiation therapy- denies previous chemotherapy - Multiple recurrence of PNA secondary to aspiration (01/05) Pt now agreeable to PEG tube placement, states does not want this to be permanent. Pt has had PEG in the past, reminded him about how the PEG is removed if ability to swallow is regained without aspiration. Modified barium swallow noted --> severe to profound pharyngeal dysphagia complicated by poor bolus passage through the upper esophageal sphincter. Poor pharyngeal clearance resulted in multiple direct aspiration events with no immediate reflexive cough triggered. 01/06/2018 patient has dysphagia secondary to strictures and swallowing problem, had an attempted upper endoscopy I was not able to pass the scope because of significant stricturing and necrotic tissue in the back of the throat for the procedure was terminated (01/07) S/P G tube placement by IR today, plans to start TF in 6 hours. LFTs still trending down. GORDY and AMA positive, will order liver biopsy to further evaluate for possible autoimmune hepatitis. (01/08) Pt with no GI complaints at this time. TF turned off for liver biopsy today. States was tolerating TF while running. Mild soreness around G tube. Labs from today are pending. (01/09) No repeat labs from today. Liver biopsy still pending. On TF through G tube at 35 mL/hr Plan: Liver biopsy pending Monitor LFTs Avoid hepatotoxins TF per dietary Further recommendations to follow based on findings of above Pt has been seen and examined by myself and Dr. Saldana and this note is written on his behalf <Bernice Ivey - Last Filed: 01/09/18 13:30> (1) Elevated LFTs Status: Acute Code(s): R94.5 - Abnormal results of liver function studies <Kierra Saldana - Last Filed: 01/09/18 18:44>
--- NOTE | 2018-01-09 16:45 | P.PN ---
Physical Exam Vital signs: Vital Signs 01/08/18 20:00 01/09/18 00:00 01/09/18 04:00 Temperature 99.2 F 98.1 F 99.3 F Pulse Rate 80 81 90 Respiratory Rate 17 18 18 Blood Pressure 116/57 L 123/67 142/71 H Pulse Oximetry 98 98 99 01/09/18 08:00 01/09/18 12:00 Temperature 98.2 F 98.7 F Pulse Rate 67 67 Respiratory Rate 16 16 Blood Pressure 137/65 106/57 L Pulse Oximetry 96 96 Intake & Output 01/08/18 01/09/18 01/09/18 18:59 06:59 18:59 Intake Total 1000 / 1000 1060 / 1060 Output Total 300 / 300 Balance 700 / 700 1060 / 1060 Intake: IV 1000 / 1000 1000 / 1000 D5W/1/2 NS Inj 1,000 ML @ 84 1000 / 1000 1000 / 1000 mls/hr IV.CONT .[id number] [facility] Rx# :[id number] Water Bolus Amount 60 / 60 Output: Urine 300 / 300 Other: Date of Last Bowel Movement 01/05/18 Results - Labs CBC & Chem 7: 01/07/18 06:45 01/05/18 08:34 - Procedures 01/07 PEG tube placement 01/08- live biopsy Assessment and Plan - Assessment (1) Elevated LFTs Code(s): R94.5 - Abnormal results of liver function studies Status: Acute (2) Closed fracture of left tibial plateau Code(s): S82.142A - Displaced bicondylar fracture of left tibia, initial encounter for closed fracture Status: Acute (3) Pneumonia Code(s): J18.9 - Pneumonia, unspecified organism Status: Resolved (4) Squamous cell carcinoma of base of tongue Code(s): C01 - Malignant neoplasm of base of tongue Status: Chronic (5) NSTEMI (non-ST elevated myocardial infarction) Code(s): I21.4 - Non-ST elevation (NSTEMI) myocardial infarction Status: Acute - Plan 62-year-old male with history of throat cancer presenting to the emergency department with productive cough found to have sepsis secondary to pneumonia and dysphagia. Sepsis secondary to pneumonia, possibly aspiration pneumonia-continue Zosyn, blood culture negative to date, sputum culture grew normal georgie. Leukocytosis better and is now normal. Continue Zosyn, oxygen support, duo nebs around the clock and as needed. -stop date - 01/09 we might as well complete IV ionstead of switching to PEG as planned since - today last day History of throat cancer/esophageal stricture-n.p.o., speech therapy evaluation, , barium swallow shows possible anatomic obstruction, ENT consulted, Dr. Fuentes who usually does his esophageal dilatation is out of town. OP ff up with ENT- Dr. Fuentes S/P PEG placment 01/07 with esophageal dilatation - on tube feedings 0Jevity 1.5 @ 30ml/hr, advance 10ml Q 4-hr, as tolerated, to goal rate 60ml/hr with free water flushes. NSTEMI - Elevated troponin, likely secondary to pneumonia- EKG showed T-wave inversions in the lateral leads, troponin peaked at 0.88 and remained flat, continue aspirin. Statins on hold because of LFT elevation. Not in beta- paige because of COPD. Cont Altace per cardiology, echocardiogram showed preserved ejection fraction. Cardiology ff- plan for cath today Elevated LFTs-ultrasound no cholelithiasis, no cholecystitis, GORDY positive. Ceruloplasmin (+), anti-smooth muscle ab negative, AMA pending,. S/P Liver biopsy 01/08- ff pathology Hepatitis panel negative. Ammonia is normal. Further workup per GI, possilbe plan for liver biopsy today Small right pneumothorax post liver biopsy 01/08 - repeat CXR- decrease in size- ff up CXRs - no acute distress - continue 02 NC 2 LNC Anemia of chronic disease-oncology is following, follow-up workup Sore throat-start lidocaine spray, would likely need dilatation. On morphine. Recent left tibial plateau fracture-seen by orthopedics, recommended non- operative treatment, continue with nonweightbearing on left lower extremity, follow-up with orthopedics as outpatient. Repeat x-ray in 2 weeks, around January 18. Physical therapy consult Jadon for DVT prophylaxis - Discharge planning: SNF eventually (2) Closed fracture of left tibial plateau Qualifiers: Encounter type: initial encounter Qualified Code(s): S82.142A - Displaced bicondylar fracture of left tibia, initial encounter for closed fracture (3) Pneumonia Qualifiers: Pneumonia type: due to unspecified organism Laterality: right Lung location : middle lobe of lung Qualified Code(s): J18.1 - Lobar pneumonia, unspecified organism
--- NOTE | 2018-01-09 19:09 | CT ---
EXAM DATE: 01/09/2018 6:55 PM EDT AGE/SEX: 62 years / Male INDICATIONS: Dizziness, numbness in hands. CLINICAL DATA: This is the patient's initial encounter. Patient reports that signs and symptoms have been present for 1 day and indicates a pain score of 1/10. MEDICAL/SURGICAL HISTORY: . Anemia. Neck cancer, tongue cancer. . Left neck dissection. RADIATION DOSE: 46.91 CTDI (mGy) COMPARISON: No prior exams available for comparison. TECHNIQUE: CT of the head without contrast. Using automated exposure control and adjustment of the mA and/or kV according to patient size, radiation dose was kept as low as reasonably achievable to ob tain optimal diagnostic quality images. DICOM format image data is available electronically for revi ew and comparison. FINDINGS: Cerebrum: The ventricles are normal for age. No evidence of midline shift, mass lesion, hemorrhage or acute infarction. There is a 0.8 cm cystic area seen in the medial right temporal lobe likely rela siddhartha to a choroidal fissure cyst. No extraaxial fluid collections are seen. Posterior Fossa: The cerebellum and brainstem are intact. The 4th ventricle is midline. The cerebe llopontine angle is unremarkable. Extracranial: The visualized portion of the orbits is intact. Skull: The calvaria is intact. No evidence of skull fracture. No acute intracranial abnormality is seen. . Electronically signed by: Won Stephenson MD 01/09/2018 7:08 PM EDT
--- NOTE | 2018-01-09 19:22 | CT ---
EXAM DATE: 01/09/2018 7:00 PM EDT AGE/SEX: 62 years / Male INDICATIONS: Dizziness, numbness in hands. CLINICAL DATA: This is the patient's initial encounter. Patient reports that signs and symptoms have been present for 1 day and indicates a pain score of 1/10. MEDICAL/SURGICAL HISTORY: . Anemia. neck cancer, tongue cancer. . Left neck dissection. RADIATION DOSE: 42.73 CTDI (mGy) COMPARISON: No prior exams available for comparison. TECHNIQUE: Contiguous axial images were obtained using helical multirow detector technique. The vol umetric data was post-processed with multiplanar reconstruction in oblique axial, sagittal, and coron al planes. Using automated exposure control and adjustment of the mA and/or kV according to patient s ize, radiation dose was kept as low as reasonably achievable to obtain optimal diagnostic quality sendy ges. DICOM format image data is available electronically for review and comparison. FINDINGS: Vertebrae: Normal vertebral body height. Alignment: There is minimal 2 mm of anterior subluxation of C2 on C3 and 2 mm of posterior subluxati on of C4 on C5. These are likely related to degenerative change. There is a small pneumothorax seen in the anterior right chest. This was identified on the prior ches t x-ray. There is biapical areas of pleural parenchymal thickening likely related to chronic hypoxia. There are surgical hardware seen at the left side of the mandible. Surgical clips are seen in the up per neck regions bilaterally. Soft tissue and vascular calcifications are seen. The postsurgical anna ges more prominent on the left. 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 C2-3: The bony spinal canal is normal in size. No evidence of disc bulge or herniation. The neural foramina are bilaterally patent. There is bilateral facet hypertrophy being worse on the left. C3-4: There is a moderate central disc protrusion abutting the anterior aspect of the cord. The neur al foramina are patent. There is bilateral facet hypertrophy being worse on the left. C4-5: There is mild diffuse disc bulge being asymmetric and worse on the right causing at least a mi ld impression on thecal sac. There is uncovertebral hypertrophy being worse on the right. There is bi lateral facet hypertrophy. There is narrowing of the right neural foramina. The left neural foramina is grossly patent. C5-6: The disc demonstrates decreased height. There is mild to moderate diffuse disc bulge and osteo phytic ridging. There is uncovertebral hypertrophy. The facet joints are intact. There is narrowing o f the neural foramina bilaterally. C6-7: The bony spinal canal is normal in size. No evidence of disc bulge or herniation. The neural foramina are bilaterally patent. C7-T1: The bony spinal canal is normal in size. No evidence of disc bulge or herniation. The neura l foramina are bilaterally patent. 1. Moderate central disc protrusion at the C3-C4 level. 2. Mild to moderate disc bulge and osteophytic ridging at the C5-C6 level. 3. Mild diffuse disc bulge being worse on the right at the C4-C5 level. 4. Scattered neural foraminal narrowing at the C3-C4 through C5-C6 levels as described above. 5. Small right pneumothorax. 6. Postsurgical change in the neck. Electronically signed by: Won Stephenson MD 01/09/2018 7:20 PM EDT
--- NOTE | 2018-01-09 21:25 | P.PNCA ---
Subjective Interval history: alert in nad Physical Exam Vital signs: Vital Signs 01/09/18 00:00 01/09/18 04:00 01/09/18 08:00 Temperature 98.1 F 99.3 F 98.2 F Pulse Rate 81 90 67 Respiratory Rate 18 18 16 Blood Pressure 123/67 142/71 H 137/65 Pulse Oximetry 98 99 96 01/09/18 12:00 01/09/18 16:00 01/09/18 18:12 Temperature 98.7 F 98.6 F Pulse Rate 67 81 Respiratory Rate 16 14 Blood Pressure 106/57 L 128/63 Pulse Oximetry 96 96 96 Intake & Output 01/09/18 01/09/18 01/10/18 06:59 18:59 06:59 Intake Total 1480 / 1480 Output Total 500 / 500 Balance 980 / 980 Intake: IV 1000 / 1000 D5W/1/2 NS Inj 1,000 ML @ 84 1000 / 1000 mls/hr IV.CONT .[id number] [facility] Rx# :[id number] Tube Feeding 360 / 360 Water Bolus Amount 120 / 120 Output: Urine 500 / 500 Other: # Voids 3 Date of Last Bowel Movement 01/05/18 Assessment and Plan - Assessment (1) NSTEMI (non-ST elevated myocardial infarction) Code(s): I21.4 - Non-ST elevation (NSTEMI) myocardial infarction Status: Acute (2) Elevated LFTs Code(s): R94.5 - Abnormal results of liver function studies Status: Acute (3) Squamous cell carcinoma of base of tongue Code(s): C01 - Malignant neoplasm of base of tongue Status: Chronic - Plan 1.) NSTEMI - suspect troponin elevation due to pneumonia and hypoxia, he is assymptomatic, continue aspirin, statin held due to elevated lfts, beta paige held due to copd, continue 2.5 mg qd, ef=65% on echo; he appears stronger today s/p peg, i d/w him doing cath, he consents, cath canceled due tube feeds being given, d/w nurse explained nop order includes tube feeds. D/w Dr Saldana, he has cleared for aprin, heparin and plavix if necessary s/p liver biopsy and peg
[2018-01-10] MEDS: Amoxicillin/Clavulanate 600 MG/5 ML Susp 125 ML Bottle G-TUBE SCH ×2 (08:22→20:53)
[2018-01-10] MEDS: Ramipril 2.5 MG Capsule PO SCH (08:22)
[2018-01-10] MEDS ORDERED: Famotidine PF Inj 20 MG/2 ML Vial ONE (08:41)
[2018-01-10] MEDS ORDERED: Hydrocortisone Sod Succinate 100 MG Vial ONE (08:41)
[2018-01-10] MEDS ORDERED: Heparin/NS PF Inj 1,500 ML ONE (08:41)
[2018-01-10] MEDS ORDERED: fentaNYL Citrate Inj 100 MCG/2 ML Ampul ONE (08:48)
[2018-01-10] MEDS ORDERED: MethylPREDNISolone Sod Succinate Inj 125 MG/2 ML Vial ONE (08:48)
--- NOTE | 2018-01-10 09:25 | CATHPROC ---
[employer] HIS Report Study Information Study Number Admission Scheduled Start Study Start [id number] Jan 02 2018 12:56PM 01/10/2018 Jan 10 2018 8:50AM [place] [facility] Cardiac Catheterization Admit Source Facility Department Other [facility] - Resp Ther Physician and Clinical Staff Initial Irvin Hernandez Lsat Instructor Mike Trevino,RN Recorder Fany Melendrez ,RT(R) Scrub Yi Reynoso,RT(R) Procedures Performed Procedure Location (Site) Vessel Name Coronary Angiograms LCA Left Coronary Coronary Angiograms RCA Right Coronary L Heart Cath LV Gram-hand inj. LV LV Ventricle Wire insertion Fem Art (right) Femoral Art Equipment Time Paleobotanist Description Size Mfg Part Number Used/Scraped TRANSDUCER, TRUWAVE [id number] 08:52 GONSALEZ HUFFMAN * Used W/STOCKCOCK *[id number] [id number] *[id number] *[id number] 08:52 [employer] BLANKET,WARM AIR CCL * Used *[id number] 08:52 [employer] PACK, CCL CUSTOM * Used *[id number] 08:52 [employer] PACER PEN, SKIN DUAL W/ RULER * Used *[id number] 08:52 [employer] WIRE, 3MMJ .035 180CM 180CM Used *[id number] 08:52 NAMIC MANIFOLD, 4 PORT * Used *[id number] 08:52 [employer] OMNIPAQUE, 350 MG, 150ML 150ML [id number] Used [id number] 08:52 [employer] MED[employer] SHEATH, FR4 TERUMO (10CM) FR 4 Used *[id number] History: Allergies Allergy Reaction Contrast Media HIVES, DIZZINESS iohexol HIVES, DIZZINESS diatrizoate meglumine HIVES, DIZZINESS gadoteridol HIVES, DIZZINESS gadodiamide HIVES, DIZZINESS iodixanol HIVES, DIZZINESS gadobenic acid HIVES, DIZZINESS Iodinated Contrast- Oral and IV Hives Dye History: Risk Factors Family History of Hypertension Dyslipidemia Previous GA Previous Heart Failure Premature CAD No No Yes No No Prior Valve Prior PCI Prior CABG Surgery No No No Cerebrovascular Peripheral Artery Chronic Lung On Dialysis Diabetes Disease Disease Disease No No No No No History: Stress Tests Stress or Imaging Studies Performed No History: Other Current Smoker Quit Packs a Day Years Used Pack Years No 6 Years Ago 1 10 10 Labs Hgb (g/dl) Hct (%) RBC (MIL/MM3) WBC (l/cumm) Platelets (thousands) 11.60-17.00 35.00-51.00 4.00-5.90 4.00-11.00 150.00-450.00 9.4 28.6 3.5 8.8 500 Glucose (mg/dl) BUN (mg/dl) Creatinine (mg/dl) BUN:Creatinine (1:x) 74.00-106.00 7.00-18.00 0.50-1.30 10.00-20.00 57 11 0.4 27.5 Na (meq/l) K (meq/l) 136.00-145.00 3.50-5.10 139 4.2 INR (PTT:PT) 0.90-1.10 1.4 CPK-MB (ng/ML) 0.50-3.60 Not Drawn Medication Medication Total Dose (Bolus/Oral) Medication Total Dosage/Unit 1% XYLOCAINE 20 mL BENADRYL 50 mg FENTANYL 25 mcg PEPCID 20 mg SOLU-MEDROL 60 mg VERSED 1 mg Medications (Bolus/Oral) Medication Time Given Dosage/Unit Administered By Reason BENADRYL 01/10/2018 8:50:00 AM 50 mg Uriel, Mike 50 mg BENADRYL given in lab by Mike Trevino RN via Peripheral IV. Ordered by Irvin Hector. SOLU-MEDROL 01/10/2018 8:52:00 AM 60 mg Uriel, Mike 60 mg SOLU-MEDROL given in lab by Mike Trevino RN via Peripheral IV. Ordered by Irvin Hector. PEPCID 01/10/2018 8:54:00 AM 20 mg Uriel, Mike 20 mg PEPCID given in lab by Mike Trevino RN. Ordered by Irvin Hector. 1% XYLOCAINE 01/10/2018 9:04:17 AM 20 mL Irvin Hector 20 mL 1% XYLOCAINE given in lab by Irvin Hector via Subcutaneous. Ordered by Irvin Hector. VERSED 01/10/2018 9:04:45 AM 1 mg Uriel, Mike 1 mg VERSED given in lab by Mike Trevino RN in Right Hand via Peripheral IV. Ordered by Mike Hector. FENTANYL 01/10/2018 9:05:56 AM 25 mcg Mike Trevino 25 mcg FENTANYL given in lab by Mike Trevino, RN via Peripheral IV. Ordered by Irvin Hector. Medication (Drip) Medication Time Given Dosage/Unit Concentration/Unit Diluent (ml) Solution IV Solutions 01/10/2018 8:54:05 AM 50 mL (IV) NaCl .9 Patient arrived on IV Solutions via Peripheral IV. Pump/Drip Flow using NaCl .9. Initial Case Assessment Cardiovascular HR NIBP Chest Pain 87 146/80 0 Edema Present Skin color Skin None Normal Warm Dry Circulatory - Right Pulses Dorsalis Pedis Femoral 3 3 Scale (0,1,2,3,4,d) Circulatory - Left Pulses Dorsalis Pedis Femoral 3 3 Scale (0,1,2,3,4,d) Neurological State Oriented to time-place- Alert Moves all extremities person Respiration - General Respiration Rate SpO2 (%) (B/min) 19 92 Final Case Assessment Cardiovascular HR NIBP Chest Pain 87 146/80 0 Edema Present Skin color Skin None Normal Warm Dry Circulatory - Right Pulses Dorsalis Pedis Femoral 3 3 Scale (0,1,2,3,4,d) Circulatory - Left Pulses Dorsalis Pedis Femoral 3 3 Scale (0,1,2,3,4,d) Neurological State Oriented to time-place- Alert Moves all extremities person Respiration - General Respiration Rate SpO2 (%) (B/min) 19 92 Chronological Log Time Study Chronological Log 8:40:41 Patient arrived via Bed. 8:40:44 Patient Name, D.O.B, / Armband Verified By R.N. 8:50:00 50 mg BENADRYL given in lab by Mike Trevino, RN via Peripheral IV. Ordered by Jesse Hector. Vitals capture started with the following parameters, Patient=Adult, Interval=5 min, Initial Pr radsyl=232 mmHg, 8:50:54 Deflation Rate=5 mmHg, Cuff placed on Left Arm 8:51:35 HR=85 bpm, YDXC=795/80 mmhg, SpO2=93.0 %, Resp=21 B/min 8:52:00 60 mg SOLU-MEDROL given in lab by Mike Trevino, RN via Peripheral IV. Ordered by Irvin Hector. 8:53:50 Consent signed by the physician and the patient and verified by the Resp Ther staff. 8:53:52 Pre-op and post- op instructions given; patient acknowledges understanding of instructions. 8:53:52 Verbal Stimulation=2 Physical Stimulation=2 Airway=2 Respiration=2 TOTAL=8. (0=absent, 1=li mited, 2=present) 8:53:56 Presedation assessment performed by Resp Ther RN. 8:53:57 Patient has been NPO for More than 6Hrs. 8:53:58 Skin Breakdown- none per patient 8:54:00 20 mg PEPCID given in lab by Mike Trevino, RN. Ordered by Irvin Hector. 8:54:00 Patient Warmer Placed on the Table. 8:54:01 Mela Prominences Protected 8:54:04 A # 22 IV was noted in the Hand (right). Grade = 0 8:54:05 Patient arrived on IV Solutions via Peripheral IV. Pump/Drip Flow using NaCl .9. 8:54:05 History and physical on the chart or being dictated. Assessment: Initial Case, HR=87 BPM, JEFM=757/80 mmhg, Chest Pain=0, Edema=None, Color=Normal, S kin = Warm, Dry Right Pulses: Vince Ped=3, Femoral=3 8:54:06 Left Pulses: Vince Ped=3, Femoral=3 Neurological: State=Alert, Ox3, MARQUIS Respiration: Resp=19 B/min, SpO2=92 % 8:56:32 HR=79 bpm, WBOK=855/94 mmhg, SpO2=92.0 %, Resp=20 B/min 8:57:18 Bilateral groins prepped with 2% chlorhexidine, and draped after a 3 minute waiting time. 8:57:20 MD paged 8:59:26 MD responded 9:00:24 Pressure channel 1 zeroed. 9:00:51 MD arrived. 9:01:33 HR=87 bpm, LLCH=249/94 mmhg, SpO2=95.0 %, Resp=20 B/min Time Out. Correct patient, correct procedure, correct physician, labs, allergies, and equipment verified with quality control lab tech 9:02:01 team present. Fire risk assesment completed (see hard stop sheet for coding). Time Out Concu rred by MD and individual staff in procedure. 9:02:57 Reference ECG taken 9:04:16 Case Start 9:04:17 20 mL 1% XYLOCAINE given in lab by Irvin Hector via Subcutaneous. Ordered by Bhupinder Hector rthur. 9:04:45 1 mg VERSED given in lab by Mike Trevino RN in Right Hand via Peripheral IV. Ordered by Irvin Falcon. 9:05:06 Access site was Right Femoral Artery. 9:05:19 A wire was inserted via Fem Art (right). 9:05:20 A SHEATH, FR4 TERUMO (10CM) FR 4 was advanced into the Fem Art (right) using the Percutaneou s technique. 9:05:56 25 mcg FENTANYL given in lab by Mike Trevino RN via Peripheral IV. Ordered by Jesse Hectro. 9:06:38 HR=86 bpm, ZYCA=829/77 mmhg, SpO2=95.0 %, Resp=20 B/min A JR 4.0 INFINITI CATHETER FR 4 was advanced over a wire. OMNIPAQUE, 350 MG, 150ML 150ML was use d for 9:06:46 injections. Recorded Pressure: LV, HR=76, Condition=Condition 1 9:07:17 (Left Ventricle) LV 138/5/18 Recorded Pressure: LV, Ao, HR=82, Condition=Condition 1 9:07:30 (Left Ventricle) LV 146/6/14, (Aorta) Ao 146/74/105 9:07:42 The LV was manually injected with 10 cc's and visualized. OMNIPAQUE, 350 MG, 150ML 150ML use d. Recorded Pressure: Ao, HR=79, Condition=Condition 1 9:08:18 (Aorta) Ao 134/71/97 9:08:33 The RCA was injected and visualized at various angles. OMNIPAQUE, 350 MG, 150ML 150ML used. After removing the current catheter a JL 4.0 INFINITI CATHETER FR 4 was advanced over a WIRE, 3M MJ .035 180CM 9:08:44 180CM. 9:10:10 The LCA was injected and visualized at various angles. OMNIPAQUE, 350 MG, 150ML 150ML used. 9:10:37 Catheter was removed 9:11:35 HR=83 bpm, JPSH=851/77 mmhg, SpO2=95.0 %, Resp=20 B/min 9:11:36 Case End (Physician broke scrub) Assessment: Final Case, HR=87 BPM, PBCM=648/80 mmhg, Chest Pain=0, Edema=None, Color=Normal, Ski n = Warm, Dry Right Pulses: Vince Ped=3, Femoral=3 9:12:47 Left Pulses: Vince Ped=3, Femoral=3 Neurological: State=Alert, Ox3, MARQUIS Respiration: Resp=19 B/min, SpO2=92 % 9:12:52 Catheter(s) removed without difficulty 9:12:53 Sheath removed; pressure applied to access site. 9:13:07 Sterile dressing applied to site 9:13:07 No case complications noted. 9:13:09 Cine recording checked. 9:13:10 Bedside Report will be given. 9:13:17 A Left Heart Cath was performed. 9:16:34 HR=73 bpm, HNOW=213/72 mmhg, SpO2=93.0 %, Resp=18 B/min 9:21:35 HR=76 bpm, ADJW=114/72 mmhg, SpO2=93.0 %, Resp=19 B/min 9:27:[facility] End Study - Contrast Media Used In Study Contrast Total Opened (mL) Total Used (mL) Total Wasted (mL) Omnipaque 30 30 0 End Study - Maximum Contrast Load Max Contrast Load (mL) 1022.7 End Study - Radiation Exposure Fluoro Time (minutes) 1.1 End Study - Sheaths Sheaths Pulled By Sheath Hold Time (min) Yi Reynoso End Study - Patient Disposition Complications Transferred To Interventional Outcome No Telemetry Bed No attempt made
[2018-01-10 09:27] LABS: Hematocrit 32.5 % (39.0-51.0); Hemoglobin 10.6 gm/dL (13.0-17.0); Mean Corpuscular HGB Conc 32.6 % (32.0-36.0); Mean Corpuscular Hemoglobin 26.4 pg (27.0-34.0); Mean Corpuscular Volume 80.9 fL (80.0-100.0); Mean Platelet Volume 6.8 fL (7.0-11.0); Platelet Count 682 th/mm3 (150-450); Red Blood Count 4.02 mil/mm3 (4.50-5.90); Red Cell Distribution Width 17.6 % (11.6-17.2)
--- NOTE | 2018-01-10 09:37 | MA ---
cc: Irvin Hector MD DATE: 01/10/2018 PROCEDURE PERFORMED: Left heart catheterization, left ventriculography, coronary angiography. INDICATIONS FOR PROCEDURE: Non-STEMI. PROCEDURAL STATEMENT: The patient was brought to the cardiac catheterization laboratory, prepped and draped in the usual sterile fashion. 10 mL of 1% lidocaine was used to locally anesthetic the right common femoral artery. A 4-Algerian sheath placed in the right common femoral artery. A 4-Algerian JR4 and JL4 catheters were used to perform left and right coronary artery angiography, left ventriculography. FINDINGS: LV pressure is 125/7-8, EF 60%. The right coronary artery is codominant, relatively small, 2.75 mm in the proximal segment, tapering down to 2.5 in the mid down to 2.0 in the mid to distal, tortuous in the distal segment. No focal stenosis identified. The left main coronary artery is large. I would estimate the diameter at 5.5 mm. The left main has no coronary artery disease angiographically as well. The left circumflex vessel was a codominant vessel, has no significant disease angiographically. The first obtuse marginal vessel is a small vessel 2.25 mm reference vessel diameter. No significant disease angiographically. Second obtuse marginal vessel is a small vessel 2.0 mm reference vessel diameter. No focal stenosis. There was a distal posterolateral artery, which is small 2.0 mm reference vessel diameter. There is a distal posterolateral arteries/left PDA, which is a medium sized vessel 2.5 mm. No significant disease angiographically. LAD is a large transapical vessel, has no significant disease angiographically. The first diagonal artery is a small to medium sized vessel with no significant disease angiographically. The second diagonal artery is a small to medium sized vessel with no significant disease angiographically. CONCLUSIONS: 1. Angiographically, no significant coronary artery disease in a codominant system as detailed above. 2. Normal left ventricular systolic function ejection fraction 60%. 3. Normal LVEDP equal to 8 mmHg. 4. Recommend continued supportive care. Irvin Hector MD AWC/DL , 09:19 AM , 09:27 AM
[2018-01-10 09:47] LABS: Albumin 2.3 g/dL (3.4-5.0); Anion Gap 7 meq/L (5-15); Aspartate Aminotransferase 41 U/L (15-37); Blood Urea Nitrogen 6 mg/dL (7-18); Calcium 8.1 mg/dL (8.5-10.1); Carbon Dioxide 28.6 meq/L (21.0-32.0); Chloride 98 meq/L (98-107); Glomerular Filtration Rate Greater Than 89 mL/min (>89); Glucose,Random 96 mg/dL (74-106); Potassium 3.9 meq/L (3.5-5.1); Sodium 134 meq/L (136-145)
[2018-01-10 09:48] LABS: Alanine Aminotransferase 132 U/L (12-78)
[2018-01-10 09:51] LABS: Alkaline Phosphatase 85 U/L (45-117); Total Protein 6.4 g/dL (6.4-8.2)
[2018-01-10] MEDS ORDERED: Iohexol 350 MG/ML 50 ML Vial (for Cath Lab) IV.SIG ONE (09:54)
[2018-01-10] MEDS: Morphine Inj 4 MG/ML Vial IV.PUSH PRN ×3 (11:57→20:54)
--- NOTE | 2018-01-10 14:17 | P.PN ---
Subjective Interval history: back from cath- tolerate well no complains of chest pain, numbness Physical Exam Vital signs: Vital Signs 01/09/18 16:00 01/09/18 18:12 01/09/18 20:00 Temperature 98.6 F 98.8 F Pulse Rate 81 82 Respiratory Rate 14 16 Blood Pressure 128/63 121/58 L Pulse Oximetry 96 96 97 01/10/18 00:00 01/10/18 00:55 01/10/18 01:46 Temperature 98.1 F Pulse Rate 63 Respiratory Rate 18 18 18 Blood Pressure 137/75 Pulse Oximetry 100 01/10/18 03:38 01/10/18 04:00 01/10/18 07:50 Temperature 98.3 F 97.2 F L Pulse Rate 68 83 Respiratory Rate 18 18 18 Blood Pressure 127/62 139/74 Pulse Oximetry 18 L 100 01/10/18 08:00 01/10/18 09:36 01/10/18 11:21 Temperature 98.5 F Pulse Rate 62 79 Respiratory Rate 18 Blood Pressure 147/70 H Pulse Oximetry 94 L 92 L Intake & Output 01/09/18 01/10/18 01/10/18 18:59 06:59 18:59 Intake Total 1480 / 1480 1000 / 1000 5 / 5 Output Total 500 / 500 550 / 550 Balance 980 / 980 450 / 450 5 / 5 Intake: IV 1000 / 1000 1000 / 1000 5 / 5 Heparin/NS PF Inj 1,500 ML @ 0 5 / 5 mls/hr .ROUTE .[facility] Rx#: [id number] D5W/1/2 NS Inj 1,000 ML @ 40 1000 / 1000 1000 / 1000 mls/hr IV.CONT .Q24H [facility] Rx#: [id number] Tube Feeding 360 / 360 Water Bolus Amount 120 / 120 Output: Urine 500 / 500 550 / 550 Other: # Voids 3 1 Date of Last Bowel Movement 01/05/18 01/10/18 # Bowel Movements 1 Narrative: Not in distress Pupils equal round reactive Regular rate and rhythm, no murmurs Decreased breath sounds , no rales, no wheezes Abdomen soft nontender, PEG site- no signs of infection, right upper quadrant- post liver biopsy site- no erythema Left lower extremity in immobilizer, no edema Awake alert oriented 3. Results - Labs CBC & Chem 7: 01/10/18 09:05 01/10/18 09:05 Laboratory Results - last 24 hr 01/10/18 01/10/18 09:05 09:05 WBC 10.0 RBC 4.02 L Hgb 10.6 L Hct 32.5 L MCV 80.9 MCH 26.4 L MCHC 32.6 RDW 17.6 H Plt Count 682 H MPV 6.8 L Sodium 134 L Potassium 3.9 Chloride 98 Carbon Dioxide 28.6 Anion Gap 7 BUN 6 L Creatinine 0.44 L Estimated GFR Greater than 89 Random Glucose 96 Calcium 8.1 L Total Bilirubin 0.6 AST 41 H ALT 132 H Alkaline Phosphatase 85 Total Protein 6.4 D Albumin 2.3 L - Imaging Impressions Head CT 01/09/18 17:17 CONCLUSION: Cervical Spine CT 01/09/18 17:18 CONCLUSION: - Procedures 01/07 PEG tube placement 01/08- live biopsy 01/10- cardiac cath Assessment and Plan - Assessment (1) Elevated LFTs Code(s): R94.5 - Abnormal results of liver function studies Status: Acute (2) Closed fracture of left tibial plateau Code(s): S82.142A - Displaced bicondylar fracture of left tibia, initial encounter for closed fracture Status: Acute (3) Pneumonia Code(s): J18.9 - Pneumonia, unspecified organism Status: Resolved (4) Squamous cell carcinoma of base of tongue Code(s): C01 - Malignant neoplasm of base of tongue Status: Chronic (5) NSTEMI (non-ST elevated myocardial infarction) Code(s): I21.4 - Non-ST elevation (NSTEMI) myocardial infarction Status: Acute - Plan 62-year-old male with history of throat cancer presenting to the emergency department with productive cough found to have sepsis secondary to pneumonia and dysphagia. Sepsis secondary to pneumonia, possibly aspiration pneumonia-on Augmentin till 01/09 blood culture negative to date, sputum culture grew normal georgie. Leukocytosis better and is now normal. oxygen support, duo nebs around the clock and as needed. History of throat cancer/esophageal stricture-n.p.o., speech therapy evaluation, , barium swallow shows possible anatomic obstruction, ENT consulted, Dr. Fuentes who usually does his esophageal dilatation is out of town. OP ff up with ENT- Dr. Fuentes S/P PEG placment 01/07 with esophageal dilatation - on tube feedings 0Jevity 1.5 @ 30ml/hr, advance 10ml Q 4-hr, as tolerated, to goal rate 60ml/hr with free water flushes. - restart TF NSTEMI - Elevated troponin, likely secondary to pneumonia- EKG showed T-wave inversions in the lateral leads, troponin peaked at 0.88 and remained flat, continue aspirin. Statins on hold because of LFT elevation. Not in beta- paige because of COPD. Cont Altace per cardiology, echocardiogram showed preserved ejection fraction. S/P cardiac catheterixation- no significant disease Elevated LFTs-ultrasound no cholelithiasis, no cholecystitis, GORDY positive. Ceruloplasmin (+), anti-smooth muscle ab negative, AMA pending,. S/P Liver biopsy 01/08- ff pathology Hepatitis panel negative. Ammonia is normal. F Small right pneumothorax post liver biopsy 01/08- in no distress - repeat CXR- decrease in size- ff up CXRs - no acute distress - continue NC 2 LNC Anemia of chronic disease-oncology is following, follow-up workup Sore throat-start lidocaine spray, would likely need dilatation. Recent left tibial plateau fracture-seen by orthopedics, recommended non- operative treatment, continue with nonweightbearing on left lower extremity, follow-up with orthopedics as outpatient. Repeat x-ray in 2 weeks, around January 18. Physical therapy ff Lovenox for DVT prophylaxis - Discharge planning: SNF eventually (2) Closed fracture of left tibial plateau Qualifiers: Encounter type: initial encounter Qualified Code(s): S82.142A - Displaced bicondylar fracture of left tibia, initial encounter for closed fracture (3) Pneumonia Qualifiers: Pneumonia type: due to unspecified organism Laterality: right Lung location : middle lobe of lung Qualified Code(s): J18.1 - Lobar pneumonia, unspecified organism
--- NOTE | 2018-01-10 16:14 | P.PNGI ---
Subjective Interval history: Pt is doing good, no abd pain, just got back from [employer]. <Kay Cesar - Last Filed: 01/10/18 16:09> Physical Exam Vital signs: Vital Signs 01/09/18 18:12 01/09/18 20:00 01/10/18 00:00 Temperature 98.8 F 98.1 F Pulse Rate 82 63 Respiratory Rate 16 18 Blood Pressure 121/58 L 137/75 Pulse Oximetry 96 97 100 01/10/18 00:55 01/10/18 01:46 01/10/18 03:38 Temperature Pulse Rate Respiratory Rate 18 18 18 Blood Pressure Pulse Oximetry 01/10/18 04:00 01/10/18 07:50 01/10/18 08:00 Temperature 98.3 F 97.2 F L Pulse Rate 68 83 62 Respiratory Rate 18 18 Blood Pressure 127/62 139/74 Pulse Oximetry 18 L 100 01/10/18 09:36 01/10/18 11:21 01/10/18 15:32 Temperature 98.5 F 98.2 F Pulse Rate 79 74 Respiratory Rate 18 16 Blood Pressure 147/70 H 114/61 Pulse Oximetry 94 L 92 L 93 L Intake & Output 01/09/18 01/10/18 01/10/18 18:59 06:59 18:59 Intake Total 1480 / 1480 1000 / 1000 5 / 5 Output Total 500 / 500 550 / 550 Balance 980 / 980 450 / 450 5 / 5 Intake: IV 1000 / 1000 1000 / 1000 5 / 5 Heparin/NS PF Inj 1,500 ML @ 0 5 / 5 mls/hr .ROUTE .[facility] Rx#: [id number] D5W/1/2 NS Inj 1,000 ML @ 40 1000 / 1000 1000 / 1000 mls/hr IV.CONT .Q24H [facility] Rx#: [id number] Tube Feeding 360 / 360 Water Bolus Amount 120 / 120 Output: Urine 500 / 500 550 / 550 Other: # Voids 3 1 Date of Last Bowel Movement 01/05/18 01/10/18 # Bowel Movements 1 - Constitutional no acute distress - Routine HEENT Exam Head: Present: normocephalic - Routine Neck Exam Present: supple - Routine Respiratory Exam Present: CTA bilaterally - Routine Cardiovascular Exam Present: RRR - Routine Abdominal Exam Present: soft, normoactive bowel sounds. Absent: tenderness Comments: PEG tube - Routine Skin Exam Present: intact, dry. Absent: jaundice - Routine Neurological Exam Present: alert, oriented X3 <Kay Cesar - Last Filed: 01/10/18 16:09> Vital signs: Vital Signs 01/09/18 20:00 01/10/18 00:00 01/10/18 00:55 Temperature 98.8 F 98.1 F Pulse Rate 82 63 Respiratory Rate 16 18 18 Blood Pressure 121/58 L 137/75 Pulse Oximetry 97 100 01/10/18 01:46 01/10/18 03:38 01/10/18 04:00 Temperature 98.3 F Pulse Rate 68 Respiratory Rate 18 18 18 Blood Pressure 127/62 Pulse Oximetry 18 L 01/10/18 07:50 01/10/18 08:00 01/10/18 09:36 Temperature 97.2 F L Pulse Rate 83 62 Respiratory Rate 18 Blood Pressure 139/74 Pulse Oximetry 100 94 L 01/10/18 11:21 01/10/18 12:00 01/10/18 15:32 Temperature 98.5 F 98.2 F Pulse Rate 79 74 74 Respiratory Rate 18 16 Blood Pressure 147/70 H 114/61 Pulse Oximetry 92 L 93 L 01/10/18 16:00 Temperature Pulse Rate 75 Respiratory Rate Blood Pressure Pulse Oximetry Intake & Output 01/09/18 01/10/18 01/10/18 18:59 06:59 18:59 Intake Total 1480 / 1480 1000 / 1000 5 / 5 Output Total 500 / 500 550 / 550 700 / 700 Balance 980 / 980 450 / 450 -695 / -695 Intake: IV 1000 / 1000 1000 / 1000 5 / 5 Heparin/NS PF Inj 1,500 ML @ 0 5 / 5 mls/hr .ROUTE .[facility] Rx#: [id number] D5W/1/2 NS Inj 1,000 ML @ 40 1000 / 1000 1000 / 1000 mls/hr IV.CONT .Q24H [facility] Rx#: [id number] Tube Feeding 360 / 360 Water Bolus Amount 120 / 120 Output: Urine 500 / 500 550 / 550 700 / 700 Other: # Voids 3 1 Date of Last Bowel Movement 01/05/18 01/10/18 # Bowel Movements 1 <Kierra Saldana - Last Filed: 01/10/18 18:22> Results - Labs CBC & Chem 7: 01/10/18 09:05 01/10/18 09:05 Laboratory Results - last 24 hr 01/10/18 01/10/18 09:05 09:05 WBC 10.0 RBC 4.02 L Hgb 10.6 L Hct 32.5 L MCV 80.9 MCH 26.4 L MCHC 32.6 RDW 17.6 H Plt Count 682 H MPV 6.8 L Sodium 134 L Potassium 3.9 Chloride 98 Carbon Dioxide 28.6 Anion Gap 7 BUN 6 L Creatinine 0.44 L Estimated GFR Greater than 89 Random Glucose 96 Calcium 8.1 L Total Bilirubin 0.6 AST 41 H ALT 132 H Alkaline Phosphatase 85 Total Protein 6.4 D Albumin 2.3 L - Imaging Impressions Head CT 01/09/18 17:17 CONCLUSION: Cervical Spine CT 01/09/18 17:18 CONCLUSION: - Procedures 01/07 PEG tube placement 01/08- live biopsy 01/10- cardiac cath <Kay Cesar - Last Filed: 01/10/18 16:09> - Labs CBC & Chem 7: 01/10/18 09:05 01/10/18 09:05 Laboratory Results - last 24 hr 01/10/18 01/10/18 09:05 09:05 WBC 10.0 RBC 4.02 L Hgb 10.6 L Hct 32.5 L MCV 80.9 MCH 26.4 L MCHC 32.6 RDW 17.6 H Plt Count 682 H MPV 6.8 L Sodium 134 L Potassium 3.9 Chloride 98 Carbon Dioxide 28.6 Anion Gap 7 BUN 6 L Creatinine 0.44 L Estimated GFR Greater than 89 Random Glucose 96 Calcium 8.1 L Total Bilirubin 0.6 AST 41 H ALT 132 H Alkaline Phosphatase 85 Total Protein 6.4 D Albumin 2.3 L - Imaging Impressions Head CT 01/09/18 17:17 CONCLUSION: Cervical Spine CT 01/09/18 17:18 CONCLUSION: <Kierra Saldana - Last Filed: 01/10/18 18:22> Assessment and Plan (1) Elevated LFTs Status: Acute Code(s): R94.5 - Abnormal results of liver function studies - Plan Assessment: - Elevated LFTs Pt oriented to place and year, but unable to recall month and is a poor historian. Denies personal or family history of liver issues. Denies ETOH. Thinks he was started on a new patch? yesterday but unsure what this is for or what it is called and nothing listed on home medication list. No elevation of LFTs noted from previous hospitalizations AST-915 ALT-725 T bili-0.8 Alk phos-95 Liver Work up: Hepatitis panel negative. GORDY positive, titer and interpretation pending. ASMA negative. AMA pending Iron-15 TIBC-202 %sat-7.4 Ferritin-1216 AAT-314 AFP-0.8 - Elevated troponin- cardiology states suspect elevation secondary to PNA and hypoxia - History of throat cancer S/P multiple esophageal dilatations done by Dr. Fuentes- Pt does not want total laryngectomy or G-tube Received radiation therapy- denies previous chemotherapy - Multiple recurrence of PNA secondary to aspiration (01/05) Pt now agreeable to PEG tube placement, states does not want this to be permanent. Pt has had PEG in the past, reminded him about how the PEG is removed if ability to swallow is regained without aspiration. Modified barium swallow noted --> severe to profound pharyngeal dysphagia complicated by poor bolus passage through the upper esophageal sphincter. Poor pharyngeal clearance resulted in multiple direct aspiration events with no immediate reflexive cough triggered. 01/06/2018 patient has dysphagia secondary to strictures and swallowing problem, had an attempted upper endoscopy I was not able to pass the scope because of significant stricturing and necrotic tissue in the back of the throat for the procedure was terminated (01/07) S/P G tube placement by IR today, plans to start TF in 6 hours. LFTs still trending down. GORDY and AMA positive, will order liver biopsy to further evaluate for possible autoimmune hepatitis. (01/08) Pt with no GI complaints at this time. TF turned off for liver biopsy today. States was tolerating TF while running. Mild soreness around G tube. Labs from today are pending. (01/09) No repeat labs from today. Liver biopsy still pending. On TF through G tube at 35 mL/hr (01/10/18) LFTs marked improvement, liver bx with out significant histopathologic abnormality Plan: TF per dietary Monitor LFTs Avoid hepatotoxins Gi will sign off Pt has been seen and examined by myself and Dr. Saldana and this note is written on his behalf <Kay Cesar - Last Filed: 01/10/18 16:09> (1) Elevated LFTs Status: Acute Code(s): R94.5 - Abnormal results of liver function studies - Plan Patient was seen and examined, biopsy was unremarkable, liver function improving markedly, avoid hepatotoxicity, will sign off <Kierra Saldana - Last Filed: 01/10/18 18:22>
[2018-01-10] MEDS: Dextrose 5%/NaCl 0.45% Inj 1,000 ML IV.CONT SCH (23:47)
[2018-01-11] MEDS: Morphine Inj 4 MG/ML Vial IV.PUSH PRN ×3 (01:06→12:19)
[2018-01-11] MEDS: Amoxicillin/Clavulanate 600 MG/5 ML Susp 125 ML Bottle G-TUBE SCH (08:26)
[2018-01-11] MEDS: Ramipril 2.5 MG Capsule PO SCH (08:27)
[2018-01-11 09:31] LABS: Anion Gap 6 meq/L (5-15); Blood Urea Nitrogen 11 mg/dL (7-18); Calcium 7.9 mg/dL (8.5-10.1); Carbon Dioxide 31.3 meq/L (21.0-32.0); Chloride 97 meq/L (98-107); Glomerular Filtration Rate Greater Than 89 mL/min (>89); Glucose,Random 79 mg/dL (74-106); Magnesium 2.1 mg/dL (1.5-2.5); Potassium 3.8 meq/L (3.5-5.1); Sodium 134 meq/L (136-145)
--- NOTE | 2018-01-11 09:37 | P.PN ---
Subjective Interval history: tolerating tube feedings afebrile pain controlled Physical Exam Vital signs: Vital Signs 01/10/18 09:36 01/10/18 11:21 01/10/18 12:00 Temperature 98.5 F Pulse Rate 79 74 Respiratory Rate 18 Blood Pressure 147/70 H Pulse Oximetry 94 L 92 L 01/10/18 15:32 01/10/18 16:00 01/10/18 20:00 Temperature 98.2 F Pulse Rate 74 75 89 Respiratory Rate 16 Blood Pressure 114/61 Pulse Oximetry 93 L 01/10/18 20:35 01/11/18 00:00 01/11/18 04:00 Temperature 97.2 F L 98 F 97.3 F L Pulse Rate 83 70 64 Respiratory Rate 18 18 16 Blood Pressure 109/57 L 134/63 Pulse Oximetry 94 L 95 94 L 01/11/18 05:15 01/11/18 06:37 Temperature Pulse Rate 71 Respiratory Rate 18 Blood Pressure Pulse Oximetry Intake & Output 01/10/18 01/11/18 01/11/18 18:59 06:59 18:59 Intake Total 5 / 5 Output Total 700 / 700 Balance -695 / -695 Intake: IV 5 / 5 Heparin/NS PF Inj 1,500 ML @ 0 5 / 5 mls/hr .ROUTE .[facility] Rx#: [id number] Output: Urine 700 / 700 Narrative: awake and alert, 02 sat 2 LNC Pupils equal round reactive Regular rate and rhythm, no murmurs Decreased breath sounds , no rales, no wheezes Abdomen soft nontender, PEG site- no signs of infection, right upper quadrant- post liver biopsy site- no erythema groina area- post cath site- no hematoma good peripheral pulses Left lower extremity in immobilizer, no edema Awake alert oriented 3. Results - Labs CBC & Chem 7: 01/10/18 09:05 01/11/18 08:20 Laboratory Results - last 24 hr 01/10/18 01/11/18 09:05 08:20 Sodium 134 L 134 L Potassium 3.9 3.8 Chloride 98 97 L Carbon Dioxide 28.6 31.3 Anion Gap 7 6 BUN 6 L 11 Creatinine 0.44 L 0.60 Estimated GFR Greater than 89 Greater than 89 Random Glucose 96 79 Calcium 8.1 L 7.9 L Magnesium 2.1 Total Bilirubin 0.6 AST 41 H ALT 132 H Alkaline Phosphatase 85 Total Protein 6.4 D Albumin 2.3 L - Procedures 01/07 PEG tube placement 01/08- live biopsy 01/10- cardiac cath Assessment and Plan - Assessment (1) Elevated LFTs Code(s): R94.5 - Abnormal results of liver function studies Status: Acute (2) Closed fracture of left tibial plateau Code(s): S82.142A - Displaced bicondylar fracture of left tibia, initial encounter for closed fracture Status: Acute (3) Pneumonia Code(s): J18.9 - Pneumonia, unspecified organism Status: Resolved (4) Squamous cell carcinoma of base of tongue Code(s): C01 - Malignant neoplasm of base of tongue Status: Chronic (5) NSTEMI (non-ST elevated myocardial infarction) Code(s): I21.4 - Non-ST elevation (NSTEMI) myocardial infarction Status: Acute - Plan 62-year-old male with history of throat cancer presenting to the emergency department with productive cough found to have sepsis secondary to pneumonia and dysphagia. Sepsis secondary to pneumonia, possibly aspiration pneumonia-on Augmentin till 01/09 blood culture negative to date, sputum culture grew normal georgie. Leukocytosis better and is now normal. oxygen support, duo nebs around the clock and as needed. - continue on augmentin course History of throat cancer/esophageal stricture-n.p.o., speech therapy evaluation, , barium swallow shows possible anatomic obstruction, ENT consulted, Dr. Fuentes who usually does his esophageal dilatation is out of town. OP ff up with ENT- Dr. Fuentes -Oxycodone liquid prn for pain - avoid procucts with Acetaminoehn component with LFTs elevation S/P PEG placment 01/07 with esophageal dilatation - on tube feedings 0Jevity 1.5 goal rate 60ml/hr with free water flushes. NSTEMI - Elevated troponin, likely secondary to pneumonia- EKG showed T-wave inversions in the lateral leads, troponin peaked at 0.88 and remained flat, continue aspirin. Statins on hold because of LFT elevation. Not in beta- paige because of COPD. Cont Altace per cardiology, echocardiogram showed preserved ejection fraction. S/P cardiac catheterixation- no significant disease - continue on ASA and LSELEY Elevated LFTs-ultrasound no cholelithiasis, no cholecystitis, GORDY positive. Ceruloplasmin (+), anti-smooth muscle ab negative S/P Liver biopsy 01/08-- significant pathology Possible related to Sepsis Hepatitis panel negative. Ammonia is normal. LFTs trendign down. AST from 314- down to 14. ALT from 463- down to 132 avoid hepatotoxic drugs rechcek CMP as OP - 2-3 days Small right pneumothorax post liver biopsy 01/08- in no distress - repeat CXR- decrease in size- - no acute distress - continue 02 NC 2 LNC Anemia of chronic disease-oncology is following, follow-up workup Sore throat-start lidocaine spray Recent left tibial plateau fracture-seen by orthopedics, recommended non- operative treatment, continue with nonweightbearing on left lower extremity, follow-up with orthopedics as outpatient- Dr. Workman . Repeat x-ray in 2 weeks, around January 18. Physical therapy ff Lovenox for DVT prophylaxis - Discharge planning: SNF today (2) Closed fracture of left tibial plateau Qualifiers: Encounter type: initial encounter Qualified Code(s): S82.142A - Displaced bicondylar fracture of left tibia, initial encounter for closed fracture (3) Pneumonia Qualifiers: Pneumonia type: due to unspecified organism Laterality: right Lung location : middle lobe of lung Qualified Code(s): J18.1 - Lobar pneumonia, unspecified organism
--- NOTE | 2018-01-11 09:43 | P.DS ---
Date of admission: 01/02/18 12:56 Primary care physician: Malcom Kaur DO Anticipated date of discharge: 01/11/18 Brief History from admission: patient is a 62 y/o male with history of throat cancer who presented to ER with productive cough.he was recently admitted to the hospital with left tibia plateau fracture and was discharged to rehab. he says that he's been coughing for sometime. he denies any sob, fever, chills,night sweats. he says that he's on mechanical soft diet and he doesn't report any difficulty swallowing or aspiration.he denies any chest pain, nausea, vomiting. 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 Sepsis secondary to pneumonia, possibly aspiration pneumonia-on Augmentin till 01/09 blood culture negative to date, sputum culture grew normal georige. Leukocytosis better and is now normal. oxygen support, duo nebs around the clock and as needed. - continue on augmentin course History of throat cancer/esophageal stricture-n.p.o., speech therapy evaluation, , barium swallow shows possible anatomic obstruction, ENT consulted, Dr. Fuentes who usually does his esophageal dilatation is out of town. OP ff up with ENT- Dr. Fuentes -Oxycodone liquid prn for pain - avoid procucts with Acetaminoehn component with LFTs elevation S/P PEG placment 01/07 with esophageal dilatation - on tube feedings 0Jevity 1.5 goal rate 60ml/hr with free water flushes. NSTEMI - Elevated troponin, likely secondary to pneumonia- EKG showed T-wave inversions in the lateral leads, troponin peaked at 0.88 and remained flat, continue aspirin. Statins on hold because of LFT elevation. Not in beta- paige because of COPD. Cont Altace per cardiology, echocardiogram showed preserved ejection fraction. S/P cardiac catheterixation- no significant disease - continue on ASA and LESLEY Elevated LFTs-ultrasound no cholelithiasis, no cholecystitis, GORYD positive. Ceruloplasmin (+), anti-smooth muscle ab negative S/P Liver biopsy 01/08-- significant pathology Possible related to Sepsis Hepatitis panel negative. Ammonia is normal. LFTs trendign down. AST from 314- down to 14. ALT from 463- down to 132 avoid hepatotoxic drugs rechcek CMP as OP - 2-3 days Small right pneumothorax post liver biopsy 01/08- in no distress - repeat CXR- decrease in size- - no acute distress - continue 02 NC 2 LNC - repeat CXR in 2-3 days Anemia of chronic disease-oncology is following, follow-up workup Sore throat-start lidocaine spray Recent left tibial plateau fracture-seen by orthopedics, recommended non- operative treatment, continue with nonweightbearing on left lower extremity, follow-up with orthopedics as outpatient- Dr. Workman . Repeat x-ray in 2 weeks, around January 18. Physical therapy ff Lovenox for DVT prophylaxis - Discharge planning: SNF today - Time Spent with Patient Total time spent providing and/or coordinating discharge services: Greater than 30 minutes Exam Vital signs: Vital Signs 01/10/18 11:21 01/10/18 12:00 01/10/18 15:32 Temperature 98.5 F 98.2 F Pulse Rate 79 74 74 Respiratory Rate 18 16 Blood Pressure 147/70 H 114/61 Pulse Oximetry 92 L 93 L 01/10/18 16:00 01/10/18 20:00 01/10/18 20:35 Temperature 97.2 F L Pulse Rate 75 89 83 Respiratory Rate 18 Blood Pressure Pulse Oximetry 94 L 01/11/18 00:00 01/11/18 04:00 01/11/18 05:15 Temperature 98 F 97.3 F L Pulse Rate 70 64 71 Respiratory Rate 18 16 Blood Pressure 109/57 L 134/63 Pulse Oximetry 95 94 L 01/11/18 06:37 01/11/18 08:00 Temperature 98.1 F Pulse Rate 75 Respiratory Rate 18 14 Blood Pressure 109/59 L Pulse Oximetry 94 L Intake & Output 01/10/18 01/11/18 01/11/18 18:59 06:59 18:59 Intake Total 5 / 5 Output Total 700 / 700 Balance -695 / -695 Intake: IV 5 / 5 Heparin/NS PF Inj 1,500 ML @ 0 5 / 5 mls/hr .ROUTE .[facility] ONE Rx#: [id number] Output: Urine 700 / 700 Results Procedures completed during hospitalization: 01/07 PEG tube placement 01/08- live biopsy 01/10- cardiac cath Labs on day of discharge: Labs from last 24 hours 01/11/18 01/10/18 08:20 09:05 Sodium 134 L 134 L Potassium 3.8 3.9 Chloride 97 L 98 Carbon Dioxide 31.3 28.6 Anion Gap 6 7 BUN 11 6 L Creatinine 0.60 0.44 L Estimated GFR Greater than 89 Greater than 89 Random Glucose 79 96 Calcium 7.9 L 8.1 L Magnesium 2.1 Total Bilirubin 0.6 AST 41 H ALT 132 H Alkaline Phosphatase 85 Total Protein 6.4 D Albumin 2.3 L - Impressions ITS Impressions Liver Ultrasound 01/02/18 00:00 CONCLUSION: 1. Cholelithiasis. No sonographic evidence to suggest acute cholecystitis. 2. Trace amount of ascitic fluid. 3. Small bilateral pleural effusions. Knee X-Ray 01/03/18 00:00 CONCLUSION: 1. Mildly depressed and comminuted lateral tibial plateau fracture with a configuration similar to the study from 11 days ago. 2. Stable small joint effusion. Videofluoroscopic Swallow 01/03/18 00:00 CONCLUSION: For a full detailed report, see report by the speech pathologist. Gastrostomy Tube Placement 01/07/18 00:00 CONCLUSION: 1. Uncomplicated gastrostomy tube placement as above. Liver Biopsy CT 01/08/18 00:00 CONCLUSION: 1. Successful CT-guided liver biopsy. Small pneumothorax is noted. Chest X-Ray 01/08/18 12:45 CONCLUSION: Mild interval decrease in the size of the small right sided pneumothorax. Head CT 01/09/18 17:17 CONCLUSION: Cervical Spine CT 01/09/18 17:18 CONCLUSION: Discharge Plan - Discharge Disposition Patient Disposition: 03 Discharge to SNF - Discharge Condition Condition: Serious - Discharge Order Discharge Orders: Discharge Order (Routine); Ordered 01/06/18 Ordered By: Ingrid Blood - Discharge Details Anticipated Discharge Date: 01/11/18 Discharge Comment: make sure give TF instructions, routine care - Physicians Team Primary Care Provider: Malcom Kaur Attending Provider: Colt Martinez Other Providers: Irvin Hector MD ; Alex Rahman MD ; Ishan Welch MD ; Mirza Workman MD ; Atif Salomon MD ; [facility]
--- NOTE | 2018-01-11 14:00 | P.PNCA ---
Subjective Interval history: alert in nad, no groin discomfort Physical Exam Vital signs: Vital Signs 01/10/18 15:32 01/10/18 16:00 01/10/18 20:00 Temperature 98.2 F Pulse Rate 74 75 89 Respiratory Rate 16 Blood Pressure 114/61 Pulse Oximetry 93 L 01/10/18 20:35 01/11/18 00:00 01/11/18 04:00 Temperature 97.2 F L 98 F 97.3 F L Pulse Rate 83 70 64 Respiratory Rate 18 18 16 Blood Pressure 109/57 L 134/63 Pulse Oximetry 94 L 95 94 L 01/11/18 05:15 01/11/18 06:37 01/11/18 08:00 Temperature 98.1 F Pulse Rate 71 75 Respiratory Rate 18 14 Blood Pressure 109/59 L Pulse Oximetry 94 L 01/11/18 12:00 Temperature 98.8 F Pulse Rate 71 Respiratory Rate 14 Blood Pressure 112/65 Pulse Oximetry 97 Intake & Output 01/10/18 01/11/18 01/11/18 18:59 06:59 18:59 Intake Total 5 / 5 Output Total 700 / 700 Balance -695 / -695 Intake: IV 5 / 5 Heparin/NS PF Inj 1,500 ML @ 0 5 / 5 mls/hr .ROUTE .my4oneone ONE Rx#: [id number] Output: Urine 700 / 700 Assessment and Plan - Assessment (1) NSTEMI (non-ST elevated myocardial infarction) Code(s): I21.4 - Non-ST elevation (NSTEMI) myocardial infarction Status: Acute (2) Elevated LFTs Code(s): R94.5 - Abnormal results of liver function studies Status: Acute (3) Squamous cell carcinoma of base of tongue Code(s): C01 - Malignant neoplasm of base of tongue Status: Chronic - Plan 1.) NSTEMI - suspect troponin elevation due to pneumonia and hypoxia, he is assymptomatic, continue aspirin, statin held due to elevated lfts, beta paige held due to copd, continue 2.5 mg qd, ef=65% on echo; he appears stronger today s/p peg, lhc wnl, d/w patient today, nurse at bedside
[2018-01-15 19:50] LABS: ALT(LFP) 166 U/L (9-46); Apolipoprotein A1(LFP) 59 mg/dL (94-176); Fibrosis Score 0.28; Fibrosis Stage F1; GGT(LFP) 30 U/L (3-70); Necroinflammatory ACT Grade3 A3; Necroinflammatory ACT Score 0.75
== END 2018-01-11 13:06 ==
LOC: NEPC 09:50 → NEDA 12:56 → N05 15:29
PROVIDERS: ADMIT Internal Medicine; ATTEND Internal Medicine
PROC: PANENDO (2018-01-06 11:45)